=== PATIENT | female | born 1945 | race Caucasian/White ===

== ENCOUNTER → 2017-02-08 | Outpatient (CLI) | payer MEDICARE, BC ==
[~2017-02-08] MED LIST: DENOSUMAB 60 MG/ML 1 ML SYRINGE SQ ONE
[2017-02-08 09:05] VITALS: BP 160/69; PULSE 80; RESP 16; TEMP 97.6
== END ==
LOC: PROCWHC3 08:56
PROVIDERS: ATTEND Physician Assistant
DX: M81.0 Age-related osteoporosis without current pathological fracture (principal)
CPT/HCPCS: 96372; J0897

== ENCOUNTER → 2017-03-23 | Outpatient (CLI) | payer MEDICARE, BC ==
--- NOTE | 2017-03-26 13:54 | MM ---
Reason for exam: screening (asymptomatic). Last mammogram was performed 1 year and 1 month ago. History: Patient is postmenopausal. Took estrogen for 1 year. Physical Findings: A clinical breast exam by your physician is recommended on an annual basis and results should be correlated with mammographic findings. MG 3D Screening Mammo W/Cad Bilateral CC and MLO view(s) were taken. Prior study comparison: February 23, 2016, bilateral MG screening mammo w CAD. February 17, 2015, bilateral MG screening mammo w CAD. The breast tissue is heterogeneously dense. This may lower the sensitivity of mammography. No suspicious findings. No significant changes when compared with prior studies. ASSESSMENT: Negative, BI-RAD 1 RECOMMENDATION: Routine screening mammogram of both breasts in 1 year.
== END | disposition home or self-care (01) ==
LOC: RADMAMWWP 07:47
PROVIDERS: ATTEND Family Medicine
DX: Z12.31 Encounter for screening mammogram for malignant neoplasm of breast (principal)
CPT/HCPCS: 77063; G0202

== ENCOUNTER 2017-05-05 23:30 | Emergency (ER) | payer MEDICARE, BC ==
[2017-05-06] MEDS ORDERED: DIAZEPAM 5 MG/ML 2 ML SYRINGE IM ONE (00:11)
[2017-05-06] MEDS ORDERED: KETOROLAC 60 MG/2 ML VIAL IM STA (00:11)
[2017-05-06] MEDS ORDERED: ORPHENADRINE 30 MG/ML 2 ML VIAL IM STA (00:21)
--- NOTE | 2017-05-06 00:37 | CT ---
EXAM: CT Cervical Spine Without Intravenous Contrast CLINICAL HISTORY: Pain TECHNIQUE: Axial computed tomography images of the cervical spine without intravenous contrast. CTDI is 13.5 mGy and DLP is 268 mGy-cm. This CT exam was performed using one or more of the following dose reduction techniques: automated exposure control, adjustment of the mA and/or kV according to patient size, and/or use of iterative reconstruction technique. COMPARISON: No relevant prior studies available. FINDINGS: Vertebrae: No acute fracture or traumatic malalignment. Discs/spinal canal/neural foramina: Multilevel degenerative changes most pronounced at C4-5 and C5-6 there is moderate bilateral neural foraminal stenosis. Soft tissues: Unremarkable. Lung apices: Centrilobular emphysema is noted. IMPRESSION: No acute findings.
--- NOTE | 2017-05-06 01:10 | ED ---
Extremity Problem HPI - General Chief complaint: Extremity Problem,Nontraumatic Stated complaint: Arm Pain Time Seen by Provider: 05/05/17 23:51 Source: patient Mode of arrival: ambulatory Limitations: no limitations - History of Present Illness Initial comments: 71-year-old female patient presents to emergency department today for evaluation of right arm pain. Patient states the pain started approximately 4 days ago. States it is constant and sharp. She states that it shoots down her right arm. States that the pain feels like it starts in her shoulder and radiates down however shows have some right-sided neck discomfort as well. She denies any increase in pain with movement or palpation. She states that she does have some swelling in the right hand. She denies any injury to the arm, strenuous activity, or change in activity. She denies any numbness or tingling to the arm or hand. She states that she has had neck issues in the distant past however that was completely different from what she is experiencing now. Patient denies any recent fever, chills, shortness breath, chest pain, palpitations, abdominal pain, nausea, vomiting, diarrhea, constipation, back pain, numbness, tingling, dizziness, weakness, hematuria, dysuria, urinary urgency, urinary frequency, headache, visual changes, or any other complaints. Her only past medical history is osteoporosis and hyperlipidemia. - Related Data Home Medications Medication Instructions Recorded Confirmed Calcium Carbonate/Vitamin D3 1 tab PO TID 06/08/14 08/10/16 [Calcium 600-Vit D3 400 Tablet] Denosumab [Prolia] 60 mg SQ Q180D 08/03/15 08/10/16 Previous Rx's Medication Instructions Recorded Cyclobenzaprine [Flexeril] 10 mg PO TID #15 tab 05/06/17 Hydrocodone/Acetaminophen [[place] 1 tab PO Q6HR PRN #15 tab 05/06/17 5-325] Ibuprofen [Motrin] 600 mg PO Q8HR PRN #30 tab 05/06/17 Allergies Allergy/AdvReac Type Severity Reaction Status Date / Time Penicillins Allergy Swelling Verified 05/05/17 23:44 codeine AdvReac Nausea Verified 05/05/17 23:44 any cholesterol medications Allergy Itching Uncoded 05/05/17 23:44 Review of Systems ROS Statement: Those systems with pertinent positive or pertinent negative responses have been documented in the HPI. ROS Other: All systems not noted in ROS Statement are negative. Past Medical History Past Medical History: Hyperlipidemia Additional Past Medical History / Comment(s): skin cancer, osteoporosis History of Any Multi-Drug Resistant Organisms: None Reported Past Surgical History: Adenoidectomy, Appendectomy, Hysterectomy, Tonsillectomy Additional Past Surgical History / Comment(s): cataracts Past Anesthesia/Blood Transfusion Reactions: No Reported Reaction, Family History of Problems w/ Anesthesia Additional Past Anesthesia/Blood Transfusion Reaction / Comment(s): CHILDREN= PONV Past Psychological History: No Psychological Hx Reported Smoking Status: Current every day smoker - Past Family History Daughter(s) Family Medical History: Cancer General Exam Limitations: no limitations General appearance: alert, in no apparent distress Eye exam: Present: normal appearance, PERRL, EOMI. Absent: scleral icterus, conjunctival injection, periorbital swelling ENT exam: Present: normal exam, normal oropharynx, mucous membranes moist Neck exam: Present: normal inspection, other (Tenderness over the right upper trapezius muscle.). Absent: tenderness, meningismus, lymphadenopathy Respiratory exam: Present: normal lung sounds bilaterally. Absent: respiratory distress, wheezes, rales, rhonchi, stridor Cardiovascular Exam: Present: regular rate, normal rhythm, normal heart sounds. Absent: systolic murmur, diastolic murmur, rubs, gallop, clicks GI/Abdominal exam: Present: soft, normal bowel sounds. Absent: distended, tenderness, guarding, rebound, rigid Extremities exam: Present: normal inspection, full ROM, normal capillary refill , other (Skin is pink, warm, and dry. Strength to bilateral upper extremities is 5 out of 5. Full range of motion without increase in pain or limitation. Cap refills less than 3 seconds. No evidence of rash, joint swelling, erythema. ). Absent: tenderness, pedal edema, joint swelling, calf tenderness Back exam: Present: normal inspection, full ROM Neurological exam: Present: alert, oriented X3, CN II-XII intact Psychiatric exam: Present: normal affect, normal mood Skin exam: Present: warm, dry, intact, normal color. Absent: rash Course Vital Signs 05/05/17 05/06/17 23:40 01:39 Temperature 97 F L 98.0 F Pulse Rate 82 65 Respiratory 16 18 Rate Blood Pressure 194/88 178/81 O2 Sat by Pulse 98 96 Oximetry Medical Decision Making - Medical Decision Making 71-year-old female patient possessed to emergency department today for evaluation of right arm pain. Patient did not have any injury to the arm. CT of the neck was obtained and did show some degenerative changes most pronounced at C4 to 5 and 5-6 with a bilateral neural foraminal stenosis. Patient did have some improvement of symptoms with administration of Toradol and Norflex intramuscularly. She will be discharged home with a prescription of [place], ibuprofen, and Flexeril. She is instructed to follow-up with her primary care physician for recheck in 1-2 days. She is instructed to return here immediately for any increase in swelling, redness, fever, chills, new, worsening , or concerning symptoms. Patient verbalizes understanding and agrees with this plan. - Radiology Data Radiology results: report reviewed, image reviewed CT of the cervical spine shows no acute fracture or traumatic malalignment. Disks and spinal canal and neural foramina show multilevel degenerative changes most pronounced at C4 to 5 and C5 to 6 there is moderate bilateral neural foraminal stenosis. Soft tissues are unremarkable. Lung apices shows centrilobular emphysema. Impression by Dr. Packer shows no acute findings. Disposition Clinical Impression: Cervical radiculopathy Disposition: HOME SELF-CARE Condition: Good Instructions: Cervical Radiculopathy (ED) Additional Instructions: Gentle range of motion. Take pain medications as directed. Follow-up for reevaluation with her primary care physician one to 2 days. Return here immediately for any new, worsening, or concerning symptoms. Prescriptions: Cyclobenzaprine [Flexeril] 10 mg PO TID #15 tab Hydrocodone/Acetaminophen [[place] 5-325] 1 tab PO Q6HR PRN #15 tab PRN Reason: Pain Ibuprofen [Motrin] 600 mg PO Q8HR PRN #30 tab PRN Reason: Pain Referrals: Agustín Farnsworth MD [Primary Care Provider] - 1-2 days Time of Disposition: 01:11
[2017-05-06] MEDS ORDERED: traMADol 50 MG STARTER PACK 3 TAB BTL PO STA (01:13)
[2017-05-06] MEDS ORDERED: HYDROcodone/APAP 5-325MG 1 EACH TAB PO STA (01:28)
[2017-05-06 01:40] VITALS: BP 178/81; PULSE 65; RESP 18; TEMP 98
== END 2017-05-06 01:40 | disposition home or self-care (01) ==
LOC: EC 23:30
DX: M47.22 Other spondylosis with radiculopathy, cervical region (principal); M48.02 Spinal stenosis, cervical region; M81.0 Age-related osteoporosis without current pathological fracture; F17.200 Nicotine dependence, unspecified, uncomplicated; Z85.828 Personal history of other malignant neoplasm of skin; Z88.0 Allergy status to penicillin; Z88.5 Allergy status to narcotic agent; Z88.8 Allergy status to other drugs, medicaments and biological substances; Z79.899 Other long term (current) drug therapy
CPT/HCPCS: 99284; 96372 ×2; 72125; J2360; J1885

== ENCOUNTER 2017-05-24 18:42 | Inpatient (IN) | payer MEDICARE, BC ==
[2017-05-24] MEDS ORDERED: SODIUM CHLORIDE 0.9% 500 ML IV STA (19:02)
[2017-05-24] MEDS ORDERED: ONDANSETRON 4 MG/2 ML VIAL IVP STA (19:02)
[2017-05-24] MEDS ORDERED: SODIUM CHLORIDE 0.9% 1,000 ML IV STA (19:02)
[2017-05-24] MEDS ORDERED: MORPHINE SULFATE 4 MG/ML SYRINGE IV STA (19:02)
[2017-05-24] MEDS ORDERED: RX INFO: IV CONTRAST WAS GIVEN 1 EACH MISC MISCELLANE PRN (19:02)
--- NOTE | 2017-05-24 19:15 | ED ---
General Adult HPI - General Chief complaint: Abdominal Pain Stated complaint: Abd Pain Time Seen by Provider: 05/24/17 18:53 Source: patient, RN notes reviewed, old records reviewed Mode of arrival: ambulatory Limitations: no limitations - History of Present Illness Initial comments: This is a 72-year-old female to the ER for vaginal bowel pain. 3 days of increasing crampy abdominal pain and today severe. Positive nausea no vomiting positive diarrhea. No fevers. Patient has no history of AAA. No recent change in medications, patient has not tried any pain medications at home. Pain is not worse with eating. No blood in stool. No family members with similar symptoms. - Related Data Home Medications Medication Instructions Recorded Confirmed Calcium Carbonate/Vitamin D3 1 tab PO TID 06/08/14 05/24/17 [Calcium 600-Vit D3 400 Tablet] Denosumab [Prolia] 60 mg SQ Q180D 08/03/15 05/24/17 Previous Rx's Medication Instructions Recorded Ciprofloxacin HCl [Cipro] 500 mg PO Q12HR #14 tablet 05/25/17 metroNIDAZOLE [Flagyl] 500 mg PO TID #21 tab 05/25/17 Allergies Allergy/AdvReac Type Severity Reaction Status Date / Time codeine Allergy Rash/Hives Verified 05/24/17 19:01 Penicillins Allergy Rash/Hives Verified 05/24/17 19:01 any cholesterol medications Allergy Itching Uncoded 05/24/17 18:47 Review of Systems ROS Statement: Those systems with pertinent positive or pertinent negative responses have been documented in the HPI. ROS Other: All systems not noted in ROS Statement are negative. Past Medical History Past Medical History: No Reported History, Hyperlipidemia Additional Past Medical History / Comment(s): skin cancer, osteoporosis History of Any Multi-Drug Resistant Organisms: None Reported Past Surgical History: Adenoidectomy, Appendectomy, Hysterectomy, Tonsillectomy Additional Past Surgical History / Comment(s): cataracts Past Anesthesia/Blood Transfusion Reactions: No Reported Reaction, Family History of Problems w/ Anesthesia Additional Past Anesthesia/Blood Transfusion Reaction / Comment(s): CHILDREN= PONV Past Psychological History: No Psychological Hx Reported Smoking Status: Current every day smoker Past Alcohol Use History: None Reported Past Drug Use History: None Reported - Past Family History Daughter(s) Family Medical History: Cancer General Exam Limitations: no limitations General appearance: alert, in no apparent distress, anxious Head exam: Present: atraumatic, normocephalic, normal inspection Eye exam: Present: normal appearance, PERRL, EOMI. Absent: scleral icterus, conjunctival injection, periorbital swelling ENT exam: Present: normal exam, mucous membranes moist Neck exam: Present: normal inspection. Absent: tenderness, meningismus, lymphadenopathy Respiratory exam: Present: normal lung sounds bilaterally. Absent: respiratory distress, wheezes, rales, rhonchi, stridor Cardiovascular Exam: Present: normal rhythm, tachycardia, normal heart sounds. Absent: systolic murmur, diastolic murmur, rubs, gallop, clicks GI/Abdominal exam: Present: soft, distended, tenderness, guarding, normal bowel sounds. Absent: rebound, rigid Extremities exam: Present: normal inspection, full ROM, normal capillary refill. Absent: tenderness, pedal edema, joint swelling, calf tenderness Back exam: Present: normal inspection Neurological exam: Present: alert, oriented X3, CN II-XII intact Psychiatric exam: Present: normal affect, normal mood Skin exam: Present: warm, dry, intact, normal color. Absent: rash Course Vital Signs 05/24/17 05/24/17 05/24/17 18:44 19:32 20:21 Temperature 97.8 F 98.5 F Pulse Rate 116 H 97 85 Respiratory 18 18 16 Rate Blood Pressure 187/82 159/79 158/71 O2 Sat by Pulse 98 97 95 Oximetry 05/24/17 05/24/17 05/24/17 21:13 21:39 23:04 Temperature 98.9 F Pulse Rate 90 83 85 Respiratory 18 18 18 Rate Blood Pressure 148/78 133/61 153/70 O2 Sat by Pulse 98 96 96 Oximetry - Reevaluation(s) Reevaluation #1: Able to achieve adequate pain control Patient is not excited about staying in the hospital Counseled the family regarding patient's findings, agree on admission and treatment plan Medical Decision Making - Medical Decision Making 72 female the ER for bowel pain severe bowel pain with nausea no vomiting diarrhea. Patient has no prior history of colonoscopy, CT positive for diverticulitis, will treat with IV antibiotics and by mouth and IV fluid - Lab Data Result diagrams: 05/24/17 19:10 05/24/17 19:10 Lab Results 05/24/17 05/24/17 05/24/17 Range/Units 17:09 17:09 17:09 WBC (3.8-10.6) k/uL RBC (3.80-5.40) m/uL Hgb (11.4-16.0) gm/dL Hct (34.0-46.0) % MCV (80.0-100.0) fL MCH (25.0-35.0) pg MCHC (31.0-37.0) g/dL RDW (11.5-15.5) % Plt Count (150-450) k/uL Neutrophils % % Lymphocytes % % Monocytes % % Eosinophils % % Basophils % % Neutrophils # (1.3-7.7) k/uL Lymphocytes # (1.0-4.8) k/uL Monocytes # (0-1.0) k/uL Eosinophils # (0-0.7) k/uL Basophils # (0-0.2) k/uL PT 10.2 (9.0-12.0) sec INR 1.0 (<1.2) APTT 25.7 (22.0-30.0) sec Sodium (137-145) mmol/L Potassium (3.5-5.1) mmol/L Chloride (98-107) mmol/L Carbon Dioxide (22-30) mmol/L Anion Gap mmol/L BUN (7-17) mg/dL Creatinine (0.52-1.04) mg/dL Est GFR (MDRD) Af Amer (>60 ml/min/1.73 sqM) Est GFR (MDRD) Non-Af (>60 ml/min/1.73 sqM) Glucose (74-99) mg/dL Lactic Ac Sepsis Rflx Plasma Lactic Acid Martir (0.7-2.0) mmol/L Calcium (8.4-10.2) mg/dL Total Bilirubin (0.2-1.3) mg/dL AST (14-36) U/L ALT (9-52) U/L Alkaline Phosphatase (38-126) U/L Total Creatine Kinase 76 (30-135) U/L CK-MB (CK-2) 0.6 (0.0-2.4) ng/mL CK-MB (CK-2) Rel Index 0.8 Total Protein (6.3-8.2) g/dL Albumin (3.5-5.0) g/dL Amylase (30-110) U/L Lipase (23-300) U/L Urine Color Urine Appearance (Clear) Urine pH (5.0-8.0) Ur Specific [place] (1.001-1.035) Urine Protein (Negative) Urine Glucose (UA) (Negative) Urine Ketones (Negative) Urine Blood (Negative) Urine Nitrite (Negative) Urine Bilirubin (Negative) Urine Urobilinogen (<2.0) mg/dL Ur Leukocyte Esterase (Negative) Urine RBC (0-5) /hpf Urine WBC (0-5) /hpf Ur Squamous Epith Cells (0-4) /hpf Urine Bacteria (None) /hpf Urine Mucus (None) /hpf Blood Type O Negative Blood Type Recheck No Antibody Screen NEGATIVE Spec Expiration Date 05/27/2017230805/24/17 05/24/17 05/24/17 Range/Units 17:09 19:10 19:10 WBC 16.5 H (3.8-10.6) k/uL RBC 4.62 (3.80-5.40) m/uL Hgb 14.6 (11.4-16.0) gm/dL Hct 44.2 (34.0-46.0) % MCV 95.6 (80.0-100.0) fL MCH 31.6 (25.0-35.0) pg MCHC 33.1 (31.0-37.0) g/dL RDW 14.3 (11.5-15.5) % Plt Count 242 (150-450) k/uL Neutrophils % 86 % Lymphocytes % 7 % Monocytes % 5 % Eosinophils % 1 % Basophils % 0 % Neutrophils # 14.2 H (1.3-7.7) k/uL Lymphocytes # 1.2 (1.0-4.8) k/uL Monocytes # 0.9 (0-1.0) k/uL Eosinophils # 0.2 (0-0.7) k/uL Basophils # 0.1 (0-0.2) k/uL PT (9.0-12.0) sec INR (<1.2) APTT (22.0-30.0) sec Sodium 136 L (137-145) mmol/L Potassium 4.1 (3.5-5.1) mmol/L Chloride 101 (98-107) mmol/L Carbon Dioxide 23 (22-30) mmol/L Anion Gap 12 mmol/L BUN 13 (7-17) mg/dL Creatinine 0.90 (0.52-1.04) mg/dL Est GFR (MDRD) Af Amer >60 (>60 ml/min/1.73 sqM) Est GFR (MDRD) Non-Af >60 (>60 ml/min/1.73 sqM) Glucose 184 H (74-99) mg/dL Lactic Ac Sepsis Rflx Plasma Lactic Acid Martir (0.7-2.0) mmol/L Calcium 10.0 (8.4-10.2) mg/dL Total Bilirubin 1.0 (0.2-1.3) mg/dL AST 22 (14-36) U/L ALT 22 (9-52) U/L Alkaline Phosphatase 52 (38-126) U/L Total Creatine Kinase (30-135) U/L CK-MB (CK-2) (0.0-2.4) ng/mL CK-MB (CK-2) Rel Index Total Protein 6.7 (6.3-8.2) g/dL Albumin 4.2 (3.5-5.0) g/dL Amylase 67 (30-110) U/L Lipase 83 (23-300) U/L Urine Color Yellow Urine Appearance Clear (Clear) Urine pH 5.5 (5.0-8.0) Ur Specific [place] 1.013 (1.001-1.035) Urine Protein Trace H (Negative) Urine Glucose (UA) 3+ H (Negative) Urine Ketones Negative (Negative) Urine Blood Moderate H (Negative) Urine Nitrite Negative (Negative) Urine Bilirubin Negative (Negative) Urine Urobilinogen <2.0 (<2.0) mg/dL Ur Leukocyte Esterase Large H (Negative) Urine RBC 1 (0-5) /hpf Urine WBC 12 H (0-5) /hpf Ur Squamous Epith Cells <1 (0-4) /hpf Urine Bacteria Occasional H (None) /hpf Urine Mucus Rare H (None) /hpf Blood Type Blood Type Recheck Antibody Screen Spec Expiration Date 05/24/17 05/24/17 Range/Units 19:10 20:03 WBC (3.8-10.6) k/uL RBC (3.80-5.40) m/uL Hgb (11.4-16.0) gm/dL Hct (34.0-46.0) % MCV (80.0-100.0) fL MCH (25.0-35.0) pg MCHC (31.0-37.0) g/dL RDW (11.5-15.5) % Plt Count (150-450) k/uL Neutrophils % % Lymphocytes % % Monocytes % % Eosinophils % % Basophils % % Neutrophils # (1.3-7.7) k/uL Lymphocytes # (1.0-4.8) k/uL Monocytes # (0-1.0) k/uL Eosinophils # (0-0.7) k/uL Basophils # (0-0.2) k/uL PT (9.0-12.0) sec INR (<1.2) APTT (22.0-30.0) sec Sodium (137-145) mmol/L Potassium (3.5-5.1) mmol/L Chloride (98-107) mmol/L Carbon Dioxide (22-30) mmol/L Anion Gap mmol/L BUN (7-17) mg/dL Creatinine (0.52-1.04) mg/dL Est GFR (MDRD) Af Amer (>60 ml/min/1.73 sqM) Est GFR (MDRD) Non-Af (>60 ml/min/1.73 sqM) Glucose (74-99) mg/dL Lactic Ac Sepsis Rflx Y Plasma Lactic Acid Martir 2.1 H* (0.7-2.0) mmol/L Calcium (8.4-10.2) mg/dL Total Bilirubin (0.2-1.3) mg/dL AST (14-36) U/L ALT (9-52) U/L Alkaline Phosphatase (38-126) U/L Total Creatine Kinase (30-135) U/L CK-MB (CK-2) (0.0-2.4) ng/mL CK-MB (CK-2) Rel Index Total Protein (6.3-8.2) g/dL Albumin (3.5-5.0) g/dL Amylase (30-110) U/L Lipase (23-300) U/L Urine Color Urine Appearance (Clear) Urine pH (5.0-8.0) Ur Specific [place] (1.001-1.035) Urine Protein (Negative) Urine Glucose (UA) (Negative) Urine Ketones (Negative) Urine Blood (Negative) Urine Nitrite (Negative) Urine Bilirubin (Negative) Urine Urobilinogen (<2.0) mg/dL Ur Leukocyte Esterase (Negative) Urine RBC (0-5) /hpf Urine WBC (0-5) /hpf Ur Squamous Epith Cells (0-4) /hpf Urine Bacteria (None) /hpf Urine Mucus (None) /hpf Blood Type Blood Type Recheck Antibody Screen Spec Expiration Date - Radiology Data Radiology results: report reviewed (CT abdomen and pelvis is positive for diverticulitis), image reviewed Disposition Clinical Impression: Acute diverticulitis Disposition: ADMITTED IP TO THIS [facility] Condition: Good
[2017-05-24 19:47] LABS: Basophils # (A) 0.1 k/uL (0-0.2); Basophils % (A) 0 %; CH 32.3; CHCM 33.9; Eosinophils # (A) 0.2 k/uL (0-0.7); Eosinophils % (A) 1 %; HCT 44.2 % (34.0-46.0); HDW 2.24; HGB 14.6 gm/dL (11.4-16.0); Luc % (Auto) 1; Lymphocytes # (A) 1.2 k/uL (1.0-4.8); Lymphocytes % (A) 7 %; MCH 31.6 pg (25.0-35.0); MCHC 33.1 g/dL (31.0-37.0); MCV 95.6 fL (80.0-100.0); Mean Platelet Volume 7.4; Monocytes # (A) 0.9 k/uL (0-1.0); Monocytes % (A) 5 %; Neutrophils # (A) 14.2 k/uL (1.3-7.7); Neutrophils % (A) 86 %; RBC 4.62 m/uL (3.80-5.40); RDW 14.3 % (11.5-15.5); WBC 16.5 k/uL (3.8-10.6); WBC (Perox) 16.93
[2017-05-24 19:50] LABS: Appearance,Urine Clear (Clear); Bacteria,Urine Occasional /hpf; Bilirubin,Urine Negative (Negative); Glucose,Urine (UA) 3+ (Negative); Ketones,Urine Negative (Negative); Leukocyte Esterase,Urine Large (Negative); Mucus,Urine Rare /hpf; Nitrite,Urine Negative (Negative); PH, Urine 5.5 (5.0-8.0); Particle Count 1943; Protein,Urine Trace (Negative); RBC,Urine 1 /hpf (0-5); Specific Gravity,Urine 1.013 (1.001-1.035); Squamous Epithelial Cell,Urine <1 /hpf (0-4); UA Billing (MACRO vs. MICRO) MICRO; Urobilinogen,Urine <2.0 mg/dL (<2.0); WBC,Urine 12 /hpf (0-5)
[2017-05-24 19:57] LABS: Partial Thromboplastin Time 25.7 sec (22.0-30.0); Prothrombin Time 10.2 sec (9.0-12.0)
[2017-05-24 19:57] LABS: ALT 22 U/L (9-52); AST 22 U/L (14-36); Alkaline Phosphatase 52 U/L (38-126); Amylase 67 U/L (30-110); Anion Gap 12 mmol/L; Blood Urea Nitrogen 13 mg/dL (7-17); Carbon Dioxide 23 mmol/L (22-30); Chloride 101 mmol/L (98-107); Glucose 184 mg/dL (74-99); Non-African American GFR(MDRD) >60 (>60 ml/min/1.73 sqM); Potassium 4.1 mmol/L (3.5-5.1); Sodium 136 mmol/L (137-145); Total Protein 6.7 g/dL (6.3-8.2)
[2017-05-24 20:17] LABS: Creatine Kinase MB 0.6 ng/mL (0.0-2.4)
[2017-05-24] MEDS ORDERED: ACETAMINOPHEN IV (For NPO) 1,000 MG in EMPTY BAG 1 BAG IVPB STA (21:16)
[2017-05-24] MEDS ORDERED: MORPHINE SULFATE 4 MG/ML SYRINGE IVP STA (21:20)
--- NOTE | 2017-05-24 21:50 | CT ---
EXAM: CT Angiography Abdomen and Pelvis Without and With Intravenous Contrast CLINICAL HISTORY: Severe abdominal pain with history of AAA. TECHNIQUE: Axial computed tomographic angiography images of the abdomen and pelvis without and with intravenous contrast. DLP is 405.4 mGy-cm. This CT exam was performed using one or more of the following dose reduction techniques: automated exposure control, adjustment of the mA and/or kV according to patient size, and/or use of iterative reconstruction technique. 3D and MIP reconstructed images were created and reviewed. Coronal and sagittal reformatted images were created and reviewed. COMPARISON: No relevant prior studies available. FINDINGS: Lower thorax: No acute findings. VASCULATURE: Aorta: There is an infrarenal abdominal aortic aneurysm measuring up to 4.8 cm in diameter (series 6 image 29) and spanning approximately 5.7 cm SI. Mural thrombus is present. No evidence of active extravasation or definite retroperitoneal hemorrhage. Multifocal atherosclerotic disease is present. There is no significant stenosis of the celiac axis or superior mesenteric artery. No dissection. Celiac trunk and mesenteric arteries: The origin of the inferior mesenteric artery is not well seen. However, the vessel opacifies normally with contrast distally. No occlusion or significant stenosis. Renal arteries: No acute findings. No occlusion or significant stenosis. Iliac arteries: Persistent opacification of the common, external and internal iliac arteries. No occlusion or significant stenosis. Other arteries: Persistent opacification of the common femoral and proximal femoral/profunda arteries. ABDOMEN: Liver: Small hepatic hypodensities, most likely cysts. Gallbladder and bile ducts: Cholecystectomy. Pancreas: Several scattered pancreatic calcifications are compatible with chronic pancreatitis. There are 3 hypodense lesions in the region of the pancreatic body adjacent to the left hepatic lobe. The largest lesion measures 1.6 cm x 1.2 x 2 cm. These are incompletely characterized on this study. Spleen: Unremarkable. No splenomegaly. Adrenals: Unremarkable. Kidneys and ureters: Unremarkable. No hydronephrosis. Stomach and bowel: No evidence of bowel obstruction. There is extensive colonic diverticulosis at the rectosigmoid. Superimposed inflammatory changes suggest acute or ongoing diverticulitis. Appendix: Not identified. PELVIS: Bladder: Minimally distended. Reproductive: The uterus is not visualized. ABDOMEN and PELVIS: Intraperitoneal space: No significant free fluid, free air or abscess. Bones/joints: Degenerative disc changes, most pronounced at L1-2 and L2-3. There is 6 mm retrolisthesis of L2 on L3 and 3 mm retrolisthesis of L3 on L4. No acute fracture. Soft tissues: Unremarkable. IMPRESSION: 1. There is extensive rectosigmoid diverticulosis. Superimposed inflammatory changes suggest acute or ongoing diverticulitis. No significant free fluid, free air or abscess. 2. There is an infrarenal abdominal aortic aneurysm measuring up to 4.8 cm in diameter and spanning approximately 5.7 cm SI. No evidence of active extravasation or definite retroperitoneal hemorrhage. No prior exam is available to evaluate for potential interval increase of size. Comparison with prior imaging is recommended. Consider surgical consultation. 3. Findings compatible with chronic pancreatitis. No acute inflammatory changes or drainable fluid collection. 4. There are 3 hypodense lesions in the region of the pancreatic body adjacent to the left hepatic lobe. The largest lesion measures 1.6 cm x 1.2 x 2 cm. There are incompletely characterized on this study. Consider nonemergent follow-up with pancreatic protocol CT or MRI, if not already obtained. 5. Additional chronic and incidental findings as above.
[2017-05-24] MEDS ORDERED: SODIUM CHLORIDE 0.9% 1,000 ML IV ONE (22:00)
[2017-05-24] MEDS ORDERED: MORPHINE SULFATE 4 MG/ML SYRINGE IVP PRN (22:01)
[2017-05-24] MEDS: LEVOFLOXACIN 750MG-D5W PMX 750 MG in DEXTROSE/WATER 1 150ML.BAG IVPB STA (22:05)
[2017-05-25 00:18] VITALS: BMI 18.5
[2017-05-25] MEDS: LEVOFLOXACIN 750MG-D5W PMX 750 MG in DEXTROSE/WATER 1 150ML.BAG IVPB STA (00:27)
[2017-05-25] MEDS: ONDANSETRON 4 MG/2 ML VIAL IVP PRN ×3 (05:13→21:15)
[2017-05-25] MEDS: PANTOPRAZOLE 40 MG/10 ML VIAL IVP SCH (08:57)
[2017-05-25] MEDS: metroNIDAZOLE 500 MG TAB PO SCH ×2 (14:50→21:10)
--- NOTE | 2017-05-25 14:50 | P.HPIM ---
History of Present Illness 72-year-old female came in with complains of sharp pain in the left lower quadrant found to have diverticulitis on the CAT scan. Patient pain was severe yesterday with significant improved but still nauseous because of which I recommended to her to stay today patient was started on clear liquid diet. Patient wanted to go home. If patient is being discharged will be discharged on a week cough ciprofloxacin and metronidazole. Patient does have history of abdominal aortic aneurysm which is fairly stable now without any rupture. Patient pain significant improved compared test although she is still nauseous as mentioned above she denied any fever denied any vomiting today. Review of Systems REVIEW OF SYSTEMS: CONSTITUTIONAL: No fever, no malaise, no fatigue. HEENT: No recent visual problems or hearing problems. Denied any sore throat. CARDIOVASCULAR: No chest pain, orthopnea, PND, no palpitations, no syncope. PULMONARY: No shortness of breath, no cough, no hemoptysis. GASTROINTESTINAL: As mentioned in HPI NEUROLOGICAL: No headaches, no weakness, no numbness. HEMATOLOGICAL: Denies any bleeding or petechiae. GENITOURINARY: Denies any burning micturition, frequency, or urgency. MUSCULOSKELETAL/RHEUMATOLOGICAL: Denies any joint pain, swelling, or any muscle pain. ENDOCRINE: Denies any polyuria or polydipsia. The rest of the 14-point review of systems is negative. Past Medical History Past Medical History: Cancer, COPD, Hyperlipidemia, Osteoarthritis (OA), Pneumonia Additional Past Medical History / Comment(s): skin cancer, osteoporosis History of Any Multi-Drug Resistant Organisms: None Reported Past Surgical History: Adenoidectomy, Appendectomy, Cholecystectomy, Hysterectomy, Tonsillectomy Additional Past Surgical History / Comment(s): cataracts Past Anesthesia/Blood Transfusion Reactions: No Reported Reaction, Family History of Problems w/ Anesthesia Additional Past Anesthesia/Blood Transfusion Reaction / Comment(s): CHILDREN= PONV Past Psychological History: No Psychological Hx Reported Smoking Status: Current every day smoker Past Alcohol Use History: None Reported Additional Past Alcohol Use History / Comment(s): SMOKES < 1PPD. SMOKING SINCE SHE WAS 20 YEARS OLD. Past Drug Use History: None Reported - Past Family History Daughter(s) Family Medical History: Cancer Medications and Allergies Home Medications Medication Instructions Recorded Confirmed Type Calcium Carbonate/Vitamin D3 1 tab PO TID 06/08/14 05/24/17 History [Calcium 600-Vit D3 400 Tablet] Denosumab [Prolia] 60 mg SQ Q180D 08/03/15 05/24/17 History Ciprofloxacin HCl [Cipro] 500 mg PO Q12HR #14 tablet 05/25/17 Rx metroNIDAZOLE [Flagyl] 500 mg PO TID #21 tab 05/25/17 Rx Allergies Allergy/AdvReac Type Severity Reaction Status Date / Time codeine Allergy Rash/Hives Verified 05/24/17 19:01 Penicillins Allergy Rash/Hives Verified 05/24/17 19:01 any cholesterol medications Allergy Itching Uncoded 05/24/17 18:47 Physical Exam Vitals: Vital Signs Temp Pulse Pulse Pulse Resp BP BP 05/25/17 07:00 96.1 F L 81 18 136/95 05/25/17 00:25 18 05/24/17 23:50 99.1 F 86 18 138/65 05/24/17 23:04 98.9 F 85 18 153/70 05/24/17 21:39 83 18 133/61 05/24/17 21:13 90 18 148/78 05/24/17 20:21 85 16 158/71 05/24/17 19:32 98.5 F 97 18 159/79 05/24/17 18:44 97.8 F 116 H 18 187/82 Pulse Ox 05/25/17 07:00 90 L 05/25/17 00:25 05/24/17 23:50 92 L 05/24/17 23:04 96 05/24/17 21:39 96 05/24/17 21:13 98 05/24/17 20:21 95 05/24/17 19:32 97 05/24/17 18:44 98 Intake and Output 05/24/17 05/25/17 05/25/17 22:59 06:59 14:59 Other: Voiding Method Toilet # Emeses 1 1 Weight 43.545 kg 43 kg PHYSICAL EXAMINATION: GENERAL: The patient is alert and oriented x3, not in any acute distress. Well developed, well nourished. HEENT: Pupils are round and equally reacting to light. EOMI. No scleral icterus. No conjunctival pallor. Normocephalic, atraumatic. No pharyngeal erythema. No thyromegaly. CARDIOVASCULAR: S1 and S2 present. No murmurs, rubs, or gallops. PULMONARY: Chest is clear to auscultation, no wheezing or crackles. ABDOMEN: Soft signify left lower quadrant tenderness bowel sounds are present no rebound or rigidity. MUSCULOSKELETAL: No joint swelling or deformity. EXTREMITIES: No cyanosis, clubbing, or pedal edema. NEUROLOGICAL: Gross neurological examination did not reveal any focal deficits. SKIN: No rashes. Results CBC & Chem 7: 05/24/17 19:10 05/24/17 19:10 Labs: Abnormal Lab Results - Last 24 Hours (Table) 05/24/17 05/24/17 05/24/17 Range/Units 17:09 19:10 19:10 WBC 16.5 H (3.8-10.6) k/uL Neutrophils # 14.2 H (1.3-7.7) k/uL Sodium 136 L (137-145) mmol/L Glucose 184 H (74-99) mg/dL Plasma Lactic Acid Martir (0.7-2.0) mmol/L Urine Protein Trace H (Negative) Urine Glucose (UA) 3+ H (Negative) Urine Blood Moderate H (Negative) Ur Leukocyte Esterase Large H (Negative) Urine WBC 12 H (0-5) /hpf Urine Bacteria Occasional H (None) /hpf Urine Mucus Rare H (None) /hpf 05/24/17 Range/Units 19:10 WBC (3.8-10.6) k/uL Neutrophils # (1.3-7.7) k/uL Sodium (137-145) mmol/L Glucose (74-99) mg/dL Plasma Lactic Acid Martir 2.1 H* (0.7-2.0) mmol/L Urine Protein (Negative) Urine Glucose (UA) (Negative) Urine Blood (Negative) Ur Leukocyte Esterase (Negative) Urine WBC (0-5) /hpf Urine Bacteria (None) /hpf Urine Mucus (None) /hpf Microbiology - Last 24 Hours (Table) 05/24/17 17:09 Urine Culture - Preliminary Urine,Voided Thrombosis Risk Factor Assmnt - Choose All That Apply Any of the Below Risk Factors Present?: Yes Each Factor Represents 1 point: Abnormal pulmonary function (COPD) Other Risk Factors: Yes Each Risk Factor Represents 2 Points: Age 61-74 years Thrombosis Risk Factor Assessment Total Risk Factor Score: 3 Thrombosis Risk Factor Assessment Level: Moderate Risk Assessment and Plan Plan: #1 abdominal pain and sepsis was severe: Secondary to diverticulitis sigmoid diuretic colitis continue with antibiotics if patient wanted to be discharged will be discharged on a week of antibiotics. #2 lactic acidosis secondary to sepsis which improved now with IV fluid resuscitation. #3 incidental finding of a lesion in the pancreatic head area which has been stable from the previous exams patient was recommended to get a repeat CAT scan with pancreatic protocol in 3-6 months #4 COPD without any acute exacerbation #5 hyperlipidemia
--- NOTE | 2017-05-25 14:51 | P.DS ---
Providers Date of admission: 05/24/17 22:00 Attending physician: Darcy Graves Primary care physician: Agustín Farnsworth Hospital Course: Please refer to my HPI Patient Condition at Discharge: Good Plan - Discharge Summary New Discharge Prescriptions: New Ciprofloxacin HCl [Cipro] 500 mg PO Q12HR #14 tablet metroNIDAZOLE [Flagyl] 500 mg PO TID #21 tab No Action Calcium Carbonate/Vitamin D3 [Calcium 600-Vit D3 400 Tablet] 1 tab PO TID Denosumab [Prolia] 60 mg SQ Q180D Discharge Medication List Calcium Carbonate/Vitamin D3 [Calcium 600-Vit D3 400 Tablet] 1 tab PO TID [History] Denosumab [Prolia] 60 mg SQ Q180D 08/03/15 [History] Ciprofloxacin HCl [Cipro] 500 mg PO Q12HR #14 tablet 05/25/17 [Rx] metroNIDAZOLE [Flagyl] 500 mg PO TID #21 tab 05/25/17 [Rx] Follow up Appointment(s)/Referral(s): Agustín Farnsworth MD [Primary Care Provider] - 3 Days Discharge Disposition: HOME SELF-CARE
[2017-05-25] MEDS ORDERED: LEVOFLOXACIN 750MG-D5W PMX 750 MG in DEXTROSE/WATER 1 150ML.BAG IVPB SCH (23:00)
[2017-05-26 07:37] VITALS: BP 122/58; PULSE 81; RESP 16; TEMP 98.6
[2017-05-26] MEDS: metroNIDAZOLE 500 MG TAB PO SCH (09:23)
[2017-05-26] MEDS: PANTOPRAZOLE 40 MG/10 ML VIAL IVP SCH (09:23)
--- NOTE | 2017-05-26 12:15 | P.DS ---
Providers Date of admission: 05/24/17 22:00 Attending physician: Darcy Graves Primary care physician: Agustín Farnsworth Hospital Course: Patient was admitted for diverticulitis sigmoid diverticular colitis and patient is getting feeling much better today and patient will be discharged on ciprofloxacin and metronidazole for about a week. Nausea improved abdominal pain resolved PHYSICAL EXAMINATION: GENERAL: The patient is alert and oriented x3, not in any acute distress. Well developed, well nourished. HEENT: Pupils are round and equally reacting to light. EOMI. No scleral icterus. No conjunctival pallor. Normocephalic, atraumatic. No pharyngeal erythema. No thyromegaly. CARDIOVASCULAR: S1 and S2 present. No murmurs, rubs, or gallops. PULMONARY: Chest is clear to auscultation, no wheezing or crackles. ABDOMEN: Soft, nontender, nondistended, normoactive bowel sounds. No palpable organomegaly. MUSCULOSKELETAL: No joint swelling or deformity. EXTREMITIES: No cyanosis, clubbing, or pedal edema. NEUROLOGICAL: Gross neurological examination did not reveal any focal deficits. SKIN: No rashes. #1 abdominal pain and sepsis was severe: Secondary to diverticulitis sigmoid #2 lactic acidosis secondary to sepsis which improved now with IV fluid resuscitation. #3 incidental finding of a lesion in the pancreatic head area which has been stable from the previous exams patient was recommended to get a repeat CAT scan with pancreatic protocol in 3-6 months #4 COPD without any acute exacerbation #5 hyperlipidemia Patient Condition at Discharge: Good Plan - Discharge Summary New Discharge Prescriptions: New Ciprofloxacin HCl [Cipro] 500 mg PO Q12HR #14 tablet metroNIDAZOLE [Flagyl] 500 mg PO TID #21 tab No Action Calcium Carbonate/Vitamin D3 [Calcium 600-Vit D3 400 Tablet] 1 tab PO TID Denosumab [Prolia] 60 mg SQ Q180D Discharge Medication List Calcium Carbonate/Vitamin D3 [Calcium 600-Vit D3 400 Tablet] 1 tab PO TID [History] Denosumab [Prolia] 60 mg SQ Q180D 08/03/15 [History] Ciprofloxacin HCl [Cipro] 500 mg PO Q12HR #14 tablet 05/25/17 [Rx] metroNIDAZOLE [Flagyl] 500 mg PO TID #21 tab 05/25/17 [Rx] Follow up Appointment(s)/Referral(s): Agustín Farnsworth MD [Primary Care Provider] - 3 Days Discharge Disposition: HOME SELF-CARE
[2017-05-26] MEDS ORDERED: LEVOFLOXACIN 750MG-D5W PMX 750 MG in DEXTROSE/WATER 1 150ML.BAG IVPB SCH (21:00)
== END 2017-05-26 15:25 | disposition home or self-care (01) | DRG 872 ==
LOC: EC 18:42 → 4MS4W 22:00
PROVIDERS: ADMIT Hospitalist; ATTEND Hospitalist
DX: A41.9 Sepsis, unspecified organism (principal); K57.32 Diverticulitis of large intestine without perforation or abscess without bleeding; J44.9 Chronic obstructive pulmonary disease, unspecified; E78.5 Hyperlipidemia, unspecified; F17.200 Nicotine dependence, unspecified, uncomplicated; M81.0 Age-related osteoporosis without current pathological fracture; Z85.828 Personal history of other malignant neoplasm of skin; Z79.899 Other long term (current) drug therapy; Z88.5 Allergy status to narcotic agent; Z88.0 Allergy status to penicillin; Z88.8 Allergy status to other drugs, medicaments and biological substances
CPT/HCPCS: 36415; 74174; 80053; 81001; 82150; 82550; 82553; 83605; 83690; 85025; 85610; 85730; 86850; 86900; 86901; 87086; 96365; 96375; 96376; 99285

== ENCOUNTER → 2017-08-16 | Outpatient (CLI) | payer MEDICARE, BC ==
[2017-08-16 09:18] VITALS: BP 170/84; PULSE 74; RESP 16; TEMP 97.8
== END | disposition home or self-care (01) ==
LOC: PROCWHC3 09:03
PROVIDERS: ATTEND Physician Assistant
DX: M81.0 Age-related osteoporosis without current pathological fracture (principal)
CPT/HCPCS: 96372; J0897

== ENCOUNTER 2017-11-20 21:06 | Emergency (ER) | payer MEDICARE, BC ==
[2017-11-20 21:11] VITALS: RESP 18
[2017-11-20] MEDS ORDERED: SODIUM CHLORIDE 0.9% 1,000 ML IV STA (21:20)
[2017-11-20] MEDS ORDERED: ONDANSETRON 4 MG/2 ML VIAL IVP STA (21:20)
[2017-11-20] MEDS ORDERED: ACETAMINOPHEN TAB 325 MG TAB PO STA (21:22)
--- NOTE | 2017-11-20 21:27 | ED ---
General Adult HPI - General Chief complaint: Back Pain/Injury Stated complaint: back pain Time Seen by Provider: 11/20/17 21:16 Source: patient Mode of arrival: ambulatory Limitations: no limitations - History of Present Illness Initial comments: Patient presents with lower abdominal pain and left flank pain has been progressive over the past one week. States pain started with bilateral lower abdominal pain, however is now moved to left flank. Patient admits to urinary frequency, no hematuria. Denies vaginal bleeding or discharge, patient has hysterectomy. Patient states she had similar symptoms in the past when she was diagnosed with diverticulitis. Patient states no diarrhea or constipation, although she feels like she has had less bowel movements because she's been eating less. - Related Data Home Medications Medication Instructions Recorded Confirmed Calcium Carbonate/Vitamin D3 1 tab PO TID 06/08/14 11/20/17 [Calcium 600-Vit D3 400 Tablet] Previous Rx's Medication Instructions Recorded Acetaminophen Tab [Tylenol] 650 mg PO Q4H PRN #30 tablet 11/20/17 Ibuprofen [Motrin] 600 mg PO Q6HR PRN #20 tab 11/20/17 Moxifloxacin HCl [Avelox] 400 mg PO DAILY 10 Days #10 tablet 11/20/17 Allergies Allergy/AdvReac Type Severity Reaction Status Date / Time codeine Allergy Rash/Hives Verified 11/20/17 21:28 Penicillins Allergy Rash/Hives Verified 11/20/17 21:28 any cholesterol medications Allergy Itching Uncoded 11/20/17 21:09 Review of Systems ROS Statement: Those systems with pertinent positive or pertinent negative responses have been documented in the HPI. ROS Other: All systems not noted in ROS Statement are negative. Constitutional: Denies: fever, chills Eyes: Denies: vision change ENT: Denies: throat pain Respiratory: Denies: cough, dyspnea Cardiovascular: Denies: chest pain Endocrine: Denies: fatigue Gastrointestinal: Reports: abdominal pain. Denies: nausea, vomiting, diarrhea, constipation, hematemesis, melena, hematochezia Genitourinary: Reports: frequency. Denies: urgency, dysuria, hematuria, discharge Musculoskeletal: Reports: back pain Skin: Denies: rash Neurological: Denies: headache Past Medical History Past Medical History: No Reported History, Hyperlipidemia Additional Past Medical History / Comment(s): skin cancer, osteoporosis History of Any Multi-Drug Resistant Organisms: None Reported Past Surgical History: Adenoidectomy, Appendectomy, Hysterectomy, Tonsillectomy Additional Past Surgical History / Comment(s): cataracts Past Anesthesia/Blood Transfusion Reactions: No Reported Reaction, Family History of Problems w/ Anesthesia Additional Past Anesthesia/Blood Transfusion Reaction / Comment(s): CHILDREN= PONV Past Psychological History: No Psychological Hx Reported Smoking Status: Current every day smoker Past Alcohol Use History: None Reported Past Drug Use History: None Reported - Past Family History Daughter(s) Family Medical History: Cancer General Exam - General Exam Comments Initial Comments: Sitting up in bed. No acute distress. Conversing normally. Does not appear in pain at rest. Calm, pleasant. Limitations: no limitations General appearance: alert, in no apparent distress Head exam: Present: atraumatic, normocephalic Eye exam: Present: normal appearance, PERRL, EOMI ENT exam: Present: mucous membranes moist Neck exam: Present: normal inspection Respiratory exam: Present: normal lung sounds bilaterally. Absent: respiratory distress, wheezes, rales Cardiovascular Exam: Present: normal rhythm, tachycardia GI/Abdominal exam: Present: soft. Absent: distended, tenderness, guarding, rebound, rigid (Abdomen soft nontender) Extremities exam: Present: normal inspection Back exam: Present: normal inspection, CVA tenderness (L), other (No midline tenderness. Pain with active and passive range of motion of the lower spine, pain is fell and left flank.). Absent: tenderness, CVA tenderness (R) Neurological exam: Present: alert, oriented X3 Psychiatric exam: Present: normal affect, normal mood Skin exam: Present: warm, dry, intact, normal color. Absent: rash, erythema, vesicles Course Vital Signs 11/20/17 21:09 Temperature 97.2 F L Pulse Rate 108 H Respiratory 18 Rate Blood Pressure 186/87 O2 Sat by Pulse 96 Oximetry Medical Decision Making - Medical Decision Making IV fluids, Tylenol ordered. Patient declined Tylenol, Toradol ordered as renal function was normal. UA shows no blood or infection. CAT scan shows information the sigmoid colon, given patient's symptoms and elevated white count, likely diverticulitis. Patient updated without results. Pain control at this time. Patient feels comfortable being discharged home. Discussed clear liquid diet until symptoms resolve. We'll give prescription antibiotics and pain meds for home. He does of codeine ALLERGY, Motrin and Tylenol for home. Patient to follow primary care physician one to 2 days for reevaluation. Return to ER if any new or worsening symptoms including increased pain, fevers, not tolerating oral. Patient understands and agrees. All questions answered. Patient knows about her abdominal aneurysm, states she sees her primary care physician who ultrasounds it regularly. - Lab Data Result diagrams: 11/20/17 21:55 11/20/17 21:55 Lab Results 11/20/17 11/20/17 11/20/17 Range/Units 21:55 21:55 22:10 WBC 11.2 H (3.8-10.6) k/uL RBC 4.24 (3.80-5.40) m/uL Hgb 13.0 (11.4-16.0) gm/dL Hct 37.4 (34.0-46.0) % MCV 88.3 (80.0-100.0) fL MCH 30.6 (25.0-35.0) pg MCHC 34.7 (31.0-37.0) g/dL RDW 13.4 (11.5-15.5) % Plt Count 275 (150-450) k/uL Neutrophils % 78 % Lymphocytes % 12 % Monocytes % 7 % Eosinophils % 2 % Basophils % 0 % Neutrophils # 8.7 H (1.3-7.7) k/uL Lymphocytes # 1.3 (1.0-4.8) k/uL Monocytes # 0.8 (0-1.0) k/uL Eosinophils # 0.2 (0-0.7) k/uL Basophils # 0.0 (0-0.2) k/uL Sodium 139 (137-145) mmol/L Potassium 3.0 L* (3.5-5.1) mmol/L Chloride 100 (98-107) mmol/L Carbon Dioxide 29 (22-30) mmol/L Anion Gap 10 mmol/L BUN 19 H (7-17) mg/dL Creatinine 1.00 (0.52-1.04) mg/dL Est GFR (CKD-EPI)AfAm 66 (>60 ml/min/1.73 sqM) Est GFR (CKD-EPI)NonAf 57 (>60 ml/min/1.73 sqM) Glucose 131 H (74-99) mg/dL Calcium 9.6 (8.4-10.2) mg/dL Urine Color Light Yellow Urine Appearance Cloudy H (Clear) Urine pH 7.0 (5.0-8.0) Ur Specific [place] 1.009 (1.001-1.035) Urine Protein Trace H (Negative) Urine Glucose (UA) Negative (Negative) Urine Ketones Negative (Negative) Urine Blood Negative (Negative) Urine Nitrite Negative (Negative) Urine Bilirubin Negative (Negative) Urine Urobilinogen <2.0 (<2.0) mg/dL Ur Leukocyte Esterase Negative (Negative) Urine RBC 1 (0-5) /hpf Urine WBC <1 (0-5) /hpf Amorphous Sediment Rare H (None) /hpf Hyaline Casts 3 H (0-2) /lpf Urine Mucus Rare H (None) /hpf Disposition Clinical Impression: Diverticulitis large intestine Disposition: HOME SELF-CARE Condition: Good Instructions: Diverticulitis (ED) Additional Instructions: Eat and drink only clear liquids until symptoms resolve. Make appointment with primary care physician in one to 2 days. Return to ER if new or worsening symptoms including fevers, increased pain, not tolerating oral intake. Prescriptions: Acetaminophen Tab [Tylenol] 650 mg PO Q4H PRN #30 tablet PRN Reason: Pain Ibuprofen [Motrin] 600 mg PO Q6HR PRN #20 tab PRN Reason: Pain Moxifloxacin HCl [Avelox] 400 mg PO DAILY 10 Days #10 tablet Referrals: Agustín Farnsworth MD [Primary Care Provider] - 1-2 days
[2017-11-20 22:02] LABS: Basophils % (A) 0 %; Eosinophils # (A) 0.2 k/uL (0-0.7); Eosinophils % (A) 2 %; HCT 37.4 % (34.0-46.0); Lymphocytes # (A) 1.3 k/uL (1.0-4.8); Lymphocytes % (A) 12 %; MCH 30.6 pg (25.0-35.0); MCHC 34.7 g/dL (31.0-37.0); MCV 88.3 fL (80.0-100.0); Mean Platelet Volume 6.9; Monocytes # (A) 0.8 k/uL (0-1.0); Monocytes % (A) 7 %; Neutrophils # (A) 8.7 k/uL (1.3-7.7); Neutrophils % (A) 78 %; Platelet Count 275 k/uL (150-450); RBC 4.24 m/uL (3.80-5.40); RDW 13.4 % (11.5-15.5); WBC 11.2 k/uL (3.8-10.6)
[2017-11-20 22:12] LABS: Calcium 9.6 mg/dL (8.4-10.2)
[2017-11-20] MEDS ORDERED: POTASSIUM CHLORIDE ER 20 MEQ TAB.ER PO STA (22:14)
[2017-11-20 22:24] LABS: Amorphous Sediment,Urine Rare /hpf; Appearance,Urine Cloudy (Clear); Bilirubin,Urine Negative (Negative); Blood,Urine Negative (Negative); Color,Urine Light Yellow; Glucose,Urine (UA) Negative (Negative); Hyaline Casts,Urine 3 /lpf (0-2); Ketones,Urine Negative (Negative); Leukocyte Esterase,Urine Negative (Negative); Mucus,Urine Rare /hpf; Nitrite,Urine Negative (Negative); Protein,Urine Trace (Negative); RBC,Urine 1 /hpf (0-5); Specific Gravity,Urine 1.009 (1.001-1.035); Urobilinogen,Urine <2.0 mg/dL (<2.0); WBC,Urine <1 /hpf (0-5)
[2017-11-20] MEDS ORDERED: KETOROLAC 30 MG/ML 1 ML VIAL IVP STA (22:42)
--- NOTE | 2017-11-20 23:06 | CT ---
EXAMINATION TYPE: CT abdomen pelvis wo con DATE OF EXAM: 11/20/2017 COMPARISON: NONE HISTORY: left flank pain CT DLP: 197.9 mGycm Automated exposure control for dose reduction was used. TECHNIQUE: Helical acquisition of images was performed from the lung bases through the pelvis. FINDINGS: Lung bases are clear of consolidation. There is mild subsegmental atelectasis at the lung bases. Ther e is no pericardial effusion. There is no pleural effusion. There are multiple rounded low density ar eas in the liver consistent with cysts that measure up to almost 2 cm. There are extensive pancreatic calcifications. Spleen appears normal. There is no adrenal mass. Kidneys have normal size and contou r. There is no hydronephrosis. There is a large aneurysm of the lower abdominal aorta that measures u p to 5 cm in diameter. There is no retroperitoneal adenopathy. There is no ascites. There are multiple diverticula in the sigmoid colon. There is wall thickening involving the sigmoid c olon that measures up to 10 mm. There is no evidence of bowel obstruction. There are spondylotic thomas ges in the lumbar spine with anterior spurring. There is some narrowing at L2-3 disc space. Sacroilia c joints are intact. There is a 1.5 cm cyst in the body anteriorly of the pancreas.: IMPRESSION: LARGE ABDOMINAL AORTIC ANEURYSM. NO SIGN OF LEAKAGE. NO EVIDENCE OF RENAL STONE OR OBSTRUCTION. NO HYDRONEPHROSIS. MULTIPLE HEPATIC CYSTS. SIGMOID DIVERTICULOSIS. THERE IS WALL THICKENING OF THE MID SIGMOID COLON CONSISTENT WITH NONSPECIFIC COLITIS. NO EVIDENCE OF AN ABSCESS. EXTENSIVE PANCREATIC CALCIFICATION AND PANCREATIC CYSTS CONSISTENT WITH CHRONIC PANCREATITIS.
[2017-11-20 23:39] VITALS: BP 157/72; PULSE 98; TEMP 97.6
== END 2017-11-20 23:48 | disposition home or self-care (01) ==
LOC: EC 21:06
DX: K57.32 Diverticulitis of large intestine without perforation or abscess without bleeding (principal); M81.0 Age-related osteoporosis without current pathological fracture; F17.200 Nicotine dependence, unspecified, uncomplicated; Z85.828 Personal history of other malignant neoplasm of skin; Z90.49 Acquired absence of other specified parts of digestive tract; Z90.710 Acquired absence of both cervix and uterus; Z79.899 Other long term (current) drug therapy; Z88.0 Allergy status to penicillin; Z88.5 Allergy status to narcotic agent; Z88.8 Allergy status to other drugs, medicaments and biological substances; Z53.29 Procedure and treatment not carried out because of patient's decision for other reasons
CPT/HCPCS: 36415; 80048; 85025; 81001; 74176; 99284; 96374; 96361 ×2; J1885

== ENCOUNTER → 2018-02-08 | Outpatient (CLI) | payer MEDICARE, BC ==
--- NOTE | 2018-02-08 11:11 | XR ---
EXAMINATION TYPE: XR knee complete LT DATE OF EXAM: 02/08/2018 COMPARISON: NONE HISTORY: Pain and swelling x3 months TECHNIQUE: Three-view left knee FINDINGS: Left knee is examined in 3 views. No joint effusion is evident. Joint spaces and minimal na rrowing. Tiny amount of spurring is from the medial femoral condyle. Vascular calcification is presen t. No acute fractures or dislocations are evident. IMPRESSION: 1. Minimal degenerative change in an otherwise normal three-view left knee
== END | disposition home or self-care (01) ==
LOC: RADXRMAIN 10:28
PROVIDERS: ATTEND Family Medicine
DX: M23.92 Unspecified internal derangement of left knee (principal)

== ENCOUNTER → 2018-02-18 | Outpatient (CLI) | payer MEDICARE, BC ==
[~2018-02-18] MED LIST changes: +DENOSUMAB 60 MG/ML 1 ML SYRINGE SQ NR; -DENOSUMAB 60 MG/ML 1 ML SYRINGE SQ ONE
[2018-02-18 13:54] VITALS: BP 157/69; PULSE 87; RESP 14; TEMP 98
== END | disposition home or self-care (01) ==
LOC: PROCWHC3 13:45
PROVIDERS: ATTEND Family Medicine
DX: M81.0 Age-related osteoporosis without current pathological fracture (principal)
CPT/HCPCS: 96372; J0897

== ENCOUNTER 2018-03-04 11:47 | Inpatient (IN) | payer MEDICARE, BC ==
[2018-03-04] MEDS ORDERED: KETOROLAC 30 MG/ML 1 ML VIAL IVP STA (12:11)
[2018-03-04] MEDS ORDERED: MORPHINE SULFATE 2 MG/ML SYRINGE IVP ONE (12:11)
--- NOTE | 2018-03-04 12:16 | ED ---
Extremity Problem HPI - General Source: patient, RN notes reviewed Mode of arrival: wheelchair Limitations: no limitations <Taz Valdes - Last Filed: 03/04/18 17:25> <Lloyd Conteh - Last Filed: 03/04/18 17:31> - General Chief complaint: Extremity Problem,Nontraumatic Stated complaint: lt leg pain/swelling Time Seen by Provider: 03/04/18 12:04 - History of Present Illness Initial comments: This is a 72-year-old female presents emergency department to complaint of left knee pain. She's had progressive worsening pain to her left knee with no trauma. She states it did start when she was walking saw her PCP for this and which she has had an x-ray and scheduled for an MRI but is having given anything for pain. She states that she cannot tolerate the pain states that unbearable and severe pain when she is weightbearing or sitting. Patient states it is swollen there's been no redness. She has no history of joint infection no history of knee surgery. Patient denies any known fever, chills no paresthesias. (Taz Valdes) - Related Data Home Medications Medication Instructions Recorded Confirmed Ascorbic Acid [Vitamin C] 500 mg PO DAILY 03/04/18 03/04/18 Calcium Carbonate/Vitamin D3 1 tab PO DAILY 03/04/18 03/04/18 [Calcium 600-Vit D3 400 Caplet] Allergies Allergy/AdvReac Type Severity Reaction Status Date / Time codeine Allergy Rash/Hives Verified 03/04/18 12:18 Penicillins Allergy Rash/Hives Verified 03/04/18 12:18 [place]-Ljm-Cau Reductase Allergy Itching Verified 03/04/18 12:18 Inhibitor any cholesterol medications Allergy Itching Uncoded 03/04/18 12:03 Review of Systems ROS Other: All systems not noted in ROS Statement are negative. <Taz Valdes - Last Filed: 03/04/18 17:25> ROS Other: All systems not noted in ROS Statement are negative. <Lloyd Conteh - Last Filed: 03/04/18 17:31> ROS Statement: Those systems with pertinent positive or pertinent negative responses have been documented in the HPI. Past Medical History Past Medical History: No Reported History, Hyperlipidemia Additional Past Medical History / Comment(s): skin cancer, osteoporosis History of Any Multi-Drug Resistant Organisms: None Reported Past Surgical History: Adenoidectomy, Appendectomy, Cholecystectomy, Hysterectomy, Tonsillectomy Additional Past Surgical History / Comment(s): cataracts Past Anesthesia/Blood Transfusion Reactions: No Reported Reaction, Family History of Problems w/ Anesthesia Additional Past Anesthesia/Blood Transfusion Reaction / Comment(s): CHILDREN= PONV Past Psychological History: No Psychological Hx Reported Smoking Status: Current every day smoker - Past Family History Daughter(s) Family Medical History: Cancer <Taz Valdes - Last Filed: 03/04/18 17:25> General Exam Limitations: no limitations General appearance: alert, in no apparent distress Head exam: Present: atraumatic, normocephalic, normal inspection Respiratory exam: Present: normal lung sounds bilaterally. Absent: respiratory distress, wheezes, rales, rhonchi, stridor Cardiovascular Exam: Present: regular rate, normal rhythm, normal heart sounds. Absent: systolic murmur, diastolic murmur, rubs, gallop, clicks Extremities exam: Present: other (Left knee there is moderate swelling noted, severe pain with any range of motion, neurovascular intact there is no erythema to the knee though there is moderate warmth.) Skin exam: Present: warm, dry, intact, normal color. Absent: rash <Taz Valdes - Last Filed: 03/04/18 17:25> Vital Signs 03/04/18 03/04/18 03/04/18 11:57 13:42 15:17 Temperature 98.6 F Pulse Rate 105 H 80 85 Respiratory 18 18 18 Rate Blood Pressure 203/120 167/72 132/65 O2 Sat by Pulse 100 98 96 Oximetry Procedures - Joint Aspiration/Injection Consent Obtained: verbal consent Indications: R/O septic arthritis Side of Body: left Joint Aspirated: knee Skin Prep: Povidone-Iodine1% Local Anesthesia Used: Lidocaine 1% Amount of Anesthesia Used (mLs): 8 Needle Size Used: 18G Syringe Size Used: Other (30) Fluid Obtained: turbid Total Fluid Obtained (mls): 30 Patient Tolerated Procedure: well, no complications Complications: none <Taz Valdes - Last Filed: 03/04/18 17:25> Medical Decision Making - Lab Data Result diagrams: 03/04/18 12:36 03/04/18 12:36 <Taz Valdes - Last Filed: 03/04/18 17:25> - Lab Data Result diagrams: 03/04/18 12:36 03/04/18 12:36 <Lloyd Conteh - Last Filed: 03/04/18 17:31> - Medical Decision Making I did discuss the case with Dr. Arechiga in which the patient will be admitted to his services for a washout in the morning. He does not recommend any antibiotics at this time. This may be inflammatory versus infectious but cultures are pending. (Taz Valdes) Patient was previously evaluated by myself, Dr. Conteh. Patient does have moderate left effusion with moderate to severe tenderness and minimal warmth. Patient did have arthrocentesis done with inconclusive results. Symptoms are more suspicious for inflammatory. Dr. Arechiga was notified who would like to admit patient without antibiotics for probable washout. I reviewed and agree with PAs findings. This includes all diagnostic interpretations and treatment plan. (Lloyd Conteh) - Lab Data Lab Results 03/04/18 03/04/18 03/04/18 Range/Units 12:36 12:36 15:26 WBC 10.1 (3.8-10.6) k/uL RBC 4.80 (3.80-5.40) m/uL Hgb 14.8 (11.4-16.0) gm/dL Hct 43.8 (34.0-46.0) % MCV 91.1 (80.0-100.0) fL MCH 30.8 (25.0-35.0) pg MCHC 33.8 (31.0-37.0) g/dL RDW 13.5 (11.5-15.5) % Plt Count 250 (150-450) k/uL Neutrophils % 76 % Lymphocytes % 16 % Monocytes % 6 % Eosinophils % 2 % Basophils % 0 % Neutrophils # 7.7 (1.3-7.7) k/uL Lymphocytes # 1.6 (1.0-4.8) k/uL Monocytes # 0.6 (0-1.0) k/uL Eosinophils # 0.2 (0-0.7) k/uL Basophils # 0.0 (0-0.2) k/uL ESR 13 (0-20) mm/hr Sodium 140 (137-145) mmol/L Potassium 3.7 (3.5-5.1) mmol/L Chloride 104 (98-107) mmol/L Carbon Dioxide 27 (22-30) mmol/L Anion Gap 9 mmol/L BUN 14 (7-17) mg/dL Creatinine 0.90 (0.52-1.04) mg/dL Est GFR (CKD-EPI)AfAm 74 (>60 ml/min/1.73 sqM) Est GFR (CKD-EPI)NonAf 64 (>60 ml/min/1.73 sqM) Glucose 91 (74-99) mg/dL Uric Acid 3.3 L (3.7-7.4) mg/dL Calcium 9.8 (8.4-10.2) mg/dL Total Bilirubin 0.8 (0.2-1.3) mg/dL AST 22 (14-36) U/L ALT 25 (9-52) U/L Alkaline Phosphatase 68 (38-126) U/L C-Reactive Protein 30.8 H (<10.0) mg/L Total Protein 6.8 (6.3-8.2) g/dL Albumin 4.4 (3.5-5.0) g/dL Fluid Source Synovial Fluid Color [place] Fluid Appearance Cloudy Fluid RBC 45004 /uL Fluid Nucleated Cells 24817 /uL Fluid Polynuclear WBCs 80 % Fluid Mononuclear WBCs 20 % Disposition <Taz Valdes - Last Filed: 03/04/18 17:25> <Lloyd Conteh - Last Filed: 03/04/18 17:31> Clinical Impression: Effusion of left knee joint, Left knee pain Narrative: Rule out septic joint (Taz Valdes) Disposition: ADMITTED IP TO THIS HOSP Condition: Stable Referrals: Agustín Farnsworth MD [Primary Care Provider] - 1-2 days
[2018-03-04 12:50] LABS: Basophils % (A) 0 %; Eosinophils # (A) 0.2 k/uL (0-0.7); Eosinophils % (A) 2 %; HCT 43.8 % (34.0-46.0); HGB 14.8 gm/dL (11.4-16.0); Lymphocytes # (A) 1.6 k/uL (1.0-4.8); Lymphocytes % (A) 16 %; MCH 30.8 pg (25.0-35.0); MCHC 33.8 g/dL (31.0-37.0); MCV 91.1 fL (80.0-100.0); Mean Platelet Volume 6.7; Monocytes # (A) 0.6 k/uL (0-1.0); Monocytes % (A) 6 %; Neutrophils # (A) 7.7 k/uL (1.3-7.7); Neutrophils % (A) 76 %; Platelet Count 250 k/uL (150-450); RDW 13.5 % (11.5-15.5); WBC 10.1 k/uL (3.8-10.6)
[2018-03-04] MEDS: ONDANSETRON 4 MG/2 ML VIAL IVP STA (12:59)
[2018-03-04 13:07] LABS: Albumin 4.4 g/dL (3.5-5.0); C Reactive Protein 30.8 mg/L (<10.0); Calcium 9.8 mg/dL (8.4-10.2); Potassium 3.7 mmol/L (3.5-5.1); Total Bilirubin 0.8 mg/dL (0.2-1.3); Total Protein 6.8 g/dL (6.3-8.2); Uric Acid 3.3 mg/dL (3.7-7.4)
--- NOTE | 2018-03-04 13:16 | XR ---
EXAMINATION TYPE: XR knee complete LT DATE OF EXAM: 03/04/2018 COMPARISON: 02/08/2018 HISTORY: 72-year-old female with pain TECHNIQUE: 3 views FINDINGS: There is a medial sided soft tissue swelling noted. Mild medial and patellofemoral compartm ental degenerative spurring. There is a moderate to large knee joint effusion. Extensor mechanism is intact. Vascular calcifications. No acute fracture, subluxation, or dislocation seen. IMPRESSION: 1. Medial sided soft tissue swelling. If there was an injury, correlate for possible MCL sprain. 2. Mild medial and patellofemoral compartment osteoarthrosis. 3. Moderate to large knee joint effusion. If concern for internal derangement, MRI can be considered. 4. No acute osseous abnormality seen.
[2018-03-04 13:48] LABS: Erythrocyte Sedimentation Rate 13 mm/hr (0-20)
--- NOTE | 2018-03-04 13:59 | US ---
EXAMINATION TYPE: US venous doppler duplex LE LT DATE OF EXAM: 03/04/2018 12:14 PM COMPARISON: NONE CLINICAL HISTORY: 72-year-old female Pain. SIDE PERFORMED: Left TECHNIQUE: The lower extremity deep venous system is examined utilizing real time linear array sonog ruth ann with graded compression, doppler sonography and color-flow sonography. FINDINGS: VESSELS IMAGED: External Iliac Vein (EIV) Common Femoral Vein Deep Femoral Vein Greater Saphenous Vein * Femoral Vein Popliteal Vein Small Saphenous Vein * Proximal Calf Veins (* superficial vessels) Left Leg: Negative for DVT IMPRESSION: No evidence for DVT within the left lower extremity imaged from the groin to the upper calf.
[2018-03-04] MEDS ORDERED: MORPHINE SULFATE 4 MG/ML SYRINGE IVP STA (14:06)
[2018-03-04] MEDS ORDERED: LIDOCAINE 1% INJ 10MG/ML (20 ML MDV) SQ ONE (14:51)
[2018-03-04 16:10] LABS: Color,BF Orange
[2018-03-04 16:11] LABS: Appearance,BF Cloudy; Nucleated Cells, Body Fluid 21100 /uL; RBC, Body Fluid 16900 /uL
[2018-03-04 16:27] LABS: Mononuclear WBC,Body Fluid 20 %; Polynuclear WBC,Body Fluid 80 %; Total Cells Counted,Body Fluid 100
[2018-03-04] MEDS ORDERED: HYDROcodone/APAP 5-325MG 1 EACH TAB PO PRN (17:27)
[2018-03-04] MEDS ORDERED: MORPHINE SULFATE 4 MG/ML SYRINGE IV PRN (17:27)
[2018-03-04] MEDS ORDERED: ONDANSETRON 4 MG/2 ML VIAL IVP PRN (17:27)
[2018-03-04 19:07] VITALS: BMI 19.3
[2018-03-04 19:36] LABS: Partial Thromboplastin Time 24.9 sec (22.0-30.0); Prothrombin Time 9.8 sec (9.0-12.0)
--- NOTE | 2018-03-05 07:59 | P.HPOR ---
History of Present Illness H&P Date: 03/05/18 Chief Complaint: Left knee pain The patient's a 72-year-old retired female who presents with a 2 day history of progressive left knee pain and swelling. She's had some symptoms for the past 4 weeks. She denies fevers or chills. When she presented to the hospital, she had a difficult time putting any weight on the left leg. She denies injury or previous problems. Normally she ambulates without assistive devices. Past Medical History Past Medical History: No Reported History, Hyperlipidemia Additional Past Medical History / Comment(s): skin cancer, osteoporosis History of Any Multi-Drug Resistant Organisms: None Reported Past Surgical History: Adenoidectomy, Appendectomy, Cholecystectomy, Hysterectomy, Tonsillectomy Additional Past Surgical History / Comment(s): cataracts Past Anesthesia/Blood Transfusion Reactions: No Reported Reaction, Family History of Problems w/ Anesthesia Additional Past Anesthesia/Blood Transfusion Reaction / Comment(s): CHILDREN= PONV Past Psychological History: No Psychological Hx Reported Smoking Status: Current every day smoker Past Alcohol Use History: None Reported Additional Past Alcohol Use History / Comment(s): SMOKES < 1PPD. SMOKING SINCE SHE WAS 20 YEARS OLD. Past Drug Use History: None Reported - Past Family History Daughter(s) Family Medical History: Cancer Medications and Allergies Home Medications Medication Instructions Recorded Confirmed Type Ascorbic Acid [Vitamin C] 500 mg PO DAILY 03/04/18 03/04/18 History Calcium Carbonate/Vitamin D3 1 tab PO DAILY 03/04/18 03/04/18 History [Calcium 600-Vit D3 400 Caplet] Allergies Allergy/AdvReac Type Severity Reaction Status Date / Time codeine Allergy Rash/Hives Verified 03/04/18 12:18 Penicillins Allergy Rash/Hives Verified 03/04/18 12:18 Abbluvu-Xpu-Xdc Reductase Allergy Itching Verified 03/04/18 12:18 Inhibitor any cholesterol medications Allergy Itching Uncoded 03/04/18 12:03 Physical Examination - Knee left Appearance: effusion (Moderate) Effusion grade: grade 2 Tenderness with palpation: medial Pain: with flexion Gait: limping ROM: extension: -30 degrees ROM: flexion: 70 degrees (Moderate guarding) Results - Labs Labs: Abnormal Lab Results - Last 24 Hours (Table) 03/04/18 Range/Units 12:36 Uric Acid 3.3 L (3.7-7.4) mg/dL C-Reactive Protein 30.8 H (<10.0) mg/L Microbiology - Last 24 Hours (Table) 03/04/18 15:26 Gram Stain - Preliminary Knee - Left Body Fluid Culture - Preliminary H & H 03/04/18 Range/Units 12:36 Hgb 14.8 (11.4-16.0) gm/dL Hct 43.8 (34.0-46.0) % Coagulation 03/04/18 Range/Units 18:37 INR 1.0 (<1.2) Result Diagrams: 03/04/18 12:36 03/04/18 12:36 - Diagnostic results Hip x-ray: image reviewed (Mild degenerative changes, mild chondrocalcinosis) Assessment and Plan Assessment: Left knee synovitis/effusioninfectious versus inflammatory (1) Septic joint of left knee joint Current Visit: Yes Status: Acute Code(s): M00.9 - PYOGENIC ARTHRITIS, UNSPECIFIED SNOMED Code(s): 955253413 (2) Effusion of left knee joint Current Visit: Yes Status: Acute Code(s): M25.462 - EFFUSION, LEFT KNEE SNOMED Code(s): 632249339 Plan: I talked to the patient at length regarding her condition and treatment options. At this point we will plan to proceed with arthroscopic irrigation and debridement her left knee. We will obtain deep cultures in addition to consult and infectious disease. Time with Patient: Less than 30
[2018-03-05] MEDS ORDERED: LACTATED RINGERS 1,000 ML IV ONE (14:16)
[2018-03-05] MEDS: ONDANSETRON 4 MG/2 ML VIAL IVP STA (14:24)
[2018-03-05] MEDS ORDERED: DEXAMETHASONE SOD PHOSPHATE 10 MG/ML 1 ML VIAL IV ONE (14:25)
[2018-03-05] MEDS ORDERED: MIDAZOLAM 2 MG/2 ML VIAL ONE (15:03)
[2018-03-05] MEDS ORDERED: fentaNYL (PF) 50 MCG/ML 2 ML AMP ONE (15:03)
[2018-03-05] MEDS ORDERED: PROPOFOL 10 MG/ML 20 ML VIAL IV ONE (15:03)
[2018-03-05] MEDS ORDERED: SODIUM CHLORIDE 0.9% 50 ML with CLINDAMYCIN 600 MG IV ONE ×2 (15:19)
[2018-03-05] MEDS ORDERED: ACETAMINOPHEN TAB 325 MG TAB PO PRN (15:44)
--- NOTE | 2018-03-05 15:49 | P.OP ---
Date of Procedure: 03/05/18 Preoperative Diagnosis: Left knee synovitis/effusion Postoperative Diagnosis: Left knee chondrocalcinosis/synovitis/loose body/lateral meniscal tear Procedure(s) Performed: Left knee arthroscopic lavage/synovectomy of the medial, lateral, and patellofemoral compartments, loose body removal 1 x 1 cm, partial lateral meniscectomy Anesthesia: LALY Surgeon: Caden Layne Estimated Blood Loss (ml): 10 Pathology: other (Gram stain and cultures) Condition: stable Disposition: PACU Indications for Procedure: The patient's 72-year-old female who presents with a 2 day history of progressive left knee pain, swelling, and ability to bear weight. Clinically she is noted have significant synovitis and effusion in her left knee. A discussion of the risks and benefits of operative intervention was made with patient. She opted to proceed. Operative risks to include neurovascular injury , and possible need for subsequent procedures was discussed. Informed consent was obtained. Operative Findings: As below Description of Procedure: The patient was brought to the operating room, and after induction of general anesthesia the left lower extremity was prepped and draped in a normal fashion. A superior lateral portal was made through a 5 mm skin incision superior and lateral to the patella. This was used for outflow. A large effusion was encountered that was serosanguineous. Cultures were obtained. A lateral portal was made through a 5 mm vertical skin incision lateral to the patella tendon above the joint line. Diagnostic arthroscopy was performed. A medial portal made through a similar incision medial to the patella tendon above the joint line. On inspection of the medial compartment, there is marked reactive synovitis debrided with motorized shaver. The medial meniscus appeared to be stable and intact. The were some areas of chondrocalcinosis. On inspection of the lateral compartment again there is anterior lateral compartment synovitis that was debrided with motorized shaver. Chondrocalcinosis fall the middle one third of the lateral meniscus was noted along with a small meniscal tear. This was debrided back to stable base with a motorized shaver. The posterior horn appeared to be intact. On inspection patellofemoral articulation again there was marked synovitis debrided with a motorized shaver. On inspection the medial gutter, a 1 x 1 cm loose body was noted. This was extracted with a grasper. The knee was thoroughly irrigated. The portals were loosely reapproximated with Steri-Strips. A sterile dressing was applied in addition to a compression stocking. The patient was awoken from general anesthesia and transferred to recovery room in good condition. Blood loss was estimated at 10 mL. No complications were incurred.
[2018-03-05] MEDS ORDERED: LABETALOL 5 MG/ML VIAL MDV IVP ONE (16:15)
[2018-03-05] MEDS ORDERED: MORPHINE SULFATE 4 MG/ML SYRINGE IVP ONE (16:34)
[2018-03-06 11:13] VITALS: BP 137/60; PULSE 70; RESP 18; TEMP 98.2
--- NOTE | 2018-03-06 11:35 | P.PN ---
Subjective Progress Note Date: 03/06/18 Principal diagnosis: Status post right knee arthroscopy with lavage Patient seen today resting in her hospital bed, she appears comfortable. She's having no acute pain with regards to left knee. She denies any fever chills. Objective - Vital Signs Vital signs: Vital Signs Temp 98.2 F 03/06/18 07:00 Pulse 70 03/06/18 07:00 Resp 18 03/06/18 07:00 BP 137/60 03/06/18 07:00 Pulse Ox 97 03/06/18 07:00 Intake & Output 03/05/18 03/06/18 03/06/18 18:59 06:59 18:59 Intake Total 854 550 Output Total 15 Balance 839 550 Weight 44.869 kg Intake: IV 854 Oral 550 Output: Estimated Blood Loss 15 Other: # Voids 1 1 - Exam Left lower extremity: Postop bandages in good position along with the knee sleeve. Sensory exam to light touch throughout extremities intact Dorsal pedis pulses 2+ calf is soft, no tenderness with palpation - Labs CBC & Chem 7: 03/04/18 12:36 03/04/18 12:36 Labs: Microbiology - Last 24 Hours (Table) 03/05/18 15:38 Anaerobic Culture - Preliminary Knee - Left 03/04/18 15:26 Gram Stain - Preliminary Knee - Left Body Fluid Culture - Preliminary 03/04/18 12:36 Blood Culture - Preliminary Blood No Growth after 24 hours Assessment and Plan Plan: Assessment: Postoperative day 1 status post right knee arthroscopy with lavage, synovectomy , loose body removal, partial lateral meniscectomy Plan: Patient is doing very well at this time, she's remained afebrile with no increase in pain in the left knee. She stable at this time for discharge to home with instructions to follow up in 1 week for recheck Labs have revealed this was likely a pseudogout involving the left knee, last revealed no evidence of acute infection Patient will be discharged home today Time with Patient: Less than 30
--- NOTE | 2018-03-06 11:40 | P.DS ---
Providers Date of admission: 03/05/18 16:37 Expected date of discharge: 03/06/18 Attending physician: Caden Layne Consults: 03/05/18 15:44 Consult Physician Routine Consulting Provider: Mahendra Heard Reason/Comments: Possible septic arthritis Do you want consulting provider notified?: Yes Primary care physician: Agustín Farnsworth Hospital Course: Date of admission: 03/04/2018 Date of discharge: 03/06/2018 Admission diagnosis: Left knee effusion, inability to ambulate Discharge diagnosis: Status post left knee arthroscopy with lavage, partial synovectomy, loose body removal, partial lateral meniscectomy. Pseudogout left knee Attending physician: Dr. Layne Surgical procedures: Left knee arthroscopy with lavage, partial synovectomy, loose body removal, partial lateral meniscectomy Brief history: Patient is a 72-year-old female who presented to the hospital on 03/04/2018 with increasing pain involving her left knee. Patient states that the knee had been bothering her over the last month or so. A few days prior to her admission the pain significantly increased along with swelling. She reported to the emergency room, there is concern of possible infection versus inflammatory condition. Patient was admitted to the hospital for further workup and treatment. Hospital course: Details of patient's surgery can be found in operative report. Patient tolerated the procedure well and was subsequently transported to orthopedic floor. Patient's orthopeidc and medical care was provided daily. Patient had daily laboratory tests performed for evaluation of overall blood counts. Patient had daily physical therapy to include strengthening range of motion as well as education with walker ambulation. Patient was noted to have a relatively uneventful postoperative course. Patient reported satisfactory pain control with oral pain medications by postoperative day 0. Patient showed satisfactory progress with physical therapy. Patient moved steadily through the program and had no difficulty meeting the goals by postoperative day 1. Given patient's otherwise satisfactory course and having met physical therapy goals, plan is to discharge patient home on postoperative day 1. Discharge condition/disposition: Patient will be discharged home in stable condition. Discharge medications: Instructions are given on resumption of patient's normal daily medications per primary care recommendation, in addition patient will be prescribed no new medications Discharge instructions: 1. Wound care and infection precautions, keep incision dry and covered while showering, no lotions, creams, moisturizers. No soaking, tubs, pools, hottubs. Do not scrub over the incision. 2. Weight-bear as tolerated 3. Ice and elevate when necessary. Do not exceed 20 minutes per hour with ice pack. 4. Utilize compression sleeve until seen at first follow up appointment. 5. Follow up in office at 1 weeks postop with Rony Dyer PA-C 6. Follow up with your primary care doctor 7-10 days after discharge. 7. Contact [facility] with any questions, . Procedures: Left knee arthroscopy with lavage, synovectomy, loose body removal, partial lateral meniscectomy Patient Condition at Discharge: Stable Plan - Discharge Summary Discharge Rx Participant: No New Discharge Prescriptions: No Action Calcium Carbonate/Vitamin D3 [Calcium 600-Vit D3 400 Caplet] 1 tab PO DAILY Ascorbic Acid [Vitamin C] 500 mg PO DAILY Discharge Medication List Ascorbic Acid [Vitamin C] 500 mg PO DAILY 03/04/18 [History] Calcium Carbonate/Vitamin D3 [Calcium 600-Vit D3 400 Caplet] 1 tab PO DAILY [History] Follow up Appointment(s)/Referral(s): Agustín Farnsworth MD [Primary Care Provider] - 03/13/18 3:20 pm Caden Layne MD [STAFF PHYSICIAN] - 03/15/18 1:20 pm Activity/Diet/Wound Care/Special Instructions: Discharge instructions: Okay to remove bandage in 48 hours Resume home medications of discharge Weight-bear as tolerated Joex-sdt-ttdraph anti-inflammatories or Tylenol for discomfort Contact [facility] with any questions Follow-up in 1 week for recheck Discharge Disposition: HOME SELF-CARE
== END 2018-03-06 12:36 | disposition home or self-care (01) | DRG 489 ==
LOC: EC 11:47 → 3SUR 17:27 → OBSVTOIN 03-05 16:37
PROVIDERS: ADMIT Orthopaedic Surgery; ATTEND Orthopaedic Surgery
PROC: 0SBD4ZZ Excision of Left Knee Joint, Percutaneous Endoscopic Approach (ICD-10-PCS; principal; 2018-03-06)
PROC: 0SBD4ZZ Excision of Left Knee Joint, Percutaneous Endoscopic Approach (ICD-10-PCS; 2018-03-06)
DX: M65.9 Synovitis and tenosynovitis, unspecified (principal); J44.9 Chronic obstructive pulmonary disease, unspecified; M25.462 Effusion, left knee; S83.282A Other tear of lateral meniscus, current injury, left knee, initial encounter; F17.200 Nicotine dependence, unspecified, uncomplicated; M11.262 Other chondrocalcinosis, left knee; M81.0 Age-related osteoporosis without current pathological fracture; E78.5 Hyperlipidemia, unspecified; Z85.828 Personal history of other malignant neoplasm of skin; Z90.710 Acquired absence of both cervix and uterus; Z90.49 Acquired absence of other specified parts of digestive tract; Z98.42 Cataract extraction status, left eye; Z98.41 Cataract extraction status, right eye; Z96.1 Presence of intraocular lens; Z88.5 Allergy status to narcotic agent; Z88.0 Allergy status to penicillin; Z88.8 Allergy status to other drugs, medicaments and biological substances; X58.XXXA Exposure to other specified factors, initial encounter; Y92.9 Unspecified place or not applicable
CPT/HCPCS: 20610; 36415; 80053; 84550; 85025; 85610; 85652; 85730; 86140; 87040; 87070; 87075; 87205; 89050; 89060; 96374; 96375; 96376; 99284

== ENCOUNTER → 2018-04-29 | Outpatient (CLI) | payer MEDICARE, BC ==
--- NOTE | 2018-04-29 13:29 | BD ---
EXAMINATION TYPE: Axial Bone Density DATE OF EXAM: 04/29/2018 COMPARISON: 2014 CLINICAL HISTORY: menopausal Height: 4'11 1/2 Weight: 89 FRAX RISK QUESTIONS: Secondary Osteoporosis: Current Tobacco Use: y RISK FACTORS HISTORY OF: Diet low in dairy products/other sources of calcium: y Postmenopausal woman: y MEDICATIONS: Additional Medications: Additional History: EXAM MEASUREMENTS: Bone mineral densitometry was performed using the [employer] System. Bone mineral density as measured about the Lumbar spine is: ----- L1-L4(G/cm2): 1.055 T Score Values are as follows: ----- L2: -1.1 ----- L3: -0.8 ----- L4: -0.8 ----- L1-L4: -1.0 Bone mineral density has: Decreased -0.4% since study of: 02/17/2015 Bone mineral density about the R hip (g/cm2): 0.755 Bone mineral density about the L hip (g/cm2): 0.707 T Score values are as follows: -----R Neck: -2.0 -----L Neck: -2.4 -----R Total: -1.7 -----L Total: -1.9 Bone mineral density has: Increased 4.8% since study of: 02/17/2015 IMPRESSION: Osteopenia NOTE: T-SCORE=SD OF THE YOUNG ADULT MEAN.
--- NOTE | 2018-05-01 10:07 | MM ---
Reason for exam: screening (asymptomatic). Last mammogram was performed 1 year and 1 month ago. History: Patient is postmenopausal. Took estrogen for 1 year. Physical Findings: A clinical breast exam by your physician is recommended on an annual basis and results should be correlated with mammographic findings. MG 3D Screening Mammo W/Cad Bilateral CC and MLO view(s) were taken. Prior study comparison: March 23, 2017, bilateral MG 3d screening mammo w/cad. February 23, 2016, bilateral MG screening mammo w CAD. The breast tissue is heterogeneously dense. This may lower the sensitivity of mammography. Finding: There are typically benign dystrophic, round, linear calcifications in both breasts. There is no discrete abnormality. ASSESSMENT: Benign, BI-RAD 2 RECOMMENDATION: Routine screening mammogram of both breasts in 1 year.
== END | disposition home or self-care (01) ==
LOC: RADMAMWWP 11:50
PROVIDERS: ATTEND Family Medicine
DX: Z12.31 Encounter for screening mammogram for malignant neoplasm of breast (principal); M85.80 Other specified disorders of bone density and structure, unspecified site; Z78.0 Asymptomatic menopausal state
CPT/HCPCS: 77063; 77067; 77080

== ENCOUNTER → 2018-08-21 | Outpatient (CLI) | payer MEDICARE, BC ==
[~2018-08-21] MED LIST changes: -DENOSUMAB 60 MG/ML 1 ML SYRINGE SQ NR; +DENOSUMAB 60 MG/ML 1 ML SYRINGE SQ ONE
[2018-08-21 10:10] VITALS: BP 203/87; PULSE 84; RESP 16; TEMP 97.9
== END | disposition home or self-care (01) ==
LOC: PROCWHC3 09:52
PROVIDERS: ATTEND Family Medicine
DX: M81.0 Age-related osteoporosis without current pathological fracture (principal)
CPT/HCPCS: 96372; J0897

== ENCOUNTER → 2019-02-26 | Outpatient (CLI) | payer MEDICARE, BC ==
[2019-02-26 10:19] VITALS: BP 167/87; PULSE 76; RESP 16; TEMP 98.2
== END ==
LOC: PROCWHC3 09:56
PROVIDERS: ATTEND Family Medicine
DX: M81.0 Age-related osteoporosis without current pathological fracture (principal)
CPT/HCPCS: 96372; J0897

== ENCOUNTER → 2019-05-07 | Outpatient (CLI) | payer MEDICARE, BC ==
--- NOTE | 2019-05-08 07:57 | MM ---
Reason for exam: screening (asymptomatic). Last mammogram was performed 1 year ago. History: Patient is postmenopausal. Took estrogen for 1 year. Physical Findings: A clinical breast exam by your physician is recommended on an annual basis and results should be correlated with mammographic findings. MG Screening Mammo w CAD Bilateral CC and MLO view(s) were taken. Prior study comparison: April 29, 2018, bilateral MG 3d screening mammo w/cad. March 23, 2017, bilateral MG 3d screening mammo w/cad. The breast tissue is heterogeneously dense. This may lower the sensitivity of mammography. Focal asymmetry central right MLO 2.4cm from nipple. This finding is changed when compared with previous exams. ASSESSMENT: Incomplete: need additional imaging evaluation, BI-RAD 0 RECOMMENDATION: Special view mammogram of the right breast. If lesion persists on supplemental views, image directed ultrasound is recommended. [facility] will attempt to contact patient to return for supplemental views and ultrasound if indicated.
== END | disposition home or self-care (01) ==
LOC: RADMAMWWP 07:27
PROVIDERS: ATTEND Family Medicine
DX: Z12.31 Encounter for screening mammogram for malignant neoplasm of breast (principal)
CPT/HCPCS: 77067

== ENCOUNTER → 2019-05-16 | Outpatient (CLI) | payer MEDICARE, BC ==
--- NOTE | 2019-05-16 09:50 | MM ---
Reason for exam: additional evaluation requested from abnormal screening. Last mammogram was performed less than 1 month ago. History: Patient is postmenopausal. Took estrogen for 1 year. Physical Findings: Nurse did not find any significant physical abnormalities on exam. MG Work Up Mamm w CAD RT Spot compression CC, spot compression MLO, and LM view(s) were taken of the right breast. Prior study comparison: May 07, 2019, bilateral MG screening mammo w CAD. April 29, 2018, bilateral MG 3d screening mammo w/cad. There is no discrete abnormality including area of concern. No significant new findings when compared with previous films. These results were verbally communicated with the patient and result sheet given to the patient on 05/16/19. ASSESSMENT: Benign, BI-RAD 2 RECOMMENDATION: Return to routine screening mammogram schedule for both breasts.
== END ==
LOC: RADMAMWWP 07:13
PROVIDERS: ATTEND Family Medicine
DX: R92.8 Other abnormal and inconclusive findings on diagnostic imaging of breast (principal)
CPT/HCPCS: 77065

== ENCOUNTER → 2020-02-10 | Outpatient (CLI) | payer MEDICARE, BC ==
--- NOTE | 2020-02-10 13:20 | US ---
EXAMINATION TYPE: US carotid duplex BILAT DATE OF EXAM: 02/10/2020 COMPARISON: NONE CLINICAL HISTORY: R42 DIZZINESS GIDDINESS. EXAM MEASUREMENTS: RIGHT: Peak Systolic Velocity (PSV) cm/sec ----- Right CCA: 73.9 ----- Right ICA: 97.0 ----- Right ECA: 82.0 ICA/CCA ratio: 1.32 RIGHT: End Diastole cm/sec ----- Right CCA: 18.6 ----- Right ICA: 27.7 ----- Right ECA: 10.7 LEFT: Peak Systolic Velocity (PSV) cm/sec ----- Left CCA: 61.9 ----- Left ICA: 70.1 ----- Left ECA: 70.1 ICA/CCA ratio: 1.14 LEFT: End Diastole cm/sec ----- Left CCA: 16.0 ----- Left ICA: 23.0 ----- Left ECA: 11.9 VERTEBRALS (direction of flow): Right Vertebral: Antegrade Left Vertebral: Antegrade Rhythm: Normal Grayscale images show moderate peripheral plaque right greater than left carotid bulbs. The velocity measurements and ratios in both internal carotid arteries remain within normal limits. IMPRESSION: Moderate atherosclerotic changes without hemodynamically significant stenosis seen in ei ther internal carotid artery . Criteria for Assigning % of Stenosis / Diameter reduction (Estimation based on the indirect measurements of the internal carotid artery velocities (ICA PSV). 1. Normal (no stenosis)=ICA PSV < 125 cm/s: ratio < 2.0: ICA EDV<40 cm/s. 2. Less than 50% stenosis=ICA PSV < 125 cm/s: ratio < 2.0: ICA EDV<40 cm/s. 3. 50 to 69% stenosis=ICA PSV of 125 to 230 cm/s: ration 2.0 ? 4.0: ICA EDV 40-100 cm/s. 4. Greater than 70% stenosis to near occlusion= ICA PSV > 230 cm/s: ratio > 4.0: ICA EDV > 100 cm/s. 5. Near occlusion= ICA PSV velocities may be low or undetectable: variable ratio and ICA EDV. 6. Total occlusion=unable to detect flow.
--- NOTE | 2020-02-11 12:40 | ECHOF ---
Referral Reason:R42 Dizziness, I10 Hypertension MEASUREMENTS -------- HEIGHT: 152.4 cm WEIGHT: 44.0 kg BP: RVIDd: 2.2 cm (< 3.3) IVSd: 0.8 cm (0.6 - 1.1) LVIDd: 4.4 cm (3.9 - 5.3) LVPWd: 0.9 cm (0.6 - 1.1) IVSs: 1.5 cm LVIDs: 3.1 cm LVPWs: 1.4 cm LA Diam: 2.8 cm (2.7 - 3.8) LAESV Index (A-L): 15.97 ml/m Ao Diam: 2.7 cm (2.0 - 3.7) AV Cusp: 1.7 cm (1.5 - 2.6) MV EXCURSION: 16.226 mm (> 18.000) MV EF SLOPE: 94 mm/s (70 - 150) EPSS: 0.8 cm MV E Bijan: 0.93 m/s MV DecT: 153 ms MV A Bijan: 1.06 m/s MV E/A Ratio: 0.88 RAP: 5.00 mmHg RVSP: 19.66 mmHg FINDINGS -------- This was a technically good study. The left ventricular size is normal. Left ventricular wall thickness is normal. Overall left vent ricular systolic function is low-normal with, an EF between 50 - 55 %. The right ventricle is normal in size. Normal LA size by volume 22+/-6 ml/m2. The right atrium is normal in size. Interatrial and interventricular septum intact. There is mild aortic valve sclerosis. Trace amount of aortic regurgitation. The mitral valve leaflets are mildly thickened. Mild mitral annular calcification present. Mild-t o-moderate mitral regurgitation is present. Mild tricuspid regurgitation present. Right ventricular systolic pressure is normal at < 35 mmHg. Trace/mild (physiologic) pulmonic regurgitation. The aortic root size is normal. Normal inferior vena cava with normal inspiratory collapse consistent with estimated right atrial pre ssure of 5 mmHg. There is no pericardial effusion. CONCLUSIONS -------- 1. This was a technically good study. 2. The left ventricular size is normal. 3. Left ventricular wall thickness is normal. 4. Overall left ventricular systolic function is low-normal with, an EF between 50 - 55 %. 5. The right ventricle is normal in size. 6. Normal LA size by volume 22+/-6 ml/m2. 7. The right atrium is normal in size. 8. Interatrial and interventricular septum intact. 9. There is mild aortic valve sclerosis. 10. Trace amount of aortic regurgitation. 11. The mitral valve leaflets are mildly thickened. 12. Mild mitral annular calcification present. 13. [id number]-kr-[id number] mitral regurgitation is present. 14. Mild tricuspid regurgitation present. 15. Right ventricular systolic pressure is normal at < 35 mmHg. 16. Trace/mild (physiologic) pulmonic regurgitation. 17. The aortic root size is normal. 18. Normal inferior vena cava with normal inspiratory collapse consistent with estimated right atrial pressure of 5 mmHg. 19. There is no pericardial effusion. CONCRETE GRINDER OPERATOR: Halina Covarrubias RDCS
== END | disposition home or self-care (01) ==
LOC: RADECHMAIN 11:26
PROVIDERS: ATTEND Family Medicine
DX: I08.1 Rheumatic disorders of both mitral and tricuspid valves (principal); I10 Essential (primary) hypertension; I65.23 Occlusion and stenosis of bilateral carotid arteries
CPT/HCPCS: 93306; 93880

== ENCOUNTER → 2020-03-02 | Outpatient (CLI) | payer MEDICARE, BC ==
[~2020-03-02] MED LIST changes: +DENOSUMAB 60 MG/ML 1 ML SYRINGE SQ NR; -DENOSUMAB 60 MG/ML 1 ML SYRINGE SQ ONE
[2020-03-02 08:44] VITALS: BP 161/84; PULSE 77; RESP 16; TEMP 98
== END | disposition home or self-care (01) ==
LOC: PROCWHC3 08:27
PROVIDERS: ATTEND Family Medicine
DX: M81.0 Age-related osteoporosis without current pathological fracture (principal)
CPT/HCPCS: 96372; J0897

== ENCOUNTER 2020-03-26 09:24 | Observation (INO) | payer MEDICARE, BC ==
--- NOTE | 2020-03-26 10:05 | ED ---
General Adult HPI - General Chief complaint: Extremity Problem,Nontraumatic Stated complaint: Wrist pain Time Seen by Provider: 03/26/20 09:45 Source: patient Mode of arrival: ambulatory Limitations: no limitations - History of Present Illness Initial comments: Patient is a pleasant 74-year-old female presenting to the emergency Department with complaints of left wrist pain. Patient woke up with symptoms 2 days ago. Symptoms have progressed. Patient does not recall any injury. No bug bite. Patient states discomfort is greatly increased with any movement. No history of similar symptoms previously. No other area affected. No fevers. Patient does notice some mild warmth and mild redness. - Related Data Home Medications Medication Instructions Recorded Confirmed Ascorbic Acid [Vitamin C] 500 mg PO DAILY 03/04/18 03/26/20 Calcium Carbonate/Vitamin D3 1 tab PO DAILY 03/04/18 03/26/20 [Calcium 600-Vit D3 400 Caplet] Cholecalciferol [Vitamin D3 (25 1,000 unit PO DAILY 03/26/20 03/26/20 Mcg = 1000 Iu)] Temazepam [Restoril] 15 mg PO HS PRN 03/26/20 03/26/20 Allergies Allergy/AdvReac Type Severity Reaction Status Date / Time codeine Allergy Rash/Hives Verified 03/26/20 12:47 Penicillins Allergy Rash/Hives Verified 03/26/20 12:47 Fnzttoa-Cwe-Vke Reductase Allergy Itching Verified 03/26/20 12:47 Inhibitor any cholesterol medications Allergy Itching Uncoded 03/26/20 12:47 Review of Systems ROS Statement: Those systems with pertinent positive or pertinent negative responses have been documented in the HPI. ROS Other: All systems not noted in ROS Statement are negative. Constitutional: Denies: fever Eyes: Denies: eye pain ENT: Denies: ear pain Respiratory: Denies: cough Cardiovascular: Denies: chest pain Endocrine: Denies: fatigue Gastrointestinal: Denies: abdominal pain Genitourinary: Denies: dysuria Musculoskeletal: Reports: as per HPI, joint swelling, arthralgia Skin: Reports: as per HPI Neurological: Denies: weakness Past Medical History Past Medical History: No Reported History, Hyperlipidemia Additional Past Medical History / Comment(s): skin cancer, osteoporosis History of Any Multi-Drug Resistant Organisms: None Reported Past Surgical History: Adenoidectomy, Appendectomy, Cholecystectomy, Hysterectomy, Tonsillectomy Additional Past Surgical History / Comment(s): cataracts Past Anesthesia/Blood Transfusion Reactions: No Reported Reaction, Family History of Problems w/ Anesthesia Additional Past Anesthesia/Blood Transfusion Reaction / Comment(s): CHILDREN=PONV Past Psychological History: No Psychological Hx Reported Smoking Status: Current every day smoker Past Alcohol Use History: None Reported Past Drug Use History: None Reported - Past Family History Daughter(s) Family Medical History: Cancer General Exam Limitations: no limitations General appearance: alert, in no apparent distress Head exam: Present: normocephalic Eye exam: Present: normal appearance Neck exam: Present: normal inspection Respiratory exam: Present: normal lung sounds bilaterally Cardiovascular Exam: Present: regular rate, normal rhythm Expanded Peripheral pulses: 2+: Radial (L) Extremities exam: Present: tenderness Left Hand Wrist exam: Present: tenderness, swelling (Limited to the left wrist), other (Left wrist with mild erythema, tenderness and swelling. Significant pain with active and pacer range of motion. Pulses intact. Cap refill less than 2 seconds. Distally the extremity is neurovascular intact. Patient is able to move fingers with wrist discomfort.). Absent: full ROM (Pain with range of motion left wrist) Neurological exam: Present: alert. Absent: motor sensory deficit Psychiatric exam: Present: normal affect, normal mood Skin exam: Present: erythema (Mild erythema left wrist) Course Vital Signs 03/26/20 03/26/20 03/26/20 09:32 11:00 12:00 Temperature 98.5 F Pulse Rate 101 H 76 Respiratory 20 18 18 Rate Blood Pressure 194/82 137/83 O2 Sat by Pulse 98 96 Oximetry Medical Decision Making - Medical Decision Making Patient reevaluated and updated. Patient has moderate arthralgia however there appears to be some redness that the be streaking up to several centimeters past the wrist. There is concern for possible infection of the joint. Dr. Franoc has been paged for admission, covering for Dr. Farnsworth. Orthopedics will also be placed on consult. - Lab Data Result diagrams: 03/26/20 10:23 03/26/20 10:23 Lab Results 03/26/20 03/26/20 03/26/20 Range/Units 10:23 10:23 10:23 WBC 15.7 H (3.8-10.6) k/uL RBC 5.01 (3.80-5.40) m/uL Hgb 15.3 (11.4-16.0) gm/dL Hct 47.2 H (34.0-46.0) % MCV 94.1 (80.0-100.0) fL MCH 30.4 (25.0-35.0) pg MCHC 32.3 (31.0-37.0) g/dL RDW 13.8 (11.5-15.5) % Plt Count 210 (150-450) k/uL Neutrophils % 81 % Lymphocytes % 8 % Monocytes % 6 % Eosinophils % 2 % Basophils % 1 % Neutrophils # 12.7 H (1.3-7.7) k/uL Lymphocytes # 1.3 (1.0-4.8) k/uL Monocytes # 1.0 (0-1.0) k/uL Eosinophils # 0.4 (0-0.7) k/uL Basophils # 0.1 (0-0.2) k/uL PT 9.3 (9.0-12.0) sec INR 0.9 (<1.2) APTT 26.1 (22.0-30.0) sec Sodium 132 L (137-145) mmol/L Potassium 3.9 (3.5-5.1) mmol/L Chloride 97 L (98-107) mmol/L Carbon Dioxide 29 (22-30) mmol/L Anion Gap 6 mmol/L BUN 17 (7-17) mg/dL Creatinine 1.01 (0.52-1.04) mg/dL Est GFR (CKD-EPI)AfAm 64 (>60 ml/min/1.73 sqM) Est GFR (CKD-EPI)NonAf 55 (>60 ml/min/1.73 sqM) Glucose 98 (74-99) mg/dL Uric Acid 3.9 (3.7-7.4) mg/dL Calcium 9.6 (8.4-10.2) mg/dL Total Bilirubin 1.0 (0.2-1.3) mg/dL AST 19 (14-36) U/L ALT 13 (4-34) U/L Alkaline Phosphatase 68 (38-126) U/L Creatine Kinase 30 (30-135) U/L C-Reactive Protein 174.8 H (<10.0) mg/L Total Protein 6.2 L (6.3-8.2) g/dL Albumin 3.9 (3.5-5.0) g/dL - Radiology Data Radiology results: image reviewed (X-ray left wrist shows soft tissue edema, arthropathy trapezial scaphoid joint. No fracture or dislocation.) Disposition Clinical Impression: Arthralgia, Cellulitis Disposition: ADMITTED IP TO THIS HOSP Is patient prescribed a controlled substance at d/c from ED?: No Referrals: Agustín Farnsworth MD [Primary Care Provider] - 1-2 days Decision Time: 13:02
[2020-03-26] MEDS ORDERED: KETOROLAC 30 MG/ML 1 ML VIAL IVP STA (10:19)
[2020-03-26 10:31] LABS: Basophils # (A) 0.1 k/uL (0-0.2); Basophils % (A) 1 %; Eosinophils # (A) 0.4 k/uL (0-0.7); Eosinophils % (A) 2 %; HCT 47.2 % (34.0-46.0); HGB 15.3 gm/dL (11.4-16.0); Lymphocytes # (A) 1.3 k/uL (1.0-4.8); Lymphocytes % (A) 8 %; MCH 30.4 pg (25.0-35.0); MCHC 32.3 g/dL (31.0-37.0); MCV 94.1 fL (80.0-100.0); Mean Platelet Volume 6.9; Monocytes % (A) 6 %; Neutrophils # (A) 12.7 k/uL (1.3-7.7); Neutrophils % (A) 81 %; Platelet Count 210 k/uL (150-450); RBC 5.01 m/uL (3.80-5.40); RDW 13.8 % (11.5-15.5); WBC 15.7 k/uL (3.8-10.6)
[2020-03-26 10:44] LABS: INR 0.9 (<1.2)
[2020-03-26 10:45] LABS: Partial Thromboplastin Time 26.1 sec (22.0-30.0); Prothrombin Time 9.3 sec (9.0-12.0)
--- NOTE | 2020-03-26 10:47 | XR ---
EXAMINATION TYPE: XR wrist complete LT DATE OF EXAM: 03/26/2020 COMPARISON: NONE HISTORY: Pain TECHNIQUE: Four views submitted. FINDINGS: The osseous structures are intact. There is narrowing of the trapezial scaphoid joint. Soft tissue sw elling noted. And there is no acute fracture or dislocation. IMPRESSION: 1. No definite acute fracture or dislocation if symptoms persist, follow-up study in 7 to 10 days wo uld be suggested. 2. Arthropathy of the trapezial scaphoid joint. 3. Soft tissue edema.
[2020-03-26 11:17] LABS: Albumin 3.9 g/dL (3.5-5.0); Calcium 9.6 mg/dL (8.4-10.2); Potassium 3.9 mmol/L (3.5-5.1); Total Protein 6.2 g/dL (6.3-8.2); Uric Acid 3.9 mg/dL (3.7-7.4)
[2020-03-26 11:31] LABS: C Reactive Protein 174.8 mg/L (<10.0)
[2020-03-26] MEDS ORDERED: LEVOFLOXACIN 500MG-D5W PMX 500 MG in DEXTROSE/WATER 1 100ML.BAG IVPB STA (12:57)
[2020-03-26] MEDS ORDERED: NALOXONE 0.4 MG/ML 1 ML VIAL IV PRN (12:59)
[2020-03-26] MEDS ORDERED: KETOROLAC 30 MG/ML 1 ML VIAL IVP PRN ×2 (12:59→14:21)
[2020-03-26] MEDS ORDERED: LEVOFLOXACIN 500MG-D5W PMX 500 MG in DEXTROSE/WATER 1 100ML.BAG IVPB SCH (13:00)
[2020-03-26] MEDS ORDERED: TEMAZEPAM 15 MG CAP PO PRN (14:16)
[2020-03-26] MEDS ORDERED: ACETAMINOPHEN TAB 500 MG TAB PO PRN (14:19)
[2020-03-26] MEDS ORDERED: ALPRAZolam 0.25 MG TAB PO PRN (14:19)
[2020-03-26] MEDS ORDERED: PANTOPRAZOLE 40 MG/10 ML VIAL IVP SCH (14:19)
[2020-03-26] MEDS ORDERED: traMADol 50 MG TAB PO PRN (14:20)
--- NOTE | 2020-03-26 14:51 | XR ---
EXAMINATION TYPE: XR chest 1V portable DATE OF EXAM: 03/26/2020 COMPARISON: 11/02/2015 HISTORY: Shortness of breath TECHNIQUE: Single frontal view of the chest is obtained. FINDINGS: Hyperinflation suggests COPD. No consolidation or pleural effusion. Heart is at the upper limits of normal. There is a scoliosis of the spine with degenerative change. Atherosclerotic change aorta. No pneumothorax or overt interstitial edema. IMPRESSION: COPD.
--- NOTE | 2020-03-26 15:36 | HP ---
HISTORY AND PHYSICAL DATE OF SERVICE: 03/26/2020 CHIEF COMPLAINT: 1. Hip pain. 2. Pain of the left wrist joint area. HISTORY OF PRESENT ILLNESS: This is a 74-year-old woman with a past medical history or multiple medical problems including hyperlipidemia, history of pneumonia, history of left knee effusion, gout or pseudogout, history of skin cancer, adenoidectomy, appendectomy, being followed by Dr. Agustín Farnsworth in the outpatient, apparently woke up yesterday. Hence, patient noted severe pain in the left wrist which is grossly increasing in intensity. Patient came to [facility], admitted for further evaluation and treatment. There is no history of fever, chills, rigors. History of headache, loss of consciousness, seizures. The white count is elevated to 15.7, sodium is 132. The patient also had wrist x-rays showed arthropathy of the trapezoid-rivas joint. No definite acute fractures. Soft tissue edema was also noted. Patient admitted for further evaluation treatment. Uric acid is normal. There is no headache loss conscious at this time. PAST MEDICAL HISTORY: History of hyperlipidemia, history of pneumonia, hip knee effusion, gout, history of appendectomy adenoidectomy medications. HOME MEDICATIONS: 1. Vitamin D3 one thousand daily. 2. Restoril 50 mg q.h.s. p.r.n. 3. Vitamin D3 one 1 tablet, p.o. daily. 4. Vitamin C 500 mg daily. DAILY ALLERGIES: CODEINE, PENICILLIN, STATINS, CHOLESTEROL MEDICATIONS. FAMILY HISTORY: History of breast cancer. SOCIAL HISTORY: History of smoking on a daily basis. No history of alcohol intake. REVIEW OF SYSTEMS: ENT: Diminished vision, diminished hearing. CARDIOVASCULAR: No angina. RESPIRATION: No cough. GI: As mentioned earlier. : No dysuria. NERVOUS SYSTEM: No numbness or weakness. ALLERGY/IMMUNOLOGY: No asthma or hayfever. MUSCULOSKELETAL: As mentioned earlier. HEMATOLOGY: No history of anemia. ENDOCRINE: No history of diabetes or hypothyroidism. CONSTITUTIONAL: Negative. DERMATOLOGY: Negative. PSYCHIATRY: As mentioned earlier. PHYSICAL EXAMINATION: Alert and oriented x3. Pulse is 74, blood pressure 140/68, respiration 18, temperature 98.4, pulse ox 94% on room air. HEENT: Conjunctivae normal. Oral mucosa moist. NECK: No jugular venous distention. No lymph node enlargement. CARDIOVASCULAR SYSTEMS: S1, S2, muffled. RESPIRATORY: Breath sounds diminished at the bases, a few scattered rhonchi, no crackles. ABDOMEN: Soft, nontender. LEGS: No edema, no swelling. NERVOUS SYSTEM: As mentioned earlier. Moves all 4 limbs, no focal motor or sensory deficits. LYMPHATICS: No lymph node enlargement of the neck or axillae. SKIN: Erythema present over the left wrist join. JOINT: Left wrist joint is swollen, significantly limited movements, severely tender and also swelling into the whole hand and as well as multiple joints also. NERVOUS SYSTEM: No focal deficits. LABS: WBC 15.7, sodium 130, potassium 3, and CRP is 1748 and uric acid 3.9. ASSESSMENT: 1. Left wrist swelling and pain and tenderness with arthropathy, possibly gouty arthritis versus pseudogout versus infective arthropathy and pyogenic arthritis. 2. Hyponatremia. 3. Increased WBC. 4. History of hypertension. 5. Hyperlipidemia. 6. History of left knee effusion and gout. 7. History of osteoporosis. 8. History of diverticulitis. 9. History of appendectomy. 10.History of ganglionic cyst. 11.History of nicotine dependence. 12.FULL CODE. 13.Mild protein calorie malnutrition with a body mass index of 19. RECOMMENDATION AND DISCUSSION: This 74-year-old woman presented with multiple complex medical issues, will monitor the patient closely. I would recommend to continue with the Levaquin. Orthopedic evaluation. I would also get Infectious Disease evaluation. Recommend empiric treatment for gout with colchicine. Otherwise, will follow the patient closely. Prognosis guarded because of multiple complex medical conditions. Further recommendations to follow. A copy of this dictation being forwarded to Dr. Agustín Farnsworth who is the primary physician. MMODL / IJN: [id number] /
[2020-03-26] MEDS: NICOTINE 14MG/24HR PATCH TRANSDERM SCH (15:58)
--- NOTE | 2020-03-26 17:07 | P.CNOR ---
History of Present Illness - HPI Consult date: 03/26/20 History of present illness: This is a 74-year-old female who is admitted for left wrist pain. Patient states that she woke up with left wrist pain 2 days ago. Patient reports pain with range of motion of the left wrist. Patient denies injury. Patient's past medical history significant for hyperlipidemia. Patient denies any fever/chills, numbness, weakness or tingling. Review of Systems See HPI. Past Medical History Past Medical History: Cancer, Hyperlipidemia, Pneumonia Additional Past Medical History / Comment(s): Past L knee effusion/gout, hyperlipidemia but cannot tolerate statins, skin cancer with removal, osteoporosis, diverticulitis with sepsis, History of Any Multi-Drug Resistant Organisms: None Reported Past Surgical History: Adenoidectomy, Appendectomy, Cholecystectomy, Hyst erectomy, Orthopedic Surgery, Tonsillectomy Additional Past Surgical History / Comment(s): L knee arthroscopy d/t effusion, R wrist ganglion cyst surgeries x 3, skin cancer removed from nose, bilateral cataract removals/lens implants. Past Anesthesia/Blood Transfusion Reactions: No Reported Reaction, Family History of Problems w/ Anesthesia Additional Past Anesthesia/Blood Transfusion Reaction / Comm: CHILDREN=PONV Smoking Status: Current every day smoker - Past Family History Mother Family Medical History: Dementia Father History Unknown: Yes Daughter(s) Family Medical History: Cancer Additional Family Medical History / Comment(s): Letty survived breast cancer. Medications and Allergies Home Medications Medication Instructions Recorded Confirmed Type Ascorbic Acid [Vitamin C] 500 mg PO DAILY 03/04/18 03/26/20 History Calcium Carbonate/Vitamin D3 1 tab PO DAILY 03/04/18 03/26/20 History [Calcium 600-Vit D3 400 Caplet] Cholecalciferol [Vitamin D3 (25 1,000 unit PO DAILY 03/26/20 03/26/20 History Mcg = 1000 Iu)] Temazepam [Restoril] 15 mg PO HS PRN 03/26/20 03/26/20 History Allergies Allergy/AdvReac Type Severity Reaction Status Date / Time codeine Allergy Rash/Hives Verified 03/26/20 12:47 Penicillins Allergy Rash/Hives Verified 03/26/20 12:47 Oyjopkd-Jmc-Knn Reductase Allergy Itching Verified 03/26/20 12:47 Inhibitor any cholesterol medications Allergy Itching Uncoded 03/26/20 12:47 Physical Examination On exam patient is resting comfortably in bed in no acute distress. Patient is alert and oriented 3. There is tenderness to palpation over the radial aspect of the left wrist. No tenderness to palpation over the ulnar aspect of the left wrist. There is some mild swelling and minimal erythema. Patient has pain with passive and active range of motion of the left wrist and hand. There is no tenderness to palpation of the left elbow. Sensation is intact. Left upper extremity is warm and well perfused. Results X-rays of the left wrist dated 03/26/2020 and negative for any fracture, dislocation or significant arthritis. - Labs Labs: Abnormal Lab Results - Last 24 Hours (Table) 03/26/20 03/26/20 Range/Units 10:23 10:23 WBC 15.7 H (3.8-10.6) k/uL Hct 47.2 H (34.0-46.0) % Neutrophils # 12.7 H (1.3-7.7) k/uL Sodium 132 L (137-145) mmol/L Chloride 97 L (98-107) mmol/L C-Reactive Protein 174.8 H (<10.0) mg/L Total Protein 6.2 L (6.3-8.2) g/dL H & H 03/26/20 Range/Units 10:23 Hgb 15.3 (11.4-16.0) gm/dL Hct 47.2 H (34.0-46.0) % Coagulation 03/26/20 Range/Units 10:23 INR 0.9 (<1.2) Result Diagrams: 03/26/20 10:23 03/26/20 10:23 Assessment and Plan (1) Left wrist pain Current Visit: Yes Status: Acute Code(s): M25.532 - PAIN IN LEFT WRIST SNOMED Code(s): 70464780 (2) Arthralgia Current Visit: Yes Status: Acute Code(s): M25.50 - PAIN IN UNSPECIFIED JOINT SNOMED Code(s): 64256094 (3) Cellulitis Current Visit: Yes Status: Acute Code(s): L03.90 - CELLULITIS, UNSPECIFIED SNOMED Code(s): 225176547 Plan: 1. Recommend continuation of IV antibiotics. 2. Recommend rest, elevation and warm compresses to the left wrist. 3. Patient is afebrile. WBC 15.7. 4. No surgical intervention planned. We will continue to follow the patient closely.
[2020-03-26] MEDS: SODIUM CHLORIDE 0.9% 1,000 ML IV SCH (17:18)
[2020-03-26] MEDS ORDERED: FAMOTIDINE 20 MG TAB PO SCH (21:00)
[2020-03-26] MEDS: COLCHICINE 0.6 MG EACH PO SCH ×2 (21:00→21:46)
[2020-03-26] MEDS: HEPARIN SODIUM,PORCINE 5,000 UNIT/ML 1 ML VIAL SQ SCH (21:46)
--- NOTE | 2020-03-26 23:36 | P.CONS ---
History of Present Illness - Reason for Consult Consult date: 03/26/20 Left wrist forearm cellulitis Requesting physician: Darcy Graves - Chief Complaint Left wrist forearm. And swelling x 2 days - History of Present Illness Patient is a 74-year-old female presenting to [facility] with chief complaints of left wrist forearm and hand pain swelling redness that started 2 days ago when the patient woke up with these symptoms patient denies having any history of any trauma or any bug bite patient mentioning the pain swelling redness has significantly increased in the last few days and was almost of a 10 out of 10 by the time the patient presented to the hospital patient described the pain to be mostly sharp in nature, pain is worse with the movement of the wrist or hand, patient currently with no open wound or any drainage did have some chills but denies high-grade fever patient was evaluated by the physician on June the patient was afebrile she did have elevated white count of 15,000 x-rays of the left forearm and wrist did not show any bony changes, the patient's uric acid was normal as well patient was started on Levaquin because of her penicillin ALLERGY has been admitted to the hospital infectious d leeroy was consulted for further management of antibiotic therapy Review of Systems Positive point has been mentioned in the HPI rest of the systems are negative Past Medical History Past Medical History: Cancer, Hyperlipidemia, Pneumonia Additional Past Medical History / Comment(s): Past L knee effusion/gout, hyperlipidemia but cannot tolerate statins, skin cancer with removal, osteoporosis, diverticulitis with sepsis, History of Any Multi-Drug Resistant Organisms: None Reported Past Surgical History: Adenoidectomy, Appendectomy, Cholecystectomy, H ysterectomy, Orthopedic Surgery, Tonsillectomy Additional Past Surgical History / Comment(s): L knee arthroscopy d/t effusion, R wrist ganglion cyst surgeries x 3, skin cancer removed from nose, bilateral cataract removals/lens implants. Past Anesthesia/Blood Transfusion Reactions: No Reported Reaction, Family History of Problems w/ Anesthesia Additional Past Anesthesia/Blood Transfusion Reaction / Comm: CHILDREN=PONV Smoking Status: Current every day smoker - Past Family History Mother Family Medical History: Dementia Father History Unknown: Yes Daughter(s) Family Medical History: Cancer Additional Family Medical History / Comment(s): Letty survived breast cancer. Medications and Allergies Home Medications Medication Instructions Recorded Confirmed Type Ascorbic Acid [Vitamin C] 500 mg PO DAILY 03/04/18 03/26/20 History Calcium Carbonate/Vitamin D3 1 tab PO DAILY 03/04/18 03/26/20 History [Calcium 600-Vit D3 400 Caplet] Cholecalciferol [Vitamin D3 (25 1,000 unit PO DAILY 03/26/20 03/26/20 History Mcg = 1000 Iu)] Temazepam [Restoril] 15 mg PO HS PRN 03/26/20 03/26/20 History Allergies Allergy/AdvReac Type Severity Reaction Status Date / Time codeine Allergy Rash/Hives Verified 03/26/20 12:47 Penicillins Allergy Rash/Hives Verified 03/26/20 12:47 Jmedexk-Fth-Hbe Reductase Allergy Itching Verified 03/26/20 12:47 Inhibitor any cholesterol medications Allergy Itching Uncoded 03/26/20 12:47 Physical Exam Vitals: Vital Signs Temp Pulse Pulse Resp BP BP Pulse Ox 03/26/20 15:00 98.7 F 75 16 168/77 95 03/26/20 13:39 74 18 140/68 95 03/26/20 12:00 76 18 137/83 96 03/26/20 11:00 18 03/26/20 09:32 98.5 F 101 H 20 194/82 98 Intake and Output 03/26/20 03/26/20 03/26/20 06:59 14:59 22:59 Other: # Voids 1 Weight 44.044 kg GENERAL DESCRIPTION: An elderly female lying in bed, no distress. No tachypnea or accessory muscle of respiration use. HEENT: Shows Pallor , no scleral icterus. Oral mucous membrane is dry. No pharyngeal erythema or thrush NECK: Trachea central, no thyromegaly. LUNGS: Unlabored breathing. Clear to auscultation anteriorly. No wheeze or crackle. HEART: S1, S2, regular rate and rhythm. No loud murmur ABDOMEN: Soft, no tenderness , guarding or rigidity, no organomegaly EXTREMITIES: Left wrist and dorsum of the hand is some swelling. Minimal warmth and tender to touch SKIN: No rash, no masses palpable. NEUROLOGICAL: The patient is awake, alert, oriented x3, mood and affect normal. Results CBC & Chem 7: 03/26/20 10:23 03/26/20 10:23 Labs: Abnormal Lab Results - Last 24 Hours (Table) 08/07/20 08/07/20 Range/Units 10:23 10:23 WBC 15.7 H (3.8-10.6) k/uL Hct 47.2 H (34.0-46.0) % Neutrophils # 12.7 H (1.3-7.7) k/uL Sodium 132 L (137-145) mmol/L Chloride 97 L (98-107) mmol/L C-Reactive Protein 174.8 H (<10.0) mg/L Total Protein 6.2 L (6.3-8.2) g/dL Assessment and Plan Assessment: 1- patient with left hand/upper extremity cellulitis with diffuse swelling redness likely streptococcal disease that has rapidly progressed over the last 48 hours with no evidence of any abscess or wound 2- patient with penicillin ALLERGY that evidence of a number of antibiotic safe to use (1) Left arm cellulitis Current Visit: Yes Status: Acute Code(s): L03.114 - CELLULITIS OF LEFT UPPER LIMB SNOMED Code(s): 934658551 (2) Penicillin allergy Current Visit: Yes Status: Acute Code(s): Z88.0 - ALLERGY STATUS TO PENICILLIN SNOMED Code(s): 77060343 Plan: 1- discontinue Levaquin 2- start the patient on cefazolin 2 g every 8 hours We will follow on clinical condition and cultures to further adjust medication if needed Thank you for this consultation will follow this patient with you Time with Patient: Greater than 30
[2020-03-27 06:06] LABS: Basophils % (A) 0 %; Eosinophils # (A) 0.5 k/uL (0-0.7); Eosinophils % (A) 5 %; HCT 40.7 % (34.0-46.0); HGB 13.1 gm/dL (11.4-16.0); Lymphocytes # (A) 1.4 k/uL (1.0-4.8); Lymphocytes % (A) 15 %; MCH 31.1 pg (25.0-35.0); MCHC 32.2 g/dL (31.0-37.0); MCV 96.5 fL (80.0-100.0); Mean Platelet Volume 7.1; Monocytes # (A) 0.6 k/uL (0-1.0); Monocytes % (A) 7 %; Neutrophils # (A) 6.8 k/uL (1.3-7.7); Neutrophils % (A) 72 %; Platelet Count 204 k/uL (150-450); RBC 4.22 m/uL (3.80-5.40); RDW 13.8 % (11.5-15.5); WBC 9.5 k/uL (3.8-10.6)
[2020-03-27 06:21] LABS: Calcium 8.1 mg/dL (8.4-10.2); Potassium 3.6 mmol/L (3.5-5.1)
[2020-03-27 06:31] LABS: Appearance,Urine Clear (Clear); Bilirubin,Urine Negative (Negative); Blood,Urine Negative (Negative); Color,Urine Yellow; Glucose,Urine (UA) Negative (Negative); Hyaline Casts,Urine 3 /lpf (0-2); Ketones,Urine Negative (Negative); Leukocyte Esterase,Urine Trace (Negative); Mucus,Urine Rare /hpf; Nitrite,Urine Negative (Negative); PH, Urine 5.5 (5.0-8.0); Protein,Urine Trace (Negative); RBC,Urine 2 /hpf (0-5); Specific Gravity,Urine 1.016 (1.001-1.035); Squamous Epithelial Cell,Urine <1 /hpf (0-4); Urobilinogen,Urine <2.0 mg/dL (<2.0); WBC,Urine 6 /hpf (0-5)
[2020-03-27] MEDS ORDERED: PANTOPRAZOLE 40 MG TABLET PO SCH (07:30)
[2020-03-27] MEDS: COLCHICINE 0.6 MG EACH PO SCH (08:25)
[2020-03-27] MEDS: HEPARIN SODIUM,PORCINE 5,000 UNIT/ML 1 ML VIAL SQ SCH (08:25)
[2020-03-27] MEDS: NICOTINE 14MG/24HR PATCH TRANSDERM SCH (08:26)
[2020-03-27] MEDS ORDERED: CHOLECALCIFEROL 1,000 UNIT TAB PO SCH (09:00)
[2020-03-27] MEDS ORDERED: ASCORBIC ACID 500 MG TAB PO SCH (09:00)
[2020-03-27] MEDS ORDERED: CALCIUM CARB-VIT D 500MG-200UN 1 EACH TAB PO SCH (09:00)
[2020-03-27 09:37] VITALS: BP 142/64; PULSE 65; TEMP 98.3
--- NOTE | 2020-03-27 11:28 | P.PN ---
Subjective Progress Note Date: 03/27/20 This is a 74 year-old female admitted for left wrist cellulitis. Patient states that her pain and swelling have markedly improved today. Patient reports full range of motion of the left hand which she previously could not do without pain. Patient denies any new symptoms or complaints today. Objective - Vital Signs Vital signs: Vital Signs Temp 98.3 F 03/27/20 09:00 Pulse 65 03/27/20 09:00 Resp 16 03/27/20 09:00 BP 142/64 03/27/20 09:00 Pulse Ox 94 L 03/27/20 09:00 Intake & Output 03/26/20 03/27/20 03/27/20 18:59 06:59 18:59 Intake Total 360 Balance 360 Weight 44.044 kg Intake: Intake, IV Titration 120 Amount Sodium Chloride 0.9% 1, 120 000 ml @ 20 mls/hr IV . Q24H MARILYN Rx#:[id number] Oral 240 Other: # Voids 1 1 - Exam On exam patient has full range of motion of the left wrist and hand. There is no tenderness to palpation. There is no erythema or swelling. Sensation is intact. Neurovascular status and circulatory status are intact. - Labs CBC & Chem 7: 03/27/20 05:50 03/27/20 05:50 Labs: Abnormal Lab Results - Last 24 Hours (Table) 03/26/20 03/26/20 03/27/20 Range/Units 10:23 10:23 05:50 WBC 15.7 H (3.8-10.6) k/uL Hct 47.2 H (34.0-46.0) % Neutrophils # 12.7 H (1.3-7.7) k/uL Sodium 132 L 136 L (137-145) mmol/L Chloride 97 L 108 H (98-107) mmol/L Glucose 102 H (74-99) mg/dL Calcium 8.1 L (8.4-10.2) mg/dL C-Reactive Protein 174.8 H (<10.0) mg/L Total Protein 6.2 L (6.3-8.2) g/dL Urine Protein (Negative) Ur Leukocyte Esterase (Negative) Urine WBC (0-5) /hpf Hyaline Casts (0-2) /lpf Urine Mucus (None) /hpf 03/27/20 Range/Units 05:55 WBC (3.8-10.6) k/uL Hct (34.0-46.0) % Neutrophils # (1.3-7.7) k/uL Sodium (137-145) mmol/L Chloride (98-107) mmol/L Glucose (74-99) mg/dL Calcium (8.4-10.2) mg/dL C-Reactive Protein (<10.0) mg/L Total Protein (6.3-8.2) g/dL Urine Protein Trace H (Negative) Ur Leukocyte Esterase Trace H (Negative) Urine WBC 6 H (0-5) /hpf Hyaline Casts 3 H (0-2) /lpf Urine Mucus Rare H (None) /hpf Assessment and Plan (1) Left wrist pain Current Visit: Yes Status: Acute Code(s): M25.532 - PAIN IN LEFT WRIST SNOMED Code(s): 97231549 (2) Arthralgia Current Visit: Yes Status: Acute Code(s): M25.50 - PAIN IN UNSPECIFIED JOINT SNOMED Code(s): 14984199 (3) Cellulitis Current Visit: Yes Status: Acute Code(s): L03.90 - CELLULITIS, UNSPECIFIED SNOMED Code(s): 343013237 Plan: 1. Recommend continuation of IV antibiotics per infectious disease. 2. Recommend rest and elevation as needed. 3. Patient is afebrile. WBC is normal today. 4. No surgical intervention planned. Patient may follow up as an outpatient on an as-needed basis.
[2020-03-27 12:46] VITALS: BMI 18.9
[2020-03-27] MEDS ORDERED: LEVOFLOXACIN 500MG-D5W PMX 500 MG in DEXTROSE/WATER 1 100ML.BAG IVPB SCH (13:00)
[2020-03-27] MEDS: SODIUM CHLORIDE 0.9% 1,000 ML IV SCH (15:15)
[2020-03-27 15:28] VITALS: RESP 18
--- NOTE | 2020-03-27 16:14 | P.DS ---
Providers Date of admission: 03/26/20 12:59 Expected date of discharge: 03/27/20 Attending physician: Ernie Franco Consults: 03/26/20 12:59 Consult Physician Urgent Consulting Provider: Taz Avelar Consult Reason/Comments: Arthralgia, cellulitis Do you want consulting provider notified?: Yes 03/26/20 14:16 Consult Physician Routine Consulting Provider: Sina Anton Consult Reason/Comments: arthritis Do you want consulting provider notified?: Yes Primary care physician: Agustín Farnsworth [facility] Course: Mrs. Kay is a 74-year-old female with a past medical history of hypertension, hyperlipidemia, left knee effusion, gout, history of skin cancer, adenoidectomy, appendectomy followed by Dr. Jeff Farnsworth as an outpatient coming in with a chief complaint of left wrist pain. Patient had x-rays done showing arthropathy of the trapezius side Rodriguez joint. There was soft tissue edema. Uric acid was normal. orthopedic consultation was ordered and they suggested antibiotics for cellulitis. So infectious disease Dr. Anton and evaluated the patient. Patient responded to cefazolin and being discharged on Keflex for 7 more days. DISCHARGE DIAGNOSIS Left wrist cellulitis Hyponatremia Hypertension Hyperlipidemia History of left knee effusion and gout History of osteoporosis History of diverticulitis Nicotine dependence history Mild protein calorie malnutrition with BMI of 19 PLAN: Patient is being discharged home on 7 days of Keflex to be completed for her cellulitis. Patient is advised to follow up with her primary care physician Dr. Jeff Farnsworth in 2-3 days. Patient Condition at Discharge: Fair Plan - Discharge Summary Discharge Rx Participant: No New Discharge Prescriptions: New Cephalexin [Keflex] 500 mg PO Q8HR #21 cap Continue Calcium Carbonate/Vitamin D3 [Calcium 600-Vit D3 400 Caplet] 1 tab PO DAILY Ascorbic Acid [Vitamin C] 500 mg PO DAILY Cholecalciferol [Vitamin D3 (25 Mcg = 1000 Iu)] 1,000 unit PO DAILY Temazepam [Restoril] 15 mg PO HS PRN PRN Reason: Insomnia Discharge Medication List Ascorbic Acid [Vitamin C] 500 mg PO DAILY 03/04/18 [History] Calcium Carbonate/Vitamin D3 [Calcium 600-Vit D3 400 Caplet] 1 tab PO DAILY 03/04/18 [History] Cholecalciferol [Vitamin D3 (25 Mcg = 1000 Iu)] 1,000 unit PO DAILY 03/26/20 [History] Temazepam [Restoril] 15 mg PO HS PRN 03/26/20 [History] Cephalexin [Keflex] 500 mg PO Q8HR #21 cap 03/27/20 [Rx] Follow up Appointment(s)/Referral(s): Agustín Farnsworth MD [Primary Care Provider] - 1-2 days Discharge Disposition: HOME SELF-CARE
--- NOTE | 2020-03-27 18:28 | PN ---
PROGRESS NOTE DATE OF SERVICE: 03/27/2020 REASON FOR FOLLOWUP: Left wrist and hand cellulitis. INTERVAL HISTORY: Patient is currently afebrile. The patient is feeling better. Breathing comfortably. Overall pain and swelling to the left hand are much improved. The patient is insisting on going home. No chest pain. No cough. No abdominal pain. No diarrhea. PHYSICAL EXAMINATION: Blood pressure 142/64 with a pulse of 65, temperature 98.3. She is 94% on room air. General description: The patient is an elderly female lying in bed in no distress. Respiratory system: Unlabored breathing. Clear to auscultation anteriorly. Heart S1, S2. Regular rate and rhythm. Abdomen soft, no tenderness. Left hand swelling and redness of arm is less. LABS: Hemoglobin is 13.8, white count normalized to 9.5. Blood culture has been negative. DIAGNOSTIC IMPRESSION AND PLAN: Patient with left hand cellulitis. Overall clinical improvement. Plan is to finish therapy with oral Keflex 500 mg p.o. t.i.d. for about a week. Prescription sent to the pharmacy and close outpatient followup. MMODL / IJN: [id number] /
== END 2020-03-27 16:11 | disposition home or self-care (01) ==
LOC: EC 09:24 → 1SOBS 12:59
PROVIDERS: ADMIT Internal Medicine; ATTEND Internal Medicine
DX: L03.114 Cellulitis of left upper limb (principal); E44.1 Mild protein-calorie malnutrition; E78.5 Hyperlipidemia, unspecified; E87.1 Hypo-osmolality and hyponatremia; F17.200 Nicotine dependence, unspecified, uncomplicated; I10 Essential (primary) hypertension; M11.20 Other chondrocalcinosis, unspecified site; M19.90 Unspecified osteoarthritis, unspecified site; M81.0 Age-related osteoporosis without current pathological fracture; Z68.1 Body mass index [BMI] 19.9 or less, adult; Z80.3 Family history of malignant neoplasm of breast; Z85.828 Personal history of other malignant neoplasm of skin; Z87.01 Personal history of pneumonia (recurrent); Z88.0 Allergy status to penicillin; Z90.49 Acquired absence of other specified parts of digestive tract; Z90.710 Acquired absence of both cervix and uterus; Z98.42 Cataract extraction status, left eye; Z98.41 Cataract extraction status, right eye; Z96.1 Presence of intraocular lens
CPT/HCPCS: 96366; 96367; 96372 ×2; 96375 ×2; 96365; 99284; 36415; 80053; 80048; 82550; 84550; 85025 ×2; 85610; 85730; 86140; 81001; 87040; 73110; 71045; G0378 ×2; J1644 ×2; J0690 ×2; J1956; J1885; C9113

== ENCOUNTER → 2020-05-17 | Outpatient (CLI) | payer MEDICARE, BC ==
[2020-05-17 11:44] LABS: Basophils # (A) 0.1 k/uL (0-0.2); Basophils % (A) 1 %; Eosinophils # (A) 0.2 k/uL (0-0.7); Eosinophils % (A) 2 %; HCT 44.6 % (34.0-46.0); HGB 14.3 gm/dL (11.4-16.0); Lymphocytes # (A) 1.8 k/uL (1.0-4.8); Lymphocytes % (A) 20 %; MCH 29.7 pg (25.0-35.0); MCHC 32.1 g/dL (31.0-37.0); MCV 92.4 fL (80.0-100.0); Mean Platelet Volume 7.1; Monocytes # (A) 0.5 k/uL (0-1.0); Monocytes % (A) 6 %; Neutrophils # (A) 6.5 k/uL (1.3-7.7); Neutrophils % (A) 71 %; Platelet Count 260 k/uL (150-450); RBC 4.83 m/uL (3.80-5.40); RDW 13.4 % (11.5-15.5); WBC 9.1 k/uL (3.8-10.6)
[2020-05-17 16:52] LABS: Anion Gap 8.8 mmol/L (4.00-12.00); Carbon Dioxide 27.2 mmol/L (21.6-31.8)
== END | disposition home or self-care (01) ==
LOC: LABPAT 09:37
PROVIDERS: ATTEND Surgery
DX: Z01.818 Encounter for other preprocedural examination (principal); Z20.828 Contact with and (suspected) exposure to other viral communicable diseases; I71.4 Abdominal aortic aneurysm, without rupture
CPT/HCPCS: 36415; 80051; 85025

== ENCOUNTER 2020-06-01 13:09 | Observation (INO) | payer MEDICARE, BC ==
--- NOTE | 2020-06-01 13:28 | ED ---
Upper Extremity HPI - General Chief Complaint: Extremity Injury, Upper Stated Complaint: arm & leg pain Time Seen by Provider: 06/01/20 13:17 Source: patient, family, RN notes reviewed Mode of arrival: wheelchair Limitations: no limitations - History of Present Illness Initial Comments: This is a 75-year-old female who states she had stent placement this past week at [facility] and she comes in today basically complaining of left arm pain. She states she has increased swelling over the site. Increase ecchymosis. The pain she states is 50/10 in severity. No shortness of breath no fevers chills nausea vomiting sweats or other symptoms. He states it was fine up until this morning. Complaint: Injury to:: left, arm - Related Data Home Medications Medication Instructions Recorded Confirmed Ascorbic Acid [Vitamin C] 500 mg PO DAILY 03/04/18 06/01/20 Calcium Carbonate/Vitamin D3 1 tab PO DAILY 03/04/18 06/01/20 [Calcium 600-Vit D3 400 Caplet] Cholecalciferol [Vitamin D3 (25 1,000 unit PO DAILY 03/26/20 06/01/20 Mcg = 1000 Iu)] Temazepam [Restoril] 15 mg PO HS PRN 03/26/20 06/01/20 Aspirin EC [Ecotrin Low Dose] 81 mg PO DAILY 06/01/20 06/01/20 Clopidogrel [Plavix] 75 mg PO DAILY 06/01/20 06/01/20 Allergies Allergy/AdvReac Type Severity Reaction Status Date / Time codeine Allergy Rash/Hives Verified 06/01/20 15:31 morphine Allergy Rash/Hives Verified 06/01/20 15:31 Penicillins Allergy Rash/Hives Verified 06/01/20 15:31 Apfqgkg-Vso-Yke Reductase Allergy Itching Verified 06/01/20 15:31 Inhibitor any cholesterol medications Allergy Itching Uncoded 05/14/20 09:45 Review of Systems ROS Statement: Those systems with pertinent positive or pertinent negative responses have been documented in the HPI. ROS Other: All systems not noted in ROS Statement are negative. Past Medical History Past Medical History: Cancer, Hyperlipidemia, Hypertension, Pneumonia Additional Past Medical History / Comment(s): gout, hyperlipidemia but cannot tolerate statins, skin cancer , osteoporosis, diverticulitis with sepsis, History of Any Multi-Drug Resistant Organisms: None Reported Past Surgical History: Adenoidectomy, Appendectomy, Cholecystectomy, Hysterectomy, Orthopedic Surgery, Tonsillectomy Additional Past Surgical History / Comment(s): L knee arthroscopy d/t effusion, R wrist ganglion cyst surgeries x 3, skin cancer removed from nose, bilateral cataract removals/lens implants. stents Past Anesthesia/Blood Transfusion Reactions: No Reported Reaction Additional Past Anesthesia/Blood Transfusion Reaction / Comment(s): CHILDREN=PONV Past Psychological History: No Psychological Hx Reported Smoking Status: Former smoker Past Alcohol Use History: None Reported Past Drug Use History: None Reported - Past Family History Mother Family Medical History: Dementia Father History Unknown: Yes Family Medical History: No Reported History Daughter(s) Family Medical History: Cancer Additional Family Medical History / Comment(s): Letty survived breast cancer. General Exam - General Exam Comments Initial Comments: This a well-developed asthenic appearing female who is awake alert oriented 3 Limitations: no limitations General appearance: alert, anxious, in distress Head exam: Present: atraumatic, normocephalic, normal inspection Eye exam: Present: normal appearance, PERRL, EOMI. Absent: scleral icterus, co njunctival injection, periorbital swelling ENT exam: Present: normal exam, mucous membranes moist Neck exam: Present: normal inspection, full ROM. Absent: tenderness, meningismus, lymphadenopathy Respiratory exam: Present: normal lung sounds bilaterally. Absent: respiratory distress, wheezes, rales, rhonchi, stridor Cardiovascular Exam: Present: normal rhythm, tachycardia, normal heart sounds. Absent: systolic murmur, diastolic murmur, rubs, gallop, clicks Extremities exam: Present: tenderness, normal capillary refill, other (Left upper extremity demonstrates evidence of ecchymosis with edema. The ecchymotic areas consistent with a hematoma. Puncture site appears be intact no evidence of leaking or bleeding at this time distally no sensorimotor or vascular def icits). Absent: full ROM Course Vital Signs 06/01/20 13:13 Temperature 98.3 F Pulse Rate 111 H Respiratory 18 Rate Blood Pressure 141/76 O2 Sat by Pulse 97 Oximetry Medical Decision Making - Medical Decision Making Patient was seen in emergency department it by Dr. Bernstein. He did perform bedside injection for control the bleeding. Patient will be admitted for observation with repeat ultrasound tomorrow. He admitted to medicine with consult. - Lab Data Result diagrams: 06/01/20 13:51 06/01/20 13:51 Lab Results 06/01/20 06/01/20 06/01/20 Range/Units 13:51 13:51 13:51 WBC 12.6 H (3.8-10.6) k/uL RBC 3.34 L (3.80-5.40) m/uL Hgb 10.5 L D (11.4-16.0) gm/dL Hct 31.6 L (34.0-46.0) % MCV 94.5 (80.0-100.0) fL MCH 31.5 (25.0-35.0) pg MCHC 33.3 (31.0-37.0) g/dL RDW 14.6 (11.5-15.5) % Plt Count 440 (150-450) k/uL Neutrophils % 78 % Lymphocytes % 8 % Monocytes % 9 % Eosinophils % 2 % Basophils % 1 % Neutrophils # 9.8 H (1.3-7.7) k/uL Lymphocytes # 1.0 (1.0-4.8) k/uL Monocytes # 1.2 H (0-1.0) k/uL Eosinophils # 0.3 (0-0.7) k/uL Basophils # 0.1 (0-0.2) k/uL PT 9.7 (9.0-12.0) sec INR 0.9 (<1.2) APTT 23.4 (22.0-30.0) sec Sodium 135 L (137-145) mmol/L Potassium 3.4 L (3.5-5.1) mmol/L Chloride 104 (98-107) mmol/L Carbon Dioxide 28 (22-30) mmol/L Anion Gap 3 mmol/L BUN 12 (7-17) mg/dL Creatinine 0.86 (0.52-1.04) mg/dL Est GFR (CKD-EPI)AfAm 77 (>60 ml/min/1.73 sqM) Est GFR (CKD-EPI)NonAf 67 (>60 ml/min/1.73 sqM) Glucose 117 H (74-99) mg/dL Calcium 8.4 (8.4-10.2) mg/dL Total Bilirubin 1.0 (0.2-1.3) mg/dL AST 36 (14-36) U/L ALT 30 (4-34) U/L Alkaline Phosphatase 105 (38-126) U/L Total Protein 5.0 L (6.3-8.2) g/dL Albumin 2.9 L (3.5-5.0) g/dL - Radiology Data Radiology results: report reviewed (I did review the imaging and report or is evidence of a pseudoaneurysm seen to the left upper extremity no DVT. Please see the complete report.), image reviewed Disposition Clinical Impression: Left upper arm pain, Traumatic hematoma of left upper arm, Anemia Disposition: ADMITTED IP TO THIS [facility] Condition: Fair Referrals: Agustín Farnsworth MD [Primary Care Provider] - 1-2 days
[2020-06-01] MEDS ORDERED: fentaNYL (PF) 50 MCG/ML 2 ML AMP IV STA ×2 (13:32→14:50)
[2020-06-01 14:25] LABS: Basophils # (A) 0.1 k/uL (0-0.2); Basophils % (A) 1 %; Eosinophils # (A) 0.3 k/uL (0-0.7); Eosinophils % (A) 2 %; HCT 31.6 % (34.0-46.0); Lymphocytes % (A) 8 %; MCH 31.5 pg (25.0-35.0); MCHC 33.3 g/dL (31.0-37.0); MCV 94.5 fL (80.0-100.0); Mean Platelet Volume 7.1; Monocytes # (A) 1.2 k/uL (0-1.0); Monocytes % (A) 9 %; Neutrophils # (A) 9.8 k/uL (1.3-7.7); Neutrophils % (A) 78 %; Platelet Count 440 k/uL (150-450); RBC 3.34 m/uL (3.80-5.40); RDW 14.6 % (11.5-15.5); WBC 12.6 k/uL (3.8-10.6)
[2020-06-01 14:31] LABS: Albumin 2.9 g/dL (3.5-5.0); Calcium 8.4 mg/dL (8.4-10.2); Potassium 3.4 mmol/L (3.5-5.1)
[2020-06-01 14:32] LABS: HGB 10.5 gm/dL (11.4-16.0)
[2020-06-01 14:33] LABS: INR 0.9 (<1.2); Prothrombin Time 9.7 sec (9.0-12.0)
[2020-06-01 14:34] LABS: Partial Thromboplastin Time 23.4 sec (22.0-30.0)
--- NOTE | 2020-06-01 15:35 | US ---
EXAMINATION TYPE: US venous doppler duplex UE LT DATE OF EXAM: 06/01/2020 COMPARISON: NONE CLINICAL HISTORY: Left arm pain with hematoma suspect DVT. Left upper arm pain swelling and bruising x 1 day, patient states she had some type of surgery for her kidneys that was done through her left a rm SIDE PERFORMED: Left Left Arm: Visualized portions appear negative for DVT, limited visualization of brachial vein due to arm swelling and hematoma Left upper arm: 17.0 x 2.0 x 4.6cm hypoechoic area with flow seen within inferior portion, possibl e pseudoaneurysm with neck seen connecting to brachial artery IMPRESSION: No evidence for DVT however a pseudoaneurysm is difficult to exclude.
[2020-06-01] MEDS ORDERED: THROMBIN (BOVINE) 5,000 UNIT VIAL TOPICAL ONE (16:30)
[2020-06-01] MEDS ORDERED: fentaNYL (PF) 50 MCG/ML 2 ML AMP IVP ONE (16:32)
[2020-06-01] MEDS ORDERED: NALOXONE 0.4 MG/ML 1 ML VIAL IV PRN (17:27)
[2020-06-01] MEDS ORDERED: ACETAMINOPHEN TAB 325 MG TAB PO PRN (17:27)
[2020-06-01] MEDS ORDERED: SODIUM CHLORIDE 0.9% 1,000 ML IV SCH (17:30)
[2020-06-01] MEDS ORDERED: TEMAZEPAM 15 MG CAP PO PRN (17:32)
--- NOTE | 2020-06-01 17:38 | P.GSCN ---
History of Present Illness Consult date: 06/01/20 Reason for Consult: left upper extremity hematoma History of present illness: 75 year old female with recent history of EVAR with bilateral chimney renal stents presented to the emergency department secondary to acute pain in the left upper extremity with rapid expansion of swelling in her upper arm with severe sharp pain. She states pain was 10/10 without any numbness or tingling in her fingers and hand. She denies any fevers, chills, nausea, vomiting, chest pain or shortness of breath. Patient states prior to today her left arm had minimal tenderness and echymosis but no swelling. Review of Systems All systems: negative (what is mentioned in the HPI or PMH) Past Medical History Past Medical History: Cancer, Hyperlipidemia, Hypertension, Pneumonia Additional Past Medical History / Comment(s): gout, hyperlipidemia but cannot tolerate statins, skin cancer , osteoporosis, diverticulitis with sepsis, History of Any Multi-Drug Resistant Organisms: None Reported Past Surgical History: Adenoidectomy, Appendectomy, Cholecystectomy, Hysterectomy, Orthopedic Surgery, Tonsillectomy Additional Past Surgical History / Comment(s): L knee arthroscopy d/t effusion, R wrist ganglion cyst surgeries x 3, skin cancer removed from nose, bilateral cataract removals/lens implants. stents, EVAR with bilateral renal stent chimneys Past Anesthesia/Blood Transfusion Reactions: No Reported Reaction Additional Past Anesthesia/Blood Transfusion Reaction / Comm: CHILDREN=PONV Past Psychological History: No Psychological Hx Reported Smoking Status: Former smoker Past Alcohol Use History: None Reported Past Drug Use History: None Reported - Past Family History Mother Family Medical History: Dementia Father History Unknown: Yes Family Medical History: No Reported History Daughter(s) Family Medical History: Cancer Additional Family Medical History / Comment(s): Letty survived breast cancer. Medications and Allergies Home Medications Medication Instructions Recorded Confirmed Type Ascorbic Acid [Vitamin C] 500 mg PO DAILY 03/04/18 06/01/20 History Calcium Carbonate/Vitamin D3 1 tab PO DAILY 03/04/18 06/01/20 History [Calcium 600-Vit D3 400 Caplet] Cholecalciferol [Vitamin D3 (25 1,000 unit PO DAILY 03/26/20 06/01/20 History Mcg = 1000 Iu)] Temazepam [Restoril] 15 mg PO HS PRN 03/26/20 06/01/20 History Aspirin EC [Ecotrin Low Dose] 81 mg PO DAILY 06/01/20 06/01/20 History Clopidogrel [Plavix] 75 mg PO DAILY 06/01/20 06/01/20 History Allergies Allergy/AdvReac Type Severity Reaction Status Date / Time codeine Allergy Rash/Hives Verified 06/01/20 15:31 morphine Allergy Rash/Hives Verified 06/01/20 15:31 Penicillins Allergy Rash/Hives Verified 06/01/20 15:31 Haubfsr-Lvd-Irx Reductase Allergy Itching Verified 06/01/20 15:31 Inhibitor any cholesterol medications Allergy Itching Uncoded 05/14/20 09:45 Surgical - Exam Vital Signs Temp Pulse Resp BP Pulse Ox 98.3 F 111 H 18 141/76 97 06/01/20 13:13 06/01/20 13:13 06/01/20 13:13 06/01/20 13:13 06/01/20 13:13 bilateral groin access sites are clean, dry and intact. No hematoma or signs of infection. Palpable femoral, dp and pt pulses bilaterally. Right brachial access site is clean, dry and intact without any signs of hematoma. Palpable brachial, radial and ulnar pulses Left upper arm tense, +tenderness to palpation. Echymotic with deep purple discoloration. Palpable radial and ulnar pulses. Patient has normal active and passive range of motion. +pain with movement of the left upper arm. - General well developed, well nourished, moderate pain - Eyes PERRL, normal ocular movement - ENT normal nares - Neck no masses, no bruits - Respiratory normal expansion - Cardiovascular Rhythm: regular - Abdomen Abdomen: soft, non tender - Integumentary no rash - Neurologic normal coordination, normal sensation, no disoriented - Musculoskeletal normal posture - Psychiatric oriented to time, oriented to person, oriented to place, speech is normal Results - Labs 06/01/20 13:51 06/01/20 13:51 Abnormal Lab Results - Last 24 Hours (Table) 06/01/20 06/01/20 Range/Units 13:51 13:51 WBC 12.6 H (3.8-10.6) k/uL RBC 3.34 L (3.80-5.40) m/uL Hgb 10.5 L D (11.4-16.0) gm/dL Hct 31.6 L (34.0-46.0) % Neutrophils # 9.8 H (1.3-7.7) k/uL Monocytes # 1.2 H (0-1.0) k/uL Sodium 135 L (137-145) mmol/L Potassium 3.4 L (3.5-5.1) mmol/L Glucose 117 H (74-99) mg/dL Total Protein 5.0 L (6.3-8.2) g/dL Albumin 2.9 L (3.5-5.0) g/dL Diabetes panel 06/01/20 Range/Units 13:51 Sodium 135 L (137-145) mmol/L Potassium 3.4 L (3.5-5.1) mmol/L Chloride 104 (98-107) mmol/L Carbon Dioxide 28 (22-30) mmol/L BUN 12 (7-17) mg/dL Creatinine 0.86 (0.52-1.04) mg/dL Glucose 117 H (74-99) mg/dL Calcium 8.4 (8.4-10.2) mg/dL AST 36 (14-36) U/L ALT 30 (4-34) U/L Alkaline Phosphatase 105 (38-126) U/L Total Protein 5.0 L (6.3-8.2) g/dL Albumin 2.9 L (3.5-5.0) g/dL Calcium panel 06/01/20 Range/Units 13:51 Calcium 8.4 (8.4-10.2) mg/dL Albumin 2.9 L (3.5-5.0) g/dL Pituitary panel 06/01/20 Range/Units 13:51 Sodium 135 L (137-145) mmol/L Potassium 3.4 L (3.5-5.1) mmol/L Chloride 104 (98-107) mmol/L Carbon Dioxide 28 (22-30) mmol/L BUN 12 (7-17) mg/dL Creatinine 0.86 (0.52-1.04) mg/dL Glucose 117 H (74-99) mg/dL Calcium 8.4 (8.4-10.2) mg/dL Adrenal panel 06/01/20 Range/Units 13:51 Sodium 135 L (137-145) mmol/L Potassium 3.4 L (3.5-5.1) mmol/L Chloride 104 (98-107) mmol/L Carbon Dioxide 28 (22-30) mmol/L BUN 12 (7-17) mg/dL Creatinine 0.86 (0.52-1.04) mg/dL Glucose 117 H (74-99) mg/dL Calcium 8.4 (8.4-10.2) mg/dL Total Bilirubin 1.0 (0.2-1.3) mg/dL AST 36 (14-36) U/L ALT 30 (4-34) U/L Alkaline Phosphatase 105 (38-126) U/L Total Protein 5.0 L (6.3-8.2) g/dL Albumin 2.9 L (3.5-5.0) g/dL - Imaging Additional studies: Ultrasound of the left upper extremity demonstrates a large pseudoaneurysm with long neck extending from the brachial artery. Assessment and Plan Assessment: 1. 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 Recent endovascular aortic repair with bilateral renal artery stenting (Chimneys) 3. HTN 4. Juxtarenal AAA Plan: Reviewed the ultrasound and discussed with patient and family in full detail. Discussed options including thrombin injection, compression and surgical intervention. Will attempt ultrasound guided thrombin injection and compression and recheck ultrasound in am. If pseudoaneurysm does not resolve then will likely need surgical intervention tomorrow. Continue close neurovascular monitoring overnight.
--- NOTE | 2020-06-01 17:43 | P.PCN ---
Date of Procedure: 06/01/20 Preoperative Diagnosis: left brachial artery pseudoaneurysm Postoperative Diagnosis: Same Procedure(s) Performed: Ultrasound guided left brachial artery pseudoaneurysm repair with thrombin injection Anesthesia: none Surgeon: Mat Barreto Pathology: none sent Condition: stable Indications for Procedure: 75-year-old female diagnosed with left brachial artery pseudoaneurysm after recent and a vascular aortic repair with bilateral chimney renal artery stents. Patient underwent ultrasound of the left upper extremity after coming to the emergency department secondary to pain and was diagnosed with a pseudoaneurysm with a long neck. Discussion was had about possible injection which the patient agrees. Procedure was performed in the emergency department at the bedside. Description of Procedure: after written and informed consent was obtained the patient all risks benefits competitions were described the procedure was performed at the bedside in the emergency department. The area of the left arm was prepped and draped in usual sterile fashion. Utilizing ultrasound the pseudoaneurysm was located as well as the neck. Utilizing thrombin mixture ultrasound-guided access to the pseudoaneurysm was performed with a 22-gauge needle and slow injection of thrombin was performed. Approximately 4 mL of thrombin was injected into the pseudoaneurysm with visual confirmation of thrombosis. Distal to the pseudoaneurysm injection there was palpable brachial artery as well as visual confirmation of a patent brachial artery with good blood flow to the radial and ulnar arteries. The area was then cleansed and dressings were placed with 4 x 4, Kerlix and Coban pressure dressing. Patient tolerated procedure well and will be admitted to the hospital and recheck ultrasound in the morning.
[2020-06-01] MEDS ORDERED: Potassium Replacement Protocol 1 EACH MISC MISCELLANE PRN (21:01)
[2020-06-01] MEDS ORDERED: Magnesium Replacement Protocol 1 EACH MISC MISCELLANE PRN (21:01)
[2020-06-01] MEDS ORDERED: ALPRAZolam 0.25 MG TAB PO PRN (21:02)
[2020-06-01] MEDS ORDERED: HYDROmorphone 0.5 MG/0.5 ML SYRINGE IVP PRN (21:05)
[2020-06-01] MEDS ORDERED: HYDROcodone/APAP 5-325MG 1 EACH TAB PO PRN (21:07)
--- NOTE | 2020-06-01 22:06 | HP ---
HISTORY AND PHYSICAL DATE OF SERVICE: 06/01/2020 CHIEF COMPLAINT: Left arm pain and ecchymosis. HISTORY OF PRESENT ILLNESS: This 75-year-old woman with a past medical history of multiple medical problems, including history of hypertension, hyperlipidemia, history of pneumonia, history of gout, history of appendectomy, being followed by Dr. Agustín Farnsworth in the outpatient setting, had endovascular aortic stent placement with bilateral chimney renal stents and presented to the emergency department with complaints of severe pain in the left upper extremity. The patient had an expansion of the hematoma on the left upper arm. The patient came to [facility] and was admitted for further evaluation and treatment. Ultrasound showed a large left brachial artery pseudoaneurysm with a long neck. A thrombin injection was given. The patient had a bandage and then the patient was admitted for further evaluation and treatment. Otherwise, lab-laguna, hemoglobin is 10.4, white count is 12.6. The patient has some mild hyponatremia and hypokalemia. There is no history of any fever, rigor or chills. No history of headache, loss of consciousness, seizures at this time PAST MEDICAL HISTORY: Recent endovascular aortic repair, hypertension, hyperlipidemia, history of pneumonia, history of gout, hyperlipidemia, adenoidectomy. MEDICATIONS: Medications prior to admission include Plavix, Ecotrin, Restoril, vitamin D3, calcium carbonate, vitamin C. ALLERGIES: CODEINE, MORPHINE, PENICILLIN, STATIN. FAMILY HISTORY: History of cancer. SOCIAL HISTORY: History of smoking. Current smoking. No history of alcohol intake. REVIEW OF SYSTEMS: ENT: Diminished hearing. Diminished vision. CARDIOVASCULAR SYSTEM: No angina, palpitations. RESPIRATORY SYSTEM: As mentioned earlier. GI: No nausea, vomiting. : No dysuria or retention. NERVOUS SYSTEM: No numbness, weakness. ALLERGY/IMMUNOLOGY: No asthma, hayfever. MUSCULOSKELETAL: As mentioned earlier. HEMATOLOGY/ONCOLOGY: No history of anemia. ENDOCRINE: No history of diabetes, hypothyroidism. CONSTITUTIONAL: As mentioned earlier. DERMATOLOGY: Negative. RHEUMATOLOGY: Negative. PSYCHIATRY: As mentioned earlier. PHYSICAL EXAMINATION: Patient is alert and oriented x3. The pulse is 91, blood pressure 140/73, respiration 18, temperature 98.7, pulse ox 96% on room air. HEENT: Conjunctivae normal. NECK: No jugular venous distention. CARDIOVASCULAR SYSTEM: S1, S2 muffled. RESPIRATORY SYSTEM: Breath sounds diminished at the bases. No rhonchi. No crackles. ABDOMEN: Soft, non-tender. No mass palpable. LEGS: No edema. No swelling. NERVOUS SYSTEM: Higher functions as mentioned earlier. Moves all 4 limbs. No focal motor or sensory deficit. LYMPHATICS: No lymph node palpable in neck, axillae or groin. SKIN: No ulcer, rash, bleeding. JOINTS: No active deforming arthropathy. EXAMINATION OF THE LEFT ARM: Bandaged and compression dressing present. LABS: WBC 12.6, hemoglobin 10.5, sodium 135, potassium 3.5. ASSESSMENT: 1. Left brachial artery pseudoaneurysm, status post thrombin injection and compression. 2. Recent endovascular aortic repair with bilateral renal artery stenting. 3. Hypertension. 4. History of juxtarenal aortic aneurysm. 5. Hyponatremia. 6. Hypokalemia. 7. Hypoalbuminemia with moderate protein-calorie malnutrition. 8. Anemia, normocytic anemia of chronic disease. 9. Increased white count. 10.History of pneumonia. 11.Hyperlipidemia. 12.History of gout. 13.Intolerance to statins. 14.Adenoidectomy. 15.Appendectomy. 16.Cholecystectomy. 17.History of nicotine dependence. 18.FULL CODE. RECOMMENDATIONS AND DISCUSSION: In this 75-year-old woman who presented with multiple complex medical issues, we will monitor the patient closely, continue the current medications, continue symptomatic treatment. Hold off the antiplatelet agents at this time. Otherwise, closely follow with Vascular Surgery. Symptomatic treatment. Prognosis is guarded because of multiple complex medical issues. We will supplement potassium. Monitor electrolytes closely. We will continue with aspirin. Hold the Plavix at this time. Further recommendations to follow. A copy of dictation is forwarded to Dr. Agustín Farnsworth, who is the primary physician. MMODL / IJN: [id number] /
[2020-06-02 04:42] VITALS: PULSE 95; RESP 16
[2020-06-02 07:31] VITALS: BP 141/60; TEMP 98.5
[2020-06-02 07:58] LABS: Basophils # (A) 0.1 k/uL (0-0.2); Basophils % (A) 1 %; Eosinophils # (A) 0.2 k/uL (0-0.7); Eosinophils % (A) 2 %; HCT 28.1 % (34.0-46.0); HGB 9.2 gm/dL (11.4-16.0); Lymphocytes # (A) 1.1 k/uL (1.0-4.8); Lymphocytes % (A) 9 %; MCH 31.4 pg (25.0-35.0); MCHC 32.9 g/dL (31.0-37.0); MCV 95.4 fL (80.0-100.0); Mean Platelet Volume 6.8; Monocytes % (A) 8 %; Neutrophils % (A) 79 %; Platelet Count 493 k/uL (150-450); RBC 2.94 m/uL (3.80-5.40); RDW 14.9 % (11.5-15.5); WBC 12.6 k/uL (3.8-10.6)
[2020-06-02 08:03] LABS: Magnesium 1.9 mg/dL (1.6-2.3); Potassium 3.7 mmol/L (3.5-5.1)
[2020-06-02] MEDS ORDERED: PANTOPRAZOLE 40 MG/10 ML VIAL IV SCH (09:00)
[2020-06-02] MEDS ORDERED: CHOLECALCIFEROL 1,000 UNIT TAB PO SCH (09:00)
[2020-06-02] MEDS ORDERED: ASPIRIN 81 MG PO SCH (09:00)
[2020-06-02] MEDS ORDERED: ASCORBIC ACID 500 MG TAB PO SCH (09:00)
[2020-06-02] MEDS ORDERED: CALCIUM CARB-VIT D 500MG-200UN 1 EACH TAB PO SCH (09:00)
--- NOTE | 2020-06-02 09:55 | P.PN ---
Subjective Progress Note Date: 06/02/20 Principal diagnosis: Left brachial artery pseudoaneurysm This is a 75-year-old female with recent history of fever bilateral chimney and renal stents who presented to the emergency department secondary to acute pain in left upper extremity with swelling. She is status post left brachial artery pseudoaneurysm repair with thrombin injection yesterday evening. The patient is seen and examined at the bedside with Dr. Chandler. She is still complaining of left upper extremity pain. She is able to move her left upper extremity and fingers. Ultrasound was performed, results are pending. Objective - Vital Signs Vital signs: Vital Signs Temp 98.5 F 06/02/20 07:24 Pulse 95 06/02/20 07:24 Resp 16 06/02/20 07:24 BP 141/60 06/02/20 07:24 Pulse Ox 94 L 06/02/20 07:24 Intake & Output 06/01/20 06/02/20 06/02/20 18:59 06:59 18:59 Intake Total 240 120 Balance 240 120 Weight 43.545 kg Intake: Oral 240 120 Other: Voiding Method Toilet # Voids 1 1 - Exam General appearance: The patient is alert, oriented, in no acute distress. HET: Head is normocephalic and atraumatic. Neck: Supple without lymphadenopathy. Trachea midline. Extremities: Left upper extremity with hematoma, ecchymotic with deep purple discoloration and swelling. Good palpable radial pulse, patient is able to move her left upper extremity and fingers without difficulty. Neurological: No focal deficits. Strength and sensation are grossly intact. - Labs CBC & Chem 7: 06/02/20 07:20 06/02/20 07:20 Labs: Abnormal Lab Results - Last 24 Hours (Table) 06/01/20 06/01/20 06/02/20 Range/Units 13:51 13:51 07:20 WBC 12.6 H 12.6 H (3.8-10.6) k/uL RBC 3.34 L 2.94 L (3.80-5.40) m/uL Hgb 10.5 L D 9.2 L (11.4-16.0) gm/dL Hct 31.6 L 28.1 L (34.0-46.0) % Plt Count 493 H (150-450) k/uL Neutrophils # 9.8 H 10.0 H (1.3-7.7) k/uL Monocytes # 1.2 H (0-1.0) k/uL Sodium 135 L (137-145) mmol/L Potassium 3.4 L (3.5-5.1) mmol/L Glucose 117 H (74-99) mg/dL Calcium (8.4-10.2) mg/dL Total Protein 5.0 L (6.3-8.2) g/dL Albumin 2.9 L (3.5-5.0) g/dL 06/02/20 Range/Units 07:20 WBC (3.8-10.6) k/uL RBC (3.80-5.40) m/uL Hgb (11.4-16.0) gm/dL Hct (34.0-46.0) % Plt Count (150-450) k/uL Neutrophils # (1.3-7.7) k/uL Monocytes # (0-1.0) k/uL Sodium 135 L (137-145) mmol/L Potassium (3.5-5.1) mmol/L Glucose 104 H (74-99) mg/dL Calcium 8.0 L (8.4-10.2) mg/dL Total Protein (6.3-8.2) g/dL Albumin (3.5-5.0) g/dL Assessment and Plan Assessment: 1. 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 Recent endovascular aortic repair with bilateral renal artery stenting ( Chimneys) 3. HTN 4. Juxtarenal AAA Plan: Dr. Chandler had discussion with patient, awaiting ultrasound results. Further management will be based on if there is resolution of the pseudoaneurysm. Further recommendations to follow. The impression and plan of care has been dictated as directed. Dr. Chandler I performed a history and examination of this patient, discussed the same with the dictator. I agree with the dictator's note ,documented as a scribe. Any additional findings or plans will be noted.
--- NOTE | 2020-06-02 11:16 | US ---
EXAMINATION TYPE: US upper ext pseudo LT DATE OF EXAM: 06/02/2020 COMPARISON: Left upper extremity venous Doppler ultrasound 06/01/2020. CLINICAL HISTORY: Progress study. Recheck pseudo, patient states doctor injected something into her a rm yesterday afternoon. Left arm: mostly thrombosed pseudoaneurysm, small area of flow seen within the base of the pseudoaneu rysm and within the neck. The neck measures up to 0.15 cm, not significantly changed from 06/01/2020 comparison when it measured 0.17 cm. Neck connects to the brachial artery. IMPRESSION: Almost entirely thrombosed pseudoaneurysm, with persistent flow seen within the neck, an d tiny focus of color Doppler flow seen within the base of the pseudoaneurysm sac near the neck.
[2020-06-02 13:40] VITALS: BMI 18.7
--- NOTE | 2020-06-03 05:30 | DS ---
DISCHARGE SUMMARY DATE OF SERVICE: 06/02/2020 FINAL DIAGNOSES: 1. Left brachial artery pseudoaneurysm, status post thrombin injection compression with hematoma. 2. Recent endovascular aortic repair with bilateral renal artery stenting. 3. Hypertension. 4. History of juxtarenal aortic aneurysm. 5. Hyponatremia. 6. Hypokalemia. 7. Hypoalbuminemia with moderate protein-calorie malnutrition. 8. Anemia, normocytic anemia of chronic disease. 9. Increased WBC. 10.History of pneumonia. 11.Hyperlipidemia. 12.History of gout. 13.Intolerance to statins. 14.Adenoidectomy. 15.Appendectomy. 16.Cholecystectomy. 17.History of nicotine dependence. 18.FULL CODE. DISCHARGE DISPOSITION: The patient will be discharged in stable condition with guarded prognosis. Total time taken35 minutes. HISTORY OF PRESENT ILLNESS: This 75-year-old woman with a past medical history of multiple medical problems being followed by Dr. Agustín Farnsworth in the outpatient setting admitted with left brachial artery pseudoaneurysm. The patient recently had endovascular repair of aortic aneurysm and renal artery stenting by Vascular Surgery, Dr. Barreto, at [facility]. The patient was treated with thrombin injection and compression. Patient improved significantly. Hemoglobin was 9.2. Dr. Chandler saw the patient, recommended the patient to be discharged in the outpatient setting. On exam, vitals are stable. CARDIOVASCULAR: S1, S2. ABDOMEN: Soft. NERVOUS SYSTEM: No focal deficits. EXAMINATION OF LEFT FOREARM: Improved significantly. DISCHARGE ADVICE: 1. Diet is cardiac. 2. Activity limited until followup. 3. Follow up with Dr. Farnsworth in 2 to 3 days. CBC. BMP. 4. Follow up with Dr. Barreto as recommended. Medications are: 1. Calcium carbonate 1 tablet p.o. daily. 2. Ecotrin 81 mg daily. 3. Plavix 75 mg daily per Vascular Surgery. 4. Restoril p.r.n. 5. Vitamin C 500 mg daily. 6. Vitamin D3 p.r.n. 7. Scurry 5 mg q.6 p.r.n. for pain. Once again, the patient will be discharged in stable condition with guarded prognosis. MMODL / IJN: [id number] / MTDD
== END 2020-06-02 14:35 ==
LOC: EC 13:09 → 3NCARDOBS 17:28
PROVIDERS: ADMIT Hospitalist; ATTEND Hospitalist
DX: I72.1 Aneurysm of artery of upper extremity (principal); I10 Essential (primary) hypertension; M79.606 Pain in leg, unspecified; M79.602 Pain in left arm; S40.022A Contusion of left upper arm, initial encounter; E78.5 Hyperlipidemia, unspecified; M10.9 Gout, unspecified; M81.0 Age-related osteoporosis without current pathological fracture; D63.8 Anemia in other chronic diseases classified elsewhere; I71.4 Abdominal aortic aneurysm, without rupture; E87.6 Hypokalemia; E87.1 Hypo-osmolality and hyponatremia; E44.0 Moderate protein-calorie malnutrition; Z68.1 Body mass index [BMI] 19.9 or less, adult; Z79.02 Long term (current) use of antithrombotics/antiplatelets; Z79.82 Long term (current) use of aspirin; Z88.5 Allergy status to narcotic agent; Z88.0 Allergy status to penicillin; Z88.8 Allergy status to other drugs, medicaments and biological substances; Z87.01 Personal history of pneumonia (recurrent); Z85.828 Personal history of other malignant neoplasm of skin; Z90.49 Acquired absence of other specified parts of digestive tract; Z87.891 Personal history of nicotine dependence; Z96.0 Presence of urogenital implants; Z90.710 Acquired absence of both cervix and uterus; Z96.1 Presence of intraocular lens; Z80.3 Family history of malignant neoplasm of breast; Z81.8 Family history of other mental and behavioral disorders
CPT/HCPCS: 36002; 76942; 96375; 96376; 96374; 99284; 36415; 80053; 80048; 83735; 85025 ×2; 85610; 85730; 93931; 93971; G0378 ×2; J3010; C9113

== ENCOUNTER 2020-06-10 17:24 | Emergency (ER) | payer MEDICARE, BC ==
[2020-06-10 17:50] VITALS: TEMP 98.7
[2020-06-10 18:43] LABS: Basophils # (A) 0.1 k/uL (0-0.2); Basophils % (A) 1 %; Eosinophils # (A) 0.2 k/uL (0-0.7); Eosinophils % (A) 2 %; HCT 32.6 % (34.0-46.0); HGB 10.6 gm/dL (11.4-16.0); Lymphocytes # (A) 0.9 k/uL (1.0-4.8); Lymphocytes % (A) 8 %; MCH 31.4 pg (25.0-35.0); MCHC 32.5 g/dL (31.0-37.0); MCV 96.8 fL (80.0-100.0); Mean Platelet Volume 6.6; Monocytes # (A) 0.6 k/uL (0-1.0); Monocytes % (A) 6 %; Neutrophils # (A) 8.7 k/uL (1.3-7.7); Neutrophils % (A) 82 %; Platelet Count 559 k/uL (150-450); RBC 3.37 m/uL (3.80-5.40); RDW 14.1 % (11.5-15.5); WBC 10.6 k/uL (3.8-10.6)
[2020-06-10 18:51] LABS: Albumin 3.4 g/dL (3.5-5.0); Calcium 9.1 mg/dL (8.4-10.2); Magnesium 1.9 mg/dL (1.6-2.3); Potassium 3.7 mmol/L (3.5-5.1); Total Bilirubin 0.9 mg/dL (0.2-1.3); Total Protein 6.2 g/dL (6.3-8.2)
[2020-06-10 18:54] LABS: INR 0.9 (<1.2); Partial Thromboplastin Time 24.5 sec (22.0-30.0); Prothrombin Time 9.9 sec (9.0-12.0)
--- NOTE | 2020-06-10 19:10 | ED ---
General Adult HPI - General Chief complaint: Recheck/Abnormal Lab/Rx Stated complaint: Sent by PCP Time Seen by Provider: 06/10/20 17:59 Source: patient, RN notes reviewed, old records reviewed Mode of arrival: wheelchair Limitations: no limitations - History of Present Illness Initial comments: 75-year-old female presented for evaluation of upper back pain and tachycardia. Patient hasn't aortic aneurysm repair earlier this month with reported bilateral renal artery stents placed. This was done endovascularly. 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 She herself states she's had pain for the past several weeks however her family member who is at bedside believes that this pain in her upper back is only been present for approximately 2 days. She does report worsening pain with deep inspiration. She denies cough. She reports some dyspnea associated with the pain. No fever. No abdominal pain. No pain in her upper or lower extremities. No numbness or tingling in the extremities. - Related Data Home Medications Medication Instructions Recorded Confirmed Ascorbic Acid [Vitamin C] 500 mg PO DAILY 03/04/18 06/10/20 Calcium Carbonate/Vitamin D3 1 tab PO DAILY 03/04/18 06/10/20 [Calcium 600-Vit D3 400 Caplet] Cholecalciferol [Vitamin D3 (25 1,000 unit PO DAILY 03/26/20 06/10/20 Mcg = 1000 Iu)] Temazepam [Restoril] 15 mg PO HS PRN 03/26/20 06/10/20 Aspirin EC [Ecotrin Low Dose] 81 mg PO DAILY 06/01/20 06/10/20 Clopidogrel [Plavix] 75 mg PO DAILY 06/01/20 06/10/20 HYDROcodone/APAP 5-325MG [[place] 1 tab PO Q6HR PRN 06/10/20 06/10/20 5-325] Allergies Allergy/AdvReac Type Severity Reaction Status Date / Time codeine Allergy Rash/Hives Verified 06/10/20 18:50 morphine Allergy Rash/Hives Verified 06/10/20 18:50 Penicillins Allergy Rash/Hives Verified 06/10/20 18:50 [id number]-Vtx-Kpr Reductase Allergy Itching Verified 06/10/20 18:50 Inhibitor any cholesterol medications Allergy Itching Uncoded 06/10/20 18:50 Review of Systems ROS Statement: Those systems with pertinent positive or pertinent negative responses have been documented in the HPI. ROS Other: All systems not noted in ROS Statement are negative. Past Medical History Past Medical History: Cancer, Hyperlipidemia, Hypertension, Pneumonia Additional Past Medical History / Comment(s): gout, hyperlipidemia but cannot tolerate statins, skin cancer , osteoporosis, diverticulitis with sepsis, History of Any Multi-Drug Resistant Organisms: None Reported Past Surgical History: Adenoidectomy, Appendectomy, Cholecystectomy, Hysterectomy, Orthopedic Surgery, Tonsillectomy Additional Past Surgical History / Comment(s): L knee arthroscopy d/t effusion, R wrist ganglion cyst surgeries x 3, skin cancer removed from nose, bilateral cataract removals/lens implants. stents, EVAR with bilateral renal stent chimneys Past Anesthesia/Blood Transfusion Reactions: No Reported Reaction Additional Past Anesthesia/Blood Transfusion Reaction / Comment(s): CHILDREN=PONV Past Psychological History: No Psychological Hx Reported Smoking Status: Former smoker Past Alcohol Use History: None Reported Past Drug Use History: None Reported - Past Family History Mother Family Medical History: Dementia Father History Unknown: Yes Family Medical History: No Reported History Daughter(s) Family Medical History: Cancer Additional Family Medical History / Comment(s): Letty survived breast cancer. General Exam Limitations: no limitations General appearance: alert, in no apparent distress Head exam: Present: atraumatic, normocephalic Eye exam: Present: normal appearance, PERRL ENT exam: Present: normal exam Neck exam: Present: normal inspection. Absent: tenderness, meningismus Respiratory exam: Present: normal lung sounds bilaterally. Absent: respiratory distress, wheezes Cardiovascular Exam: Present: regular rate, normal rhythm, other (Bilateral radial pulses 2+, bilateral posterior tibial pulses 2+, all extremities are warm, no edema. She does have some ecchymosis and induration of the left upper extremity) Extremities exam: Present: other (No swelling, no pulsatile mass in bilateral groins, normal pulse exam) Neurological exam: Present: alert, oriented X3, CN II-XII intact. Absent: motor sensory deficit Psychiatric exam: Present: normal affect, normal mood Skin exam: Present: warm, dry, intact. Absent: cyanosis, diaphoretic Course Vital Signs 06/10/20 06/10/20 17:47 18:59 Temperature 98.7 F Pulse Rate 113 H 81 Respiratory 18 16 Rate Blood Pressure 115/59 140/62 O2 Sat by Pulse 97 98 Oximetry EKG Findings - EKG Comments: EKG Findings:: EKG: Normal sinus rhythm with a short WI, rate of 86, WI interval 108, QRS duration 106, QTC 464, no ST segment elevation T-wave inversion in the inferior leads. Medical Decision Making - Medical Decision Making 75 -year-old female presenting for evaluation of upper back pain. I did discuss the case with the patient's daughter who states she's had this for the past 5 days. There is no trauma. This was pleuritic in nature, worse with deep inspiration. She was sent from the primary for evaluation. She had recent stenting of the aorta. She has normal pulse exam throughout. No complaints of abdominal pain. No leg pain or numbness or tingling. Workup reveals EKG showing sinus rhythm without ST segment elevation. Patient has a normal white blood cell count, hemoglobin is 10.6 which is improved from prior. She has normal electrolytes, she has a negative troponin. Chest x-rays negative for pneumothorax or acute cardiopulmonary disease. She has CT angiography of the chest which is negative for PE, shows intact upper abdominal stent graft. I di scussed case with Dr. Barreto who is patient's vascular surgeon, okay with outpatient follow-up. A she is offered observation for monitoring, pain control, further workup for anginal equivalent, patient wishes to be discharged. Case discussed with patient's primary care physician Mukund puckett for Dr. Farnsworth, will arrange for very close outpatient follow-up. - Lab Data Result diagrams: 06/10/20 18:32 06/10/20 18:32 Lab Results 06/10/20 06/10/20 06/10/20 Range/Units 18:32 18:32 18:32 WBC 10.6 (3.8-10.6) k/uL RBC 3.37 L (3.80-5.40) m/uL Hgb 10.6 L (11.4-16.0) gm/dL Hct 32.6 L (34.0-46.0) % MCV 96.8 (80.0-100.0) fL MCH 31.4 (25.0-35.0) pg MCHC 32.5 (31.0-37.0) g/dL RDW 14.1 (11.5-15.5) % Plt Count 559 H (150-450) k/uL Neutrophils % 82 % Lymphocytes % 8 % Monocytes % 6 % Eosinophils % 2 % Basophils % 1 % Neutrophils # 8.7 H (1.3-7.7) k/uL Lymphocytes # 0.9 L (1.0-4.8) k/uL Monocytes # 0.6 (0-1.0) k/uL Eosinophils # 0.2 (0-0.7) k/uL Basophils # 0.1 (0-0.2) k/uL PT 9.9 (9.0-12.0) sec INR 0.9 (<1.2) APTT 24.5 (22.0-30.0) sec Sodium 132 L (137-145) mmol/L Potassium 3.7 (3.5-5.1) mmol/L Chloride 99 (98-107) mmol/L Carbon Dioxide 27 (22-30) mmol/L Anion Gap 6 mmol/L BUN 17 (7-17) mg/dL Creatinine 0.93 (0.52-1.04) mg/dL Est GFR (CKD-EPI)AfAm 70 (>60 ml/min/1.73 sqM) Est GFR (CKD-EPI)NonAf 61 (>60 ml/min/1.73 sqM) Glucose 122 H (74-99) mg/dL Calcium 9.1 (8.4-10.2) mg/dL Magnesium 1.9 (1.6-2.3) mg/dL Total Bilirubin 0.9 (0.2-1.3) mg/dL AST 34 (14-36) U/L ALT 47 H (4-34) U/L Alkaline Phosphatase 111 (38-126) U/L Troponin I (0.000-0.034) ng/mL Total Protein 6.2 L (6.3-8.2) g/dL Albumin 3.4 L (3.5-5.0) g/dL 06/10/20 Range/Units 18:32 WBC (3.8-10.6) k/uL RBC (3.80-5.40) m/uL Hgb (11.4-16.0) gm/dL Hct (34.0-46.0) % MCV (80.0-100.0) fL MCH (25.0-35.0) pg MCHC (31.0-37.0) g/dL RDW (11.5-15.5) % Plt Count (150-450) k/uL Neutrophils % % Lymphocytes % % Monocytes % % Eosinophils % % Basophils % % Neutrophils # (1.3-7.7) k/uL Lymphocytes # (1.0-4.8) k/uL Monocytes # (0-1.0) k/uL Eosinophils # (0-0.7) k/uL Basophils # (0-0.2) k/uL PT (9.0-12.0) sec INR (<1.2) APTT (22.0-30.0) sec Sodium (137-145) mmol/L Potassium (3.5-5.1) mmol/L Chloride (98-107) mmol/L Carbon Dioxide (22-30) mmol/L Anion Gap mmol/L BUN (7-17) mg/dL Creatinine (0.52-1.04) mg/dL Est GFR (CKD-EPI)AfAm (>60 ml/min/1.73 sqM) Est GFR (CKD-EPI)NonAf (>60 ml/min/1.73 sqM) Glucose (74-99) mg/dL Calcium (8.4-10.2) mg/dL Magnesium (1.6-2.3) mg/dL Total Bilirubin (0.2-1.3) mg/dL AST (14-36) U/L ALT (4-34) U/L Alkaline Phosphatase (38-126) U/L Troponin I <0.012 (0.000-0.034) ng/mL Total Protein (6.3-8.2) g/dL Albumin (3.5-5.0) g/dL Disposition Clinical Impression: Back pain Disposition: HOME SELF-CARE Condition: Fair Instructions (If sedation given, give patient instructions): Back Pain (ED) Is patient prescribed a controlled substance at d/c from ED?: No Referrals: Agustín Farnsworth MD [Primary Care Provider] - 1-2 days Mat Barreto DO [STAFF PHYSICIAN] - 1-2 days Time of Disposition: 20:46
--- NOTE | 2020-06-10 19:20 | XR ---
EXAMINATION: XR chest 2V DATE AND TIME: 06/10/2020 6:54 PM CLINICAL INDICATION: PHH; Chest Pain TECHNIQUE: Departmental protocol COMPARISON: 03/26/2020 FINDINGS: Metallic stents visualized, new since the prior study, in the expected position of the uppe r and mid abdominal aorta. The lungs are clear. The pleural spaces are negative. No abnormal gas collections. The cardiac silhouette is not enlarged. The remainder of the mediastinal silhouette is unremarkable. The skeletal structures and soft tissues are negative for acute findings. IMPRESSION: No acute radiographic process.
--- NOTE | 2020-06-10 20:21 | CT ---
EXAMINATION TYPE: CT angio chest with contrast and with 3-D reconstruction renderings DATE OF EXAM: 06/10/2020 7:48 PM COMPARISON: None HISTORY: Chest pain, abnormal EKG at PCP. Hx COPD/HTN CT DLP: 140.9 mGycm Automated exposure control for dose reduction was used. CONTRAST: CTA scan of the thorax is performed with IV Contrast, patient injected with 100 mL of Isovu e 370, pulmonary embolism protocol. Three-D reconstructions. FINDINGS: AIRWAYS, LUNGS, AND PLEURAL SPACES: The lungs demonstrate diffuse emphysematous changes. No acute pul monary findings. Airways are unremarkable. The pleural spaces are negative. MEDIASTINUM: There is satisfactory enhancement of the pulmonary artery and its branches, with no CT e vidence for pulmonary embolism. No acute thoracic aorta findings, although atherosclerotic intimal ca lcifications and tortuosity noted. Partially visualized aortic stent at the thoracoabdominal aortic j unction. There is mild cardiomegaly without pericardial effusion. There are prominent coronary calcif ications. No adenopathy. OTHER: No additional significant abnormality is seen. IMPRESSION: NO DEFINITE ACUTE PROCESS.
[2020-06-10 21:29] VITALS: BP 111/55; PULSE 72; RESP 17
== END 2020-06-10 21:22 | disposition home or self-care (01) ==
LOC: EC 17:24
DX: M54.6 Pain in thoracic spine (principal); M81.0 Age-related osteoporosis without current pathological fracture; Z79.82 Long term (current) use of aspirin; Z79.02 Long term (current) use of antithrombotics/antiplatelets; Z88.5 Allergy status to narcotic agent; Z88.0 Allergy status to penicillin; Z88.8 Allergy status to other drugs, medicaments and biological substances; Z85.828 Personal history of other malignant neoplasm of skin; Z87.891 Personal history of nicotine dependence
CPT/HCPCS: 36415; 93005; 80053; 83735; 84484; 85025; 85610; 85730; 71046; 71275; 99285; Q9967

== ENCOUNTER 2020-06-17 16:59 | Emergency (ER) | payer MEDICARE, BC ==
[2020-06-17 18:27] LABS: Basophils % (A) 1 %; Eosinophils # (A) 0.6 k/uL (0-0.7); Eosinophils % (A) 10 %; HCT 35.2 % (34.0-46.0); HGB 11.1 gm/dL (11.4-16.0); Hypochromasia Slight; Lymphocytes # (A) 1.1 k/uL (1.0-4.8); Lymphocytes % (A) 19 %; MCH 30.6 pg (25.0-35.0); MCHC 31.4 g/dL (31.0-37.0); MCV 97.3 fL (80.0-100.0); Mean Platelet Volume 6.3; Monocytes # (A) 0.3 k/uL (0-1.0); Monocytes % (A) 5 %; Neutrophils # (A) 3.5 k/uL (1.3-7.7); Neutrophils % (A) 63 %; Platelet Count 350 k/uL (150-450); RBC 3.62 m/uL (3.80-5.40); RDW 14.1 % (11.5-15.5); WBC 5.6 k/uL (3.8-10.6)
[2020-06-17 18:37] LABS: Albumin 3.7 g/dL (3.5-5.0); Calcium 10.1 mg/dL (8.4-10.2); Total Bilirubin 0.7 mg/dL (0.2-1.3); Total Protein 6.5 g/dL (6.3-8.2)
[2020-06-17 18:49] LABS: INR 0.9 (<1.2); Partial Thromboplastin Time 23.5 sec (22.0-30.0); Prothrombin Time 9.9 sec (9.0-12.0)
[2020-06-17 19:42] LABS: Appearance,Urine Clear (Clear); Bilirubin,Urine Negative (Negative); Blood,Urine Negative (Negative); Color,Urine Light Yellow; Glucose,Urine (UA) Negative (Negative); Ketones,Urine Negative (Negative); Leukocyte Esterase,Urine Small (Negative); Nitrite,Urine Negative (Negative); Protein,Urine Negative (Negative); RBC,Urine 1 /hpf (0-5); Specific Gravity,Urine 1.011 (1.001-1.035); Urobilinogen,Urine <2.0 mg/dL (<2.0); WBC,Urine 3 /hpf (0-5)
--- NOTE | 2020-06-17 19:42 | CT ---
EXAMINATION TYPE: CT angio abdomen pelvis DATE OF EXAM: 06/17/2020 COMPARISON: 11/20/2017 HISTORY: Abdominal pain and rectal bleeding post aortic stent surgery on 05/24/20. CT DLP: 722.9 mGycm Automated exposure control for dose reduction was used. CONTRAST: Performed without and with IV Contrast, patient injected with 80ml mL of Isovue 370. There are 3-D post processed images. Lung bases are clear of consolidation. There is no pleural effus ion. There are multiple cysts in the liver that measure up to 3 cm. There is large common bile duct t hat measures 1.5 cm. Gallbladder is absent. The spleen is intact. Stomach is intact. There is numerou s calcifications in the pancreas. I see no discrete pancreatic mass. There is large lower abdominal aortic aneurysm that measures up to 5.5 cm. There is aorto iliac endog raft. There is no retroperitoneal fluid. There is normal contrast opacification of the endograft. The re is patency of the celiac artery and superior mesenteric artery. There is bilateral patency of the renal arteries. There is abnormal decreased cortical enhancement lateral left kidney that could relat e to ischemia. There is arterial flow in the iliac and femoral arteries. I see no sign of hemodynamic stenosis. There is no mesenteric edema. There is no ascites or free air. Bladder distends smoothly. There is no free fluid in the pelvis. There is no inguinal hernia. There are sigmoid multiple diverticula withou t sign of diverticulitis. Appendix is not definitely seen. IMPRESSION: 5.5 cm abdominal aortic aneurysm with overall no significant change in size compared to old CT scan. No evidence of leakage. Decreased cortical enhancement in the left kidney lateral cortex suggestive of renal ischemia. This i s a change compared to 05/24/2017. There could BE developing renal infarct.
--- NOTE | 2020-06-17 20:16 | ED ---
GI Bleed HPI - General Chief complaint: GI Bleed Stated complaint: Abd Pain Time Seen by Provider: 06/17/20 17:49 Source: patient Mode of arrival: ambulatory Limitations: no limitations - History of Present Illness Initial comments: Patient is a 75-year-old female with past medical history of abdominal aortic aneurysm, hyperlipidemia who presents emergency room with reported presyncope and rectal bleeding. Patient states that on the fifth of this month she had an aortic graft placed by Dr. Barreto at [facility]. States that since her procedure she has had black stools and a sensation that she has not passed out. She reports to taking iron however she just started taking this medication on Sunday. Patient has had a poor appetite. She also reports to has just developed today. She denies any new exposures to foods, environmental allergens or medications. She denies any fevers or chills. Does report to some generalized abdominal pain. No nausea or vomiting. Denies hematemesis. No history of ulcerative disease. Ilene or weakness into her lower chilies. No other alleviating, precipitating factors - Related Data Home Medications Medication Instructions Recorded Confirmed Aspirin EC [Ecotrin Low Dose] 81 mg PO DAILY 06/01/20 06/17/20 Clopidogrel [Plavix] 75 mg PO DAILY 06/01/20 06/17/20 Ferrous Sulfate [Feosol] 325 mg PO DAILY 06/17/20 06/17/20 L.acidoph,Paracasei, B.lactis 1 cap PO DAILY 06/17/20 06/17/20 [Probiotic] Previous Rx's Medication Instructions Recorded methylPREDNISolone [Medrol Dose 4 mg PO DIRECTED #1 pack 06/17/20 Pack] Allergies Allergy/AdvReac Type Severity Reaction Status Date / Time codeine Allergy Rash/Hives Verified 06/17/20 18:28 morphine Allergy Rash/Hives Verified 06/17/20 18:28 Penicillins Allergy Rash/Hives Verified 06/17/20 18:28 Aoxlmrk-Wbg-Vam Reductase Allergy Itching Verified 06/17/20 18:28 Inhibitor any cholesterol medications Allergy Itching Uncoded 06/17/20 17:19 Review of Systems ROS Statement: Those systems with pertinent positive or pertinent negative responses have been documented in the HPI. ROS Other: All systems not noted in ROS Statement are negative. Past Medical History Past Medical History: Cancer, Hyperlipidemia, Hypertension, Pneumonia Additional Past Medical History / Comment(s): gout, hyperlipidemia but cannot tolerate statins, skin cancer , osteoporosis, diverticulitis with sepsis, History of Any Multi-Drug Resistant Organisms: None Reported Past Surgical History: Adenoidectomy, Appendectomy, Cholecystectomy, Hys terectomy, Orthopedic Surgery, Tonsillectomy Additional Past Surgical History / Comment(s): L knee arthroscopy d/t effusion, R wrist ganglion cyst surgeries x 3, skin cancer removed from nose, bilateral cataract removals/lens implants. stents, EVAR with bilateral renal stent chimneys, aneurysm repair 06/08 Past Anesthesia/Blood Transfusion Reactions: No Reported Reaction Additional Past Anesthesia/Blood Transfusion Reaction / Comment(s): CHILDREN=PONV Past Psychological History: No Psychological Hx Reported Smoking Status: Former smoker Past Alcohol Use History: None Reported Past Drug Use History: None Reported - Past Family History Mother Family Medical History: Dementia Father History Unknown: Yes Family Medical History: No Reported History Daughter(s) Family Medical History: Cancer Additional Family Medical History / Comment(s): Letty survived breast cancer. General Exam Limitations: no limitations General appearance: alert, in no apparent distress Head exam: Present: atraumatic, normocephalic, normal inspection Eye exam: Present: normal appearance, PERRL, EOMI. Absent: scleral icterus, conjunctival injection, periorbital swelling ENT exam: Present: normal exam, mucous membranes moist Neck exam: Present: normal inspection. Absent: tenderness, meningismus, lymphadenopathy Respiratory exam: Present: normal lung sounds bilaterally. Absent: respiratory distress, wheezes, rales, rhonchi, stridor Cardiovascular Exam: Present: regular rate, normal rhythm, normal heart sounds. Absent: systolic murmur, diastolic murmur, rubs, gallop, clicks GI/Abdominal exam: Present: soft, normal bowel sounds. Absent: distended, tenderness, guarding, rebound, rigid Extremities exam: Present: normal inspection, full ROM, normal capillary refill. Absent: tenderness, pedal edema, joint swelling, calf tenderness Back exam: Present: normal inspection Neurological exam: Present: alert, oriented X3, CN II-XII intact Psychiatric exam: Present: normal affect, normal mood Skin exam: Present: warm, dry, intact, urticaria. Absent: rash Course Vital Signs 06/17/20 06/17/20 06/17/20 17:13 19:25 20:31 Temperature 97.6 F 98.7 F Pulse Rate 85 75 76 Respiratory 18 12 14 Rate Blood Pressure 129/68 149/67 151/64 O2 Sat by Pulse 98 97 97 Oximetry Medical Decision Making - Medical Decision Making Upon arrival patient is placed into room 22. A thorough history and physical exam was performed. 12-lead EKG was performed. Rectal exam was performed and occult was negative. Laboratory studies were conducted and the patient went for CT of her abdomen and pelvis. There were traces reviewed. Hemoglobin stable at 11.1. CT of the patient's abdomen and pelvis demonstrates 5.5 cm abdominal aortic aneurysm with no significant change in size. Decreased cortical enhancement left kidney lateral cortex suggestive of renal ischemia. Discussed the results with the patient. Call discuss case with Dr. Chandler. Dr. Chandler states that the findings of the left kidney are not new. She states that the patient had imaging done of a clear [place] previously show this. She did review the imaging. States that nothing new or abnormal swelling on the patient's graft and does feel comfortable with the patient going home. At this time the patient will follow up with Dr. Herrera. I did provide her with a Medrol Dosepak for her hives. States that she cannot take Benadryl. I instructed her that she should have ALLERGY testing. If she has any new or worsening symptoms she should return to the emergency room. Patient was discharged home in stable condition - Lab Data Result diagrams: 06/17/20 18:23 06/17/20 18:04 Lab Results 06/17/20 06/17/20 06/17/20 Range/Units 18:04 18:04 18:04 WBC (3.8-10.6) k/uL RBC (3.80-5.40) m/uL Hgb (11.4-16.0) gm/dL Hct (34.0-46.0) % MCV (80.0-100.0) fL MCH (25.0-35.0) pg MCHC (31.0-37.0) g/dL RDW (11.5-15.5) % Plt Count (150-450) k/uL Neutrophils % % Lymphocytes % % Monocytes % % Eosinophils % % Basophils % % Neutrophils # (1.3-7.7) k/uL Lymphocytes # (1.0-4.8) k/uL Monocytes # (0-1.0) k/uL Eosinophils # (0-0.7) k/uL Basophils # (0-0.2) k/uL Hypochromasia PT 9.9 (9.0-12.0) sec INR 0.9 (<1.2) APTT 23.5 (22.0-30.0) sec Sodium 135 L (137-145) mmol/L Potassium 4.0 (3.5-5.1) mmol/L Chloride 102 (98-107) mmol/L Carbon Dioxide 31 H (22-30) mmol/L Anion Gap 2 mmol/L BUN 15 (7-17) mg/dL Creatinine 1.10 H (0.52-1.04) mg/dL Est GFR (CKD-EPI)AfAm 57 (>60 ml/min/1.73 sqM) Est GFR (CKD-EPI)NonAf 49 (>60 ml/min/1.73 sqM) Glucose 97 (74-99) mg/dL Plasma Lactic Acid Martir (0.7-2.0) mmol/L Calcium 10.1 (8.4-10.2) mg/dL Total Bilirubin 0.7 (0.2-1.3) mg/dL AST 25 (14-36) U/L ALT 23 (4-34) U/L Alkaline Phosphatase 97 (38-126) U/L Troponin I (0.000-0.034) ng/mL Total Protein 6.5 (6.3-8.2) g/dL Albumin 3.7 (3.5-5.0) g/dL Urine Color Urine Appearance (Clear) Urine pH (5.0-8.0) Ur Specific [place] (1.001-1.035) Urine Protein (Negative) Urine Glucose (UA) (Negative) Urine Ketones (Negative) Urine Blood (Negative) Urine Nitrite (Negative) Urine Bilirubin (Negative) Urine Urobilinogen (<2.0) mg/dL Ur Leukocyte Esterase (Negative) Urine RBC (0-5) /hpf Urine WBC (0-5) /hpf Stool Occult Blood Negative (Negative) Blood Type Blood Type Recheck Bld Type Recheck Status Antibody Screen Spec Expiration Date 06/17/20 06/17/20 06/17/20 Range/Units 18:04 18:04 18:20 WBC (3.8-10.6) k/uL RBC (3.80-5.40) m/uL Hgb (11.4-16.0) gm/dL Hct (34.0-46.0) % MCV (80.0-100.0) fL MCH (25.0-35.0) pg MCHC (31.0-37.0) g/dL RDW (11.5-15.5) % Plt Count (150-450) k/uL Neutrophils % % Lymphocytes % % Monocytes % % Eosinophils % % Basophils % % Neutrophils # (1.3-7.7) k/uL Lymphocytes # (1.0-4.8) k/uL Monocytes # (0-1.0) k/uL Eosinophils # (0-0.7) k/uL Basophils # (0-0.2) k/uL Hypochromasia PT (9.0-12.0) sec INR (<1.2) APTT (22.0-30.0) sec Sodium (137-145) mmol/L Potassium (3.5-5.1) mmol/L Chloride (98-107) mmol/L Carbon Dioxide (22-30) mmol/L Anion Gap mmol/L BUN (7-17) mg/dL Creatinine (0.52-1.04) mg/dL Est GFR (CKD-EPI)AfAm (>60 ml/min/1.73 sqM) Est GFR (CKD-EPI)NonAf (>60 ml/min/1.73 sqM) Glucose (74-99) mg/dL Plasma Lactic Acid Martir 1.1 (0.7-2.0) mmol/L Calcium (8.4-10.2) mg/dL Total Bilirubin (0.2-1.3) mg/dL AST (14-36) U/L ALT (4-34) U/L Alkaline Phosphatase (38-126) U/L Troponin I <0.012 (0.000-0.034) ng/mL Total Protein (6.3-8.2) g/dL Albumin (3.5-5.0) g/dL Urine Color Urine Appearance (Clear) Urine pH (5.0-8.0) Ur Specific [place] (1.001-1.035) Urine Protein (Negative) Urine Glucose (UA) (Negative) Urine Ketones (Negative) Urine Blood (Negative) Urine Nitrite (Negative) Urine Bilirubin (Negative) Urine Urobilinogen (<2.0) mg/dL Ur Leukocyte Esterase (Negative) Urine RBC (0-5) /hpf Urine WBC (0-5) /hpf Stool Occult Blood (Negative) Blood Type O Negative Blood Type Recheck O Neg Bld Type Recheck Status No Antibody Screen NEGATIVE Spec Expiration Date 06/20/2020230306/17/20 06/17/20 Range/Units 18:23 19:31 WBC 5.6 (3.8-10.6) k/uL RBC 3.62 L (3.80-5.40) m/uL Hgb 11.1 L (11.4-16.0) gm/dL Hct 35.2 (34.0-46.0) % MCV 97.3 (80.0-100.0) fL MCH 30.6 (25.0-35.0) pg MCHC 31.4 (31.0-37.0) g/dL RDW 14.1 (11.5-15.5) % Plt Count 350 (150-450) k/uL Neutrophils % 63 % Lymphocytes % 19 % Monocytes % 5 % Eosinophils % 10 % Basophils % 1 % Neutrophils # 3.5 (1.3-7.7) k/uL Lymphocytes # 1.1 (1.0-4.8) k/uL Monocytes # 0.3 (0-1.0) k/uL Eosinophils # 0.6 (0-0.7) k/uL Basophils # 0.0 (0-0.2) k/uL Hypochromasia Slight PT (9.0-12.0) sec INR (<1.2) APTT (22.0-30.0) sec Sodium (137-145) mmol/L Potassium (3.5-5.1) mmol/L Chloride (98-107) mmol/L Carbon Dioxide (22-30) mmol/L Anion Gap mmol/L BUN (7-17) mg/dL Creatinine (0.52-1.04) mg/dL Est GFR (CKD-EPI)AfAm (>60 ml/min/1.73 sqM) Est GFR (CKD-EPI)NonAf (>60 ml/min/1.73 sqM) Glucose (74-99) mg/dL Plasma Lactic Acid Martir (0.7-2.0) mmol/L Calcium (8.4-10.2) mg/dL Total Bilirubin (0.2-1.3) mg/dL AST (14-36) U/L ALT (4-34) U/L Alkaline Phosphatase (38-126) U/L Troponin I (0.000-0.034) ng/mL Total Protein (6.3-8.2) g/dL Albumin (3.5-5.0) g/dL Urine Color Light Yellow Urine Appearance Clear (Clear) Urine pH 7.0 (5.0-8.0) Ur Specific [place] 1.011 (1.001-1.035) Urine Protein Negative (Negative) Urine Glucose (UA) Negative (Negative) Urine Ketones Negative (Negative) Urine Blood Negative (Negative) Urine Nitrite Negative (Negative) Urine Bilirubin Negative (Negative) Urine Urobilinogen <2.0 (<2.0) mg/dL Ur Leukocyte Esterase Small H (Negative) Urine RBC 1 (0-5) /hpf Urine WBC 3 (0-5) /hpf Stool Occult Blood (Negative) Blood Type Blood Type Recheck Bld Type Recheck Status Antibody Screen Spec Expiration Date - EKG Data EKG Comments: EKG demonstrates normal sinus rhythm with ventricular rate of 70.. HI interval 124. QRS 106. QTC of 455. No acute ST segment elevations or depressions concerning for ischemic changes Disposition Clinical Impression: Pre-syncope, S/P repair of abdominal aortic aneurysm using straight graft, Melena Disposition: HOME SELF-CARE Condition: Stable Instructions (If sedation given, give patient instructions): Near Syncope (ED) Additional Instructions: please call and make an appointment with Dr. Barreto. Tell him about your symptoms of lightheadedness and dark stools. return to the emergency room for any new or worsening symptoms Prescriptions: methylPREDNISolone [Medrol Dose Pack] 4 mg PO DIRECTED #1 pack Is patient prescribed a controlled substance at d/c from ED?: No Referrals: Agustín Farnsworth MD [Primary Care Provider] - 1-2 days Mat Barreto DO [STAFF PHYSICIAN] - 1-2 days Time of Disposition: 20:15
[2020-06-17 20:32] VITALS: BP 151/64; PULSE 76; RESP 14; TEMP 98.7
== END 2020-06-17 20:33 | disposition home or self-care (01) ==
LOC: EC 16:59
DX: K92.1 Melena (principal); R55 Syncope and collapse; I71.4 Abdominal aortic aneurysm, without rupture; L50.9 Urticaria, unspecified; Z79.82 Long term (current) use of aspirin; Z79.02 Long term (current) use of antithrombotics/antiplatelets; Z88.5 Allergy status to narcotic agent; Z88.0 Allergy status to penicillin; Z88.8 Allergy status to other drugs, medicaments and biological substances; Z90.89 Acquired absence of other organs; Z90.710 Acquired absence of both cervix and uterus; Z87.891 Personal history of nicotine dependence; Z90.49 Acquired absence of other specified parts of digestive tract; Z85.828 Personal history of other malignant neoplasm of skin; Z98.890 Other specified postprocedural states
CPT/HCPCS: 36415; 93005; 86900; 86901; 80053; 83605; 84484; 85025; 85610; 85730; 86850; 82272; 81001; 74174; 99284; Q9967

== ENCOUNTER → 2020-07-13 | Outpatient (CLI) | payer MEDICARE, BC ==
--- NOTE | 2020-07-13 12:51 | CT ---
EXAMINATION TYPE: CT angio abdomen pelvis DATE OF EXAM: 07/13/2020 COMPARISON: 06/17/2020 HISTORY: AAA. CT DLP: 132.4 mGycm CONTRAST: CTA thoracic and abdominal aorta with 3-D reconstruction is performed without Oral Contrast and with IV Contrast, patient injected with 74 mL of Isovue 370. Contrast CTA of the abdominal aorta was performed from the lung bases through the base of the pelvis. 3-D reconstruction imaging obtained at a separate workstation. CT Chest: THORACIC AORTA: There is no evidence for aneurysm. No dissection or mediastinal hematoma. Mild ath eromatous changes are seen. CONTRAST CT ABDOMEN AND PELVIS lung bases: There is interval development of small left-sided pleural effusion. ABDOMINAL AORTA: There is aortoiliac stent graft noted to be in place. There is also proximal aortic stent. Stent is also noted of the right renal artery. There is evidence of endoleak proximally measur ing 2.8 x 1.3 cm. Abdominal aortic aneurysm measures 5.8 cm AP dimension versus 5.8 cm previously. Th e remainder of the stent graft appears unremarkable. No additional foci of endoleak. The iliac compon ents appear symmetric. 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 Right kidney is noted to perfuse normally. LIVER/GB-hypoattenuating renal lesions likely reflect small cysts. PANCREAS-diffuse pancreatic calcifications compatible with chronic pancreatitis. SPLEEN- No significant abnormality is seen. ADRENALS- No significant abnormality is seen. KIDNEYS/BLADDER- No significant abnormality is seen. BOWEL- No Significant abnormality GENITAL ORGANS: No gross abnormality seen. LYMPH NODES- No greater than 1cm abdominal or pelvic lymph nodes areappreciated. OSSEOUS STRUCTURES- No significant abnormality is seen. OTHER- No significant abnormality is seen. IMPRESSION- 1. Aortoiliac stent graft and proximal aortic stent with endoleak noted. Abdominal aortic aneurysm un changed in size with maximal AP dimension of 5.8 cm versus 5.8 cm previously.
== END | disposition home or self-care (01) ==
LOC: RADCTMAIN 10:19
PROVIDERS: ATTEND Surgery
DX: I71.4 Abdominal aortic aneurysm, without rupture (principal); Z95.828 Presence of other vascular implants and grafts
CPT/HCPCS: 82565; 84520; 74174; Q9967

== ENCOUNTER → 2020-09-03 | Outpatient (CLI) | payer MEDICARE, BC ==
[2020-09-03 12:45] VITALS: BP 195/96; PULSE 88; RESP 18; TEMP 97.9
== END | disposition home or self-care (01) ==
LOC: PROCWHC3 12:10
PROVIDERS: ATTEND Family Medicine
DX: M81.0 Age-related osteoporosis without current pathological fracture (principal)
CPT/HCPCS: 96372; J0897

== ENCOUNTER 2020-09-08 10:20 | Inpatient (IN) | payer MEDICARE, BC ==
--- NOTE | 2020-09-08 10:55 | ED ---
General Adult HPI - General Chief complaint: Neck Pain/Injury Stated complaint: hypertension Time Seen by Provider: 09/08/20 10:31 Source: patient Mode of arrival: ambulatory Limitations: no limitations - History of Present Illness Initial comments: Dictation was produced using [employer] dictation software. please excuse any grammatical, word or spelling errors. This patient was cared for during a federal and state declared state of emergency secondary to Covid 19 Chief Complaint: 75-year-old female presents to the emergency department for neck pain. History of Present Illness: Patient is a 75-year-old female she has past medical history of abdominal aortic aneurysm, aortoiliac graft stent. She presents today with 3 weeks of neck pain. She had a fall discussion with her primary care physician regarding her symptoms. Dr. Farnsworth her PCP decided to instruct her to come to the emergency room because of her heart rate and blood pressure. Patient denies any other symptoms except for neck pain. She states the pain is to her proximal neck. She states that a couple days ago she had an episode of several minutes where her whole right side of her body hurt. Patient has any weakness. No tingling or paresthesias in the arm or leg on the right side. She is not having difficulties ambulating. The ROS documented in this emergency department record has been reviewed and confirmed by me. Those systems with pertinent positive or negative responses have been documented in the HPI. All other systems are other negative and/or noncontributory. PHYSICAL EXAM: General Impression: Alert and oriented x3, not in acute distress HEENT: Normocephalic atraumatic, extra-ocular movements intact, pupils equal and reactive to light bilaterally, mucous membranes moist. Neck: Tenderness to palpation over T1, C7 spinous process. Slight paraspinal muscular tissue tenderness and bogginess Cardiovascular: Heart regular rate and rhythm Chest: Able to complete full sentences, no retractions, no tachypnea Abdomen: abdomen soft, non-tender, non-distended, no organomegaly Musculoskeletal: Pulses present and equal in all extremities, no peripheral edema Motor: no focal deficits noted Neurological: CN II-XII grossly intact, no focal motor or sensory deficits noted Skin: Intact with no visualized rashes Psych: Normal affect and mood ED course: 75-year-old female presents to the emergency department for neck pain. She is instructed by primary care physician to come to the emergency department to be evaluated. All signs upon arrival shows heart rate of 105, blood pressure 195/111 cumbersome vital signs within acceptable limits. Patient's past medical history of abdominal aortic aneurysm and aortoiliac stent graft with recent history of endoleak in June 2020. Laboratory evaluation obtained. Mild leukocytosis of 15.8. Likely secondary to stress. Metabolic panel shows creatinine 2.53, BUN of 42. Computed tomography scan of the cervical spine shows degenerative changes with spinal canal stenosis and endplate spurring at C5. No acute injuries. Patient has objective findings of acute kidney injury. Patient be admitted for VLADIMIR. Discussed patient case with Mukund Giraldo who is taking call for Dr. Farnsworth. Spine surgery and nephrology will be on consult EKG interpretation: Ventricular rate 102, sinus tachycardia,. Interval 122, QRS 106, QTC 477. No CT prolongation, no QTC prolongation, no ST or T-wave changes noted. Overall, this EKG is unremarkable - Related Data Home Medications Medication Instructions Recorded Confirmed Ascorbic Acid [Vitamin C] 1,000 mg PO DAILY 09/03/20 09/08/20 Cholecalciferol [Vitamin D3 (25 1,000 unit PO DAILY 09/03/20 09/08/20 Mcg = 1000 Iu)] Calcium Carbonate [Calcium] 600 mg PO DAILY 09/08/20 09/08/20 Allergies Allergy/AdvReac Type Severity Reaction Status Date / Time codeine Allergy Rash/Hives Verified 09/08/20 10:25 morphine Allergy Rash/Hives Verified 09/08/20 10:25 Penicillins Allergy Rash/Hives Verified 09/08/20 10:25 Rpffttd-Sgh-Sfm Reductase Allergy Itching Verified 09/08/20 10:25 Inhibitor any cholesterol medications Allergy Itching Uncoded 09/03/20 12:33 Review of Systems ROS Statement: Those systems with pertinent positive or pertinent negative responses have been documented in the HPI. ROS Other: All systems not noted in ROS Statement are negative. Past Medical History Past Medical History: Cancer, Hyperlipidemia, Hypertension, Pneumonia Additional Past Medical History / Comment(s): gout, hyperlipidemia but cannot tolerate statins, skin cancer , osteoporosis, diverticulitis with sepsis, pt has chronic neck pain History of Any Multi-Drug Resistant Organisms: None Reported Past Surgical History: Adenoidectomy, Appendectomy, Cholecystectomy, Hy sterectomy, Orthopedic Surgery, Tonsillectomy Additional Past Surgical History / Comment(s): L knee arthroscopy d/t effusion, R wrist ganglion cyst surgeries x 3, skin cancer removed from nose, bilateral cataract removals/lens implants. stents, EVAR with bilateral renal stent chimneys, aneurysm repair 06/08 Past Anesthesia/Blood Transfusion Reactions: No Reported Reaction Additional Past Anesthesia/Blood Transfusion Reaction / Comment(s): CHILDREN=PONV Past Psychological History: No Psychological Hx Reported Smoking Status: Current every day smoker - Past Family History Mother Family Medical History: Dementia Father History Unknown: Yes Family Medical History: No Reported History Daughter(s) Family Medical History: Cancer Additional Family Medical History / Comment(s): Letty survived breast cancer. General Exam Limitations: no limitations Course Vital Signs 09/08/20 09/08/20 09/08/20 10:25 11:23 11:40 Temperature 98.3 F Pulse Rate 105 H 89 73 Respiratory 18 16 16 Rate Blood Pressure 195/111 228/120 183/90 O2 Sat by Pulse 98 98 98 Oximetry 09/08/20 11:49 Temperature Pulse Rate 75 Respiratory 16 Rate Blood Pressure 180/91 O2 Sat by Pulse 98 Oximetry Medical Decision Making - Lab Data Result diagrams: 09/08/20 10:58 09/08/20 10:58 Lab Results 09/08/20 09/08/20 Range/Units 10:58 10:58 WBC 15.8 H (3.8-10.6) k/uL RBC 5.06 (3.80-5.40) m/uL Hgb 14.7 (11.4-16.0) gm/dL Hct 43.6 (34.0-46.0) % MCV 86.2 (80.0-100.0) fL MCH 29.1 (25.0-35.0) pg MCHC 33.7 (31.0-37.0) g/dL RDW 15.3 (11.5-15.5) % Plt Count 304 (150-450) k/uL MPV 6.7 Neutrophils % 82 % Lymphocytes % 9 % Monocytes % 6 % Eosinophils % 2 % Basophils % 1 % Neutrophils # 12.9 H (1.3-7.7) k/uL Lymphocytes # 1.4 (1.0-4.8) k/uL Monocytes # 0.9 (0-1.0) k/uL Eosinophils # 0.4 (0-0.7) k/uL Basophils # 0.1 (0-0.2) k/uL Sodium 132 L (137-145) mmol/L Potassium 3.7 (3.5-5.1) mmol/L Chloride 96 L (98-107) mmol/L Carbon Dioxide 29 (22-30) mmol/L Anion Gap 7 mmol/L BUN 42 H (7-17) mg/dL Creatinine 2.53 H (0.52-1.04) mg/dL Est GFR (CKD-EPI)AfAm 21 (>60 ml/min/1.73 sqM) Est GFR (CKD-EPI)NonAf 18 (>60 ml/min/1.73 sqM) Glucose 124 H (74-99) mg/dL Calcium 10.9 H (8.4-10.2) mg/dL Disposition Clinical Impression: Neck pain, VLADIMIR (acute kidney injury) Disposition: ADMITTED IP TO THIS [facility] Condition: Fair Referrals: Agustín Farnsworth MD [Primary Care Provider] - 1-2 days Decision Time: 12:52
[2020-09-08] MEDS ORDERED: LABETALOL 5 MG/ML VIAL MDV IVP STA (10:58)
[2020-09-08 11:12] LABS: Basophils # (A) 0.1 k/uL (0-0.2); Basophils % (A) 1 %; Eosinophils # (A) 0.4 k/uL (0-0.7); Eosinophils % (A) 2 %; HCT 43.6 % (34.0-46.0); HGB 14.7 gm/dL (11.4-16.0); Lymphocytes # (A) 1.4 k/uL (1.0-4.8); Lymphocytes % (A) 9 %; MCH 29.1 pg (25.0-35.0); MCHC 33.7 g/dL (31.0-37.0); MCV 86.2 fL (80.0-100.0); Mean Platelet Volume 6.7; Monocytes # (A) 0.9 k/uL (0-1.0); Monocytes % (A) 6 %; Neutrophils # (A) 12.9 k/uL (1.3-7.7); Neutrophils % (A) 82 %; Platelet Count 304 k/uL (150-450); RBC 5.06 m/uL (3.80-5.40); RDW 15.3 % (11.5-15.5); WBC 15.8 k/uL (3.8-10.6)
[2020-09-08 11:22] LABS: Calcium 10.9 mg/dL (8.4-10.2); Potassium 3.7 mmol/L (3.5-5.1)
[2020-09-08] MEDS ORDERED: SODIUM CHLORIDE 0.9% 1,000 ML IV STA (11:27)
--- NOTE | 2020-09-08 12:36 | CT ---
EXAMINATION TYPE: CT cervical spine wo con DATE OF EXAM: 09/08/2020 COMPARISON: 05/06/2017 HISTORY: Neck pain CT DLP: 190.6 mGycm CONTRAST: None CT of the cervical spine is performed in the axial plane at 2 mm thick sections. Reconstructed image s in the coronal, and sagittal plane are reviewed on the computer. No acute fractures are evident. Vertebral body alignment is normal. Disc space loss is present C5-6. Disc space narrowing is present C4-5 due to mild degree C3-4. Loss Prevention Officer ior endplate calcification is present with mild anterior thecal sac compression. AP spinal canal narr owing at C5-6 is present with an AP dimension of 0.6 cm. Vertebral body heights are preserved. Foraminal narrowing due to uncovertebral joint hypertrophy is present C4-5 bilaterally and C5-6 espec ially on the right. IMPRESSIONS: 1. Degenerative disc changes with endplate changes. 2. Spinal canal stenosis due to endplate spurring at C5. 3. Uncovertebral joint hypertrophy contributing to foraminal narrowing. 4. No acute fracture
[2020-09-08] MEDS ORDERED: NALOXONE 0.4 MG/ML 1 ML VIAL IV PRN (12:48)
[2020-09-08] MEDS ORDERED: ONDANSETRON 4 MG/2 ML VIAL IVP PRN (12:48)
[2020-09-08] MEDS ORDERED: hydrALAZINE HCL 20 MG/ML 1 ML VIAL IVP PRN (13:40)
--- NOTE | 2020-09-08 13:56 | XR ---
EXAMINATION TYPE: XR chest 2V DATE OF EXAM: 09/08/2020 COMPARISON: 06/10/2020 INDICATION: Dizziness hypertension neck pain TECHNIQUE: Frontal and lateral views of the chest are obtained. FINDINGS: The heart size is normal. The pulmonary vasculature is normal. The lungs are clear. IMPRESSION: 1. No acute pulmonary process.
[2020-09-08 14:12] LABS: Magnesium 2.1 mg/dL (1.6-2.3); Phosphorus 4.1 mg/dL (2.5-4.5)
[2020-09-08] MEDS: amLODIPine 10 MG TAB PO SCH (14:49)
[2020-09-08] MEDS: SODIUM CHLORIDE 0.9% 1,000 ML IV SCH (14:51)
--- NOTE | 2020-09-08 16:45 | P.GSCN ---
History of Present Illness Consult date: 09/08/20 Reason for Consult: History of abdominal aortic aneurysm, recent EVAR with stents with endoleak Requesting physician: Agustín Farnsworth History of present illness: This is a 75 year old female with recent history of EVAR with bilateral chimney renal stents in [place] [address] Barreto. The patient states she was sent to the emergency room after seeing Dr. Farnsworth in the office with complaints of cervical neck pain for the last 3 weeks duration. The patient states that pain has been a 10 out of 10, she does state that she has a previous history of cervical neck pain as well. She denies previous surgery or injections. She states she was having some pain down her right upper extremity yesterday. The patient follows with Dr. Barreto and has a known endoleak status post Ivar with bilateral chimney renal stents. She denies any shortness of breath, chest pain, or abdominal pain. She denies any pain radiating to her back. She did have elevated blood pressures upon admission to the hospital 200/88, 190/88, this blood pressure 159/73. She has not been on antihypertensive medications at home. Currently denying any numbness, tingling or pain to bilateral upper extremities. He is a current every day smoker. Review of Systems 14 point review of systems is completed all pertinent positives and negatives as stated in the HPI Past Medical History Past Medical History: Cancer, Hyperlipidemia, Hypertension, Pneumonia Additional Past Medical History / Comment(s): gout, hyperlipidemia but cannot tolerate statins, skin cancer , osteoporosis, diverticulitis with sepsis, pt has chronic neck pain History of Any Multi-Drug Resistant Organisms: None Reported Past Surgical History: Adenoidectomy, Appendectomy, Cholecystectomy, Hysterectomy, Orthopedic Surgery, Tonsillectomy Additional Past Surgical History / Comment(s): L knee arthroscopy d/t effusion, R wrist ganglion cyst surgeries x 3, skin cancer removed from nose, bilateral cataract removals/lens implants. stents, EVAR with bilateral renal stent chimneys, aneurysm repair 06/08 Past Anesthesia/Blood Transfusion Reactions: No Reported Reaction Additional Past Anesthesia/Blood Transfusion Reaction / Comm: CHILDREN=PONV Smoking Status: Current every day smoker - Past Family History Mother Family Medical History: Dementia Father History Unknown: Yes Family Medical History: No Reported History Daughter(s) Family Medical History: Cancer Additional Family Medical History / Comment(s): Letty survived breast cancer. Medications and Allergies Home Medications Medication Instructions Recorded Confirmed Type Ascorbic Acid [Vitamin C] 1,000 mg PO DAILY 09/03/20 09/08/20 History Cholecalciferol [Vitamin D3 (25 1,000 unit PO DAILY 09/03/20 09/08/20 History Mcg = 1000 Iu)] Calcium Carbonate [Calcium] 600 mg PO DAILY 09/08/20 09/08/20 History Allergies Allergy/AdvReac Type Severity Reaction Status Date / Time codeine Allergy Rash/Hives Verified 09/08/20 10:25 morphine Allergy Rash/Hives Verified 09/08/20 10:25 Penicillins Allergy Rash/Hives Verified 09/08/20 10:25 [id number] Reductase Allergy Itching Verified 09/08/20 10:25 Inhibitor any cholesterol medications Allergy Itching Uncoded 09/03/20 12:33 Surgical - Exam Vital Signs Temp Pulse Resp BP Pulse Ox 98.3 F 105 H 18 195/111 98 09/08/20 10:25 09/08/20 10:25 09/08/20 10:25 09/08/20 10:25 09/08/20 10:25 General appearance: The patient is alert, oriented, in no acute distress. HET: Head is normocephalic and atraumatic. Pupils are equal and reactive. Neck: Supple without lymphadenopathy. Trachea midline. Heart: S1 S2. Regular rate and rhythm. Lungs: No crackles or wheezes are heard. Abdomen: Soft, nontender, nondistended with bowel sounds. Extremities: Normal skin color and turgor. No cyanosis, rash, ulceration, clubbing, or edema. Full bilateral radial pulses. Neurological: No focal deficits. Strength and sensation are grossly intact. Results Previous CT angiogram abdomen and pelvis on 07/13/2020 aorta iliac stent graft and proximal aortic stent without endoleak noted. Abdominal aortic aneurysm unchanged in size with maximal AP dimension of 5.8 cm versus 5.[address] of cervical spine with findings that include degenerative disc changes with endplate changes, spinal canal stenosis due to endplate spurring at C5, uncovertebral joint hypertrophy contributing to foraminal narrowing, no acute fracture - Labs 09/08/20 10:58 09/08/20 10:58 Abnormal Lab Results - Last 24 Hours (Table) 09/08/20 09/08/20 Range/Units 10:58 10:58 WBC 15.8 H (3.8-10.6) k/uL Neutrophils # 12.9 H (1.3-7.7) k/uL Sodium 132 L (137-145) mmol/L Chloride 96 L (98-107) mmol/L BUN 42 H (7-17) mg/dL Creatinine 2.53 H (0.52-1.04) mg/dL Glucose 124 H (74-99) mg/dL Calcium 10.9 H (8.4-10.2) mg/dL Diabetes panel 09/08/20 Range/Units 10:58 Sodium 132 L (137-145) mmol/L Potassium 3.7 (3.5-5.1) mmol/L Chloride 96 L (98-107) mmol/L Carbon Dioxide 29 (22-30) mmol/L BUN 42 H (7-17) mg/dL Creatinine 2.53 H (0.52-1.04) mg/dL Glucose 124 H (74-99) mg/dL Calcium 10.9 H (8.4-10.2) mg/dL Calcium panel 09/08/20 09/08/20 Range/Units 10:51 10:58 Calcium 10.9 H (8.4-10.2) mg/dL Phosphorus 4.1 (2.5-4.5) mg/dL Pituitary panel 09/08/20 Range/Units 10:58 Sodium 132 L (137-145) mmol/L Potassium 3.7 (3.5-5.1) mmol/L Chloride 96 L (98-107) mmol/L Carbon Dioxide 29 (22-30) mmol/L BUN 42 H (7-17) mg/dL Creatinine 2.53 H (0.52-1.04) mg/dL Glucose 124 H (74-99) mg/dL Calcium 10.9 H (8.4-10.2) mg/dL Adrenal panel 09/08/20 Range/Units 10:58 Sodium 132 L (137-145) mmol/L Potassium 3.7 (3.5-5.1) mmol/L Chloride 96 L (98-107) mmol/L Carbon Dioxide 29 (22-30) mmol/L BUN 42 H (7-17) mg/dL Creatinine 2.53 H (0.52-1.04) mg/dL Glucose 124 H (74-99) mg/dL Calcium 10.9 H (8.4-10.2) mg/dL Assessment and Plan Assessment: 1. Neck pain 2. Hypertensive 3. Status post EVAR with bilateral chimney renal stents, with known endoleak, abdominal aortic aneurysm 5.8 cm, stable 4. Echo abuse, current every day smoker Plan: This patient was discussed with Dr. Chandler. The patient is known to Dr. Barreto and follows with him closely. Most recent CT angiogram shows evidence of endoleak status post EVAR with chimney renal stents. Abdominal aortic aneurysm 5.8 cm with no change. Patient has follow-up appointments with Dr. Barreto in the future. The patient is asymptomatic, and being evaluated for cervical neck pain. There is no indication for any acute vascular surgical intervention. Recommend optimal blood pressure control by primary medicine team. Thank you for this consultation and allowing us to take part in the plan of care of your patient during her hospital stay. The above dictated assessment and findings were discussed with Dr. Chandler. The impression and plan of care have been directed as dictated.
[2020-09-08 17:32] LABS: Appearance,Urine Clear (Clear); Bacteria,Urine Rare /hpf; Bilirubin,Urine Negative (Negative); Blood,Urine Trace (Negative); Color,Urine Light Yellow; Glucose,Urine (UA) Negative (Negative); Hyaline Casts,Urine 1 /lpf (0-2); Ketones,Urine Negative (Negative); Leukocyte Esterase,Urine Negative (Negative); Nitrite,Urine Negative (Negative); PH, Urine 6.5 (5.0-8.0); Protein,Urine 1+ (Negative); RBC,Urine 3 /hpf (0-5); Specific Gravity,Urine 1.009 (1.001-1.035); Squamous Epithelial Cell,Urine <1 /hpf (0-4); Urobilinogen,Urine <2.0 mg/dL (<2.0); WBC,Urine 1 /hpf (0-5)
[2020-09-08] MEDS ORDERED: LIDOCAINE 5% PATCH TOPICAL SCH (20:45)
[2020-09-08] MEDS: TEMAZEPAM 15 MG CAP PO SCH (21:09)
[2020-09-09] MEDS: SODIUM CHLORIDE 0.9% 1,000 ML IV SCH ×2 (05:46→19:40)
[2020-09-09 06:20] LABS: Basophils % (A) 0 %; Eosinophils # (A) 0.4 k/uL (0-0.7); Eosinophils % (A) 4 %; HCT 36.4 % (34.0-46.0); Lymphocytes # (A) 1.4 k/uL (1.0-4.8); Lymphocytes % (A) 14 %; MCH 28.8 pg (25.0-35.0); MCHC 33.1 g/dL (31.0-37.0); Mean Platelet Volume 6.5; Monocytes # (A) 0.6 k/uL (0-1.0); Monocytes % (A) 6 %; Neutrophils # (A) 7.5 k/uL (1.3-7.7); Neutrophils % (A) 75 %; Platelet Count 273 k/uL (150-450); RBC 4.18 m/uL (3.80-5.40); RDW 15.3 % (11.5-15.5); WBC 10.1 k/uL (3.8-10.6)
[2020-09-09 07:17] LABS: ALT 12 U/L (4-34); AST 17 U/L (14-36); African American GFR (CKD) 25 (>60 ml/min/1.73 sqM); Albumin 3.1 g/dL (3.5-5.0); Albumin/Globulin Ratio 1.2; Alkaline Phosphatase 56 U/L (38-126); Anion Gap 2 mmol/L; Blood Urea Nitrogen 29 mg/dL (7-17); Calcium 8.5 mg/dL (8.4-10.2); Carbon Dioxide 30 mmol/L (22-30); Chloride 106 mmol/L (98-107); Globulin 2.5 g/dL; Glucose 106 mg/dL (74-99); Magnesium 1.9 mg/dL (1.6-2.3); Non-African American GFR(CKD) 22 (>60 ml/min/1.73 sqM); Phosphorus 3.3 mg/dL (2.5-4.5); Potassium 3.3 mmol/L (3.5-5.1); Sodium 138 mmol/L (137-145); Total Bilirubin 0.5 mg/dL (0.2-1.3); Total Protein 5.6 g/dL (6.3-8.2)
[2020-09-09] MEDS: ASCORBIC ACID 500 MG TAB PO SCH (07:44)
[2020-09-09] MEDS: CHOLECALCIFEROL 25 MCG (1000 IU) TABLET PO SCH (07:44)
[2020-09-09] MEDS: amLODIPine 10 MG TAB PO SCH (07:44)
[2020-09-09] MEDS: CALCIUM CARBONATE 500 MG CHEWABLE PO SCH (07:44)
--- NOTE | 2020-09-09 09:49 | P.CNOR ---
History of Present Illness - [facility] Consult date: 09/09/20 Consult reason: neck pain History of present illness: Patient is seen and examined at bedside. She is a very pleasant 75-year-old female with a long history of neck pain. She says she has had neck pain for many years but was feeling worse over the past several days. She says that her pain is now settling down since she's been here in Hospital. Currently she says her pain is doing well this morning. She's not having numbness tingling in her upper extremities not having weakness in her upper extremities she says she has arthritis in her neck and has been seeing a doctor in [place] in regards to her neck for years. She did not have any new injury. She denies any new changes in her upper extremities. She was having some increased malaise yesterday and was found have elevated blood pressure and acute kidney injury. She was admitted in this regard and we are seeing her in regards to her neck pain. Review of Systems She denies any chest pain or shortness of breath. She denies any weakness in her hands or fingers. She is able to turn around her room. She denies any changes in her balance or coordination. She says she is doing better today. Past Medical History Past Medical History: Cancer, Hyperlipidemia, Hypertension, Pneumonia Additional Past Medical History / Comment(s): gout, hyperlipidemia but cannot tolerate statins, skin cancer , osteoporosis, diverticulitis with sepsis, pt has chronic neck pain. History of degenerative disc disease at cervical spine which has been treated by a physician in [place] for many years History of Any Multi-Drug Resistant Organisms: None Reported Past Surgical History: Adenoidectomy, Appendectomy, Cholecystectomy, Hysterectomy, Orthopedic Surgery, Tonsillectomy Additional Past Surgical History / Comment(s): L knee arthroscopy d/t effusion, R wrist ganglion cyst surgeries x 3, skin cancer removed from nose, bilateral cataract removals/lens implants. stents, EVAR with bilateral renal stent chimneys, aneurysm repair 06/08 Past Anesthesia/Blood Transfusion Reactions: No Reported Reaction Additional Past Anesthesia/Blood Transfusion Reaction / Comm: CHILDREN=PONV Smoking Status: Current every day smoker - Past Family History Mother Family Medical History: Dementia Father History Unknown: Yes Family Medical History: No Reported History Daughter(s) Family Medical History: Cancer Additional Family Medical History / Comment(s): Letty survived breast cancer. Medications and Allergies Home Medications Medication Instructions Recorded Confirmed Type Ascorbic Acid [Vitamin C] 1,000 mg PO DAILY 09/03/20 09/08/20 History Cholecalciferol [Vitamin D3 (25 1,000 unit PO DAILY 09/03/20 09/08/20 History Mcg = 1000 Iu)] Calcium Carbonate [Calcium] 600 mg PO DAILY 09/08/20 09/08/20 History Allergies Allergy/AdvReac Type Severity Reaction Status Date / Time codeine Allergy Rash/Hives Verified 09/08/20 10:25 morphine Allergy Rash/Hives Verified 09/08/20 10:25 Penicillins Allergy Rash/Hives Verified 09/08/20 10:25 Xlejush-Ppv-Jpy Reductase Allergy Itching Verified 09/08/20 10:25 Inhibitor any cholesterol medications Allergy Itching Uncoded 09/03/20 12:33 Physical Examination Osteopathic Statement: *. No significant issues noted on an osteopathic structural exam other than those noted in the History and Physical/Consult. - C Spine: dermatomal strength & reflexes bilateral Shoulder strength: flexion: 5/5 (She has some limitations with extension and flexion but overall has good range at her neck. She is nontender at her neck. Her upper extremities have 5 over 5 strength throughout. Negative Lala's. No upper motor neuron signs.) Results - Labs Labs: Abnormal Lab Results - Last 24 Hours (Table) 09/08/20 09/08/20 09/08/20 Range/Units 10:58 10:58 16:15 WBC 15.8 H (3.8-10.6) k/uL Neutrophils # 12.9 H (1.3-7.7) k/uL Sodium 132 L (137-145) mmol/L Potassium (3.5-5.1) mmol/L Chloride 96 L (98-107) mmol/L BUN 42 H (7-17) mg/dL Creatinine 2.53 H (0.52-1.04) mg/dL Glucose 124 H (74-99) mg/dL Calcium 10.9 H (8.4-10.2) mg/dL Total Protein (6.3-8.2) g/dL Albumin (3.5-5.0) g/dL Urine Protein 1+ H (Negative) Urine Blood Trace H (Negative) Urine Bacteria Rare H (None) /hpf 09/09/20 Range/Units 05:33 WBC (3.8-10.6) k/uL Neutrophils # (1.3-7.7) k/uL Sodium (137-145) mmol/L Potassium 3.3 L (3.5-5.1) mmol/L Chloride (98-107) mmol/L BUN 29 H (7-17) mg/dL Creatinine 2.15 H (0.52-1.04) mg/dL Glucose 106 H (74-99) mg/dL Calcium (8.4-10.2) mg/dL Total Protein 5.6 L (6.3-8.2) g/dL Albumin 3.1 L (3.5-5.0) g/dL Urine Protein (Negative) Urine Blood (Negative) Urine Bacteria (None) /hpf H & H 09/08/20 09/09/20 Range/Units 10:58 05:33 Hgb 14.7 12.0 (11.4-16.0) gm/dL Hct 43.6 36.4 (34.0-46.0) % Result Diagrams: 09/09/20 05:33 09/09/20 05:33 - Diagnostic results CT scan - cervical: report reviewed, image reviewed (Computed tomography scan of cervical spine is reviewed. Shows severe disc degeneration at C4 5 and C5 6 with near complete disc height loss. There is loss of cervical lordosis. There is some diffuse bulging. There is also some C1 2 arthritis at the atlantodens interface there is no acute fractur) Assessment and Plan Assessment: Chronic neck pain with exacerbation with seems to be resolving Cervical degenerative disc disease particularly at C4 5 C5 6 Atlantodens degenerative change Cervical spondylosis No upper extremity neurologic deficit Acute kidney injury Hypertension Plan: Chronic neck pain with exacerbation with seems to be resolving Cervical degenerative disc disease particularly at C4 5 C5 6 Atlantodens degenerative change Cervical spondylosis No upper extremity neurologic deficit Acute kidney injury Hypertension The patient is having an active management regards to her renal function as well as her blood pressure. She feels that she is doing better today and was likely having some exacerbation of her neck due to her other medical issues. She'll continue her medical management in this regard and I think that is appropriate. The patient does have significant disc degeneration at her cervical spine with some chronic neck pain. She is not having any neurologic deficit or radiculopathy. I do not think that she needs further cervical spine imaging or intervention at this point. It is okay for her to pursue activity as she is able tolerate in terms of her cervical spine. It is okay for her to be followed up on an outpatient basis from a spine standpoint. I discussed this with her and she plans to follow-up with her own physician which she had been seeing and [place] over the past several years that is appropriate. She can follow-up with us on an as-needed basis.
[2020-09-09] MEDS ORDERED: POTASSIUM CHLORIDE ER 20 MEQ TAB.ER PO STA (10:09)
--- NOTE | 2020-09-09 10:13 | P.NPCON ---
History of Present Illness - Reason for Consult acute renal failure - History of Present Illness Reason for consultation: Acute kidney injury History of present illness: Patient is a 75-year-old female seen in renal consultation for acute kidney injury. Creatinine was 2.53 on admission and is 2.15 today. Patient presented to the hospital with pain in her neck which has been going on for about 2 weeks. Patient states she was relaxing yesterday and the pain got more severe and she came to the hospital. She was also noted to have high heart rate and blood pressure and was also advised by her PCP to go to the hospital. Blood pressure on admission was 200/88 and is now better controlled. Pain is also better. No vomiting or diarrhea. Oral intake is good. No hematuria or dysuria. Denies regular use of nonsteroidals. Denies family history of renal disease. No history of diabetes. Currently maintained on IV fluids. Chest x-ray negative. Patient has history of abdominal aortic repair with bilateral renal stents. No acute cervical spine fracture noted. Vital signs are stable. General: The patient appeared well nourished and normally developed. HEENT: Head exam is unremarkable. Neck is without jugular venous distension. LUNGS: Breath sounds decreased. HEART: Rate and Rhythm are regular. ABDOMEN: Soft, nontender. EXTREMITITES: No edema. Past Medical History Past Medical History: Cancer, Hyperlipidemia, Hypertension, Pneumonia Additional Past Medical History / Comment(s): gout, hyperlipidemia but cannot tolerate statins, skin cancer , osteoporosis, diverticulitis with sepsis, pt has chronic neck pain. History of degenerative disc disease at cervical spine which has been treated by a physician in [place] for many years History of Any Multi-Drug Resistant Organisms: None Reported Past Surgical History: Adenoidectomy, Appendectomy, Cholecystectomy, Hystere ctomy, Orthopedic Surgery, Tonsillectomy Additional Past Surgical History / Comment(s): L knee arthroscopy d/t effusion, R wrist ganglion cyst surgeries x 3, skin cancer removed from nose, bilateral cataract removals/lens implants. stents, EVAR with bilateral renal stent chi mneys, aneurysm repair 06/08 Past Anesthesia/Blood Transfusion Reactions: No Reported Reaction Additional Past Anesthesia/Blood Transfusion Reaction / Comment(s): CHILDREN=PONV Smoking Status: Current every day smoker - Past Family History Mother Family Medical History: Dementia Father History Unknown: Yes Family Medical History: No Reported History Daughter(s) Family Medical History: Cancer Additional Family Medical History / Comment(s): Letty survived breast cancer. Medications and Allergies Home Medications Medication Instructions Recorded Confirmed Type Ascorbic Acid [Vitamin C] 1,000 mg PO DAILY 09/03/20 09/08/20 History Cholecalciferol [Vitamin D3 (25 1,000 unit PO DAILY 09/03/20 09/08/20 History Mcg = 1000 Iu)] Calcium Carbonate [Calcium] 600 mg PO DAILY 09/08/20 09/08/20 History Allergies Allergy/AdvReac Type Severity Reaction Status Date / Time codeine Allergy Rash/Hives Verified 09/08/20 10:25 morphine Allergy Rash/Hives Verified 09/08/20 10:25 Penicillins Allergy Rash/Hives Verified 09/08/20 10:25 Coeqhmw-Qfy-Ntu Reductase Allergy Itching Verified 09/08/20 10:25 Inhibitor any cholesterol medications Allergy Itching Uncoded 09/03/20 12:33 Physical Exam Vitals: Vital Signs Temp Pulse Pulse Resp BP BP Pulse Ox 09/09/20 05:00 99.2 F 78 16 168/56 96 09/08/20 20:00 98.6 F 77 18 151/65 96 09/08/20 18:06 114/69 09/08/20 16:05 76 159/73 09/08/20 15:10 97.8 F 76 18 184/81 98 09/08/20 13:50 75 16 200/88 09/08/20 13:41 76 18 181/93 97 09/08/20 11:49 75 16 180/91 98 09/08/20 11:40 73 16 183/90 98 09/08/20 11:23 89 16 228/120 98 09/08/20 10:25 98.3 F 105 H 18 195/111 98 Intake and Output 09/08/20 09/09/20 09/09/20 22:59 06:59 14:59 Intake Total 450 Balance 450 Intake: Intake, IV Titration 450 Amount Sodium Chloride 0.9% 1, 450 000 ml @ 80 mls/hr IV . [id number] [facility] Rx#:[id number] Other: Voiding Method Toilet Toilet # Voids 2 Weight 38.555 kg Results - Lab Results Most recent lab results Calcium 8.5 mg/dL (8.4-10.2) 09/09/20 05:33 Phosphorus 3.3 mg/dL (2.5-4.5) 09/09/20 05:33 Magnesium 1.9 mg/dL (1.6-2.3) 09/09/20 05:33 09/09/20 05:33 09/09/20 05:33 Assessment and Plan Plan: Assessment: 1. Acute kidney injury mostly prerenal secondary to hemodynamic instability. Creatinine 2.53 on admission and is 2.15 today. 2. Hypokalemia from poor intake and saline diuresis. 3. Accelerated hypertension exacerbated by pain. 4. Aortic aneurysm repair with bilateral renal stents. Vascular surgery following. Plan: Decreased rate of normal saline to 50 mL an hour. Replace potassium. 40 mEq today. Add hydralazine 25 mg 3 times daily - to be held for systolic blood pressure less than 120. Check renal ultrasound. Avoid nephrotoxins. Thank you for the consultation. I will continue to follow the patient with you during her hospital stay.
[2020-09-09] MEDS: hydrALAZINE HCL 25 MG TAB PO SCH ×3 (10:30→21:34)
[2020-09-09 14:24] VITALS: BMI 16.6
--- NOTE | 2020-09-09 15:36 | US ---
EXAMINATION TYPE: US kidneys/renal and bladder DATE OF EXAM: 09/09/2020 COMPARISON: CT 07/13/2020, US 11/19/2015 CLINICAL HISTORY: [place]. EXAM MEASUREMENTS: Right Kidney: 9.4 x 3.4 x 3.8 cm Left Kidney: 9.5 x 3.2 x 3.8 cm Right Kidney: No hydronephrosis or masses seen. Corticomedullary thinning Left Kidney: No hydronephrosis or masses seen. Corticomedullary thinning. Area visualized adjacent to the left kidney measuring 1.7 x 1.7 x 1.5 cm with vascularity Bladder: Not distended There is no evidence for hydronephrosis at this point in time. No nephrolithiasis is seen. IMPRESSION: 1. Nearly 2 cm nodularity adjacent to the left kidney of uncertain etiology. This could be a splenule A identified in the hilar region of the spleen. Recommend CT abdomen pelvis for additional evaluatio n.
--- NOTE | 2020-09-09 17:27 | P.HPIM ---
History of Present Illness H&P Date: 09/09/20 Chief Complaint: Cervical discomfort 75-year-old female was sent to the emergency department for neck discomfort with associated hypertension, and tachycardia; with significant history of abdominal aortic aneurysm/aortic iliac graft stent. Extensive diagnostic workup was performed in the emergency department revealing acute kidney injury and hypertension. Patient was given 20 mg labetalol. Consulted nephrology and orthopedics for for recommendations and treatment plan. Patient was initiated on Norvasc 10 mg by mouth dailyblood pressure controlled. Christi nt was also evaluated by vascular surgeon for post aortic iliac graft stent/mild leak. Patient complaint of neck discomfort, and generalized malaise. Patient denies chest pain, shortness of breath, nausea, vomiting, abdominal pain, chills or fever at this time. Review of Systems Constitutional: Reports weakness Musculoskeletal: Reports neck pain, Reports neck stiffness Endocrine: Reports fatigue Past Medical History Past Medical History: Cancer, Hyperlipidemia, Hypertension, Pneumonia Additional Past Medical History / Comment(s): gout, hyperlipidemia but cannot tolerate statins, skin cancer , osteoporosis, diverticulitis with sepsis, pt has chronic neck pain. History of degenerative disc disease at cervical spine which has been treated by a physician in [place] for many years History of Any Multi-Drug Resistant Organisms: None Reported Past Surgical History: Adenoidectomy, Appendectomy, Cholecystectomy, Hysterectomy, Orthopedic Surgery, Tonsillectomy Additional Past Surgical History / Comment(s): L knee arthroscopy d/t effusion, R wrist ganglion cyst surgeries x 3, skin cancer removed from nose, bilateral cataract removals/lens implants. stents, EVAR with bilateral renal stent chimneys, aneurysm repair 06/08 Past Anesthesia/Blood Transfusion Reactions: No Reported Reaction Additional Past Anesthesia/Blood Transfusion Reaction / Comment(s): CHILDREN=PONV Smoking Status: Current every day smoker - Past Family History Mother Family Medical History: Dementia Father History Unknown: Yes Family Medical History: No Reported History Daughter(s) Family Medical History: Cancer Additional Family Medical History / Comment(s): Letty survived breast cancer. Medications and Allergies Home Medications and Allergies Comment(s): Medications and ALLERGIES reviewed Home Medications Medication Instructions Recorded Confirmed Type Ascorbic Acid [Vitamin C] 1,000 mg PO DAILY 09/03/20 09/08/20 History Cholecalciferol [Vitamin D3 (25 1,000 unit PO DAILY 09/03/20 09/08/20 History Mcg = 1000 Iu)] Calcium Carbonate [Calcium] 600 mg PO DAILY 09/08/20 09/08/20 History Allergies Allergy/AdvReac Type Severity Reaction Status Date / Time codeine Allergy Rash/Hives Verified 09/08/20 10:25 morphine Allergy Rash/Hives Verified 09/08/20 10:25 Penicillins Allergy Rash/Hives Verified 09/08/20 10:25 Chbilxq-Eil-Yhl Reductase Allergy Itching Verified 09/08/20 10:25 Inhibitor any cholesterol medications Allergy Itching Uncoded 09/03/20 12:33 Physical Exam Vitals: Vital Signs Temp Pulse Resp BP Pulse Ox 09/09/20 13:00 98.3 F 96 16 144/72 93 L 09/09/20 10:30 88 156/74 09/09/20 05:00 99.2 F 78 16 168/56 96 09/08/20 20:00 98.6 F 77 18 151/65 96 09/08/20 18:06 114/69 Intake and Output 09/09/20 09/09/20 09/09/20 06:59 14:59 22:59 Intake Total 480 Balance 480 Intake: Oral 480 Other: Voiding Method Toilet # Voids 2 Weight 38.555 kg - Constitutional General appearance: mild distress - EENT Eyes: EOMI, PERRLA Ears: bilateral: normal - Neck Post cervical neck discomfort Thyroid: bilateral: normal size - Respiratory Respiratory: bilateral: CTA (Throughout lung [place]) - Cardiovascular Normal sinus rhythm Heart rate: 74 Rhythm: regular Heart sounds: normal: S1, S2 dorsalis pedis Peripheral Pulses: bilateral: Normal radial pulse Peripheral Pulses: bilateral: Normal - Gastrointestinal General gastrointestinal: normal bowel sounds - Integumentary Integumentary: normal turgor - Musculoskeletal Musculoskeletal: gait normal - Psychiatric Psychiatric: A&O x's 3, appropriate affect, intact judgment & insight Results CBC & Chem 7: 09/09/20 05:33 09/09/20 05:33 Labs: Abnormal Lab Results - Last 24 Hours (Table) 09/08/20 09/09/20 Range/Units 16:15 05:33 Potassium 3.3 L (3.5-5.1) mmol/L BUN 29 H (7-17) mg/dL Creatinine 2.15 H (0.52-1.04) mg/dL Glucose 106 H (74-99) mg/dL Total Protein 5.6 L (6.3-8.2) g/dL Albumin 3.1 L (3.5-5.0) g/dL Urine Protein 1+ H (Negative) Urine Blood Trace H (Negative) Urine Bacteria Rare H (None) /hpf Comments: Cervical spine reviewed Chest x-ray: report reviewed Thrombosis Risk Factor Assmnt - Choose All That Apply Any of the Below Risk Factors Present?: Yes Other Risk Factors: Yes Each Risk Factor Represents 3 Points: Age 75 years or older Other congenital or acquired thrombophilia - If yes, enter type in comment: No Thrombosis Risk Factor Assessment Total Risk Factor Score: 3 Thrombosis Risk Factor Assessment Level: Moderate Risk Assessment and Plan Assessment: Acute kidney injuryconsultation with nephrologyavoid nephrotoxic drugsblood pressure management Hypertension initiate Norvasc 10 mg by mouth daily Cervical neck pain consult with orthopedics-analgesia as needed Hyperlipidemia Abdominal aortic aneurysm, aortic iliac graft stent with endoleakconsult vascular surgery for recommendations and treatment plan Continue home medications Continue medical management Time with Patient: Greater than 30
[2020-09-09] MEDS ORDERED: LIDOCAINE 5% PATCH TOPICAL SCH (21:00)
[2020-09-09] MEDS: TEMAZEPAM 15 MG CAP PO SCH (21:34)
[2020-09-10] MEDS: CHOLECALCIFEROL 25 MCG (1000 IU) TABLET PO SCH (07:18)
[2020-09-10] MEDS: amLODIPine 10 MG TAB PO SCH (07:18)
[2020-09-10] MEDS: CALCIUM CARBONATE 500 MG CHEWABLE PO SCH (07:18)
[2020-09-10] MEDS: ASCORBIC ACID 500 MG TAB PO SCH (07:18)
[2020-09-10] MEDS: hydrALAZINE HCL 25 MG TAB PO SCH (07:18)
[2020-09-10 11:23] LABS: African American GFR (CKD) 29.4 (60.0-200.0); Anion Gap 7.4 mmol/L (4.00-12.00); BUN/Creat Ratio 12.63 Ratio (12.00-20.00); Calcium 8.3 mg/dL (8.7-10.3); Carbon Dioxide 25.6 mmol/L (21.6-31.8); Magnesium 1.8 mg/dL (1.5-2.4); Non-African American GFR(CKD) 25.3 (60.0-200.0); Potassium 3.7 mmol/L (3.5-5.5)
--- NOTE | 2020-09-10 12:02 | P.PN ---
Subjective Patient is seen in follow-up for acute kidney injury. Creatinine was 2.53 on admission and is down to 1.9 today. Awake and alert. No chest pain or shortness of breath. No edema. Maintained on normal saline at 50 mL an hour. Blood pressure slightly on the higher side this morning. Vital signs are stable. General: The patient appeared well nourished and normally developed. HEENT: Head exam is unremarkable. Neck is without jugular venous distension. LUNGS: Breath sounds decreased. HEART: Rate and Rhythm are regular. ABDOMEN: Soft, nontender. EXTREMITITES: No edema. Objective - Vital Signs Vital signs: Vital Signs Temp 98.2 F 09/10/20 05:56 Pulse 98 09/10/20 09:49 Resp 18 09/10/20 05:56 BP 155/67 09/10/20 09:49 Pulse Ox 96 09/10/20 05:56 Intake & Output 09/09/20 09/10/20 09/10/20 18:59 06:59 18:59 Intake Total 480 1200 Balance 480 1200 Weight 38.555 kg Intake: Intake, IV Titration 600 Amount Sodium Chloride 0.9% 1, 600 000 ml @ 50 mls/hr IV . Q20H MARILYN Rx#:[id number] Oral 480 600 Other: Voiding Method Toilet Toilet # Voids 3 3 - Labs CBC & Chem 7: 09/09/20 05:33 09/10/20 07:22 Labs: Abnormal Lab Results - Last 24 Hours (Table) 09/10/20 Range/Units 07:22 Creatinine 1.9 H (0.6-1.5) mg/dL Est GFR (CKD-EPI)AfAm 29.4 L (60.0-200.0) Est GFR (CKD-EPI)NonAf 25.3 L (60.0-200.0) Calcium 8.3 L (8.7-10.3) mg/dL Assessment and Plan Plan: Assessment: 1. Acute kidney injury mostly prerenal secondary to hemodynamic instability. Creatinine 2.53 on admission and is 1.9 today. No hydronephrosis noted on kidney ultrasound. 2. Hypokalemia from poor intake and saline diuresis. Status post placement. Better. 3. Accelerated hypertension exacerbated by pain. Blood pressure slightly on the higher side this morning. 4. Aortic aneurysm repair with bilateral renal stents. Vascular surgery following. Plan: Maintain normal saline at 50 mL an hour. Increase hydralazine to 50 mg 3 times daily - to be held for systolic blood pressure less than 120. Avoid nephrotoxins.
[2020-09-10 12:46] VITALS: BP 161/63; RESP 16; TEMP 98.1
[2020-09-10 12:48] VITALS: PULSE 109
[2020-09-10] MEDS ORDERED: hydrALAZINE HCL 50 MG TAB PO SCH (16:00)
--- NOTE | 2020-09-10 16:24 | CDI ---
Documentation Clarification Form Date: 09/10/2020 From: Mindy Lopez RN, CCDS Admit Date: 09/08/2020 Patient Name: Odalis Kay (F 75 Yrs) Visit Number: [id number] Discharge Date: Dr. Beatrice Chandler The patient presented history of abdominal aortic aneurysm, recent EVAR with stents with endoleak. Please further specify endoleak if known. History/Risk Factors: AAA, Hypertension, current every day smoker Clinical Indicators: 75-year old female present on 09/08 with complaints of cervical neck pain. She follows Dr. Barreto and has a known endoleak status post EVAR 06/08/20. CT angio abdomen/pelvis 07/13/20 shows evidence of endoleak. Abdominal aortic aneurysm 5.8 cm with no change. The patient is asymptomatic per vascular consult on 09/08/20. Lab findings: WBC 15.8, HGB 14.7, HCT 14.7 09/08 Vital Signs: 195/111 105 18 98.3 98% RA Treatment: Monitor and control blood pressure Hydralazine 50 mg po tid Norvasc 10 mg po daily In your professional opinion, and to accurately capture can you please further clarify Endoleak? Type 1 (one a) (Last Revision: November 2017) MTDD
--- NOTE | 2020-09-10 18:17 | P.DS ---
Providers Date of admission: 09/08/20 12:50 Expected date of discharge: 09/10/20 Attending physician: Agustín Farnsworth Consults: 09/08/20 12:49 Consult Physician Routine Consulting Provider: Bassem Sahu Consult Reason/Comments: laurel Do you want consulting provider notified?: Yes Consult Physician Routine Consulting Provider: Ian Hercules Consult Reason/Comments: neck pain Do you want consulting provider notified?: Yes 09/08/20 13:24 Consult Physician Urgent Consulting Provider: Mat Barreto Consult Reason/Comments: aortoliliac stent graft with proximal stent with endoleak/ AAA Do you want consulting provider notified?: Yes Primary care physician: Agustín Farnsworth Hospital Course: 75-year-old female was sent to the emergency department for neck discomfort with associated hypertension, and tachycardia; with significant history of abdominal aortic aneurysm/aortic iliac graft stent. Extensive diagnostic workup was performed in the emergency department revealing acute kidney injury and hypertension. Patient was given 20 mg labetalol. Consulted nephrology,orthopedics, vascular surgery for for recommendations and treatment plan. Patient was initiated on Norvasc 10 mg by mouth dailyblood pressure controlled. Patient was also initiated on hydralazine 50 mg by mouth 3 times a day for blood pressure control. Patient's acute kidney injury improved. Advised to avoid nephrotoxic drugs. Patient tolerated hospital stay well. Guarded prognosis upon discharge Assessment: Acute kidney injuryresolvingcontinue to monitor on outpatient basis Hypertensioninitiated Norvasc 10 mg by mouth daily; hydralazine 50 mg by mouth 3 times a day for blood pressure control Cervical neck painfollow-up with orthopedics and analgesics as needed History of hyperlipidemia Abdominal aortic aneurysm, aortic iliac graft stat with endoleakcontinue to monitor and follow up with vascular surgeon Health Concerns: None noted Pertinent Studies: Ultrasound abdomen and bladder X-rays cervical spine Chest x-ray Procedures: Non-performed Patient Condition at Discharge: Fair Plan - Discharge Summary Discharge Rx Participant: No New Discharge Prescriptions: New hydrALAZINE HCL [Apresoline] 50 mg PO TID #90 tab Lidocaine 5% Patch [Lidoderm 5% Patch] 1 patch TOPICAL HS #30 patch amLODIPine [Norvasc] 10 mg PO DAILY #30 tab Continue Cholecalciferol [Vitamin D3 (25 Mcg = 1000 Iu)] 1,000 unit PO DAILY Ascorbic Acid [Vitamin C] 1,000 mg PO DAILY Calcium Carbonate [Calcium] 600 mg PO DAILY Discharge Medication List Ascorbic Acid [Vitamin C] 1,000 mg PO DAILY 09/03/20 [History] Cholecalciferol [Vitamin D3 (25 Mcg = 1000 Iu)] 1,000 unit PO DAILY 09/03/20 [History] Calcium Carbonate [Calcium] 600 mg PO DAILY 09/08/20 [History] Lidocaine 5% Patch [Lidoderm 5% Patch] 1 patch TOPICAL HS #30 patch 09/10/20 [Rx] amLODIPine [Norvasc] 10 mg PO DAILY #30 tab 09/10/20 [Rx] hydrALAZINE HCL [Apresoline] 50 mg PO TID #90 tab 09/10/20 [Rx] Follow up Appointment(s)/Referral(s): Agustín Farnsworth MD [Primary Care Provider] - 09/15/20 10:30 am Patient Instructions/Handouts: Acute Kidney Injury (DC), Chronic Hypertension (DC), Neck Pain (DC) Discharge Disposition: HOME SELF-CARE
--- NOTE | 2020-09-14 14:51 | CDI ---
Documentation Clarification Form Date: 09/14/2020 02:49:00 PM From: Roselia Hdz Phone: If you have a question about this query, please contact Willa Silva Branch Controller at [phone] between 8am and 5pm Admit Date: 09/08/2020 12:50:00 PM Patient Name: Odalis Kay Visit Number: [id number] Discharge Date: 09/10/2020 04:05:00 PM ATTENTION: The Clinical Documentation Specialists (CDI) and [facility] Coding Staff appreciate your assistance in clarifying documentation. Please respond to the clarification below the line at the bottom and electronically sign. The CDI & [facility] Coding staff will review the response and follow-up if needed. Please note: Queries are made part of the Legal Health Record. If you have any questions, please contact the author of this message via ITS. Dr. Agustín Farnsworth Patient has been described as underweight, 5.5 kg weight loss in 3 mo, Hypokalemia from poor intake and saline diuresis History/Risk Factors: VLADIMIR, HTN, Gout, Tobacco, Endoleak, Cervical Stenosis Clinical Indicators: Underweight, Poor intake, Muscle wasting Patients weight is: 38.55 kg Patients height is: 5 ft Calculated BMI is: 16.6 Muscle wasting: Mild clavicle muscle wasting Treatments: Commercial beverages Nutritional Education: Nutrition relationship to health/disease Dietary Consult: 09/09 In order to capture the severity of condition associated with patient BMI of 16.6, a clinical diagnosis needs to be documented by the physician. Please clarify: Malnutrition Mild MTDD
--- NOTE | 2020-09-14 15:00 | CDI ---
Documentation Clarification Form Date: 09/14/2020 02:59:00 PM From: Roselia Hdz CCS Phone: If you have a question about this query, please contact Willa Silva Route Process Administrator at [phone] between 8am and 5pm Admit Date: 09/08/2020 12:50:00 PM Patient Name: Odalis Kay Visit Number: [id number] Discharge Date: 09/10/2020 04:05:00 PM ATTENTION: The Clinical Documentation Specialists (CDI) and [facility] Coding Staff appreciate your assistance in clarifying documentation. Please respond to the clarification below the line at the bottom and electronically sign. The CDI & [facility] Coding staff will review the response and follow-up if needed. Please note: Queries are made part of the Legal Health Record. If you have any questions, please contact the author of this message via ITS. Dr. Agustín Farnsworth Accelerated hypertension is documented in the 09/09 Consult, 09/10 PN. History/Risk Factors: VLADIMIR, AAA, Endoleak, Acute/Chronic pain, HTN, Tobacco Clinical Indicators: Accelerated hypertension, VLADIMIR Vital Signs: BP 195/111. 228/120. 183/90 Treatment: Norvasc 10 mg PO, Apresoline 10 mg IV, Trandate 20 mg IV Consults: In your professional opinion, can you please clarify Accelerated Hypertension? Hypertensive Urgency MTDD
== END 2020-09-10 16:05 | disposition home or self-care (01) | DRG 683 ==
LOC: EC 10:20 → 5NMEDONC 12:50
PROVIDERS: ADMIT Family Medicine; ATTEND Family Medicine
DX: N17.9 Acute kidney failure, unspecified (principal); E44.1 Mild protein-calorie malnutrition; Z68.1 Body mass index [BMI] 19.9 or less, adult; I71.4 Abdominal aortic aneurysm, without rupture; I10 Essential (primary) hypertension; E78.5 Hyperlipidemia, unspecified; D72.829 Elevated white blood cell count, unspecified; M48.02 Spinal stenosis, cervical region; R00.0 Tachycardia, unspecified; M81.0 Age-related osteoporosis without current pathological fracture; M10.9 Gout, unspecified; G89.29 Other chronic pain; F17.210 Nicotine dependence, cigarettes, uncomplicated; I16.0 Hypertensive urgency; M50.321 Other cervical disc degeneration at C4-C5 level; T82.31 Breakdown (mechanical) of other vascular grafts; M47.812 Spondylosis without myelopathy or radiculopathy, cervical region; E87.6 Hypokalemia; Z79.899 Other long term (current) drug therapy; Z86.79 Personal history of other diseases of the circulatory system; Z87.01 Personal history of pneumonia (recurrent); Z85.828 Personal history of other malignant neoplasm of skin; Z90.49 Acquired absence of other specified parts of digestive tract; Z90.710 Acquired absence of both cervix and uterus; Z98.890 Other specified postprocedural states; Z98.42 Cataract extraction status, left eye; Z98.41 Cataract extraction status, right eye; Z96.1 Presence of intraocular lens; Z88.5 Allergy status to narcotic agent; Z88.0 Allergy status to penicillin; Z88.8 Allergy status to other drugs, medicaments and biological substances; Z82.0 Family history of epilepsy and other diseases of the nervous system; Z80.3 Family history of malignant neoplasm of breast
CPT/HCPCS: 36415; 71046; 72125; 76770; 80048; 80053; 81001; 83735; 84100; 85025; 93005; 96374; 99285

== ENCOUNTER 2020-09-15 10:00 | Inpatient (IN) | payer MEDICARE, BC ==
[2020-09-15] MEDS ORDERED: ALBUTEROL HFA INHALER INHALATION STA (10:34)
--- NOTE | 2020-09-15 10:34 | ED ---
General Adult HPI - General Chief complaint: Recheck/Abnormal Lab/Rx Stated complaint: abnormal EKG Time Seen by Provider: 09/15/20 10:05 Source: patient, RN notes reviewed, old records reviewed Mode of arrival: wheelchair Limitations: no limitations - History of Present Illness Initial comments: This is a 75-year-old female presents emergency Department complaining shortness of breath over the last few days. Patient states she was just released from hospital on Sunday. Patient states she felt good when she went home but over the last few days she's had more more shortness of breath. Patient denies chest pain or palpitation. Patient states that she's had no fever or chills. Patient has abdominal pain only when she coughs hard. Patient denies vomiting or diarrhea. Patient states she went to see her primary medical care doctor today and he sent her to the emergency department to be admitted. Patient denies any lower leg swelling or calf tenderness. Patient denies any back pain. Patient denies any dysuria hematuria urinary frequency. - Related Data Home Medications Medication Instructions Recorded Confirmed Ascorbic Acid [Vitamin C] 1,000 mg PO DAILY 09/03/20 09/15/20 Cholecalciferol [Vitamin D3 (25 1,000 unit PO DAILY 09/03/20 09/15/20 Mcg = 1000 Iu)] Calcium Carbonate [Calcium] 600 mg PO DAILY 09/08/20 09/15/20 Previous Rx's Medication Instructions Recorded amLODIPine [Norvasc] 10 mg PO DAILY #30 tab 09/10/20 hydrALAZINE HCL [Apresoline] 50 mg PO TID #90 tab 09/10/20 Allergies Allergy/AdvReac Type Severity Reaction Status Date / Time codeine Allergy Rash/Hives Verified 09/15/20 11:10 morphine Allergy Rash/Hives Verified 09/15/20 11:10 Penicillins Allergy Rash/Hives Verified 09/15/20 11:10 [id number] Reductase Allergy Itching Verified 09/15/20 11:10 Inhibitor any cholesterol medications Allergy Itching Uncoded 09/15/20 11:10 Review of Systems ROS Statement: Those systems with pertinent positive or pertinent negative responses have been documented in the HPI. ROS Other: All systems not noted in ROS Statement are negative. Past Medical History Past Medical History: Cancer, Hyperlipidemia, Hypertension, Pneumonia Additional Past Medical History / Comment(s): gout, hyperlipidemia but cannot tolerate statins, skin cancer , osteoporosis, diverticulitis with sepsis, pt has chronic neck pain. History of degenerative disc disease at cervical spine which has been treated by a physician in [place] for many years History of Any Multi-Drug Resistant Organisms: None Reported Past Surgical History: Adenoidectomy, Appendectomy, Cholecystectomy, Hysterectomy, Orthopedic Surgery, Tonsillectomy Additional Past Surgical History / Comment(s): L knee arthroscopy d/t effusion, R wrist ganglion cyst surgeries x 3, skin cancer removed from nose, bilateral cataract removals/lens implants. stents, EVAR with bilateral renal stent chimneys, aneurysm repair 06/08 Past Anesthesia/Blood Transfusion Reactions: No Reported Reaction Additional Past Anesthesia/Blood Transfusion Reaction / Comment(s): CHILDREN=PONV Past Psychological History: No Psychological Hx Reported Smoking Status: Current every day smoker Past Alcohol Use History: None Reported Past Drug Use History: None Reported - Past Family History Mother Family Medical History: Dementia Father History Unknown: Yes Family Medical History: No Reported History Daughter(s) Family Medical History: Cancer Additional Family Medical History / Comment(s): Letty survived breast cancer. General Exam - General Exam Comments Initial Comments: GENERAL: Patient is well-developed and well-nourished. Patient is nontoxic and well-hydrated and is in mild distress. ENT: Neck is soft and supple. No significant lymphadenopathy is noted. Oropharynx is clear. Moist mucous membranes. Neck has full range of motion without eliciting any pain. EYES: The sclera were anicteric and conjunctiva were pink and moist. Extraocular movements were intact and pupils were equal round and reactive to light. Eyelids were unremarkable. PULMONARY: Unlabored respirations. Good breath sounds bilaterally. Patient has some expiratory wheezing. CARDIOVASCULAR: Patient is tachycardic at 105 bpm. ABDOMEN: Soft and nontender with normal bowel sounds. No palpable organomegaly was noted. There is no palpable pulsatile mass. SKIN: Skin is clear with no lesions or rashes and otherwise unremarkable. NEUROLOGIC: Patient is alert and oriented x3. Cranial nerves II through XII are grossly intact. Motor and sensory are also intact. Normal speech, volume and content. Symmetrical smile. MUSCULOSKELETAL: Normal extremities with adequate strength and full range of motion. No lower extremity swelling or edema. No calf tenderness. LYMPHATICS: No significant lymphadenopathy is noted PSYCHIATRIC: Normal psychiatric evaluation. Limitations: no limitations Course Vital Signs 09/15/20 09/15/20 09/15/20 10:03 11:15 12:35 Temperature 97.9 F 98.8 F Pulse Rate 113 H 107 H 100 Respiratory 22 18 16 Rate Blood Pressure 137/65 136/68 140/72 O2 Sat by Pulse 95 94 L 94 L Oximetry Medical Decision Making - Medical Decision Making EKG shows sinus tachycardia at 111 bpm ID interval is 122 QRS is 106 QT interval 376 QTC is 511. Patient's EKG shows some slight ST segment depression in inferior leads which was seen on previous EKGs. Chest x-ray shows infiltrate as well as some acute pulmonary edema. I gave the patient Rocephin 2 g IV. I also gave the patient Lasix. I spoke with the nurse practitioner for cardiology they will see the patient on consult. He agreed to heparin and continued follow-up. Dr. Farnsworth's office called and he agreed to admit the patient admitted the patient wrote admitting orders. - Lab Data Result diagrams: 09/15/20 11:17 09/15/20 11:17 Lab Results 09/15/20 09/15/20 09/15/20 Range/Units 10:40 11:17 11:17 WBC 12.4 H (3.8-10.6) k/uL RBC 4.12 (3.80-5.40) m/uL Hgb 11.8 (11.4-16.0) gm/dL Hct 35.5 (34.0-46.0) % MCV 86.1 (80.0-100.0) fL MCH 28.6 (25.0-35.0) pg MCHC 33.2 (31.0-37.0) g/dL RDW 16.3 H (11.5-15.5) % Plt Count 334 (150-450) k/uL MPV 7.2 Neutrophils % 91 % Lymphocytes % 3 % Monocytes % 4 % Eosinophils % 1 % Basophils % 1 % Neutrophils # 11.3 H (1.3-7.7) k/uL Lymphocytes # 0.4 L (1.0-4.8) k/uL Monocytes # 0.5 (0-1.0) k/uL Eosinophils # 0.2 (0-0.7) k/uL Basophils # 0.1 (0-0.2) k/uL Anisocytosis Slight PT 9.9 (9.0-12.0) sec INR 0.9 (<1.2) APTT 24.3 (22.0-30.0) sec D-Dimer 2.71 H (<0.60) mg/L FEU Sodium (137-145) mmol/L Potassium (3.5-5.1) mmol/L Chloride (98-107) mmol/L Carbon Dioxide (22-30) mmol/L Anion Gap mmol/L BUN (7-17) mg/dL Creatinine (0.52-1.04) mg/dL Est GFR (CKD-EPI)AfAm (>60 ml/min/1.73 sqM) Est GFR (CKD-EPI)NonAf (>60 ml/min/1.73 sqM) Glucose (74-99) mg/dL Plasma Lactic Acid Martir (0.7-2.0) mmol/L Calcium (8.4-10.2) mg/dL Magnesium (1.6-2.3) mg/dL Total Bilirubin (0.2-1.3) mg/dL AST (14-36) U/L ALT (4-34) U/L Alkaline Phosphatase (38-126) U/L Troponin I (0.000-0.034) ng/mL NT-Pro-B Natriuret Pep pg/mL Total Protein (6.3-8.2) g/dL Albumin (3.5-5.0) g/dL Coronavirus (PCR) Not Detected (Not Detectd) 09/15/20 09/15/20 09/15/20 Range/Units 11:17 11:17 11:17 WBC (3.8-10.6) k/uL RBC (3.80-5.40) m/uL Hgb (11.4-16.0) gm/dL Hct (34.0-46.0) % MCV (80.0-100.0) fL MCH (25.0-35.0) pg MCHC (31.0-37.0) g/dL RDW (11.5-15.5) % Plt Count (150-450) k/uL MPV Neutrophils % % Lymphocytes % % Monocytes % % Eosinophils % % Basophils % % Neutrophils # (1.3-7.7) k/uL Lymphocytes # (1.0-4.8) k/uL Monocytes # (0-1.0) k/uL Eosinophils # (0-0.7) k/uL Basophils # (0-0.2) k/uL Anisocytosis PT (9.0-12.0) sec INR (<1.2) APTT (22.0-30.0) sec D-Dimer (<0.60) mg/L FEU Sodium 132 L (137-145) mmol/L Potassium 4.4 (3.5-5.1) mmol/L Chloride 99 (98-107) mmol/L Carbon Dioxide 22 (22-30) mmol/L Anion Gap 11 mmol/L BUN 36 H (7-17) mg/dL Creatinine 2.46 H (0.52-1.04) mg/dL Est GFR (CKD-EPI)AfAm 21 (>60 ml/min/1.73 sqM) Est GFR (CKD-EPI)NonAf 19 (>60 ml/min/1.73 sqM) Glucose 151 H (74-99) mg/dL Plasma Lactic Acid Martir 2.6 H* (0.7-2.0) mmol/L Calcium 9.2 (8.4-10.2) mg/dL Magnesium 2.2 (1.6-2.3) mg/dL Total Bilirubin 1.0 (0.2-1.3) mg/dL AST 34 (14-36) U/L ALT 21 (4-34) U/L Alkaline Phosphatase 95 (38-126) U/L Troponin I 1.340 H* (0.000-0.034) ng/mL NT-Pro-B Natriuret Pep pg/mL Total Protein 6.8 (6.3-8.2) g/dL Albumin 3.9 (3.5-5.0) g/dL Coronavirus (PCR) (Not Detectd) 09/15/20 Range/Units 11:17 WBC (3.8-10.6) k/uL RBC (3.80-5.40) m/uL Hgb (11.4-16.0) gm/dL Hct (34.0-46.0) % MCV (80.0-100.0) fL MCH (25.0-35.0) pg MCHC (31.0-37.0) g/dL RDW (11.5-15.5) % Plt Count (150-450) k/uL MPV Neutrophils % % Lymphocytes % % Monocytes % % Eosinophils % % Basophils % % Neutrophils # (1.3-7.7) k/uL Lymphocytes # (1.0-4.8) k/uL Monocytes # (0-1.0) k/uL Eosinophils # (0-0.7) k/uL Basophils # (0-0.2) k/uL Anisocytosis PT (9.0-12.0) sec INR (<1.2) APTT (22.0-30.0) sec D-Dimer (<0.60) mg/L FEU Sodium (137-145) mmol/L Potassium (3.5-5.1) mmol/L Chloride (98-107) mmol/L Carbon Dioxide (22-30) mmol/L Anion Gap mmol/L BUN (7-17) mg/dL Creatinine (0.52-1.04) mg/dL Est GFR (CKD-EPI)AfAm (>60 ml/min/1.73 sqM) Est GFR (CKD-EPI)NonAf (>60 ml/min/1.73 sqM) Glucose (74-99) mg/dL Plasma Lactic Acid Martir (0.7-2.0) mmol/L Calcium (8.4-10.2) mg/dL Magnesium (1.6-2.3) mg/dL Total Bilirubin (0.2-1.3) mg/dL AST (14-36) U/L ALT (4-34) U/L Alkaline Phosphatase (38-126) U/L Troponin I (0.000-0.034) ng/mL NT-Pro-B Natriuret Pep 14411 pg/mL Total Protein (6.3-8.2) g/dL Albumin (3.5-5.0) g/dL Coronavirus (PCR) (Not Detectd) Critical Care Time Critical Care Time: Yes Total Critical Care Time: 35 Disposition Clinical Impression: Non-STEMI (non-ST elevated myocardial infarction), Pulmonary edema, Pneumonia, Acute on chronic renal failure Disposition: ADMITTED IP TO THIS HOSP Referrals: Agustín Farnsworth MD [Primary Care Provider] - 1-2 days Time of Disposition: 12:42
[2020-09-15 11:36] LABS: Anisocytosis Slight; Basophils # (A) 0.1 k/uL (0-0.2); Basophils % (A) 1 %; Eosinophils # (A) 0.2 k/uL (0-0.7); Eosinophils % (A) 1 %; HCT 35.5 % (34.0-46.0); HGB 11.8 gm/dL (11.4-16.0); Lymphocytes # (A) 0.4 k/uL (1.0-4.8); Lymphocytes % (A) 3 %; MCH 28.6 pg (25.0-35.0); MCHC 33.2 g/dL (31.0-37.0); MCV 86.1 fL (80.0-100.0); Mean Platelet Volume 7.2; Monocytes # (A) 0.5 k/uL (0-1.0); Monocytes % (A) 4 %; Neutrophils # (A) 11.3 k/uL (1.3-7.7); Neutrophils % (A) 91 %; Platelet Count 334 k/uL (150-450); RBC 4.12 m/uL (3.80-5.40); RDW 16.3 % (11.5-15.5); WBC 12.4 k/uL (3.8-10.6)
[2020-09-15 11:44] LABS: Albumin 3.9 g/dL (3.5-5.0); Calcium 9.2 mg/dL (8.4-10.2); Magnesium 2.2 mg/dL (1.6-2.3); Total Protein 6.8 g/dL (6.3-8.2)
[2020-09-15 11:46] LABS: INR 0.9 (<1.2); Partial Thromboplastin Time 24.3 sec (22.0-30.0); Prothrombin Time 9.9 sec (9.0-12.0)
--- NOTE | 2020-09-15 11:48 | XR ---
EXAMINATION TYPE: XR chest 2V DATE OF EXAM: 09/15/2020 COMPARISON: 09/08/2020 INDICATION: Difficulty breathing short of breath TECHNIQUE: Frontal and lateral views of the chest are obtained. FINDINGS: The heart size is normal. The pulmonary vasculature is prominent. Mild bibasilar infiltrates are present. Small left pleural effusion is likely present. Findings are d eveloping over the interval.. IMPRESSION: 1. Developing bibasilar infiltrates and small pleural effusions. 2. Clinical consideration for early volume overload is also recommended.
[2020-09-15 11:53] LABS: D-Dimer 2.71 mg/L FEU (<0.60)
[2020-09-15 11:55] LABS: Potassium 4.4 mmol/L (3.5-5.1)
[2020-09-15] MEDS ORDERED: cefTRIAXone IN SWFI 1,000 MG/10 ML SYRINGE IVP STA (12:31)
[2020-09-15] MEDS ORDERED: FUROSEMIDE 10 MG/ML 2 ML VIAL IV STA (12:32)
[2020-09-15] MEDS ORDERED: NITROGLYCERIN SL TABS 0.4 MG TAB SUBLINGUAL PRN (12:42)
[2020-09-15] MEDS ORDERED: HEPARIN SODIUM,PORCINE 5,000 UNIT/ML 1 ML VIAL IV ONE (12:42)
[2020-09-15] MEDS ORDERED: ASPIRIN 81 MG PO STA (12:44)
[2020-09-15] MEDS ORDERED: AZITHROMYCIN 500 MG in SODIUM CHLORIDE 0.9% 250 ML IVPB STA (12:46)
[2020-09-15] MEDS: HEPARIN SOD,PORK IN 0.45% NACL 25,000 UNIT in 0.45% NACL 1 250ML.BAG IV SCH (13:10)
--- NOTE | 2020-09-15 16:45 | P.CNPUL ---
History of Present Illness Consult date: 09/15/20 Reason for consult: dyspnea Chief complaint: Shortness of breath History of present illness: 75-year-old white female patient recently hospitalized from 09/08/2020 and then discharged on 09/10/2020 hypertensive urgency, acute kidney injury, and neck pain. CT scan of the cervical spine at that time showed degenerative changes with spinal canal stenosis and and plate spurring at C5, no acute injuries. Patient was also in acute kidney injury and nephrology consultation was requested. EKG at that time was unremarkable. Patient's past medical history is also significant for abdominal aortic aneurysm status post aortic iliac graft stenting in May [address] Bar[address]to[address] Her CT angiogram showed abdominal aortic aneurysm unchanged in size, with endoleak. Patient's blood pressure had improved, patient was discharged home on 09/10/2020. On 09/15/2020 patient was sent in from Dr. Farnsworth's office for EKG changes. Apparently she was seen in follow-up in Dr. Farnsworth's office for post hospital visit. She has been complaining of some abdominal discomfort, and increased shortness of breath. She denied any chest pain, denies any palpitations, no fever or chills. No lower extremity edema, she's been having some abdominal discomfort only when she went to forcefully cough, no vomiting, or diarrhea, no back pain, no urinary symptoms. Her chest x-ray showed developing bibasilar infiltrates and small pleural effusions. Lab data revealed white blood cell, 12.4, hemoglobin of 11.8, d-dimer of 2.71, sodium is 132, the rest of the electrolytes were within normal limits, creatinine is 2.46, B1 is 36, plasma lactic acid was mildly elevated at 2.6, patient had troponin elevation at 1.340, and 1.090, proBNP was 37,400. COVID 19 PCR was negative Review of Systems All systems: negative Constitutional: Denies chills, Denies fever Eyes: denies blurred vision, denies pain Ears, nose, mouth and throat: Denies headache, Denies sore throat Cardiovascular: Denies chest pain, Denies shortness of breath Respiratory: Reports dyspnea, Denies cough Gastrointestinal: Denies abdominal pain, Denies diarrhea, Denies nausea, Denies vomiting Genitourinary: Denies dysuria, Denies hematuria Musculoskeletal: Denies myalgias Integumentary: Denies pruritus, Denies rash Neurological: Denies numbness, Denies weakness Psychiatric: Denies anxiety, Denies depression Endocrine: Denies fatigue, Denies weight change Past Medical History Past Medical History: Cancer, Hyperlipidemia, Hypertension, Pneumonia Additional Past Medical History / Comment(s): Pt recently admitted to [facility] on 09/08/20 with acute kidney injury/cervical pain. Other hx: gout, hyperlipidemia but cannot tolerate statins, skin cancer , osteoporosis, diverticulitis with sepsis, degenerative disc disease/chronic pain at cervical spine History of Any Multi-Drug Resistant Organisms: None Reported Past Surgical History: Adenoidectomy, Appendectomy, Cholecystectomy, Hysterec timi, Orthopedic Surgery, Tonsillectomy Additional Past Surgical History / Comment(s): L knee arthroscopy d/t effusion, R wrist ganglion cyst surgeries x 3, skin cancer removed from nose, bilateral cataract removals/lens implants. stents, EVAR with bilateral renal stent mahsa neys, aneurysm repair 06/08 Past Anesthesia/Blood Transfusion Reactions: No Reported Reaction Additional Past Anesthesia/Blood Transfusion Reaction / Comment(s): CHILDREN=PONV Smoking Status: Current every day smoker - Past Family History Mother Family Medical History: Dementia Father History Unknown: Yes Family Medical History: No Reported History Daughter(s) Family Medical History: Cancer Additional Family Medical History / Comment(s): Letty survived breast cancer. Medications and Allergies Home Medications Medication Instructions Recorded Confirmed Type Ascorbic Acid [Vitamin C] 1,000 mg PO DAILY 09/03/20 09/15/20 History Cholecalciferol [Vitamin D3 (25 1,000 unit PO DAILY 09/03/20 09/15/20 History Mcg = 1000 Iu)] Calcium Carbonate [Calcium] 600 mg PO DAILY 09/08/20 09/15/20 History amLODIPine [Norvasc] 10 mg PO DAILY #30 tab 09/10/20 09/15/20 Rx hydrALAZINE HCL [Apresoline] 50 mg PO TID #90 tab 09/10/20 09/15/20 Rx Allergies Allergy/AdvReac Type Severity Reaction Status Date / Time codeine Allergy Rash/Hives Verified 09/15/20 11:10 morphine Allergy Rash/Hives Verified 09/15/20 11:10 Penicillins Allergy Rash/Hives Verified 09/15/20 11:10 Mahhcib-Zfu-Wte Reductase Allergy Itching Verified 09/15/20 11:10 Inhibitor any cholesterol medications Allergy Itching Uncoded 09/15/20 11:10 Physical Exam Vitals: Vital Signs Temp Pulse Resp BP Pulse Ox 09/15/20 13:36 98.3 F 102 H 18 130/72 94 L 09/15/20 12:35 98.8 F 100 16 140/72 94 L 09/15/20 11:15 107 H 18 136/68 94 L 09/15/20 10:03 97.9 F 113 H 22 137/65 95 Intake and Output 09/15/20 09/15/20 09/15/20 06:59 14:59 22:59 Other: Weight 43.091 kg GENERAL EXAM: Alert, very pleasant, 75-year-old white female, on 2 L of oxygen pulse ox 90% comfortable in no apparent distress. HEAD: Normocephalic/atraumatic. EYES: Normal reaction of pupils, equal size. Conjunctiva pink, sclera white. NOSE: Clear with pink turbinates. THROAT: No erythema or exudates. NECK: No masses, no JVD, no thyroid enlargement, no adenopathy. CHEST: No chest wall deformity. Symmetrical expansion. LUNGS: Equal air entry with bibasilar crackles CVS: Regular rate and rhythm, normal S1 and S2, no gallops, no murmurs, no rubs ABDOMEN: Soft, nontender. No hepatosplenomegaly, normal bowel sounds, no guarding or rigidity. EXTREMITIES: No clubbing, no edema, no cyanosis, 2+ pulses and upper and lower extremities. MUSCULOSKELETAL: Muscle strength and tone normal. SPINE: No scoliosis or deformity SKIN: No rashes CENTRAL NERVOUS SYSTEM: Alert and oriented -3. No focal deficits, tone is normal in all 4 extremities. PSYCHIATRIC: Alert and oriented -3. Appropriate affect. Intact judgment and insight. Results - Laboratory Findings CBC and BMP: 09/15/20 11:17 09/15/20 11:17 PT/INR, D-dimer PT 9.9 sec (9.0-12.0) 09/15/20 11:17 INR 0.9 (<1.2) 09/15/20 11:17 D-Dimer 2.71 mg/L FEU (<0.60) H 01/27/21 11:17 Abnormal lab findings: Abnormal Labs 09/15/20 09/15/20 09/15/20 11:17 11:17 11:17 WBC 12.4 H RDW 16.3 H Neutrophils # 11.3 H Lymphocytes # 0.4 L D-Dimer 2.71 H Sodium 132 L BUN 36 H Creatinine 2.46 H Glucose 151 H Plasma Lactic Acid Martir Troponin I 09/15/20 09/15/20 09/15/20 11:17 11:17 14:06 WBC RDW Neutrophils # Lymphocytes # D-Dimer Sodium BUN Creatinine Glucose Plasma Lactic Acid Martir 2.6 H* Troponin I 1.340 H* 1.090 H* - Diagnostic Findings Chest x-ray: report reviewed, image reviewed Additional studies: EKG reviewed Assessment and Plan Plan: Assessment: #1. Acute non-ST elevated myocardial infarction, patient presented with increased shortness of breath, positive cardiac markers, and EKG showing sinus tachycardia, ST and T-wave abnormality the possibility of inferior subendocardial injury. #2. Rule out possibility of pneumonia, chest x-ray showing developing bibasilar infiltrates and small pleural effusions. COVID 19 PCR negative #3. Acute exacerbation of CHF with previously documented low normal EF of 50- 55% #4. Recent hospitalization for neck pain, hypertensive urgency, acute kidney injury #5. Hypertension #6. Hyperlipidemia #7. Chronic neck pain related to degenerative disc disease at cervical spine #8. Osteoarthritis #9. Chronic and ongoing history of smoking #10. Abdominal aortic aneurysm, status post EVAR with bilateral chimney renal stents with no endoleak Plan: Continue diuretics, and antibiotics, rule out possibility of pneumonia, presentation is more consistent with non-ST elevated myocardial infarction, and acute exacerbation of CHF. Check procalcitonin level, clinically patient appears fairly comfortable, breathing comfortably. Cardiology has been consulted, echocardiogram is pending, repeat chest x-ray in the morning. I performed a history & physical examination of the patient and discussed their management with my nurse practitioner, Neena Fontenot. I reviewed the nurse practitioner's note and agree with the documented findings and plan of care. Lung sounds are positive for diminished breath sounds. The findings and the impression was discussed with the patient. I attest to the documentation by the nurse practitioner. Time with Patient: Greater than 30
[2020-09-15] MEDS: NITROGLYCERIN OINT 1 INCH/GM PACKET TOPICAL SCH ×2 (17:41→22:26)
[2020-09-15] MEDS: hydrALAZINE HCL 50 MG TAB PO SCH ×2 (17:41→20:39)
[2020-09-15] MEDS: FUROSEMIDE 10 MG/ML 2 ML VIAL IV SCH (22:25)
[2020-09-16 04:56] LABS: Albumin 3.1 g/dL (3.5-5.0); Calcium 8.2 mg/dL (8.4-10.2); Magnesium 2.1 mg/dL (1.6-2.3); Potassium 3.4 mmol/L (3.5-5.1); Total Bilirubin 0.5 mg/dL (0.2-1.3); Total Protein 5.6 g/dL (6.3-8.2)
[2020-09-16 04:57] LABS: Anisocytosis Slight; Basophils % (A) 0 %; Eosinophils # (A) 0.2 k/uL (0-0.7); Eosinophils % (A) 2 %; HCT 30.3 % (34.0-46.0); HGB 10.1 gm/dL (11.4-16.0); Lymphocytes # (A) 0.6 k/uL (1.0-4.8); Lymphocytes % (A) 6 %; MCH 28.9 pg (25.0-35.0); MCHC 33.3 g/dL (31.0-37.0); MCV 86.7 fL (80.0-100.0); Mean Platelet Volume 6.8; Monocytes # (A) 0.5 k/uL (0-1.0); Monocytes % (A) 5 %; Neutrophils # (A) 8.6 k/uL (1.3-7.7); Neutrophils % (A) 87 %; Platelet Count 295 k/uL (150-450); RDW 16.1 % (11.5-15.5); WBC 9.9 k/uL (3.8-10.6)
[2020-09-16] MEDS: NITROGLYCERIN OINT 1 INCH/GM PACKET TOPICAL SCH ×3 (06:23→17:23)
[2020-09-16] MEDS ORDERED: ASPIRIN 325 MG TAB PO SCH (09:00)
[2020-09-16] MEDS: amLODIPine 10 MG TAB PO SCH (09:08)
[2020-09-16] MEDS: FUROSEMIDE 10 MG/ML 2 ML VIAL IV SCH (09:08)
[2020-09-16] MEDS: CHOLECALCIFEROL 25 MCG (1000 IU) TABLET PO SCH (09:08)
[2020-09-16] MEDS: hydrALAZINE HCL 50 MG TAB PO SCH ×3 (09:08→19:43)
[2020-09-16] MEDS: ASCORBIC ACID 500 MG TAB PO SCH (09:08)
[2020-09-16] MEDS: CALCIUM CARBONATE 500 MG CHEWABLE PO SCH (09:08)
[2020-09-16] MEDS: ASPIRIN 81 MG PO SCH (09:14)
--- NOTE | 2020-09-16 09:16 | P.HPIM ---
History of Present Illness H&P Date: 09/16/20 Chief Complaint: Shortness of breath 75-year-old female sent to the emergency department, for shortness of breath over the last few days. Patient recent hospitalization for acute kidney injury, neck pain, and hypertension. Patient had extensive workup in the emerg ency department revealing possible fluid overload/pneumonia, acute kidney injury, and elevated troponins. Upon evaluation this a.m., patient resting comfortably in bed patient noted to have mild difficulty in breathing at rest. Patient denies chest pain or palpitations at this time. patient denies fever or chills or abdominal pain. Patient complaint of shortness of breath, and harsh cough. Review of Systems Constitutional: Reports fatigue, Reports weakness Cardiovascular: Reports decreased exercise tolerance, Reports dyspnea on exertion, Reports shortness of breath Respiratory: Reports cough, Reports dyspnea Gastrointestinal: Reports diarrhea Musculoskeletal: Reports neck pain Neurological: Reports weakness Past Medical History Past Medical History: Cancer, Hyperlipidemia, Hypertension, Pneumonia Additional Past Medical History / Comment(s): Pt recently admitted to [facility] on 09/08/20 with acute kidney injury/cervical pain. Other hx: gout, hyperlipid emia but cannot tolerate statins, skin cancer , osteoporosis, diverticulitis with sepsis, degenerative disc disease/chronic pain at cervical spine History of Any Multi-Drug Resistant Organisms: None Reported Past Surgical History: Adenoidectomy, Appendectomy, Cholecystectomy, Hysterectomy, Orthopedic Surgery, Tonsillectomy Additional Past Surgical History / Comment(s): L knee arthroscopy d/t effusion, R wrist ganglion cyst surgeries x 3, skin cancer removed from nose, bilateral cataract removals/lens implants. stents, EVAR with bilateral renal stent chimneys, aneurysm repair 06/08 Past Anesthesia/Blood Transfusion Reactions: No Reported Reaction Additional Past Anesthesia/Blood Transfusion Reaction / Comment(s): CHILDREN=PONV Smoking Status: Current every day smoker - Past Family History Mother Family Medical History: Dementia Father History Unknown: Yes Family Medical History: No Reported History Daughter(s) Family Medical History: Cancer Additional Family Medical History / Comment(s): Letty survived breast cancer. Medications and Allergies Home Medications and Allergies Comment(s): Medications and ALLERGIES reviewed Home Medications Medication Instructions Recorded Confirmed Type Ascorbic Acid [Vitamin C] 1,000 mg PO DAILY 09/03/20 09/15/20 History Cholecalciferol [Vitamin D3 (25 1,000 unit PO DAILY 09/03/20 09/15/20 History Mcg = 1000 Iu)] Calcium Carbonate [Calcium] 600 mg PO DAILY 09/08/20 09/15/20 History amLODIPine [Norvasc] 10 mg PO DAILY #30 tab 09/10/20 09/15/20 Rx hydrALAZINE HCL [Apresoline] 50 mg PO TID #90 tab 09/10/20 09/15/20 Rx Allergies Allergy/AdvReac Type Severity Reaction Status Date / Time codeine Allergy Rash/Hives Verified 09/15/20 11:10 morphine Allergy Rash/Hives Verified 09/15/20 11:10 Penicillins Allergy Rash/Hives Verified 09/15/20 11:10 [id number] Reductase Allergy Itching Verified 09/15/20 11:10 Inhibitor any cholesterol medications Allergy Itching Uncoded 09/15/20 11:10 Physical Exam Vitals: Vital Signs Temp Pulse Pulse Resp BP BP Pulse Ox 09/16/20 04:00 98.0 F 108 H 18 155/70 90 L 09/16/20 02:00 108 H 18 09/15/20 23:20 97.9 F 98 19 131/62 89 L 09/15/20 20:00 98.6 F 105 H 19 136/63 92 L 09/15/20 19:56 92 L 09/15/20 16:00 98.6 F 82 20 146/64 89 L 09/15/20 14:00 20 09/15/20 13:36 98.3 F 102 H 18 130/72 94 L 09/15/20 12:35 98.8 F 100 16 140/72 94 L 09/15/20 11:15 107 H 18 136/68 94 L 09/15/20 10:03 97.9 F 113 H 22 137/65 95 Intake and Output 09/15/20 09/16/20 09/16/20 22:59 06:59 14:59 Intake Total 62.659 91.847 Output Total 100 200 Balance -37.341 -108.153 Intake: IV 15 48 Heparin Sod,Pork in 0.45% 15 48 NaCl 25,000 unit In 0.45 % NaCl 1 250ml.bag @ 12 UNITS/KG/HR 5.171 mls/hr IV .Q24H [facility] Rx#: [id number] Intake, IV Titration 47.659 43.847 Amount Heparin Sod,Pork in 0.45% 47.659 43.847 NaCl 25,000 unit In 0.45 % NaCl 1 250ml.bag @ 12 UNITS/KG/HR 5.171 mls/hr IV .Q24H [facility] Rx#: [id number] Output: Urine 100 200 Other: Voiding Method Toilet Toilet Weight 40 kg - Constitutional General appearance: mild distress - EENT Eyes: EOMI, PERRLA Ears: bilateral: normal - Neck Acute on chronic neck pain Carotids: bilateral: upstroke normal Thyroid: bilateral: normal size - Respiratory Respiratory: bilateral: diminished (Anterior and posterior lung coleman) - Cardiovascular Sinus tachycardia Heart rate: 101 Rhythm: regular Heart sounds: normal: S1, S2 dorsalis pedis Peripheral Pulses: bilateral: Normal radial pulse Peripheral Pulses: bilateral: Normal - Gastrointestinal General gastrointestinal: normal bowel sounds - Integumentary Integumentary: decreased turgor - Neurologic Neurologic: CNII-XII intact - Musculoskeletal Musculoskeletal: generalized weakness - Psychiatric Psychiatric: A&O x's 3, appropriate affect, intact judgment & insight Results CBC & Chem 7: 09/16/20 04:06 09/16/20 04:06 Labs: Abnormal Lab Results - Last 24 Hours (Table) 09/15/20 09/15/20 09/15/20 Range/Units 11:17 11:17 11:17 WBC 12.4 H (3.8-10.6) k/uL RBC (3.80-5.40) m/uL Hgb (11.4-16.0) gm/dL Hct (34.0-46.0) % RDW 16.3 H (11.5-15.5) % Neutrophils # 11.3 H (1.3-7.7) k/uL Lymphocytes # 0.4 L (1.0-4.8) k/uL APTT (22.0-30.0) sec D-Dimer 2.71 H (<0.60) mg/L FEU Sodium 132 L (137-145) mmol/L Potassium (3.5-5.1) mmol/L BUN 36 H (7-17) mg/dL Creatinine 2.46 H (0.52-1.04) mg/dL Glucose 151 H (74-99) mg/dL Plasma Lactic Acid Martir (0.7-2.0) mmol/L Calcium (8.4-10.2) mg/dL Troponin I (0.000-0.034) ng/mL Total Protein (6.3-8.2) g/dL Albumin (3.5-5.0) g/dL LDL Cholesterol, Calc (0-99) mg/dL HDL Cholesterol (40-60) mg/dL Procalcitonin (0.02-0.09) ng/mL 09/15/20 09/15/20 09/15/20 Range/Units 11:17 11:17 14:06 WBC (3.8-10.6) k/uL RBC (3.80-5.40) m/uL Hgb (11.4-16.0) gm/dL Hct (34.0-46.0) % RDW (11.5-15.5) % Neutrophils # (1.3-7.7) k/uL Lymphocytes # (1.0-4.8) k/uL APTT (22.0-30.0) sec D-Dimer (<0.60) mg/L FEU Sodium (137-145) mmol/L Potassium (3.5-5.1) mmol/L BUN (7-17) mg/dL Creatinine (0.52-1.04) mg/dL Glucose (74-99) mg/dL Plasma Lactic Acid Martir 2.6 H* (0.7-2.0) mmol/L Calcium (8.4-10.2) mg/dL Troponin I 1.340 H* 1.090 H* (0.000-0.034) ng/mL Total Protein (6.3-8.2) g/dL Albumin (3.5-5.0) g/dL LDL Cholesterol, Calc (0-99) mg/dL HDL Cholesterol (40-60) mg/dL Procalcitonin (0.02-0.09) ng/mL 09/15/20 09/15/20 09/16/20 Range/Units 17:30 17:30 04:06 WBC (3.8-10.6) k/uL RBC 3.50 L (3.80-5.40) m/uL Hgb 10.1 L (11.4-16.0) gm/dL Hct 30.3 L (34.0-46.0) % RDW 16.1 H (11.5-15.5) % Neutrophils # 8.6 H (1.3-7.7) k/uL Lymphocytes # 0.6 L (1.0-4.8) k/uL APTT (22.0-30.0) sec D-Dimer (<0.60) mg/L FEU Sodium (137-145) mmol/L Potassium (3.5-5.1) mmol/L BUN (7-17) mg/dL Creatinine (0.52-1.04) mg/dL Glucose (74-99) mg/dL Plasma Lactic Acid Martir (0.7-2.0) mmol/L Calcium (8.4-10.2) mg/dL Troponin I 1.020 H* (0.000-0.034) ng/mL Total Protein (6.3-8.2) g/dL Albumin (3.5-5.0) g/dL LDL Cholesterol, Calc (0-99) mg/dL HDL Cholesterol (40-60) mg/dL Procalcitonin 0.34 H (0.02-0.09) ng/mL 09/16/20 09/16/20 Range/Units 04:06 04:06 WBC (3.8-10.6) k/uL RBC (3.80-5.40) m/uL Hgb (11.4-16.0) gm/dL Hct (34.0-46.0) % RDW (11.5-15.5) % Neutrophils # (1.3-7.7) k/uL Lymphocytes # (1.0-4.8) k/uL APTT 32.5 H (22.0-30.0) sec D-Dimer (<0.60) mg/L FEU Sodium 132 L (137-145) mmol/L Potassium 3.4 L (3.5-5.1) mmol/L BUN 37 H (7-17) mg/dL Creatinine 2.51 H (0.52-1.04) mg/dL Glucose 136 H (74-99) mg/dL Plasma Lactic Acid Martir (0.7-2.0) mmol/L Calcium 8.2 L (8.4-10.2) mg/dL Troponin I (0.000-0.034) ng/mL Total Protein 5.6 L (6.3-8.2) g/dL Albumin 3.1 L (3.5-5.0) g/dL LDL Cholesterol, Calc 104 H (0-99) mg/dL HDL Cholesterol 69 H (40-60) mg/dL Procalcitonin (0.02-0.09) ng/mL Chest x-ray: pending Thrombosis Risk Factor Assmnt - Choose All That Apply Any of the Below Risk Factors Present?: Yes Each Factor Represents 1 point: Acute VA, Heart failure (<1month) Other Risk Factors: Yes Each Risk Factor Represents 2 Points: Malignancy Each Risk Factor Represents 3 Points: Age 75 years or older Other congenital or acquired thrombophilia - If yes, enter type in comment: No Thrombosis Risk Factor Assessment Total Risk Factor Score: 7 Thrombosis Risk Factor Assessment Level: High Risk Assessment and Plan Assessment: Non-STEMItroponins trending downwardconsultation with cardiology for recommendations and treatment plan Fluid overloadIV Lasixconsultation with pulmonology for recommendations and treatment plan Possible pneumoniaIV antibiotics Acute on chronic renal failureavoid nephrotoxic drugs as possibleconsultation with nephrology for recommendations and treatment plan Hyperlipidemia Hypertension Osteoporosis Degenerative disc disease History of aneurysm repair with endoleak Continue home medicationsdue to comorbidities Continue to monitor diagnostics and vital signs Continue medical management Time with Patient: Greater than 30
--- NOTE | 2020-09-16 09:30 | XR ---
EXAMINATION TYPE: XR chest 1V portable DATE OF EXAM: 09/16/2020 Comparison: 09/15/2020 Clinical History: 75 year-old female shortness of breath Findings: Heart normal size. Atherosclerotic arch calcifications. Hyperinflation. Dense retrocardiac opacity an d small left effusion have increased from prior. Endovascular abdominal aortic stent graft traversing a calcified AAA partially visualized. Impression: COPD with increasing small left effusion adnexal with dense retrocardiac consolidation or atelectasis .
[2020-09-16] MEDS ORDERED: FUROSEMIDE 10 MG/ML 2 ML VIAL IV ONE (09:33)
[2020-09-16] MEDS ORDERED: HEPARIN SODIUM,PORCINE 5,000 UNIT/ML 1 ML VIAL IV STA (11:13)
[2020-09-16] MEDS: METOPROLOL TARTRATE 25 MG TAB PO SCH ×3 (11:32→19:43)
--- NOTE | 2020-09-16 11:59 | P.CRDCN ---
History of Present Illness History of present illness: HISTORY OF PRESENTING ILLNESS This is a pleasant 75-year-old female past medical history significant for peripheral vascular disease status post endovascular aortic repair May 2020 with a known endoleak, hypertension, dyslipidemia and chronic nicotine dependence. She denies prior history of coronary artery disease and does not follow in the office with a cd technician. We have been asked to see in consultation for shortness of breath. She states on Sunday she had a sudden acute onset of shortness of breath. It was worse with exertion but persistent even at rest. She denied any associated chest pain, dizziness, palpitations, cough, fever or chills. EKG on arrival to the emergency department revealed sinus tachycardia with ST depression in the inferior leads. Chest x-ray on admission revealed developing bibasilar infiltrates and small pleural effusions, repeat today revealed COPD with increasing small left effusion. Laboratory data reviewed, WBC 12.4 on admission repeat today 9.9, hemoglobin 10.1, platelets 295, d-dimer 2.7, sodium 132, potassium 3.4, creatinine 2.5, lactic acid on admission 2. 6 repeat after hydration 1.5, magnesium 2.1, troponin 1.34, 1.09, 1.02, proBNP 37,400, LDL 104, HDL 69 and Propulsid 20 0.34. Most recent echocardiogram obtained January 2020 reveals preserved LV systolic function with ejection fraction 50-55%, mild to moderate MR, mild TR and normal RVSP. REVIEW OF SYSTEMS At the time of my exam: CONSTITUTIONAL: Denies fever or chills. CARDIOVASCULAR: Denies chest pain, shortness of breath, orthopnea, PND or palpitations. RESPIRATORY: Denies cough. GASTROINTESTINAL: Denies abdominal pain, diarrhea, constipation, nausea or vomiting. MUSCULOSKELETAL: Denies myalgias. NEUROLOGIC: Denies numbness, tingling, headacbe or weakness. ENDOCRINE: Denies fatigue, weight change, polydipsia or polyurina. GENITOURINARY: Denies burning, hematuria or urgency with micturation. HEMATOLOGIC: Denies history of anemia or bleeding. PHYSICAL EXAMINATION Blood pressure 140/65 heart rate 93 afebrile and maintaining oxygen saturation on nasal cannula. CONSTITUTIONAL: No apparent distress. appears older than stated age. HEENT: Head is normocephalic. Pupils are equal, round. Sclerae anicteric. Mucous membranes of the mouth are moist. No JVD. No carotid bruit. CHEST EXAMINATION: Bibasilar rales with faint expiratory wheeze. No chest wall tenderness is noted on palpation or with deep breathing. HEART EXAMINATION: Regular rate and rhythm. S1, S2 heard. Systolic ejection murmur at the left sternal border, no gallops or rub. ABDOMEN: Soft, nontender. Positive bowel sounds. EXTREMITIES: 2+ peripheral pulses, no lower extremity edema and no calf tenderness. NEUROLOGIC EXAMINATION: Patient is awake, alert and oriented x3. ASSESSMENT Non-ST elevated myocardial infarction Pneumonia Leukocytosis Acute kidney injury Acute diastolic heart failure Peripheral vascular disease status post EVAR 05/2020 Hypokalemia Lactic acidosis Hypertension Dyslipidemia Chronic nicotine dependence PLAN Increase lasix to 40 mg IV BID. Repeat renal function and electrolytes in the morning. Continue heparin infusion. Plan for possible cardiac catheterization tomorrow morning depending on renal function and respiratory status. Decrease aspirin to 81 mg daily. Initiate Lopressor 25 mg 3 times a day. Obtain 2-D echocardiogram and Doppler study to assess cardiac structure and function. Further recommendations to follow based upon clinical course. Thank you kindly for this consultation. Nurse Practitioner note has been reviewed, I agree with a documented findings and plan of care. Patient was seen and examined. Past Medical History Past Medical History: Cancer, Hyperlipidemia, Hypertension, Pneumonia Additional Past Medical History / Comment(s): Pt recently admitted to [facility] on 09/08/20 with acute kidney injury/cervical pain. Other hx: gout, hyperlipidemia but cannot tolerate statins, skin cancer , osteoporosis, diverticulitis with sepsis, degenerative disc disease/chronic pain at cervical spine History of Any Multi-Drug Resistant Organisms: None Reported Past Surgical History: Adenoidectomy, Appendectomy, Cholecystectomy, Hysterectomy, Orthopedic Surgery, Tonsillectomy Additional Past Surgical History / Comment(s): L knee arthroscopy d/t effusion, R wrist ganglion cyst surgeries x 3, skin cancer removed from nose, bilateral cataract removals/lens implants. stents, EVAR with bilateral renal stent chimneys, aneurysm repair 06/08 Past Anesthesia/Blood Transfusion Reactions: No Reported Reaction Additional Past Anesthesia/Blood Transfusion Reaction / Comment(s): CHILDREN=PONV Smoking Status: Current every day smoker - Past Family History Mother Family Medical History: Dementia Father History Unknown: Yes Family Medical History: No Reported History Daughter(s) Family Medical History: Cancer Additional Family Medical History / Comment(s): Letty survived breast cancer. Medications and Allergies Home Medications Medication Instructions Recorded Confirmed Type Ascorbic Acid [Vitamin C] 1,000 mg PO DAILY 09/03/20 09/15/20 History Cholecalciferol [Vitamin D3 (25 1,000 unit PO DAILY 09/03/20 09/15/20 History Mcg = 1000 Iu)] Calcium Carbonate [Calcium] 600 mg PO DAILY 09/08/20 09/15/20 History amLODIPine [Norvasc] 10 mg PO DAILY #30 tab 09/10/20 09/15/20 Rx hydrALAZINE HCL [Apresoline] 50 mg PO TID #90 tab 09/10/20 09/15/20 Rx Allergies Allergy/AdvReac Type Severity Reaction Status Date / Time codeine Allergy Rash/Hives Verified 09/15/20 11:10 morphine Allergy Rash/Hives Verified 09/15/20 11:10 Penicillins Allergy Rash/Hives Verified 09/15/20 11:10 Ojgshru-Etu-Wwk Reductase Allergy Itching Verified 09/15/20 11:10 Inhibitor any cholesterol medications Allergy Itching Uncoded 09/15/20 11:10 Physical Exam Vitals: Vital Signs Temp Pulse Pulse Resp BP BP Pulse Ox 09/16/20 04:00 98.0 F 108 H 18 155/70 90 L 09/16/20 02:00 108 H 18 09/15/20 23:20 97.9 F 98 19 131/62 89 L 09/15/20 20:00 98.6 F 105 H 19 136/63 92 L 09/15/20 19:56 92 L 09/15/20 16:00 98.6 F 82 20 146/64 89 L 09/15/20 14:00 20 09/15/20 13:36 98.3 F 102 H 18 130/72 94 L 09/15/20 12:35 98.8 F 100 16 140/72 94 L 09/15/20 11:15 107 H 18 136/68 94 L 09/15/20 10:03 97.9 F 113 H 22 137/65 95 Intake and Output 09/15/20 09/16/20 09/16/20 22:59 06:59 14:59 Intake Total 62.659 91.847 Output Total 100 200 Balance -37.341 -108.153 Intake: IV 15 48 Heparin Sod,Pork in 0.45% 15 48 NaCl 25,000 unit In 0.45 % NaCl 1 250ml.bag @ 12 UNITS/KG/HR 5.171 mls/hr IV .Q24H [facility] Rx#: [id number] Intake, IV Titration 47.659 43.847 Amount Heparin Sod,Pork in 0.45% 47.659 43.847 NaCl 25,000 unit In 0.45 % NaCl 1 250ml.bag @ 12 UNITS/KG/HR 5.171 mls/hr IV .Q24H [facility] Rx#: [id number] Output: Urine 100 200 Other: Voiding Method Toilet Toilet Weight 40 kg Results 09/16/20 04:06 09/16/20 04:06 Cardiac Enzymes 09/15/20 09/15/20 09/15/20 Range/Units 11:17 11:17 14:06 AST 34 (14-36) U/L Troponin I 1.340 H* 1.090 H* (0.000-0.034) ng/mL 09/15/20 09/16/20 Range/Units 17:30 04:06 AST 22 (14-36) U/L Troponin I 1.020 H* (0.000-0.034) ng/mL Coagulation 09/15/20 09/15/20 09/16/20 Range/Units 11:17 21:03 04:06 PT 9.9 (9.0-12.0) sec APTT 24.3 28.0 32.5 H (22.0-30.0) sec Lipids 09/16/20 Range/Units 04:06 Triglycerides 108 (<150) mg/dL Cholesterol 195 (<200) mg/dL HDL Cholesterol 69 H (40-60) mg/dL CBC 09/15/20 09/16/20 Range/Units 11:17 04:06 WBC 12.4 H 9.9 (3.8-10.6) k/uL RBC 4.12 3.50 L (3.80-5.40) m/uL Hgb 11.8 10.1 L (11.4-16.0) gm/dL Hct 35.5 30.3 L (34.0-46.0) % Plt Count 334 295 (150-450) k/uL Comprehensive Metabolic Panel 09/15/20 09/16/20 Range/Units 11:17 04:06 Sodium 132 L 132 L (137-145) mmol/L Potassium 4.4 3.4 L (3.5-5.1) mmol/L Chloride 99 101 (98-107) mmol/L Carbon Dioxide 22 23 (22-30) mmol/L BUN 36 H 37 H (7-17) mg/dL Creatinine 2.46 H 2.51 H (0.52-1.04) mg/dL Glucose 151 H 136 H (74-99) mg/dL Calcium 9.2 8.2 L (8.4-10.2) mg/dL AST 34 22 (14-36) U/L ALT 21 17 (4-34) U/L Alkaline Phosphatase 95 88 (38-126) U/L Total Protein 6.8 5.6 L (6.3-8.2) g/dL Albumin 3.9 3.1 L (3.5-5.0) g/dL Current Medications Generic Name Dose Route Start Last Admin Trade Name Freq PRN Reason Stop Dose Admin Amlodipine Besylate 10 mg 09/16/20 09:00 Amlodipine 10 Mg Tab PO DAILY [facility] Ascorbic Acid 1,000 mg 09/16/20 09:00 Ascorbic Acid 500 Mg Tab PO DAILY [facility] Aspirin 81 mg 09/16/20 09:00 Aspirin 81 Mg PO DAILY [facility] Calcium Carbonate/Glycine 500 mg 09/16/20 09:00 Calcium Carbonate 500 Mg Chewable PO DAILY [facility] Cholecalciferol 25 mcg 09/16/20 09:00 Cholecalciferol 25 Mcg (1000 Iu) Tablet PO DAILY [facility] Furosemide 20 mg 09/16/20 00:00 09/15/20 22:25 Furosemide 10 Mg/Ml 2 Ml Vial IV 20 mg Q8HR [facility] Administration Hydralazine HCl 50 mg 09/15/20 16:00 09/15/20 20:39 Hydralazine Hcl 50 Mg Tab PO 50 mg TID [facility] Administration Heparin Sodium/Sodium Chloride 250 mls @ 5.171 mls/hr 09/15/20 12:45 09/16/20 05:10 25,000 unit/ Sodium Chloride IV 17 units/kg/hr .Q24H [facility] 7.325 mls/hr Titration Protocol 12 UNITS/KG/HR Ceftriaxone Sodium 1 gm/ 50 mls @ 100 mls/hr 09/16/20 16:00 Sodium Chloride IVPB Q24H [facility] Azithromycin 500 mg/ Sodium 250 mls @ 250 mls/hr 09/16/20 16:00 Chloride IVPB Q24H [facility] Nitroglycerin 0.4 mg 09/15/20 12:42 Nitroglycerin Sl Tabs 0.4 Mg Tab SUBLINGUAL Q5M PRN Chest Pain Nitroglycerin 1 inch 09/15/20 18:00 09/16/20 06:23 Nitroglycerin Oint 1 Inch/Gm Packet TOPICAL Not Given Q6HR [facility] Intake and Output 09/15/20 09/16/20 09/16/20 22:59 06:59 14:59 Intake Total 62.659 91.847 Output Total 100 200 Balance -37.341 -108.153 Intake: IV 15 48 Heparin Sod,Pork in 0.45% 15 48 NaCl 25,000 unit In 0.45 % NaCl 1 250ml.bag @ 12 UNITS/KG/HR 5.171 mls/hr IV .Q24H [facility] Rx#: [id number] Intake, IV Titration 47.659 43.847 Amount Heparin Sod,Pork in 0.45% 47.659 43.847 NaCl 25,000 unit In 0.45 % NaCl 1 250ml.bag @ 12 UNITS/KG/HR 5.171 mls/hr IV .Q24H [facility] Rx#: [id number] Output: Urine 100 200 Other: Voiding Method Toilet Toilet Weight 40 kg 09/16/20 04:06 09/16/20 04:06
--- NOTE | 2020-09-16 12:25 | P.PN ---
Subjective Progress Note Date: 09/16/20 Principal diagnosis: Acute non-ST segment elevation myocardial infarction 75-year-old white female patient recently hospitalized from 09/08/2020 and then discharged on 09/10/2020 hypertensive urgency, acute kidney injury, and neck pain. CT scan of the cervical spine at that time showed degenerative changes with spinal canal stenosis and and plate spurring at C5, no acute injuries. Patient was also in acute kidney injury and nephrology consultation was requested. EKG at that time was unremarkable. Patient's past medical history is also significant for abdominal aortic aneurysm status post aortic iliac graft stenting in May [address] Barreto. Her CT angiogram showed abdominal aortic aneurysm unchanged in size, with endoleak. Patient's blood pressure had improved, patient was discharged home on 09/10/2020. On 09/15/2020 patient was sent in from Dr. Farnsworth's office for EKG changes. Apparently she was seen in follow-up in Dr. Farnsworth's office for post hospital visit. She has been complaining of some abdominal discomfort, and increased shortness of breath. She denied any chest pain, denies any palpitations, no fever or chills. No lower extremity edema, she's been having some abdominal discomfort only when she went to forcefully cough, no vomiting, or diarrhea, no back pain, no urinary symptoms. Her chest x-ray showed developing bibasilar infiltrates and small pleural effusions. Lab data revealed white blood cell, 12.4, hemoglobin of 11.8, d-dimer of 2.71, sodium is 132, the rest of the electrolytes were within normal limits, creatinine is 2.46, B1 is 36, plasma lactic acid was mildly elevated at 2.6, patient had troponin elevation at 1.340, and 1.090, proBNP was 37,400. COVID 19 PCR was negative. The patient is seen today 09/16/2020 in follow-up on the selective care unit. She is currently sitting up in bed. Awake and alert in no acute distress. Feeling quite fatigued and weak. She is maintaining O2 saturation in the low 90s on 3 L/m per nasal cannula. She's afebrile. Hemodynamically stable. No chest pain or palpitations. Chest x-ray shows COPD with increasing small left pleural effusion. White count 9.9. Hemoglobin 10.1. Sodium 132. Potassium 3.4. Creatinine 2.51. Glucose 136. Pro-calcitonin 0.34. She remains on ceftriaxone, azithromycin. Lasix 40 mg IV every 12 hours. Heparin drip continues. Echocardiogram pending. Objective - Vital Signs Vital signs: Vital Signs Temp 98.2 F 09/16/20 11:50 Pulse 94 09/16/20 11:50 Resp 18 09/16/20 11:50 BP 123/60 09/16/20 11:50 Pulse Ox 91 L 09/16/20 11:50 Intake & Output 09/15/20 09/16/20 09/16/20 18:59 06:59 18:59 Intake Total 154.506 43.95 Output Total 300 Balance -145.494 43.95 Weight 43.091 kg 40 kg Intake: IV 63 Heparin Sod,Pork in 0.45% 63 NaCl 25,000 unit In 0.45 % NaCl 1 250ml.bag @ 12 UNITS/KG/HR 5.171 mls/hr IV .Q24H [facility] Rx#: [id number] Intake, IV Titration 91.506 43.95 Amount Heparin Sod,Pork in 0.45% 91.506 43.95 NaCl 25,000 unit In 0.45 % NaCl 1 250ml.bag @ 12 UNITS/KG/HR 5.171 mls/hr IV .Q24H [facility] Rx#: [id number] Output: Urine 300 Other: Voiding Method Toilet Toilet Toilet # Voids 1 - Exam GENERAL EXAM: Alert, very pleasant, 75-year-old female patient, on 3 L of oxygen pulse ox 91% comfortable in no apparent distress. HEAD: Normocephalic/atraumatic. EYES: Normal reaction of pupils, equal size. Conjunctiva pink, sclera white. NOSE: Clear with pink turbinates. THROAT: No erythema or exudates. NECK: No masses, no JVD, no thyroid enlargement, no adenopathy. CHEST: No chest wall deformity. Symmetrical expansion. LUNGS: Equal air entry with bibasilar crackles CVS: Regular rate and rhythm, normal S1 and S2, no gallops, no murmurs, no rubs ABDOMEN: Soft, nontender. No hepatosplenomegaly, normal bowel sounds, no guarding or rigidity. EXTREMITIES: No clubbing, no edema, no cyanosis, 2+ pulses and upper and lower extremities. MUSCULOSKELETAL: Muscle strength and tone normal. SPINE: No scoliosis or deformity SKIN: No rashes CENTRAL NERVOUS SYSTEM: No focal deficits, tone is normal in all 4 extremities. PSYCHIATRIC: Alert and oriented -3. Appropriate affect. Intact judgment and insight. - Labs CBC & Chem 7: 09/16/20 04:06 09/16/20 04:06 Labs: Abnormal Lab Results - Last 24 Hours (Table) 09/15/20 09/15/20 09/15/20 Range/Units 11:17 14:06 17:30 RBC (3.80-5.40) m/uL Hgb (11.4-16.0) gm/dL Hct (34.0-46.0) % RDW (11.5-15.5) % Neutrophils # (1.3-7.7) k/uL Lymphocytes # (1.0-4.8) k/uL APTT (22.0-30.0) sec Sodium (137-145) mmol/L Potassium (3.5-5.1) mmol/L BUN (7-17) mg/dL Creatinine (0.52-1.04) mg/dL Glucose (74-99) mg/dL Calcium (8.4-10.2) mg/dL Troponin I 1.340 H* 1.090 H* 1.020 H* (0.000-0.034) ng/mL Total Protein (6.3-8.2) g/dL Albumin (3.5-5.0) g/dL LDL Cholesterol, Calc (0-99) mg/dL HDL Cholesterol (40-60) mg/dL Procalcitonin (0.02-0.09) ng/mL 09/15/20 09/16/20 09/16/20 Range/Units 17:30 04:06 04:06 RBC 3.50 L (3.80-5.40) m/uL Hgb 10.1 L (11.4-16.0) gm/dL Hct 30.3 L (34.0-46.0) % RDW 16.1 H (11.5-15.5) % Neutrophils # 8.6 H (1.3-7.7) k/uL Lymphocytes # 0.6 L (1.0-4.8) k/uL APTT (22.0-30.0) sec Sodium 132 L (137-145) mmol/L Potassium 3.4 L (3.5-5.1) mmol/L BUN 37 H (7-17) mg/dL Creatinine 2.51 H (0.52-1.04) mg/dL Glucose 136 H (74-99) mg/dL Calcium 8.2 L (8.4-10.2) mg/dL Troponin I (0.000-0.034) ng/mL Total Protein 5.6 L (6.3-8.2) g/dL Albumin 3.1 L (3.5-5.0) g/dL LDL Cholesterol, Calc 104 H (0-99) mg/dL HDL Cholesterol 69 H (40-60) mg/dL Procalcitonin 0.34 H (0.02-0.09) ng/mL 09/16/20 09/16/20 Range/Units 04:06 10:17 RBC (3.80-5.40) m/uL Hgb (11.4-16.0) gm/dL Hct (34.0-46.0) % RDW (11.5-15.5) % Neutrophils # (1.3-7.7) k/uL Lymphocytes # (1.0-4.8) k/uL APTT 32.5 H 34.7 H (22.0-30.0) sec Sodium (137-145) mmol/L Potassium (3.5-5.1) mmol/L BUN (7-17) mg/dL Creatinine (0.52-1.04) mg/dL Glucose (74-99) mg/dL Calcium (8.4-10.2) mg/dL Troponin I (0.000-0.034) ng/mL Total Protein (6.3-8.2) g/dL Albumin (3.5-5.0) g/dL LDL Cholesterol, Calc (0-99) mg/dL HDL Cholesterol (40-60) mg/dL Procalcitonin (0.02-0.09) ng/mL Assessment and Plan Assessment: 1 Acute non-ST elevated myocardial infarction, patient presented with increased shortness of breath, positive cardiac markers, and EKG showing sinus tachycardia, ST and T-wave abnormality the possibility of inferior subendo cardial injury. 2 Rule out possibility of pneumonia, chest x-ray showing developing bibasilar infiltrates and small pleural effusions. Pro-calcitonin 0.34. COVID 19 PCR negative 3 Acute exacerbation of CHF with previously documented low normal EF of 50-55% 4 Acute kidney injury. Current creatinine 2.51 5 Hypertension 6 Hyperlipidemia 7 Chronic neck pain related to degenerative disc disease at cervical spine 8 Osteoarthritis 9 Chronic and ongoing history of smoking 10 Abdominal aortic aneurysm, status post EVAR with bilateral chimney renal stents with no endoleak 11 Recent hospitalization for hypertensive urgency, acute kidney injury Plan: The patient was seen and evaluated by Dr. Villagomez Chest x-ray and labs reviewed Continue antibiotics Continue IV diuretics Titrate down the FiO2 as tolerated Remains on a heparin drip for now Possible cardiac catheterization if renal function improves We will continue to follow I, the cosigning physician, performed a history & physical examination of the patient. Lungs sounds with bibasilar crackles. Maintaining good O2 saturations in the 90s on 3 L/m per nasal cannula. I discussed the assessment and plan of care with my nurse practitioner, Ngozi Larson. I attest to the above note as dictated by her.
[2020-09-16] MEDS: AZITHROMYCIN 500 MG in SODIUM CHLORIDE 0.9% 250 ML IVPB SCH (16:54)
[2020-09-16] MEDS: HEPARIN SOD,PORK IN 0.45% NACL 25,000 UNIT in 0.45% NACL 1 250ML.BAG IV SCH (16:55)
[2020-09-16 17:45] LABS: Appearance,Urine Clear (Clear); Bilirubin,Urine Negative (Negative); Blood,Urine Negative (Negative); Color,Urine Yellow; Glucose,Urine (UA) Negative (Negative); Ketones,Urine Negative (Negative); Leukocyte Esterase,Urine Small (Negative); Mucus,Urine Rare /hpf; Nitrite,Urine Negative (Negative); PH, Urine 5.5 (5.0-8.0); Protein,Urine 1+ (Negative); RBC,Urine 2 /hpf (0-5); Specific Gravity,Urine 1.012 (1.001-1.035); Squamous Epithelial Cell,Urine 1 /hpf (0-4); Urobilinogen,Urine <2.0 mg/dL (<2.0); WBC,Urine 4 /hpf (0-5)
--- NOTE | 2020-09-16 17:50 | ECHOF ---
Referral Reason:nstemi MEASUREMENTS -------- HEIGHT: 152.4 cm WEIGHT: 39.9 kg BP: 155/70 RVIDd: 2.4 cm (< 3.3) IVSd: 0.9 cm (0.6 - 1.1) LVIDd: 4.7 cm (3.9 - 5.3) LVPWd: 1.0 cm (0.6 - 1.1) IVSs: 1.5 cm LVIDs: 3.4 cm LVPWs: 1.3 cm LA Diam: 3.1 cm (2.7 - 3.8) LAESV Index (A-L): 30.05 ml/m Ao Diam: 2.7 cm (2.0 - 3.7) AV Cusp: 1.6 cm (1.5 - 2.6) MV EXCURSION: 13.796 mm (> 18.000) MV EF SLOPE: 98 mm/s (70 - 150) EPSS: 0.5 cm MV E Bijan: 1.50 m/s MV DecT: 214 ms MV A Bijan: 1.15 m/s MV E/A Ratio: 1.31 RAP: 15.00 mmHg RVSP: 50.61 mmHg FINDINGS -------- Sinus rhythm. This was a technically adequate study. The left ventricular size is normal. Left ventricular wall thickness is normal. Overall left vent ricular systolic function is normal with, an EF between 55 - 60 %. The right ventricle is normal in size. LA is midly dilated 29-33ml/m2. The right atrial size is normal. Interatrial and interventricular septum intact. There is mild aortic valve sclerosis. The mitral valve leaflets are mildly thickened. Fjzsundn-gr-yunvvz mitral regurgitation is present. Ynnf-ra-bdgzplnd tricuspid regurgitation present. There is moderate pulmonary hypertension. The r ight ventricular systolic pressure, as measured by Doppler, is 50.61mmHg. Trace/mild (physiologic) pulmonic regurgitation. The aortic root size is normal. The inferior vena cava is dilated with poor inspiratory collapse which is consistent with estimated r ight atrial pressure of 15 mmHg. There is no pericardial effusion. CONCLUSIONS -------- 1. Overall left ventricular systolic function is normal with, an EF between 55 - 60 %. 2. LA is midly dilated 29-33ml/m2. 3. There is mild aortic valve sclerosis. 4. The mitral valve leaflets are mildly thickened. 5. Pknrzldm-ru-ekawft mitral regurgitation is present. 6. Rena-ud-zpjeshpg tricuspid regurgitation present. 7. There is moderate pulmonary hypertension. 8. Trace/mild (physiologic) pulmonic regurgitation. 9. The inferior vena cava is dilated with poor inspiratory collapse which is consistent with estimate d right atrial pressure of 15 mmHg. 10. There is no pericardial effusion. PLANNING DIRECTOR: Halina Covarrubias RDCS
--- NOTE | 2020-09-16 18:02 | CONS ---
CONSULTATION REASON FOR CONSULT: Renal failure. HISTORY OF PRESENT ILLNESS: Patient is a 75-year-old female with history of hypertension, recent pneumonia and gout who was admitted to the hospital with complaints of shortness of breath. Patient denied any fevers or chills. She denied any significant swelling of her lower extremities. It appears that patient was recently discharged from the hospital on 09/10/2020 after an admission for cervical neck pain. She was found to have acute kidney injury and uncontrolled hypertension. The patient has a history of abdominal aortic aneurysm with an endoleak. She had IV contrast for CTA done on 07/13/2020. Serum creatinine had been about 2.5 mg/dL at peak and then started to decrease down to 1.9 on discharge. This admission serum creatinine was 2.46 and today it is at 2.5. The patient is currently being diuresed. She is maintained on Lasix 40 mg q.12 hours. Her chest x-ray from this admission showed COPD with small left pleural effusion with dense retrocardiac consolidation/atelectasis. The patient states she has been voiding well. She denies use of any nonsteroidal anti-inflammatory agents prior to admission. Blood pressure has been about 120 mmHg systolic. No significant hypotension noted. PAST MEDICAL HISTORY: Recent hospitalization with cervical neck pain, hypertension, acute kidney injury, hyperlipidemia, hypertension, gout, osteoporosis, diverticulitis, osteoarthritis. PAST SURGICAL HISTORY: Appendectomy, adenoidectomy, cholecystectomy, hysterectomy, left knee arthroscopy, right wrist ganglion surgery, skin cancer removal from nose, cataract surgery, history of renal stent placement, history of abdominal aortic aneurysm with endovascular leak and stent graft. SOCIAL HISTORY: Positive for smoking. No other drug abuse or alcohol abuse. MEDICATIONS: Medications prior to admission included vitamin C, calcium, Norvasc, hydralazine. ALLERGIES: ALLERGIES ARE MULTIPLE and include CODEINE, MORPHINE, PENICILLIN, STATINS. REVIEW OF SYSTEMS: As per HPI. Other systems negative. PHYSICAL EXAMINATION: Patient is currently comfortable. She is mildly short of breath, not in any acute distress. Blood pressure was 123/60, heart rate 94 per minute. She is afebrile. EXAMINATION OF THE HEART: S1 and S2. EXAMINATION OF LUNGS: Decreased breath sounds at bases. ABDOMEN: Soft, non-tender. Examination of lower extremities shows no significant edema. 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 LABS: Labs show sodium 132, potassium 3.4, chloride 101, BUN 37, serum creatinine 2.5. Troponin 1.090. Procalcitonin 0.34. Hemoglobin 10.1 g/dL. ASSESSMENT: 1. Acute kidney injury, acute tubular necrosis versus cardiorenal. During last admission creatinine had peaked to around 2.5 mg/dL but decreased to 1.9 at the time of discharge. Patient was hydrated. Ultrasound of the abdomen does not show any evidence of hydronephrosis on 09/09/2020. I will continue to diurese the patient for now. I will check a urinalysis and repeat labs in a.m. Continue to avoid any nephrotoxic agents. 2. Hypertension, currently controlled. 3. Abdominal aortic aneurysm with history of bilateral renal artery stents. 4. Chronic kidney disease with serum creatinine as low as 1.0 on 06/17/2020 and 1.9 on 09/10/2020. Stage 3 b -4 . Etiology is possibly ischemic nephropathy and nephrosclerosis. Check urinalysis. 5. Hypokalemia secondary to diuresis. Will replace. 6. Elevated troponin, being followed by Cardiology. Currently patient is maintained on IV heparin. Patient is being considered for cardiac catheterization. 7. Volume overload PLAN: Continue to diurese patient. Repeat labs in a.m. Avoid nephrotoxic agents. Check urinalysis. Avoid hypotension. Thank you for this consultation. Will continue to follow the patient with you during her hospitalization. MMOSWALDOL / JORDIN: [id number] / MTDAmelia
[2020-09-16] MEDS: FUROSEMIDE 10 MG/ML 4 ML VIAL IV SCH (19:42)
[2020-09-16 23:34] LABS: ABG Base Excess -0.6 mmol/L; ABG HCO3 23 mmol/L (21-25); ABG Oxygen Saturation 94.6 % (94-97); ABG PCO2 32 mmHg (35-45); ABG PH 7.47 (7.35-7.45); ABG PO2 67 mmHg (83-108); ABG TCO2 24 mmol/L (19-24); Allen Test Performed? Yes
[2020-09-16] MEDS ORDERED: ACETAMINOPHEN IV (For NPO) 600 MG in EMPTY BAG 1 BAG IVPB PRN (23:39)
--- NOTE | 2020-09-16 23:45 | XR ---
EXAMINATION TYPE: XR chest 1V portable DATE OF EXAM: 09/16/2020 COMPARISON: 09/16/2020 HISTORY: Short of breath TECHNIQUE: Single view FINDINGS: Heart is enlarged. There is pulmonary interstitial and airspace edema. There is slight blun ting of the costophrenic angles. There are chest leads. Thoracic aorta is atheromatous. IMPRESSION: Congestive heart failure with pleural effusions and basilar pulmonary infiltrates. Pleura l fluid and infiltrates and congestion slightly increased compared to exam this morning.
[2020-09-16 23:55] LABS: Anisocytosis Slight; Basophils # (A) 0.1 k/uL (0-0.2); Basophils % (A) 1 %; Eosinophils # (A) 0.2 k/uL (0-0.7); Eosinophils % (A) 2 %; HCT 29.4 % (34.0-46.0); HGB 9.8 gm/dL (11.4-16.0); Lymphocytes # (A) 0.5 k/uL (1.0-4.8); Lymphocytes % (A) 5 %; MCH 28.6 pg (25.0-35.0); MCHC 33.4 g/dL (31.0-37.0); MCV 85.7 fL (80.0-100.0); Mean Platelet Volume 7.3; Monocytes # (A) 0.4 k/uL (0-1.0); Monocytes % (A) 4 %; Neutrophils % (A) 88 %; Platelet Count 274 k/uL (150-450); RBC 3.43 m/uL (3.80-5.40); RDW 16.4 % (11.5-15.5); WBC 10.2 k/uL (3.8-10.6)
[2020-09-17] MEDS: NITROGLYCERIN OINT 1 INCH/GM PACKET TOPICAL SCH ×3 (00:16→11:22)
[2020-09-17 00:35] LABS: Albumin 3.3 g/dL (3.5-5.0); Calcium 7.9 mg/dL (8.4-10.2); Potassium 3.3 mmol/L (3.5-5.1); Total Bilirubin 0.5 mg/dL (0.2-1.3); Total Protein 5.7 g/dL (6.3-8.2)
[2020-09-17] MEDS: guaiFENesin-DM 600/30MG 1 EACH TAB.ER.12H PO PRN (00:48)
[2020-09-17 06:18] LABS: Anisocytosis Slight; HCT 29.6 % (34.0-46.0); HGB 9.8 gm/dL (11.4-16.0); MCH 28.7 pg (25.0-35.0); MCHC 33.1 g/dL (31.0-37.0); MCV 86.7 fL (80.0-100.0); Mean Platelet Volume 7.1; Platelet Count 272 k/uL (150-450); RBC 3.42 m/uL (3.80-5.40); RDW 16.2 % (11.5-15.5); WBC 8.6 k/uL (3.8-10.6)
[2020-09-17 07:15] LABS: Calcium 7.7 mg/dL (8.4-10.2); Potassium 3.1 mmol/L (3.5-5.1)
[2020-09-17] MEDS: hydrALAZINE HCL 50 MG TAB PO SCH ×3 (08:09→21:34)
[2020-09-17] MEDS: FUROSEMIDE 10 MG/ML 4 ML VIAL IV SCH (08:09)
[2020-09-17] MEDS: ASCORBIC ACID 500 MG TAB PO SCH (08:09)
[2020-09-17] MEDS: METOPROLOL TARTRATE 25 MG TAB PO SCH ×3 (08:09→21:34)
[2020-09-17] MEDS: amLODIPine 10 MG TAB PO SCH (08:09)
[2020-09-17] MEDS: ASPIRIN 81 MG PO SCH (08:09)
[2020-09-17] MEDS: CALCIUM CARBONATE 500 MG CHEWABLE PO SCH (08:09)
[2020-09-17] MEDS: CHOLECALCIFEROL 25 MCG (1000 IU) TABLET PO SCH (08:09)
[2020-09-17] MEDS ORDERED: HYDROcodone/APAP 5-325MG 1 EACH TAB PO PRN (08:26)
[2020-09-17] MEDS: IPRATROPIUM-ALBUTEROL 3 ML NEB INHALATION PRN ×3 (09:15→16:09)
--- NOTE | 2020-09-17 09:15 | P.PN ---
Subjective Progress Note Date: 09/17/20 Principal diagnosis: Dyspnea generalized weakness Evaluated 75-year-old female this a.m., patient noted to be in mild respiratory difficulty, currently on venti-mask for supplemental oxygen. Patient had a episode of mild to moderate respiratory distress last night chest x-ray performed revealed increase pulmonary congestion. Attempted BiPAP for respiratory difficulty for fluid overload, patient unable to tolerate BiPAP. Patient tolerating Ventimask for supplemental oxygen. Patient able to speak few word sentences this a.m. patient denies chest discomfort, palpitations, abdominal pain, nausea, vomiting, fever or chills. Patient continues to complain of shortness of breath at rest and exertional shortness of breath. Consultants to continue to follow for recommendations and treatment plan. Objective - Vital Signs Vital signs: Vital Signs Temp 97 F L 09/17/20 08:00 Pulse 77 09/17/20 08:00 Resp 20 09/17/20 08:00 BP 128/60 09/17/20 08:00 Pulse Ox 94 L 09/17/20 08:00 Intake & Output 09/16/20 09/17/20 09/17/20 18:59 06:59 18:59 Intake Total 513.504 22.981 104.565 Output Total 400 Balance 513.504 -377.019 104.565 Weight 42.5 kg Intake: Intake, IV Titration 93.504 22.981 104.565 Amount Heparin Sod,Pork in 0.45% 93.504 22.981 104.565 NaCl 25,000 unit In 0.45 % NaCl 1 250ml.bag @ 12 UNITS/KG/HR 5.171 mls/hr IV .Q24H [facility] Rx#: [id number] Oral 420 Output: Urine 400 Other: Voiding Method Toilet Toilet # Voids 1 1 - Constitutional General appearance: Present: mild distress - EENT Eyes: Present: EOMI, PERRLA Ears: bilateral: normal - Neck Neck: Present: normal ROM Carotids: bilateral: upstroke normal Thyroid: bilateral: normal size - Respiratory Respiratory: bilateral: diminished (Anterior lung coleman), rales (Posterior lung coleman) - Cardiovascular Details: Normal sinus pattern Heart rate: 74 Rhythm: regular Heart sounds: normal: S1, S2 - Peripheral pulses radial pulse Peripheral Pulses: bilateral: Normal dorsalis pedis Peripheral Pulses: bilateral: Normal - Gastrointestinal General gastrointestinal: Present: normal bowel sounds - Integumentary Integumentary: Present: decreased turgor - Neurologic Neurologic: Present: CNII-XII intact - Musculoskeletal Musculoskeletal: Present: generalized weakness - Psychiatric Psychiatric: Present: A&O x's 3, appropriate affect, intact judgment & insight - Labs CBC & Chem 7: 09/17/20 06:05 09/17/20 06:05 Labs: Abnormal Lab Results - Last 24 Hours (Table) 09/16/20 09/16/20 09/16/20 Range/Units 10:17 17:00 18:17 RBC (3.80-5.40) m/uL Hgb (11.4-16.0) gm/dL Hct (34.0-46.0) % RDW (11.5-15.5) % Neutrophils # (1.3-7.7) k/uL Lymphocytes # (1.0-4.8) k/uL APTT 34.7 H 50.5 H (22.0-30.0) sec ABG pH (7.35-7.45) ABG pCO2 (35-45) mmHg ABG pO2 (83-108) mmHg Sodium (137-145) mmol/L Potassium (3.5-5.1) mmol/L Carbon Dioxide (22-30) mmol/L BUN (7-17) mg/dL Creatinine (0.52-1.04) mg/dL Glucose (74-99) mg/dL Calcium (8.4-10.2) mg/dL Troponin I (0.000-0.034) ng/mL Total Protein (6.3-8.2) g/dL Albumin (3.5-5.0) g/dL Urine Protein 1+ H (Negative) Ur Leukocyte Esterase Small H (Negative) Urine Mucus Rare H (None) /hpf 09/16/20 09/16/20 09/16/20 Range/Units 23:23 23:44 23:44 RBC 3.43 L (3.80-5.40) m/uL Hgb 9.8 L (11.4-16.0) gm/dL Hct 29.4 L (34.0-46.0) % RDW 16.4 H (11.5-15.5) % Neutrophils # 9.0 H (1.3-7.7) k/uL Lymphocytes # 0.5 L (1.0-4.8) k/uL APTT (22.0-30.0) sec ABG pH 7.47 H (7.35-7.45) ABG pCO2 32 L (35-45) mmHg ABG pO2 67 L (83-108) mmHg Sodium 132 L (137-145) mmol/L Potassium 3.3 L (3.5-5.1) mmol/L Carbon Dioxide 21 L (22-30) mmol/L BUN 41 H (7-17) mg/dL Creatinine 2.71 H (0.52-1.04) mg/dL Glucose 124 H (74-99) mg/dL Calcium 7.9 L (8.4-10.2) mg/dL Troponin I (0.000-0.034) ng/mL Total Protein 5.7 L (6.3-8.2) g/dL Albumin 3.3 L (3.5-5.0) g/dL Urine Protein (Negative) Ur Leukocyte Esterase (Negative) Urine Mucus (None) /hpf 09/16/20 09/17/20 09/17/20 Range/Units 23:44 06:05 06:05 RBC 3.42 L (3.80-5.40) m/uL Hgb 9.8 L (11.4-16.0) gm/dL Hct 29.6 L (34.0-46.0) % RDW 16.2 H (11.5-15.5) % Neutrophils # (1.3-7.7) k/uL Lymphocytes # (1.0-4.8) k/uL APTT (22.0-30.0) sec ABG pH (7.35-7.45) ABG pCO2 (35-45) mmHg ABG pO2 (83-108) mmHg Sodium 132 L (137-145) mmol/L Potassium 3.1 L (3.5-5.1) mmol/L Carbon Dioxide 21 L (22-30) mmol/L BUN 42 H (7-17) mg/dL Creatinine 2.86 H (0.52-1.04) mg/dL Glucose 108 H (74-99) mg/dL Calcium 7.7 L (8.4-10.2) mg/dL Troponin I 0.924 H* (0.000-0.034) ng/mL Total Protein (6.3-8.2) g/dL Albumin (3.5-5.0) g/dL Urine Protein (Negative) Ur Leukocyte Esterase (Negative) Urine Mucus (None) /hpf 09/17/20 Range/Units 06:05 RBC (3.80-5.40) m/uL Hgb (11.4-16.0) gm/dL Hct (34.0-46.0) % RDW (11.5-15.5) % Neutrophils # (1.3-7.7) k/uL Lymphocytes # (1.0-4.8) k/uL APTT 49.7 H (22.0-30.0) sec ABG pH (7.35-7.45) ABG pCO2 (35-45) mmHg ABG pO2 (83-108) mmHg Sodium (137-145) mmol/L Potassium (3.5-5.1) mmol/L Carbon Dioxide (22-30) mmol/L BUN (7-17) mg/dL Creatinine (0.52-1.04) mg/dL Glucose (74-99) mg/dL Calcium (8.4-10.2) mg/dL Troponin I (0.000-0.034) ng/mL Total Protein (6.3-8.2) g/dL Albumin (3.5-5.0) g/dL Urine Protein (Negative) Ur Leukocyte Esterase (Negative) Urine Mucus (None) /hpf - Imaging and Cardiology Chest x-ray: report reviewed Assessment and Plan Assessment: Non-STEMItroponins trending downwardconsultation with cardiology for recommendations and treatment plan Fluid overloadIV Lasixconsultation with pulmonology for recommendations and treatment plan Possible pneumoniaIV antibiotics Acute on chronic renal failureavoid nephrotoxic drugs as possibleconsultation with nephrology for recommendations and treatment plan Hyperlipidemia Hypertension Osteoporosis Degenerative disc disease History of aneurysm repair with endoleak Continue home medicationsdue to comorbidities Continue to monitor diagnostics and vital signs Continue medical management DNR Time with Patient: Greater than 30
[2020-09-17] MEDS: FUROSEMIDE 100 MG in SODIUM CHLORIDE 0.9% 90 ML IV SCH ×2 (11:21→18:43)
--- NOTE | 2020-09-17 12:10 | P.PN ---
Subjective Progress Note Date: 09/17/20 Principal diagnosis: Acute non-ST segment elevation myocardial infarction 75-year-old white female patient recently hospitalized from 09/08/2020 and then discharged on 09/10/2020 hypertensive urgency, acute kidney injury, and neck pain. CT scan of the cervical spine at that time showed degenerative changes with spinal canal stenosis and and plate spurring at C5, no acute injuries. Patient was also in acute kidney injury and nephrology consultation was requested. EKG at that time was unremarkable. Patient's past medical history is also significant for abdominal aortic aneurysm status post aortic iliac graft stenting in May [address] Barreto[address] Her CT angiogram showed abdominal aortic aneurysm unchanged in size, with endoleak. Patient's blood pressure had improved, patient was discharged home on 09/10/2020. On 09/15/2020 patient was sent in from Dr. Farnsworth's office for EKG changes. Apparently she was seen in follow-up in Dr. Farnsworth's office for post hospital visit. She has been complaining of some abdominal discomfort, and increased shortness of breath. She denied any chest pain, denies any palpitations, no fever or chills. No lower extremity edema, she's been having some abdominal discomfort only when she went to forcefully cough, no vomiting, or diarrhea, no back pain, no urinary symptoms. Her chest x-ray showed developing bibasilar infiltrates and small pleural effusions. Lab data revealed white blood cell, 12.4, hemoglobin of 11.8, d-dimer of 2.71, sodium is 132, the rest of the electrolytes were within normal limits, creatinine is 2.46, B1 is 36, plasma lactic acid was mildly elevated at 2.6, patient had troponin elevation at 1.340, and 1.090, proBNP was 37,400. COVID 19 PCR was negative. The patient is seen today 09/16/2020 in follow-up on the selective care unit. She is currently sitting up in bed. Awake and alert in no acute distress. Feeling quite fatigued and weak. She is maintaining O2 saturation in the low 90s on 3 L/m per nasal cannula. She's afebrile. Hemodynamically stable. No chest pain or palpitations. Chest x-ray shows COPD with increasing small left pleural effusion. White count 9.9. Hemoglobin 10.1. Sodium 132. Potassium 3.4. Creatinine 2.51. Glucose 136. Pro-calcitonin 0.34. She remains on ceftriaxone, azithromycin. Lasix 40 mg IV every 12 hours. Heparin drip continues. Echocardiogram pending. She is seen today 09/17/2020 on the selective care unit. She is currently awake and alert in no acute distress. Her oxygen requirements have continued to go up. She is currently on 15 L via Ventimask 50% FiO2. O2 saturation 92%. She's afebrile. Hemodynamically stable. She is dyspneic on minimal exertion. Chest x-ray continues to show evidence of congestive heart failure with bilateral effusions and basilar infiltrates. She's also having issues with diarrhea. C. diff is pending. She remains on heparin drip for her non-ST segment elevation myocardial infarction. Her proBNP level is 25,400. Last troponin 0.924. Sodium 132. Potassium 3.1. Creatinine 2.86. White count 8.6. Hemoglobin 9.8. She remains on ceftriaxone and azithromycin. Remains on bronchodilators, Lasix 40 mg IV every 12 hours. No accurate I&O. She has been voiding. She is at 42.5 kg. Objective - Vital Signs Vital signs: Vital Signs Temp 97.3 F L 09/17/20 11:44 Pulse 94 09/17/20 11:44 Resp 20 09/17/20 11:44 BP 112/55 09/17/20 11:44 Pulse Ox 92 L 09/17/20 11:44 Intake & Output 09/16/20 09/17/20 09/17/20 18:59 06:59 18:59 Intake Total 513.504 22.981 344.565 Output Total 400 Balance 513.504 -377.019 344.565 Weight 42.5 kg 42.5 kg Intake: Intake, IV Titration 93.504 22.981 104.565 Amount Heparin Sod,Pork in 0.45% 93.504 22.981 104.565 NaCl 25,000 unit In 0.45 % NaCl 1 250ml.bag @ 12 UNITS/KG/HR 5.171 mls/hr IV .Q24H [facility] Rx#: [id number] Oral 420 240 Output: Urine 400 Other: Voiding Method Toilet Toilet Toilet # Voids 1 1 - Exam GENERAL EXAM: Alert, very pleasant, 75-year-old female patient, on 15 L of oxygen via Ventimask pulse ox 92% comfortable in no apparent distress. HEAD: Normocephalic/atraumatic. EYES: Normal reaction of pupils, equal size. Conjunctiva pink, sclera white. NOSE: Clear with pink turbinates. THROAT: No erythema or exudates. NECK: No masses, no JVD, no thyroid enlargement, no adenopathy. CHEST: No chest wall deformity. Symmetrical expansion. LUNGS: Equal air entry with bibasilar crackles CVS: Regular rate and rhythm, normal S1 and S2, no gallops, no murmurs, no rubs ABDOMEN: Soft, nontender. No hepatosplenomegaly, normal bowel sounds, no guarding or rigidity. EXTREMITIES: No clubbing, no edema, no cyanosis, 2+ pulses and upper and lower extremities. MUSCULOSKELETAL: Muscle strength and tone normal. SPINE: No scoliosis or deformity SKIN: No rashes CENTRAL NERVOUS SYSTEM: No focal deficits, tone is normal in all 4 extremities. PSYCHIATRIC: Alert and oriented -3. Appropriate affect. Intact judgment and insight. - Labs CBC & Chem 7: 09/17/20 06:05 09/17/20 06:05 Labs: Abnormal Lab Results - Last 24 Hours (Table) 09/16/20 09/16/20 09/16/20 Range/Units 17:00 18:17 23:23 RBC (3.80-5.40) m/uL Hgb (11.4-16.0) gm/dL Hct (34.0-46.0) % RDW (11.5-15.5) % Neutrophils # (1.3-7.7) k/uL Lymphocytes # (1.0-4.8) k/uL APTT 50.5 H (22.0-30.0) sec ABG pH 7.47 H (7.35-7.45) ABG pCO2 32 L (35-45) mmHg ABG pO2 67 L (83-108) mmHg Sodium (137-145) mmol/L Potassium (3.5-5.1) mmol/L Carbon Dioxide (22-30) mmol/L BUN (7-17) mg/dL Creatinine (0.52-1.04) mg/dL Glucose (74-99) mg/dL Calcium (8.4-10.2) mg/dL Troponin I (0.000-0.034) ng/mL Total Protein (6.3-8.2) g/dL Albumin (3.5-5.0) g/dL Urine Protein 1+ H (Negative) Ur Leukocyte Esterase Small H (Negative) Urine Mucus Rare H (None) /hpf 09/16/20 09/16/20 09/16/20 Range/Units 23:44 23:44 23:44 RBC 3.43 L (3.80-5.40) m/uL Hgb 9.8 L (11.4-16.0) gm/dL Hct 29.4 L (34.0-46.0) % RDW 16.4 H (11.5-15.5) % Neutrophils # 9.0 H (1.3-7.7) k/uL Lymphocytes # 0.5 L (1.0-4.8) k/uL APTT (22.0-30.0) sec ABG pH (7.35-7.45) ABG pCO2 (35-45) mmHg ABG pO2 (83-108) mmHg Sodium 132 L (137-145) mmol/L Potassium 3.3 L (3.5-5.1) mmol/L Carbon Dioxide 21 L (22-30) mmol/L BUN 41 H (7-17) mg/dL Creatinine 2.71 H (0.52-1.04) mg/dL Glucose 124 H (74-99) mg/dL Calcium 7.9 L (8.4-10.2) mg/dL Troponin I 0.924 H* (0.000-0.034) ng/mL Total Protein 5.7 L (6.3-8.2) g/dL Albumin 3.3 L (3.5-5.0) g/dL Urine Protein (Negative) Ur Leukocyte Esterase (Negative) Urine Mucus (None) /hpf 09/17/20 09/17/20 09/17/20 Range/Units 06:05 06:05 06:05 RBC 3.42 L (3.80-5.40) m/uL Hgb 9.8 L (11.4-16.0) gm/dL Hct 29.6 L (34.0-46.0) % RDW 16.2 H (11.5-15.5) % Neutrophils # (1.3-7.7) k/uL Lymphocytes # (1.0-4.8) k/uL APTT 49.7 H (22.0-30.0) sec ABG pH (7.35-7.45) ABG pCO2 (35-45) mmHg ABG pO2 (83-108) mmHg Sodium 132 L (137-145) mmol/L Potassium 3.1 L (3.5-5.1) mmol/L Carbon Dioxide 21 L (22-30) mmol/L BUN 42 H (7-17) mg/dL Creatinine 2.86 H (0.52-1.04) mg/dL Glucose 108 H (74-99) mg/dL Calcium 7.7 L (8.4-10.2) mg/dL Troponin I (0.000-0.034) ng/mL Total Protein (6.3-8.2) g/dL Albumin (3.5-5.0) g/dL Urine Protein (Negative) Ur Leukocyte Esterase (Negative) Urine Mucus (None) /hpf Assessment and Plan Assessment: 1 Acute non-ST elevated myocardial infarction, patient presented with increased shortness of breath, positive cardiac markers, and EKG showing sinus tachycardia, ST and T-wave abnormality the possibility of inferior subendocardial injury. Remains on heparin drip. 2 Acute hypoxic respiratory failure secondary to diastolic congestive heart failure and possibility of pneumonia, chest x-ray showing developing bibasilar infiltrates and small pleural effusions. Pro-calcitonin 0.34. COVID 19 PCR negative 3 Acute exacerbation of diastolic CHF with previously documented low normal EF of 50-55%. ProBNP 25,400 4 Acute kidney injury. Current creatinine 2.51 5 Hypertension 6 Hyperlipidemia 7 Chronic neck pain related to degenerative disc disease at cervical spine 8 Osteoarthritis 9 Chronic and ongoing history of smoking 10 Abdominal aortic aneurysm, status post EVAR with bilateral chimney renal stents with no endoleak 11 Recent hospitalization for hypertensive urgency, acute kidney injury Plan: The patient was seen and evaluated by Dr. Villagomez Chest x-ray and labs reviewed Increasing oxygen requirements Initiated on a Lasix drip at 10 mg per hour Insert a Chandler catheter for accurate I&O Continue antibiotics Titrate down the FiO2 as tolerated Remains on a heparin drip for now We will continue to follow and make further recommendations based on her clinical status I, the cosigning physician, performed a history & physical examination of the patient. Lungs sounds with bibasilar crackles. Maintaining good O2 saturations in the 90s on 15 L/m per Ventimask. I discussed the assessment and plan of care with my nurse practitioner, Ngozi Larson. I attest to the above note as dictated by her.
[2020-09-17] MEDS ORDERED: Potassium Replacement Protocol 1 EACH MISC MISCELLANE PRN (13:30)
--- NOTE | 2020-09-17 13:35 | P.PN ---
Subjective HISTORY OF PRESENTING ILLNESS This is a pleasant 75-year-old female past medical history significant for peripheral vascular disease status post endovascular aortic repair May 2020 with a known endoleak, hypertension, dyslipidemia and chronic nicotine dependence. She denies prior history of coronary artery disease and does not follow in the office with a facing end trimmer. She is seen and examined sitting up in bed on a venti mask. She had a rough night with significant shortness of breath requiring high flow oxygen. Repeat chest xray obtained revealed CHF with pleural effusions and basilar pulmonary infiltrates increased from previous exam. Blood pressure 112/55 heart rate 88 afebrile and maintaining oxygen saturation on venti mask. Currently maintained on IV lasix 40 mg BID, heparin infusion, aspirin 81 mg daily, amlodipine 10 mg daily and lopressor 25 mg TID. Laboratory data reviewed, WBC 8.6, hemoglobin 9.8, platelets 272, sodium 132, potassium 3.1, creatinine 2.86. Echocardiogram obtained revealed preserved LV systolic function with ejection fraction 55-60%, moderate to severe MR, mild to moderate TR and moderate pulmonary hypertension with an RVSP of 50 mmHg. PHYSICAL EXAMINATION CONSTITUTIONAL: No apparent distress. appears older than stated age. HEENT: Head is normocephalic. Pupils are equal, round. Sclerae anicteric. Mucous membranes of the mouth are moist. No JVD. No carotid bruit. CHEST EXAMINATION: Bibasilar rales with expiratory wheeze. No chest wall tenderness is noted on palpation or with deep breathing. HEART EXAMINATION: Regular rate and rhythm. S1, S2 heard. Systolic ejection murmur at the left sternal border, no gallops or rub. EXTREMITIES: 2+ peripheral pulses, no lower extremity edema and no calf tenderness. ASSESSMENT Non-ST elevated myocardial infarction Acute diastolic heart failure Pneumonia Leukocytosis Acute kidney injury Acute diastolic heart failure Peripheral vascular disease status post EVAR 05/2020 Hypokalemia Lactic acidosis Hypertension Dyslipidemia Chronic nicotine dependence PLAN Continue IV diuresis. Replace potassium per protocol. No plans for cardiac catheterization at this time secondary to worsening renal function. Continue heparin infusion for another 24 hours and maximize her medical therapy. She is intolerant to statins. Follow renal function and electrolytes in the morning. Document accurate intake and output along with daily weights. Further recommendations to follow based upon clinical course. Thank you kindly for this consultation. Nurse Practitioner note has been reviewed, I agree with a documented findings and plan of care. Patient was seen and examined. Objective - Vital Signs Vital signs: Vital Signs Temp 97.3 F L 09/17/20 11:44 Pulse 88 09/17/20 12:31 Resp 20 09/17/20 11:44 BP 112/55 09/17/20 11:44 Pulse Ox 92 L 09/17/20 11:44 Intake & Output 09/16/20 09/17/20 09/17/20 18:59 06:59 18:59 Intake Total 513.504 22.981 344.565 Output Total 400 Balance 513.504 -377.019 344.565 Weight 42.5 kg 42.5 kg Intake: Intake, IV Titration 93.504 22.981 104.565 Amount Heparin Sod,Pork in 0.45% 93.504 22.981 104.565 NaCl 25,000 unit In 0.45 % NaCl 1 250ml.bag @ 12 UNITS/KG/HR 5.171 mls/hr IV .Q24H [facility] Rx#: [id number] Oral 420 240 Output: Urine 400 Other: Voiding Method Toilet Toilet Toilet # Voids 1 1 # Bowel Movements 2 - Labs CBC & Chem 7: 09/17/20 06:05 09/17/20 06:05 Labs: Abnormal Lab Results - Last 24 Hours (Table) 09/16/20 09/16/20 09/16/20 Range/Units 17:00 18:17 23:23 RBC (3.80-5.40) m/uL Hgb (11.4-16.0) gm/dL Hct (34.0-46.0) % RDW (11.5-15.5) % Neutrophils # (1.3-7.7) k/uL Lymphocytes # (1.0-4.8) k/uL APTT 50.5 H (22.0-30.0) sec ABG pH 7.47 H (7.35-7.45) ABG pCO2 32 L (35-45) mmHg ABG pO2 67 L (83-108) mmHg Sodium (137-145) mmol/L Potassium (3.5-5.1) mmol/L Carbon Dioxide (22-30) mmol/L BUN (7-17) mg/dL Creatinine (0.52-1.04) mg/dL Glucose (74-99) mg/dL Calcium (8.4-10.2) mg/dL Troponin I (0.000-0.034) ng/mL Total Protein (6.3-8.2) g/dL Albumin (3.5-5.0) g/dL Urine Protein 1+ H (Negative) Ur Leukocyte Esterase Small H (Negative) Urine Mucus Rare H (None) /hpf 09/16/20 09/16/20 09/16/20 Range/Units 23:44 23:44 23:44 RBC 3.43 L (3.80-5.40) m/uL Hgb 9.8 L (11.4-16.0) gm/dL Hct 29.4 L (34.0-46.0) % RDW 16.4 H (11.5-15.5) % Neutrophils # 9.0 H (1.3-7.7) k/uL Lymphocytes # 0.5 L (1.0-4.8) k/uL APTT (22.0-30.0) sec ABG pH (7.35-7.45) ABG pCO2 (35-45) mmHg ABG pO2 (83-108) mmHg Sodium 132 L (137-145) mmol/L Potassium 3.3 L (3.5-5.1) mmol/L Carbon Dioxide 21 L (22-30) mmol/L BUN 41 H (7-17) mg/dL Creatinine 2.71 H (0.52-1.04) mg/dL Glucose 124 H (74-99) mg/dL Calcium 7.9 L (8.4-10.2) mg/dL Troponin I 0.924 H* (0.000-0.034) ng/mL Total Protein 5.7 L (6.3-8.2) g/dL Albumin 3.3 L (3.5-5.0) g/dL Urine Protein (Negative) Ur Leukocyte Esterase (Negative) Urine Mucus (None) /hpf 09/17/20 09/17/20 09/17/20 Range/Units 06:05 06:05 06:05 RBC 3.42 L (3.80-5.40) m/uL Hgb 9.8 L (11.4-16.0) gm/dL Hct 29.6 L (34.0-46.0) % RDW 16.2 H (11.5-15.5) % Neutrophils # (1.3-7.7) k/uL Lymphocytes # (1.0-4.8) k/uL APTT 49.7 H (22.0-30.0) sec ABG pH (7.35-7.45) ABG pCO2 (35-45) mmHg ABG pO2 (83-108) mmHg Sodium 132 L (137-145) mmol/L Potassium 3.1 L (3.5-5.1) mmol/L Carbon Dioxide 21 L (22-30) mmol/L BUN 42 H (7-17) mg/dL Creatinine 2.86 H (0.52-1.04) mg/dL Glucose 108 H (74-99) mg/dL Calcium 7.7 L (8.4-10.2) mg/dL Troponin I (0.000-0.034) ng/mL Total Protein (6.3-8.2) g/dL Albumin (3.5-5.0) g/dL Urine Protein (Negative) Ur Leukocyte Esterase (Negative) Urine Mucus (None) /hpf
[2020-09-17] MEDS: POTASSIUM CHLORIDE ER 20 MEQ TAB.ER PO SCH ×2 (17:05→17:38)
[2020-09-17] MEDS: ISOSORBIDE MONONITRATE ER 30 MG TAB.ER.24H PO SCH (17:05)
[2020-09-17] MEDS: AZITHROMYCIN 500 MG in SODIUM CHLORIDE 0.9% 250 ML IVPB SCH (17:37)
--- NOTE | 2020-09-17 18:27 | PN ---
PROGRESS NOTE Patient is seen for followup for acute kidney injury. She was admitted to the hospital with complaints of shortness of breath associated with CHF exacerbation. Currently patient is being diuresed. She is maintained on Lasix 40 mg IV q.12 hours. Renal function has been worsening since admission. Creatinine was 2.4 on initial admission. It has increased to 2.8 today. Blood pressure is not low. Urine output for 24 hours was about 400 mL. The patient has been switched to a Lasix drip at this point. Patient had acute kidney injury and was just discharged on her last admission on 09/09/2020. At that time she was hydrated and creatinine had decreased from 2.5 to 1.9 mg/dL. Ultrasound did not show any evidence of hydronephrosis and UA appears fairly benign with 1+ protein. PHYSICAL EXAMINATION: On physical examination today, blood pressure is 112/55, heart rate 82 per minute. Patient is afebrile. EXAMINATION OF THE HEART: S1 and S2. EXAMINATION OF LUNGS: Bilateral breath sounds are heard. Occasional wheezing is heard. ABDOMEN: Soft, non-tender. Examination of lower extremities shows no evidence of edema. ANIMATION DIRECTOR exam is grossly intact. LABS/IMAGING: Labs show sodium of 132, potassium 3.1, chloride 100, BUN 42, serum creatinine 2.86, hemoglobin 9.8 g/dL. Chest x-ray from yesterday shows evidence of CHF with bilateral pleural effusions and pulmonary infiltrates. ASSESSMENT: 1. Acute kidney injury, cardiorenal. Rule out urine retention, although previous ultrasound did not show any evidence of hydronephrosis on 09/09/2020. Continue with the Lasix drip for now, which was started today, and we will repeat labs in a.m. If patient continues to have poor urine output, she may need to be dialyzed. Echocardiogram shows ejection fraction of about 55% to 60%, and patient is not a candidate for dobutamine. 2. Acute hypoxic respiratory failure secondary to congestive heart failure volume overload. 3. Acute srl-LF-rthyxonyn myocardial infarction, being followed by Cardiology, maintained on heparin drip. 4. Congestive heart failure, acute on top of chronic, mostly diastolic. 5. Moderate pulmonary hypertension. 6. Abdominal aortic aneurysm, status post endovascular leak and stent graft. 7. Status post bilateral renal artery stents during abdominal aortic aneurysm repair. PLAN: Continue with the Lasix drip for now. Check post-void bladder scan to rule out urine retention. Repeat labs in a.m. Consider renal replacement therapy if urine output does not improve. MMODL / IJN: [id number] /
[2020-09-17] MEDS: HEPARIN SOD,PORK IN 0.45% NACL 25,000 UNIT in 0.45% NACL 1 250ML.BAG IV SCH (21:32)
[2020-09-18] MEDS: IPRATROPIUM-ALBUTEROL 3 ML NEB INHALATION PRN (03:07)
[2020-09-18] MEDS: FUROSEMIDE 100 MG in SODIUM CHLORIDE 0.9% 90 ML IV SCH ×2 (03:54→15:55)
[2020-09-18] MEDS: guaiFENesin-DM 600/30MG 1 EACH TAB.ER.12H PO PRN ×2 (04:31→21:15)
[2020-09-18 07:33] LABS: Calcium 7.5 mg/dL (8.4-10.2); Potassium 2.9 mmol/L (3.5-5.1)
--- NOTE | 2020-09-18 09:03 | XR ---
EXAMINATION TYPE: XR chest 1V portable DATE OF EXAM: 09/18/2020 COMPARISON: Chest x-ray 09/16/2020 HISTORY: Congestive heart failure TECHNIQUE: Single frontal view of the chest is obtained. FINDINGS: Some slight improvement in aeration as present. No evident pneumothorax. Cardiac mediastin al silhouette is stable. IMPRESSION: There is some improvement in patient's volume status.
[2020-09-18] MEDS: METOPROLOL TARTRATE 25 MG TAB PO SCH ×3 (09:53→20:48)
[2020-09-18] MEDS: ASCORBIC ACID 500 MG TAB PO SCH (09:53)
[2020-09-18] MEDS: ASPIRIN 81 MG PO SCH (09:53)
[2020-09-18] MEDS: hydrALAZINE HCL 50 MG TAB PO SCH ×3 (09:53→20:48)
[2020-09-18] MEDS: CHOLECALCIFEROL 25 MCG (1000 IU) TABLET PO SCH (09:54)
[2020-09-18] MEDS: CALCIUM CARBONATE 500 MG CHEWABLE PO SCH (09:54)
[2020-09-18] MEDS: ISOSORBIDE MONONITRATE ER 30 MG TAB.ER.24H PO SCH (09:54)
[2020-09-18] MEDS: amLODIPine 10 MG TAB PO SCH (09:54)
[2020-09-18] MEDS: POTASSIUM CHLORIDE ER 20 MEQ TAB.ER PO SCH ×3 (09:54→15:53)
--- NOTE | 2020-09-18 10:15 | P.PN ---
Subjective Progress Note Date: 09/18/20 This is a pleasant 75-year-old female past medical history significant for peripheral vascular disease status post endovascular aortic repair May 2020 with a known endoleak, hypertension, dyslipidemia and chronic nicotine dependence. She denies prior history of coronary artery disease and does not follow in the office with a jewel waxer. Patient was seen and examined this morning, she states that she did not sleep very well through the night last night but denies any chest discomfort. She does state that her breathing seems to be improved from the prior couple of days. Patient did have an echocardiogram with Doppler study performed which revealed a preserved left ventricular systolic function with ejection fraction of 55-60%, moderate to severe mitral regurgitation, [id number] TR and moderate pulmonary hypertension with RSVP of 50. Her blood pressure this morning 136/60 with a heart rate in the 70s, 93% on 5 L of oxygen. No lab data today. She continues to be on IV Lasix drip, her weight is down 1 kg today. We will request lytes BUN and creatinine today. Objective - Vital Signs Vital signs: Vital Signs Temp 97.6 F 09/18/20 04:00 Pulse 75 09/18/20 04:00 Resp 20 09/18/20 04:00 BP 136/63 09/18/20 04:00 Pulse Ox 93 L 09/18/20 04:00 Intake & Output 09/17/20 09/18/20 09/18/20 18:59 06:59 18:59 Intake Total 778.232 210.905 Output Total 600 250 Balance 178.232 -39.095 Weight 42.5 kg 41.5 kg Intake: Intake, IV Titration 178.232 210.905 Amount Furosemide 100 mg In 73.667 91.833 Sodium Chloride 0.9% 90 ml @ 10 MG/HR 10 mls/hr IV .Q10H [facility] Rx#: [id number] Heparin Sod,Pork in 0.45% 104.565 119.072 NaCl 25,000 unit In 0.45 % NaCl 1 250ml.bag @ 12 UNITS/KG/HR 5.171 mls/hr IV .Q24H [facility] Rx#: [id number] Oral 600 Output: Urine 600 250 Other: Voiding Method Toilet External Catheter # Bowel Movements 2 2 - Exam GENERAL EXAM: Alert, very pleasant, 75-year-old female patient, on 5 L of oxygen ,comfortable in no apparent distress. HEAD: Normocephalic/atraumatic. EYES: Normal reaction of pupils, equal size. Conjunctiva pink, sclera white. NOSE: Clear with pink turbinates. THROAT: No erythema or exudates. NECK: No masses, no JVD, no thyroid enlargement, no adenopathy. CHEST: No chest wall deformity. Symmetrical expansion. LUNGS: Equal air entry with bibasilar crackles CVS: Regular rate and rhythm, normal S1 and S2, no gallops, systolic ejection murmur heard ABDOMEN: Soft, nontender. No hepatosplenomegaly, normal bowel sounds, no guarding or rigidity. EXTREMITIES: No clubbing, no edema, no cyanosis, 2+ pulses and upper and lower extremities. MUSCULOSKELETAL: Muscle strength and tone normal. SPINE: No scoliosis or deformity SKIN: No rashes CENTRAL NERVOUS SYSTEM: No focal deficits, tone is normal in all 4 extremities. PSYCHIATRIC: Alert and oriented -3. Appropriate affect. Intact judgment and insight. - Labs CBC & Chem 7: 09/17/20 06:05 09/18/20 06:40 Labs: Abnormal Lab Results - Last 24 Hours (Table) 09/18/20 Range/Units 06:40 Sodium 133 L (137-145) mmol/L Potassium 2.9 L (3.5-5.1) mmol/L BUN 40 H (7-17) mg/dL Creatinine 2.99 H (0.52-1.04) mg/dL Glucose 100 H (74-99) mg/dL Calcium 7.5 L (8.4-10.2) mg/dL Assessment and Plan Plan: ASSESSMENT AND PLAN 1 Acute non-ST elevated myocardial infarction, patient presented with increased shortness of breath, positive cardiac markers, and EKG showing sinus tachycar jerry, ST and T-wave abnormality the possibility of inferior subendocardial injury. Remains on heparin drip. 2 Acute hypoxic respiratory failure secondary to diastolic congestive heart failure and possibility of pneumonia, chest x-ray showing developing bibasilar infiltrates and small pleural effusions. Pro-calcitonin 0.34. COVID 19 PCR negative 3 Acute exacerbation of diastolic CHF with previously documented low normal EF of 50-55%. ProBNP 25,400 4 Acute kidney injury. Current creatinine 2.99 5 Hypertension 6 Hyperlipidemia 7 Chronic neck pain related to degenerative disc disease at cervical spine 8 Osteoarthritis 9 Chronic and ongoing history of smoking 10 Abdominal aortic aneurysm, status post EVAR with bilateral chimney renal stents with no endoleak 11 Recent hospitalization for hypertensive urgency, acute kidney injury Plan Continue IV Lasix drip as per pulmonary, continue to monitor the intake and output along with daily weights and daily lytes BUN and creatinine. Continue IV heparin drip for 24 hours. DNP note has been reviewed, I agree with a documented findings and plan of care. Patient was seen and examined.
--- NOTE | 2020-09-18 10:48 | P.PN ---
Subjective This is a pleasant 75-year-old female past medical history significant for peripheral vascular disease status post endovascular aortic repair May 2020 patient is being treated for diastolic dysfunction with acute exacerbation Patient did have an echocardiogram with Doppler study performed which revealed a preserved left ventricular systolic function with ejection fraction of 55-60%, moderate to severe mitral regurgitation, [id number] TR and moderate pulmonary hypertension with RSVP of 50. Her blood pressure this morning 136/60 with a heart rate in the 70s, 93% on 5 L of oxygen. No lab data today. She continues to be on IV Lasix drip, her weight is down 1 kg today. And serum creatinine is bit worse and the serum sodium actually improved. Nephrology is following the patient managing the Lasix drip. Constitutional: Denied any fatigue denied any fever. Cardio vascular: denied any chest pain, palpitations Gastrointestinal denied any nausea vomiting Pulmonary: Denied any shortness of breath cough Neurologic denied any new focal deficits All inpatient medications were reviewed and appropriate changes in these m edications as dictated in the interval history and assessment and plan. Objective - Vital Signs Vital signs: Vital Signs Temp 97.6 F 09/18/20 04:00 Pulse 75 09/18/20 04:00 Resp 20 09/18/20 04:00 BP 136/63 09/18/20 04:00 Pulse Ox 93 L 09/18/20 04:00 Intake & Output 09/17/20 09/18/20 09/18/20 18:59 06:59 18:59 Intake Total 778.232 210.905 Output Total 600 250 Balance 178.232 -39.095 Weight 42.5 kg 41.5 kg Intake: Intake, IV Titration 178.232 210.905 Amount Furosemide 100 mg In 73.667 91.833 Sodium Chloride 0.9% 90 ml @ 10 MG/HR 10 mls/hr IV .Q10H [facility] Rx#: [id number] Heparin Sod,Pork in 0.45% 104.565 119.072 NaCl 25,000 unit In 0.45 % NaCl 1 250ml.bag @ 12 UNITS/KG/HR 5.171 mls/hr IV .Q24H [facility] Rx#: [id number] Oral 600 Output: Urine 600 250 Other: Voiding Method Toilet External Catheter # Bowel Movements 2 2 - Exam PHYSICAL EXAMINATION: GENERAL: The patient is alert and oriented x3, not in any acute distress. Thin built HEENT: Pupils are round and equally reacting to light. EOMI. No scleral icterus. No conjunctival pallor. Normocephalic, atraumatic. No pharyngeal erythema. No thyromegaly. CARDIOVASCULAR: S1 and S2 present. No murmurs, rubs, or gallops. PULMONARY: Chest is clear to auscultation, no wheezing or crackles. ABDOMEN: Soft, nontender, nondistended, normoactive bowel sounds. No palpable or ganomegaly. MUSCULOSKELETAL: No joint swelling or deformity. EXTREMITIES: No cyanosis, clubbing, or pedal edema. NEUROLOGICAL: Gross neurological examination did not reveal any focal deficits. SKIN: No rashes. - Labs CBC & Chem 7: 09/17/20 06:05 09/18/20 06:40 Labs: Abnormal Lab Results - Last 24 Hours (Table) 09/18/20 Range/Units 06:40 Sodium 133 L (137-145) mmol/L Potassium 2.9 L (3.5-5.1) mmol/L BUN 40 H (7-17) mg/dL Creatinine 2.99 H (0.52-1.04) mg/dL Glucose 100 H (74-99) mg/dL Calcium 7.5 L (8.4-10.2) mg/dL Assessment and Plan Plan: -Congestive heart failure chronic diastolic dysfunction with acute exacerbation patient remains on IV Lasix drip nephrology is managing this patient has worsening creatinine -Acute non-ST elevation microinfarction patient didn't undergo any cardiac catheterization because of elevated creatinine. -Acute renal failure baseline creatinine is within normal limits and creatinine presently is 2.99 -Hypertension next line-hyperlipidemia next and-chronic neck pain -Osteoarthritis -Nicotine use -Abdominal aortic aneurysm status post repair -Hypertensive urgency
--- NOTE | 2020-09-18 12:16 | P.PN ---
Subjective Progress Note Date: 09/18/20 Principal diagnosis: This is 75-year-old female who is followed up for acute kidney injury from cardiorenal syndrome. Currently she is on IV Lasix drip She continues to have worsening creatinine and. Blood pressure is stable in the 120 to 1:30 range. She has mild shortness of breath on nasal cannula oxygen Minimal cough. Appetite is good. Feels dizzy on sitting up. She is known with bilateral renal artery stenting, AAA repair, kidney OH Her ultrasound shows 9.4 and 9.57 kidneys on 09/09/2020 Objective - Vital Signs Vital signs: Vital Signs Temp 97.6 F 09/18/20 04:00 Pulse 77 09/18/20 08:00 Resp 16 09/18/20 08:00 BP 120/53 09/18/20 08:00 Pulse Ox 91 L 09/18/20 08:00 Intake & Output 09/17/20 09/18/20 09/18/20 18:59 06:59 18:59 Intake Total 778.232 210.905 Output Total 600 250 Balance 178.232 -39.095 Weight 42.5 kg 41.5 kg Intake: Intake, IV Titration 178.232 210.905 Amount Furosemide 100 mg In 73.667 91.833 Sodium Chloride 0.9% 90 ml @ 10 MG/HR 10 mls/hr IV .Q10H [facility] Rx#: [id number] Heparin Sod,Pork in 0.45% 104.565 119.072 NaCl 25,000 unit In 0.45 % NaCl 1 250ml.bag @ 12 UNITS/KG/HR 5.171 mls/hr IV .Q24H [facility] Rx#: [id number] Oral 600 Output: Urine 600 250 Other: Voiding Method Toilet External Catheter External Catheter # Bowel Movements 2 2 Examination awake alert oriented comfortable HEENT exam no JVP neck is supple no facial asymmetry Lungs are clear to auscultation fair air entry bilaterally Heart sounds unremarkable for any murmur rub gallop Abdomen soft nontender no masses felt Extremity exam no edema, poor muscle mass Neurologically awake alert oriented - Labs CBC & Chem 7: 09/17/20 06:05 09/18/20 06:40 Labs: Abnormal Lab Results - Last 24 Hours (Table) 09/18/20 Range/Units 06:40 Sodium 133 L (137-145) mmol/L Potassium 2.9 L (3.5-5.1) mmol/L BUN 40 H (7-17) mg/dL Creatinine 2.99 H (0.52-1.04) mg/dL Glucose 100 H (74-99) mg/dL Calcium 7.5 L (8.4-10.2) mg/dL Assessment and Plan Assessment: Impression 1. Acute kidney injury from cardiorenal syndrome. No evidence of pulmonary edema currently, she is on Lasix drip and creatinine is worsening, this could be intravascular volume depletion. 2. Bilateral renal artery stenting 3. history of AAA repair 4 history of acute OH 5. Hypokalemia secondary to diuretics Recommendation 1. Will check orthostatic changes 2. If it is positive we will hold the Lasix for 24-48 hours and reassess 3. Maintain blood pressure in the 120 to 1:30 range given renal artery stenosis stenting 4. Replace potassium her deficit is about 60-80 mEq 5. Tomorrow, redo BMP
--- NOTE | 2020-09-18 13:32 | P.PN ---
Subjective Progress Note Date: 09/18/20 Principal diagnosis: Acute non-ST segment elevation myocardial infarction 75-year-old white female patient recently hospitalized from 09/08/2020 and then discharged on 09/10/2020 hypertensive urgency, acute kidney injury, and neck pain. CT scan of the cervical spine at that time showed degenerative changes with spinal canal stenosis and and plate spurring at C5, no acute injuries. Patient was also in acute kidney injury and nephrology consultation was requested. EKG at that time was unremarkable. Patient's past medical history is also significant for abdominal aortic aneurysm status post aortic iliac graft stenting in May [address] Barreto[address] Her CT angiogram showed abdominal aortic aneurysm unchanged in size, with endoleak. Patient's blood pressure had improved, patient was discharged home on 09/10/2020. On 09/15/2020 patient was sent in from Dr. Farnsworth's office for EKG changes. Apparently she was seen in follow-up in Dr. Farnsworth's office for post hospital visit. She has been complaining of some abdominal discomfort, and increased shortness of breath. She denied any chest pain, denies any palpitations, no fever or chills. No lower extremity edema, she's been having some abdominal discomfort only when she went to forcefully cough, no vomiting, or diarrhea, no back pain, no urinary symptoms. Her chest x-ray showed developing bibasilar infiltrates and small pleural effusions. Lab data revealed white blood cell, 12.4, hemoglobin of 11.8, d-dimer of 2.71, sodium is 132, the rest of the electrolytes were within normal limits, creatinine is 2.46, B1 is 36, plasma lactic acid was mildly elevated at 2.6, patient had troponin elevation at 1.340, and 1.090, proBNP was 37,400. COVID 19 PCR was negative. The patient is seen today 09/16/2020 in follow-up on the selective care unit. She is currently sitting up in bed. Awake and alert in no acute distress. Feeling quite fatigued and weak. She is maintaining O2 saturation in the low 90s on 3 L/m per nasal cannula. She's afebrile. Hemodynamically stable. No chest pain or palpitations. Chest x-ray shows COPD with increasing small left pleural effusion. White count 9.9. Hemoglobin 10.1. Sodium 132. Potassium 3.4. Creatinine 2.51. Glucose 136. Pro-calcitonin 0.34. She remains on ceftriaxone, azithromycin. Lasix 40 mg IV every 12 hours. Heparin drip continues. Echocardiogram pending. She is seen today 09/17/2020 on the selective care unit. She is currently awake and alert in no acute distress. Her oxygen requirements have continued to go up. She is currently on 15 L via Ventimask 50% FiO2. O2 saturation 92%. She's afebrile. Hemodynamically stable. She is dyspneic on minimal exertion. Chest x-ray continues to show evidence of congestive heart failure with bilateral effusions and basilar infiltrates. She's also having issues with diarrhea. C. diff is pending. She remains on heparin drip for her non-ST segment elevation myocardial infarction. Her proBNP level is 25,400. Last troponin 0.924. Sodium 132. Potassium 3.1. Creatinine 2.86. White count 8.6. Hemoglobin 9.8. She remains on ceftriaxone and azithromycin. Remains on bronchodilators, Lasix 40 mg IV every 12 hours. No accurate I&O. She has been voiding. She is at 42.5 kg. The patient is seen today 09/18/2020 in follow-up in the selective care unit. He is currently sitting up in bed. Awake and alert in no acute distress. Yesterday she was initiated on Lasix drip at 10 mg per hour. She was on 15 L high flow nasal cannula and today is down to 3 L/m per nasal cannula. Chest x- ray showing improved aeration. Continue with the left lower lobe consolidation. Sodium 133. Potassium 2.9. Bicarb 23. Creatinine 2.99. Glucose 100. She remains on a heparin drip per cardiology. Bronchodilators. Antibiotics in the form of ceftriaxone and azithromycin. Potassium being replaced. Objective - Vital Signs Vital signs: Vital Signs Temp 97.6 F 09/18/20 04:00 Pulse 77 09/18/20 08:00 Resp 16 09/18/20 08:00 BP 120/53 09/18/20 08:00 Pulse Ox 91 L 09/18/20 08:00 Intake & Output 09/17/20 09/18/20 09/18/20 18:59 06:59 18:59 Intake Total 778.232 210.905 Output Total 600 250 Balance 178.232 -39.095 Weight 42.5 kg 41.5 kg Intake: Intake, IV Titration 178.232 210.905 Amount Furosemide 100 mg In 73.667 91.833 Sodium Chloride 0.9% 90 ml @ 10 MG/HR 10 mls/hr IV .Q10H [facility] Rx#: [id number] Heparin Sod,Pork in 0.45% 104.565 119.072 NaCl 25,000 unit In 0.45 % NaCl 1 250ml.bag @ 12 UNITS/KG/HR 5.171 mls/hr IV .Q24H [facility] Rx#: [id number] Oral 600 Output: Urine 600 250 Other: Voiding Method Toilet External Catheter External Catheter # Bowel Movements 2 2 - Exam GENERAL EXAM: Alert, very pleasant, 75-year-old female patient, on 3 L of oxygen pulse ox 91% comfortable in no apparent distress. HEAD: Normocephalic/atraumatic. EYES: Normal reaction of pupils, equal size. Conjunctiva pink, sclera white. NOSE: Clear with pink turbinates. THROAT: No erythema or exudates. NECK: No masses, no JVD, no thyroid enlargement, no adenopathy. CHEST: No chest wall deformity. Symmetrical expansion. LUNGS: Equal air entry with bibasilar crackles CVS: Regular rate and rhythm, normal S1 and S2, no gallops, no murmurs, no rubs ABDOMEN: Soft, nontender. No hepatosplenomegaly, normal bowel sounds, no guarding or rigidity. EXTREMITIES: No clubbing, no edema, no cyanosis, 2+ pulses and upper and lower extremities. MUSCULOSKELETAL: Muscle strength and tone normal. SPINE: No scoliosis or deformity SKIN: No rashes CENTRAL NERVOUS SYSTEM: No focal deficits, tone is normal in all 4 extremities. PSYCHIATRIC: Alert and oriented -3. Appropriate affect. Intact judgment and insight. - Labs CBC & Chem 7: 09/17/20 06:05 09/18/20 06:40 Labs: Abnormal Lab Results - Last 24 Hours (Table) 09/18/20 Range/Units 06:40 Sodium 133 L (137-145) mmol/L Potassium 2.9 L (3.5-5.1) mmol/L BUN 40 H (7-17) mg/dL Creatinine 2.99 H (0.52-1.04) mg/dL Glucose 100 H (74-99) mg/dL Calcium 7.5 L (8.4-10.2) mg/dL Assessment and Plan Assessment: 1 Acute non-ST elevated myocardial infarction, patient presented with increased shortness of breath, positive cardiac markers, and EKG showing sinus tachycardia, ST and T-wave abnormality the possibility of inferior duckworth bendocardial injury. Remains on heparin drip. 2 Acute hypoxic respiratory failure secondary to diastolic congestive heart failure and possibility of pneumonia, chest x-ray showing improved aeration. 19 PCR negative 3 Acute exacerbation of diastolic CHF with previously documented low normal EF of 50-55%. ProBNP 25,400 and initiated on a Lasix drip. 4 Acute kidney injury. Current creatinine 2.99 5 Hypertension 6 Hyperlipidemia 7 Chronic neck pain related to degenerative disc disease at cervical spine 8 Osteoarthritis 9 Chronic and ongoing history of smoking 10 Abdominal aortic aneurysm, status post EVAR with bilateral chimney renal stents with no endoleak 11 Recent hospitalization for hypertensive urgency, acute kidney injury Plan: The patient was seen and evaluated by Dr. Villagomez Chest x-ray and labs reviewed Decrease Lasix drip to 5 mg per hour Continue antibiotics and bronchodilators Titrate down the FiO2 as tolerated Remains on a heparin drip for now We will continue to follow and make further recommendations based on her clinical status I, the cosigning physician, performed a history & physical examination of the patient. Lungs sounds with bibasilar crackles. Maintaining good O2 saturations in the 90s on 3 L/m per nasal cannula. I discussed the assessment and plan of care with my nurse practitioner, Ngozi Larson. I attest to the above note as dictated by her.
[2020-09-18] MEDS: AZITHROMYCIN 500 MG TAB PO SCH (15:53)
[2020-09-19] MEDS: HEPARIN SOD,PORK IN 0.45% NACL 25,000 UNIT in 0.45% NACL 1 250ML.BAG IV SCH (02:43)
--- NOTE | 2020-09-19 07:41 | XR ---
EXAMINATION TYPE: XR chest 1V portable DATE OF EXAM: 09/19/2020 COMPARISON: Chest x-ray 09/18/2020 HISTORY: Congestive heart failure TECHNIQUE: Single frontal view of the chest is obtained. FINDINGS: No evident pneumothorax. Bibasilar density persists. Cardiac mediastinal silhouette is sta ble. Aorta is dense. Interstitium is increased. There are overlying leads. IMPRESSION: Findings consistent with congestive heart failure, there may be basilar effusions. Pneu monia not excluded.
[2020-09-19 08:22] LABS: Calcium 7.4 mg/dL (8.4-10.2); Potassium 3.2 mmol/L (3.5-5.1)
[2020-09-19] MEDS: ALPRAZolam 0.25 MG TAB PO PRN ×2 (08:36→21:17)
[2020-09-19] MEDS: ASPIRIN 81 MG PO SCH (08:38)
[2020-09-19] MEDS: ASCORBIC ACID 500 MG TAB PO SCH (08:38)
[2020-09-19] MEDS: METOPROLOL TARTRATE 25 MG TAB PO SCH ×3 (08:38→21:16)
[2020-09-19] MEDS: CHOLECALCIFEROL 25 MCG (1000 IU) TABLET PO SCH (08:38)
[2020-09-19] MEDS: POTASSIUM CHLORIDE ER 20 MEQ TAB.ER PO SCH ×4 (08:38→18:49)
[2020-09-19] MEDS: CALCIUM CARBONATE 500 MG CHEWABLE PO SCH (08:39)
[2020-09-19] MEDS: amLODIPine 10 MG TAB PO SCH (08:39)
[2020-09-19] MEDS: FUROSEMIDE 100 MG in SODIUM CHLORIDE 0.9% 90 ML IV SCH (08:39)
[2020-09-19] MEDS: hydrALAZINE HCL 50 MG TAB PO SCH ×3 (08:39→21:16)
[2020-09-19] MEDS: ISOSORBIDE MONONITRATE ER 30 MG TAB.ER.24H PO SCH (08:42)
--- NOTE | 2020-09-19 09:01 | P.PN ---
Subjective This is a pleasant 75-year-old female past medical history significant for peripheral vascular disease status post endovascular aortic repair May 2020 patient is being treated for diastolic dysfunction with acute exacerbation Patient did have an echocardiogram with Doppler study performed which revealed a preserved left ventricular systolic function with ejection fraction of 55-60%, moderate to severe mitral regurgitation, [id number] TR and moderate pulmonary hypertension with RSVP of 50. Her blood pressure this morning 136/60 with a heart rate in the 70s, 93% on 5 L of oxygen. No lab data today. She continues to be on IV Lasix drip, her weight is down 1 kg today. And serum creatinine is bit worse and the serum sodium actually improved. Nephrology is following the patient managing the Lasix drip. 09/19/2020 Patient remains on IV Lasix drip at 5 mg/h. Patient was having episodes of anxiety for which patient received some Xanax patient chest x-ray from yesterday still showing pulmonary edema there is minimal improvement are fairly stable kidney function. Patient potassium is low which will be replaced Constitutional: Denied any fatigue denied any fever. Cardio vascular: denied any chest pain, palpitations Gastrointestinal denied any nausea vomiting Pulmonary: Denied any shortness of breath cough Neurologic denied any new focal deficits All inpatient medications were reviewed and appropriate changes in these medications as dictated in the interval history and assessment and plan. Objective - Vital Signs Vital signs: Vital Signs Temp 97.1 F L 09/19/20 04:00 Pulse 77 09/19/20 04:00 Resp 16 09/19/20 04:00 BP 144/60 09/19/20 04:00 Pulse Ox 92 L 09/19/20 04:00 Intake & Output 09/18/20 09/19/20 09/19/20 18:59 06:59 18:59 Intake Total 562 350 Output Total 200 Balance 362 350 Weight 37 kg Intake: Intake, IV Titration 100 350 Amount Furosemide 100 mg In 100 100 Sodium Chloride 0.9% 90 ml @ 5 MG/HR 5 mls/hr IV .Q20H [facility] Rx#:[id number] Heparin Sod,Pork in 0.45% 250 NaCl 25,000 unit In 0.45 % NaCl 1 250ml.bag @ 12 UNITS/KG/HR 5.171 mls/hr IV .Q24H [facility] Rx#: [id number] Oral 462 Output: Urine 200 Other: Voiding Method External Catheter Bedside Commode # Voids 1 # Bowel Movements 1 - Exam PHYSICAL EXAMINATION: GENERAL: The patient is alert and oriented x3, not in any acute distress. Thin built HEENT: Pupils are round and equally reacting to light. EOMI. No scleral icterus. No conjunctival pallor. Normocephalic, atraumatic. No pharyngeal erythema. No thyromegaly. CARDIOVASCULAR: S1 and S2 present. No murmurs, rubs, or gallops. PULMONARY: Air entry with mild bibasilar crackles ABDOMEN: Soft, nontender, nondistended, normoactive bowel sounds. No palpable organomegaly. MUSCULOSKELETAL: No joint swelling or deformity. EXTREMITIES: No cyanosis, clubbing, or pedal edema. NEUROLOGICAL: Gross neurological examination did not reveal any focal deficits. SKIN: No rashes. - Labs CBC & Chem 7: 09/17/20 06:05 09/19/20 07:33 Labs: Abnormal Lab Results - Last 24 Hours (Table) 09/18/20 09/19/20 09/19/20 Range/Units 12:57 07:33 07:33 APTT 44.4 H 38.0 H (22.0-30.0) sec Sodium 133 L (137-145) mmol/L Potassium 3.2 L (3.5-5.1) mmol/L BUN 36 H (7-17) mg/dL Creatinine 2.77 H (0.52-1.04) mg/dL Calcium 7.4 L (8.4-10.2) mg/dL Assessment and Plan Plan: -Congestive heart failure chronic diastolic dysfunction with acute exacerbation patient remains on IV Lasix drip nephrology is managing diuretics. Patient's kidney function is fairly stable or marginal improvement. -Anxiety: Patient was started on Xanax on as needed basis -Acute non-ST elevation microinfarction patient didn't undergo any cardiac catheterization because of elevated creatinine. -Acute renal failure baseline creatinine is within normal limits and creatinine presently is 2.77 -Hypertension next line-hyperlipidemia -chronic neck pain -Osteoarthritis -Nicotine use -Abdominal aortic aneurysm status post repair -Hypertensive urgency :improved
--- NOTE | 2020-09-19 10:39 | P.PN ---
Subjective Progress Note Date: 09/19/20 This is a pleasant 75-year-old female past medical history significant for peripheral vascular disease status post endovascular aortic repair May 2020 with a known endoleak, hypertension, dyslipidemia and chronic nicotine dependence. She denies prior history of coronary artery disease and does not follow in the office with a middle stitcher. Patient was seen and examined this morning, she states that she did not sleep very well through the night last night but denies any chest discomfort. She does state that her breathing seems to be improved from the prior couple of days. Patient did have an echocardiogram with Doppler study performed which revealed a preserved left ventricular systolic function with ejection fraction of 55-60%, moderate to severe mitral regurgitation, [id number] TR and moderate pulmonary hypertension with RSVP of 50. Her blood pressure this morning 136/60 with a heart rate in the 70s, 93% on 5 L of oxygen. No lab data today. She continues to be on IV Lasix drip, her weight is down 1 kg today. We will request lytes BUN and creatinine today. 09/19/2020 Patient seen and examined this morning, denies chest discomfort, breathing improved. Her blood pressure this morning 144/60 with a heart rate in the 70s, 92% on 3 L of oxygen. Her weight is down 4 kg today. Sodium 133, potassium 3.2, BUN 36, creatinine 2.7 which is down from yesterday. Repeat chest x-ray was performed this morning, findings consistent with congestive heart failure wi th some bibasilar effusions. Pneumonia not excluded. Objective - Vital Signs Vital signs: Vital Signs Temp 97.1 F L 09/19/20 04:00 Pulse 77 09/19/20 04:00 Resp 16 09/19/20 04:00 BP 144/60 09/19/20 04:00 Pulse Ox 92 L 09/19/20 04:00 Intake & Output 09/18/20 09/19/20 09/19/20 18:59 06:59 18:59 Intake Total 562 350 Output Total 200 Balance 362 350 Weight 37 kg Intake: Intake, IV Titration 100 350 Amount Furosemide 100 mg In 100 100 Sodium Chloride 0.9% 90 ml @ 5 MG/HR 5 mls/hr IV .Q20H [facility] Rx#:[id number] Heparin Sod,Pork in 0.45% 250 NaCl 25,000 unit In 0.45 % NaCl 1 250ml.bag @ 12 UNITS/KG/HR 5.171 mls/hr IV .Q24H [facility] Rx#: [id number] Oral 462 Output: Urine 200 Other: Voiding Method External Catheter Bedside Commode # Voids 1 # Bowel Movements 1 - Exam GENERAL EXAM: Alert, very pleasant, 75-year-old female patient, on 5 L of oxygen ,comfortable in no apparent distress. HEAD: Normocephalic/atraumatic. EYES: Normal reaction of pupils, equal size. Conjunctiva pink, sclera white. NOSE: Clear with pink turbinates. THROAT: No erythema or exudates. NECK: No masses, no JVD, no thyroid enlargement, no adenopathy. CHEST: No chest wall deformity. Symmetrical expansion. LUNGS: Equal air entry with bibasilar crackles, Diminished air entry bilaterally CVS: Regular rate and rhythm, normal S1 and S2, no gallops, systolic ejection murmur heard ABDOMEN: Soft, nontender. No hepatosplenomegaly, normal bowel sounds, no guarding or rigidity. EXTREMITIES: No clubbing, no edema, no cyanosis, 2+ pulses and upper and lower extremities. MUSCULOSKELETAL: Muscle strength and tone normal. SPINE: No scoliosis or deformity SKIN: No rashes CENTRAL NERVOUS SYSTEM: No focal deficits, tone is normal in all 4 extremities. PSYCHIATRIC: Alert and oriented -3. Appropriate affect. Intact judgment and insight. - Labs CBC & Chem 7: 09/17/20 06:05 09/19/20 07:33 Labs: Abnormal Lab Results - Last 24 Hours (Table) 09/18/20 09/19/20 09/19/20 Range/Units 12:57 07:33 07:33 APTT 44.4 H 38.0 H (22.0-30.0) sec Sodium 133 L (137-145) mmol/L Potassium 3.2 L (3.5-5.1) mmol/L BUN 36 H (7-17) mg/dL Creatinine 2.77 H (0.52-1.04) mg/dL Calcium 7.4 L (8.4-10.2) mg/dL Assessment and Plan Plan: ASSESSMENT AND PLAN 1 Acute non-ST elevated myocardial infarction, patient presented with increased shortness of breath, positive cardiac markers, and EKG showing sinus tachyc ardia, ST and T-wave abnormality the possibility of inferior subendocardial injury. Remains on heparin drip. 2 Acute hypoxic respiratory failure secondary to diastolic congestive heart failure and possibility of pneumonia, chest x-ray showing developing bibasilar infiltrates and small pleural effusions. Pro-calcitonin 0.34. COVID 19 PCR negative 3 Acute exacerbation of diastolic CHF with previously documented low normal EF of 50-55%. ProBNP 25,400 4 Acute kidney injury. Current creatinine 2.99 5 Hypertension 6 Hyperlipidemia 7 Chronic neck pain related to degenerative disc disease at cervical spine 8 Osteoarthritis 9 Chronic and ongoing history of smoking 10 Abdominal aortic aneurysm, status post EVAR with bilateral chimney renal stents with no endoleak 11 Recent hospitalization for hypertensive urgency, acute kidney injury Plan Continue IV Lasix drip as per pulmonary, continue to monitor the intake and output along with daily weights and daily lytes BUN and creatinine. Discontinue IV heparin. DNP note has been reviewed, I agree with a documented findings and plan of care. Patient was seen and examined.
--- NOTE | 2020-09-19 12:02 | P.PN ---
Subjective Progress Note Date: 09/19/20 Principal diagnosis: This is 75-year-old female who is followed up for acute kidney injury from cardiorenal syndrome. She was treated with IV Lasix drip, Currently she is on IV Lasix drip She is complaining of weakness and dizziness when she stands up. Blood pressure was taken by me this morning lying down blood pressure was 119/53 with a heart rate of 67. This on standing up she could not tolerate it before she had to sit down blood pressure was 100/30 systolic with a heart rate of 74 She says her appetite is poor She is on room air currently. She is known with bilateral renal artery stenting, AAA repair, kidney AZ Her ultrasound shows 9.4 and 9.57 kidneys on 09/09/2020 Objective - Vital Signs Vital signs: Vital Signs Temp 97.1 F L 09/19/20 04:00 Pulse 77 09/19/20 04:00 Resp 16 09/19/20 04:00 BP 144/60 09/19/20 04:00 Pulse Ox 92 L 09/19/20 04:00 Intake & Output 09/18/20 09/19/20 09/19/20 18:59 06:59 18:59 Intake Total 562 350 293 Output Total 200 Balance 362 350 293 Weight 37 kg Intake: Intake, IV Titration 100 350 Amount Furosemide 100 mg In 100 100 Sodium Chloride 0.9% 90 ml @ 5 MG/HR 5 mls/hr IV .Q20H [facility] Rx#:[id number] Heparin Sod,Pork in 0.45% 250 NaCl 25,000 unit In 0.45 % NaCl 1 250ml.bag @ 12 UNITS/KG/HR 5.171 mls/hr IV .Q24H [facility]ILY[facility] Rx#: [id number] Oral 462 293 Output: Urine 200 Other: Voiding Method External Catheter Bedside Commode # Voids 1 # Bowel Movements 1 Examination awake alert oriented but somewhat depressed and anxious HEENT exam no JVP neck is supple no facial asymmetry. Lungs are clear to auscultation fair air entry bilaterally Heart sounds are unremarkable for any murmur rub gallop Abdomen soft nontender no organomegaly status masses Extremity exam was no edema Neurologically awake alert oriented. - Labs CBC & Chem 7: 09/17/20 06:05 09/19/20 07:33 Labs: Abnormal Lab Results - Last 24 Hours (Table) 09/18/20 09/19/20 09/19/20 Range/Units 12:57 07:33 07:33 APTT 44.4 H 38.0 H (22.0-30.0) sec Sodium 133 L (137-145) mmol/L Potassium 3.2 L (3.5-5.1) mmol/L BUN 36 H (7-17) mg/dL Creatinine 2.77 H (0.52-1.04) mg/dL Calcium 7.4 L (8.4-10.2) mg/dL Assessment and Plan Assessment: Impression 1. Acute kidney injury from cardiorenal syndrome. No evidence of pulmonary edema currently, she is on Lasix drip and creatinine is worsening, this could be intravascular volume depletion. Significant drop in blood pressure from 116/51, heart rate of 67 drop down to 100/30 systolic with heart rate of 74 on sitting up patient could not stand up 2. Bilateral renal artery stenting 3. history of AAA repair 4 history of acute AZ 5. Hypokalemia secondary to diuretics Recommendation 1. Will discontinue Lasix drip. 2. Hold off any diuretics for now 3. encourage oral hydration 4. Potassium replacement of about 60 mEq today 5. Check magnesium today 6 Monitor orthostatic blood pressures and repeat labs tomorrow including magnesium
--- NOTE | 2020-09-19 13:09 | P.PN ---
Subjective Progress Note Date: 09/19/20 Principal diagnosis: Acute non-ST segment elevation myocardial infarction 75-year-old white female patient recently hospitalized from 09/08/2020 and then discharged on 09/10/2020 hypertensive urgency, acute kidney injury, and neck pain. CT scan of the cervical spine at that time showed degenerative changes with spinal canal stenosis and and plate spurring at C5, no acute injuries. Patient was also in acute kidney injury and nephrology consultation was requested. EKG at that time was unremarkable. Patient's past medical history is also significant for abdominal aortic aneurysm status post aortic iliac graft stenting in May [address] Bar[address]to[address] Her [address] angiogram showed abdominal aortic aneurysm unchanged in size, with endoleak. Patient's blood pressure had improved, patient was discharged home on 09/10/2020. On 09/15/2020 patient was sent in from Dr. Farnsworth's office for EKG changes. Apparently she was seen in follow-up in Dr. Farnsworth's office for post hospital visit. She has been complaining of some abdominal discomfort, and increased shortness of breath. She denied any chest pain, denies any palpitations, no fever or chills. No lower extremity edema, she's been having some abdominal discomfort only when she went to forcefully cough, no vomiting, or diarrhea, no back pain, no urinary symptoms. Her chest x-ray showed developing bibasilar infiltrates and small pleural effusions. Lab data revealed white blood cell, 12.4, hemoglobin of 11.8, d-dimer of 2.71, sodium is 132, the rest of the electrolytes were within normal limits, creatinine is 2.46, B1 is 36, plasma lactic acid was mildly elevated at 2.6, patient had troponin elevation at 1.340, and 1.090, proBNP was 37,400. COVID 19 PCR was negative. The patient is seen today 09/16/2020 in follow-up on the selective care unit. She is currently sitting up in bed. Awake and alert in no acute distress. Feeling quite fatigued and weak. She is maintaining O2 saturation in the low 90s on 3 L/m per nasal cannula. She's afebrile. Hemodynamically stable. No chest pain or palpitations. Chest x-ray shows COPD with increasing small left pleural effusion. White count 9.9. Hemoglobin 10.1. Sodium 132. Potassium 3.4. Creatinine 2.51. Glucose 136. Pro-calcitonin 0.34. She remains on ceftriaxone, azithromycin. Lasix 40 mg IV every 12 hours. Heparin drip continues. Echocardiogram pending. She is seen today 09/17/2020 on the selective care unit. She is currently awake and alert in no acute distress. Her oxygen requirements have continued to go up. She is currently on 15 L via Ventimask 50% FiO2. O2 saturation 92%. She's afebrile. Hemodynamically stable. She is dyspneic on minimal exertion. Chest x-ray continues to show evidence of congestive heart failure with bilateral effusions and basilar infiltrates. She's also having issues with diarrhea. C. diff is pending. She remains on heparin drip for her non-ST segment elevation myocardial infarction. Her proBNP level is 25,400. Last troponin 0.924. Sodium 132. Potassium 3.1. Creatinine 2.86. White count 8.6. Hemoglobin 9.8. She remains on ceftriaxone and azithromycin. Remains on bronchodilators, Lasix 40 mg IV every 12 hours. No accurate I&O. She has been voiding. She is at 42.5 kg. The patient is seen today 09/18/2020 in follow-up in the selective care unit. He is currently sitting up in bed. Awake and alert in no acute distress. Yesterday she was initiated on Lasix drip at 10 mg per hour. She was on 15 L high flow nasal cannula and today is down to 3 L/m per nasal cannula. Chest x- ray showing improved aeration. Continue with the left lower lobe consolidation. Sodium 133. Potassium 2.9. Bicarb 23. Creatinine 2.99. Glucose 100. She remains on a heparin drip per cardiology. Bronchodilators. Antibiotics in the form of ceftriaxone and azithromycin. Potassium being replaced. The patient is seen today 09/19/2020 in follow-up on the selective care unit. She is currently sitting up in bed. Awake and alert in no acute distress. Breathing a bit easier today compared to yesterday. Maintaining O2 saturation in the 90s on 3 L/m per nasal cannula. Chest x-ray continues to show by basilar densities suggestive of congestive heart failure. Small effusions. Afebrile. Hemodynamically stable. Remains on a Lasix drip at 5 mg per hour. No accurate I&O. She is down 4 kg. Sodium 133. Potassium 3.2. Creatinine 2.77. Heparin drip continues. Objective - Vital Signs Vital signs: Vital Signs Temp 97.7 F 09/19/20 08:00 Pulse 77 09/19/20 08:00 Resp 18 09/19/20 08:00 BP 124/60 09/19/20 08:00 Pulse Ox 94 L 09/19/20 08:00 Intake & Output 09/18/20 09/19/20 09/19/20 18:59 06:59 18:59 Intake Total 562 350 293 Output Total 200 Balance 362 350 293 Weight 37 kg Intake: Intake, IV Titration 100 350 Amount Furosemide 100 mg In 100 100 Sodium Chloride 0.9% 90 ml @ 5 MG/HR 5 mls/hr IV .Q20H [facility] Rx#:[id number] Heparin Sod,Pork in 0.45% 250 NaCl 25,000 unit In 0.45 % NaCl 1 250ml.bag @ 12 UNITS/KG/HR 5.171 mls/hr IV .Q24H [facility] Rx#: [id number] Oral 462 293 Output: Urine 200 Other: Voiding Method External Catheter Bedside Commode Bedside Commode # Voids 1 # Bowel Movements 1 - Exam GENERAL EXAM: Alert, very pleasant, 75-year-old female patient, on 3 L of oxygen pulse ox 94% comfortable in no apparent distress. HEAD: Normocephalic/atraumatic. EYES: Normal reaction of pupils, equal size. Conjunctiva pink, sclera white. NOSE: Clear with pink turbinates. THROAT: No erythema or exudates. NECK: No masses, no JVD, no thyroid enlargement, no adenopathy. CHEST: No chest wall deformity. Symmetrical expansion. LUNGS: Equal air entry with bibasilar crackles CVS: Regular rate and rhythm, normal S1 and S2, no gallops, no murmurs, no rubs ABDOMEN: Soft, nontender. No hepatosplenomegaly, normal bowel sounds, no guarding or rigidity. EXTREMITIES: No clubbing, no edema, no cyanosis, 2+ pulses and upper and lower extremities. MUSCULOSKELETAL: Muscle strength and tone normal. SPINE: No scoliosis or deformity SKIN: No rashes CENTRAL NERVOUS SYSTEM: No focal deficits, tone is normal in all 4 extremities. PSYCHIATRIC: Alert and oriented -3. Appropriate affect. Intact judgment and insight. - Labs CBC & Chem 7: 09/17/20 06:05 09/19/20 07:33 Labs: Abnormal Lab Results - Last 24 Hours (Table) 09/18/20 09/19/20 09/19/20 Range/Units 12:57 07:33 07:33 APTT 44.4 H 38.0 H (22.0-30.0) sec Sodium 133 L (137-145) mmol/L Potassium 3.2 L (3.5-5.1) mmol/L BUN 36 H (7-17) mg/dL Creatinine 2.77 H (0.52-1.04) mg/dL Calcium 7.4 L (8.4-10.2) mg/dL Assessment and Plan Assessment: 1 Acute non-ST elevated myocardial infarction, patient presented with increased shortness of breath, positive cardiac markers, and EKG showing sinus tachycardia, ST and T-wave abnormality the possibility of inferior subendocardial injury. Remains on heparin drip. 2 Acute hypoxic respiratory failure secondary to diastolic congestive heart failure and possibility of pneumonia, chest x-ray showing improved aeration. CoVID 19 PCR negative 3 Acute exacerbation of diastolic CHF with previously documented low normal EF of 50-55%. ProBNP 25,400 and initiated on a Lasix drip. 4 Acute kidney injury. Current creatinine 2.99 5 Hypertension 6 Hyperlipidemia 7 Chronic neck pain related to degenerative disc disease at cervical spine 8 Osteoarthritis 9 Chronic and ongoing history of smoking 10 Abdominal aortic aneurysm, status post EVAR with bilateral chimney renal stents with no endoleak 11 Recent hospitalization for hypertensive urgency, acute kidney injury Plan: The patient was seen and evaluated by Dr. Villagomez Chest x-ray and labs reviewed Continue Lasix drip to 5 mg per hour Continue antibiotics and bronchodilators Titrate down the FiO2 as tolerated Follow-up chest x-ray in a.m. Heparin drip per cardiology We will continue to follow I, the cosigning physician, performed a history & physical examination of the patient. Lungs sounds with bibasilar crackles. Maintaining good O2 saturations in the 90s on 3 L/m per nasal cannula. I discussed the assessment and plan of care with my nurse practitioner, Ngozi Larson. I attest to the above note as dictated by her.
[2020-09-19] MEDS: AZITHROMYCIN 500 MG TAB PO SCH (16:49)
[2020-09-20 05:32] VITALS: PULSE 76
--- NOTE | 2020-09-20 07:43 | XR ---
EXAMINATION TYPE: XR chest 1V portable DATE OF EXAM: 09/20/2020 HISTORY: Shortness of breath. COMPARISON: 09/19/2020 TECHNIQUE: Single view of the chest is submitted. FINDINGS: Demonstrated are scattered senescent parenchymal change. Pulmonary venous congestion as well as perihilar and basilar infiltrates and pleural effusions persis t. Hilar and mediastinal structures are within normal limits. Degenerative changes are seen of the dorsal spine. IMPRESSION: 1. No significant interval change.
[2020-09-20 08:31] LABS: Calcium 8.6 mg/dL (8.4-10.2); Potassium 4.4 mmol/L (3.5-5.1)
[2020-09-20] MEDS: POTASSIUM CHLORIDE ER 20 MEQ TAB.ER PO SCH ×3 (09:16→09:19)
[2020-09-20] MEDS: METOPROLOL TARTRATE 25 MG TAB PO SCH (09:19)
[2020-09-20] MEDS: CHOLECALCIFEROL 25 MCG (1000 IU) TABLET PO SCH (09:19)
[2020-09-20] MEDS: ASPIRIN 81 MG PO SCH (09:19)
[2020-09-20] MEDS: hydrALAZINE HCL 50 MG TAB PO SCH (09:19)
[2020-09-20] MEDS: amLODIPine 10 MG TAB PO SCH (09:19)
[2020-09-20] MEDS: ISOSORBIDE MONONITRATE ER 30 MG TAB.ER.24H PO SCH (09:20)
[2020-09-20] MEDS: CALCIUM CARBONATE 500 MG CHEWABLE PO SCH (09:20)
[2020-09-20] MEDS: ASCORBIC ACID 500 MG TAB PO SCH (09:20)
--- NOTE | 2020-09-20 09:24 | P.PN ---
Subjective Patient is seen in follow-up for acute kidney injury on chronic kidney disease. Renal function stable. Potassium normal. Off diuretics. Currently on 3 L nasal cannula. No edema. No active chest pain or shortness of breath. Vital signs are stable. General: The patient appeared well nourished and normally developed. HEENT: Head exam is unremarkable. Neck is without jugular venous distension. LUNGS: Breath sounds decreased. HEART: Rate and Rhythm are regular. ABDOMEN: Soft, nontender. EXTREMITITES: No edema. Objective - Vital Signs Vital signs: Vital Signs Temp 98.2 F 09/20/20 04:00 Pulse 76 09/20/20 04:00 Resp 16 09/20/20 04:00 BP 128/60 09/20/20 04:00 Pulse Ox 92 L 09/20/20 04:00 Intake & Output 09/19/20 09/20/20 09/20/20 18:59 06:59 18:59 Intake Total 773 Balance 773 Weight 37.5 kg Intake: Oral 773 Other: Voiding Method Bedside Commode Bedside Commode - Labs CBC & Chem 7: 09/17/20 06:05 09/20/20 07:25 Labs: Abnormal Lab Results - Last 24 Hours (Table) 09/20/20 Range/Units 07:25 Sodium 133 L (137-145) mmol/L BUN 37 H (7-17) mg/dL Creatinine 2.83 H (0.52-1.04) mg/dL Glucose 111 H (74-99) mg/dL Assessment and Plan Plan: Assessment: 1. Acute kidney injury secondary to ATN secondary to cardiorenal syndrome. Renal function stable. Creatinine 2.83 today. 2. History of bilateral renal artery stenting. N 3. Hypokalemia secondary to diuresis. Status post placement. Better. 4. History of AAA repair. 5. Acute on chronic diastolic CHF with moderate to severe mitral regurgitation and mild to moderate tricuspid regurgitation. 6. Pulmonary hypertension. 7. Volume overload. Plan: Add torsemide 20 mg once daily. Low-salt diet and 1500 mL fluid restriction. Hold antihypertensives for systolic blood pressure less than 120. Avoid nephrotoxins. Continue to monitor renal function and urine output.
[2020-09-20] MEDS ORDERED: TORSEMIDE 20 MG TAB PO SCH (09:30)
--- NOTE | 2020-09-20 11:01 | P.PN ---
Subjective HISTORY OF PRESENTING ILLNESS This is a pleasant 75-year-old female past medical history significant for peripheral vascular disease status post endovascular aortic repair May 2020 with a known endoleak, hypertension, dyslipidemia and chronic nicotine dependence. 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 She is seen and examined sitting up in bed on room air. She states her breathing is stable today with significant improvement since admission. She denies chest pain, dizziness or palpitations. Blood pressure 128/60 heart rate 76 afebrile and maintaining oxygen saturation on nasal cannula. Nephrology has transitioned her to oral diuretics this morning. Currently maintained on torsemide 20 mg daily, metoprolol 25 mg twice a day, Imdur 30 mg daily, hydralazine 50 mg 3 times a day, aspirin 81 mg daily and amlodipine 10 mg daily. PHYSICAL EXAMINATION CONSTITUTIONAL: No apparent distress. appears older than stated age. HEENT: Head is normocephalic. Pupils are equal, round. Sclerae anicteric. Mucous membranes of the mouth are moist. No JVD. No carotid bruit. CHEST EXAMINATION: Diminished bilaterally. No rales, wheezes or rhonchi. No chest wall tenderness is noted on palpation or with deep breathing. HEART EXAMINATION: Regular rate and rhythm. S1, S2 heard. Systolic ejection murmur at the left sternal border, no gallops or rub. EXTREMITIES: 2+ peripheral pulses, no lower extremity edema and no calf tenderness. ASSESSMENT Non-ST elevated myocardial infarction Acute diastolic heart failure Pneumonia Leukocytosis Acute kidney injury Acute diastolic heart failure Peripheral vascular disease status post EVAR 05/2020 Hypokalemia Lactic acidosis Hypertension Dyslipidemia Chronic nicotine dependence PLAN Clinically she has improved significantly since admission. Can be discharged home on current regimen, follow up with Dr. Nash in the office 1-2 weeks. Nurse Practitioner note has been reviewed, I agree with a documented findings and plan of care. Patient was seen and examined. Objective - Vital Signs Vital signs: Vital Signs Temp 98.2 F 09/20/20 04:00 Pulse 76 09/20/20 04:00 Resp 16 09/20/20 04:00 BP 128/60 09/20/20 04:00 Pulse Ox 92 L 09/20/20 04:00 Intake & Output 09/19/20 09/20/20 09/20/20 18:59 06:59 18:59 Intake Total 773 Balance 773 Weight 37.5 kg Intake: Oral 773 Other: Voiding Method Bedside Commode Bedside Commode - Labs CBC & Chem 7: 09/17/20 06:05 09/20/20 07:25 Labs: Abnormal Lab Results - Last 24 Hours (Table) 09/20/20 Range/Units 07:25 Sodium 133 L (137-145) mmol/L BUN 37 H (7-17) mg/dL Creatinine 2.83 H (0.52-1.04) mg/dL Glucose 111 H (74-99) mg/dL
--- NOTE | 2020-09-20 11:57 | P.DS ---
Providers Date of admission: 09/15/20 12:42 Attending physician: Agustín Farnsworth Consults: 09/15/20 12:42 Consult Physician Urgent Consulting Provider: [facility] Consult Reason/Comments: Non-STEMI Do you want consulting provider notified?: Yes 09/15/20 13:30 Consult Physician Urgent Consulting Provider: Kate Villagomez Consult Reason/Comments: fluid overload Do you want consulting provider notified?: Yes 09/15/20 13:32 Consult Physician Urgent Consulting Provider: Ansley Quinn Consult Reason/Comments: VLADIMIR Do you want consulting provider notified?: Yes Primary care physician: Agustín Farnsworth [facility] Course: This is a pleasant 75-year-old female past medical history significant for peripheral vascular disease status post endovascular aortic repair May 2020 patient is being treated for diastolic dysfunction with acute exacerbation Patient did have an echocardiogram with Doppler study performed which revealed a preserved left ventricular systolic function with ejection fraction of 55-60%, moderate to severe mitral regurgitation, [id number] TR and moderate pulmonary hypertension with RSVP of 50. Her blood pressure this morning 136/60 with a heart rate in the 70s, 93% on 5 L of oxygen. No lab data today. She continues to be on IV Lasix drip, her weight is down 1 kg today. And serum creatinine is bit worse and the serum sodium actually improved. Nephrology is following the patient managing the Lasix drip. 09/19/2020 Patient remains on IV Lasix drip at 5 mg/h. Patient was having episodes of anxiety for which patient received some Xanax patient chest x-ray from yesterday still showing pulmonary edema there is minimal improvement are fairly stable kidney function. Patient potassium is low which will be replaced. 09/20/2020 Patient is on oral Demadex today. Clinically doing well euvolemic and patient will be discharged today. As a pneumonia cannot be ruled out patient is also being discharged on Ceftin for 4 more days. Patient will need a repeat basic metabolic profile in 3 days and patient will follow with Dr. Farnsworth, nephrology, cardiology, pulmonology as an outpatient. Patient is clinically euvolemic PHYSICAL EXAMINATION: GENERAL: The patient is alert and oriented x3, not in any acute distress. Thin built HEENT: Pupils are round and equally reacting to light. EOMI. No scleral icterus. No conjunctival pallor. Normocephalic, atraumatic. No pharyngeal erythema. No thyromegaly. CARDIOVASCULAR: S1 and S2 present. No murmurs, rubs, or gallops. PULMONARY: Air entry with mild bibasilar crackles ABDOMEN: Soft, nontender, nondistended, normoactive bowel sounds. No palpable organomegaly. MUSCULOSKELETAL: No joint swelling or deformity. EXTREMITIES: No cyanosis, clubbing, or pedal edema. NEUROLOGICAL: Gross neurological examination did not reveal any focal deficits. SKIN: No rashes. Assessment and Plan Plan: -Congestive heart failure chronic diastolic dysfunction with acute exacerbation , patient is fairly limited this time patient will be discharged today on oral Demadex -Anxiety: Patient was started on Xanax on as needed basis -Possible non-ST elevation myocardial infarction patient didn't undergo any cardiac catheterization because of elevated creatinine. -Acute renal failure baseline creatinine is within normal limits and creatinine presently is 2.8, patient may have cardiorenal syndrome. - possibility of community-acquired pneumonia cannot be ruled out -Hypertension -hyperlipidemia -chronic neck pain -Osteoarthritis -Nicotine use -Abdominal aortic aneurysm status post repair -Hypertensive urgency :improved Plan - Discharge Summary Discharge Rx Participant: No New Discharge Prescriptions: New Aspirin 81 mg PO DAILY #30 chew Torsemide [Demadex] 20 mg PO DAILY #30 tab Isosorbide Mononitrate ER [Imdur] 30 mg PO DAILY #30 tab.er.24h Potassium Chloride ER [K-Dur 20] 10 meq PO DAILY #30 tab.er.prt Metoprolol Tartrate [Lopressor] 25 mg PO TID #90 tab guaiFENesin-DM 600/30MG [Mucinex Dm] 1 each PO Q12HR PRN #20 tab.er.12h PRN Reason: Cough Nitroglycerin Sl Tabs [Nitrostat] 0.4 mg SUBLINGUAL Q5M PRN #30 tab PRN Reason: Chest Pain Cefuroxime Axetil [Ceftin] 500 mg PO BID 4 Days #8 tab Albuterol Inhaler [Ventolin Hfa Inhaler] 2 puff INHALATION RT-QID PRN #1 inhaler PRN Reason: Shortness Of Breath Or Wheezing Continue Cholecalciferol [Vitamin D3 (25 Mcg = 1000 Iu)] 1,000 unit PO DAILY Ascorbic Acid [Vitamin C] 1,000 mg PO DAILY Calcium Carbonate [Calcium] 600 mg PO DAILY hydrALAZINE HCL [Apresoline] 50 mg PO TID #90 tab amLODIPine [Norvasc] 10 mg PO DAILY #30 tab Discharge Medication List Ascorbic Acid [Vitamin C] 1,000 mg PO DAILY 09/03/20 [History] Cholecalciferol [Vitamin D3 (25 Mcg = 1000 Iu)] 1,000 unit PO DAILY 09/03/20 [History] Calcium Carbonate [Calcium] 600 mg PO DAILY 09/08/20 [History] amLODIPine [Norvasc] 10 mg PO DAILY #30 tab 09/10/20 [Rx] hydrALAZINE HCL [Apresoline] 50 mg PO TID #90 tab 09/10/20 [Rx] Albuterol Inhaler [Ventolin Hfa Inhaler] 2 puff INHALATION RT-QID PRN #1 inhaler 09/20/20 [Rx] Aspirin 81 mg PO DAILY #30 chew 09/20/20 [Rx] Cefuroxime Axetil [Ceftin] 500 mg PO BID 4 Days #8 tab 09/20/20 [Rx] Isosorbide Mononitrate ER [Imdur] 30 mg PO DAILY #30 tab.er.24h 09/20/20 [Rx] Metoprolol Tartrate [Lopressor] 25 mg PO TID #90 tab 09/20/20 [Rx] Nitroglycerin Sl Tabs [Nitrostat] 0.4 mg SUBLINGUAL Q5M PRN #30 tab 09/20/20 [Rx] Potassium Chloride ER [K-Dur 20] 10 meq PO DAILY #30 tab.er.prt 09/20/20 [Rx] Torsemide [Demadex] 20 mg PO DAILY #30 tab 09/20/20 [Rx] guaiFENesin-DM 600/30MG [Mucinex Dm] 1 each PO Q12HR PRN #20 tab.er.12h 09/20/20 [Rx] Follow up Appointment(s)/Referral(s): Eldon Nash MD [STAFF PHYSICIAN] - 2 Weeks Agustín Farnsworth MD [Primary Care Provider] - 3 Days Kate Villagomez MD [STAFF PHYSICIAN] - 1 Week Bassem Sahu DO [STAFF PHYSICIAN] - 1 Week Discharge Disposition: HOME SELF-CARE
[2020-09-20 11:58] VITALS: BP 133/63; RESP 18; TEMP 97
[2020-09-20 13:23] VITALS: BMI 16.1
--- NOTE | 2020-09-20 13:39 | P.PN ---
Subjective Progress Note Date: 09/20/20 Principal diagnosis: Acute non-ST segment elevated myocardial infarction, exacerbation of COPD 75-year-old white female patient recently hospitalized from 09/08/2020 and then discharged on 09/10/2020 hypertensive urgency, acute kidney injury, and neck pain. CT scan of the cervical spine at that time showed degenerative changes with spinal canal stenosis and and plate spurring at C5, no acute injuries. Patient was also in acute kidney injury and nephrology consultation was requested. EKG at that time was unremarkable. Patient's past medical history is also significant for abdominal aortic aneurysm status post aortic iliac graft stenting in May [address] Barreto. Her CT angiogram showed abdominal aortic aneurysm unchanged in size, with endoleak. Patient's blood pressure had improved, patient was discharged home on 09/10/2020. On 09/15/2020 patient was sent in from Dr. Farnsworth's office for EKG changes. Apparently she was seen in follow-up in Dr. Farnsworth's office for post hospital visit. She has been complaining of some abdominal discomfort, and increased shortness of breath. She denied any chest pain, denies any palpitations, no fever or chills. No lower extremity edema, she's been having some abdominal discomfort only when she went to forcefully cough, no vomiting, or diarrhea, no back pain, no urinary symptoms. Her chest x-ray showed developing bibasilar infiltrates and small pleural effusions. Lab data revealed white blood cell, 12.4, hemoglobin of 11.8, d-dimer of 2.71, sodium is 132, the rest of the electrolytes were within normal limits, creatinine is 2.46, B1 is 36, plasma lactic acid was mildly elevated at 2.6, patient had troponin elevation at 1.340, and 1.090, proBNP was 37,400. COVID 19 PCR was negative. The patient is seen today 09/16/2020 in follow-up on the selective care unit. She is currently sitting up in bed. Awake and alert in no acute distress. Feeling quite fatigued and weak. She is maintaining O2 saturation in the low 90s on 3 L/m per nasal cannula. She's afebrile. Hemodynamically stable. No chest pain or palpitations. Chest x-ray shows COPD with increasing small left pleural effusion. White count 9.9. Hemoglobin 10.1. Sodium 132. Potassium 3.4. Creatinine 2.51. Glucose 136. Pro-calcitonin 0.34. She remains on ceftriaxone, azithromycin. Lasix 40 mg IV every 12 hours. Heparin drip continues. Echocardiogram pending. She is seen today 09/17/2020 on the selective care unit. She is currently awake and alert in no acute distress. Her oxygen requirements have continued to go up. She is currently on 15 L via Ventimask 50% FiO2. O2 saturation 92%. She's afebrile. Hemodynamically stable. She is dyspneic on minimal exertion. Chest x-ray continues to show evidence of congestive heart failure with bilateral effusions and basilar infiltrates. She's also having issues with diarrhea. C. diff is pending. She remains on heparin drip for her non-ST segment elevation myocardial infarction. Her proBNP level is 25,400. Last troponin 0.924. Sodium 132. Potassium 3.1. Creatinine 2.86. White count 8.6. Hemoglobin 9.8. She remains on ceftriaxone and azithromycin. Remains on bronchodilators, Lasix 40 mg IV every 12 hours. No accurate I&O. She has been voiding. She is at 42.5 kg. The patient is seen today 09/18/2020 in follow-up in the selective care unit. He is currently sitting up in bed. Awake and alert in no acute distress. Yesterday she was initiated on Lasix drip at 10 mg per hour. She was on 15 L high flow nasal cannula and today is down to 3 L/m per nasal cannula. Chest x- ray showing improved aeration. Continue with the left lower lobe consolidation. Sodium 133. Potassium 2.9. Bicarb 23. Creatinine 2.99. Glucose 100. She remains on a heparin drip per cardiology. Bronchodilators. Antibiotics in the form of ceftriaxone and azithromycin. Potassium being replaced. The patient is seen today 09/19/2020 in follow-up on the selective care unit. She is currently sitting up in bed. Awake and alert in no acute distress. Breathing a bit easier today compared to yesterday. Maintaining O2 saturation in the 90s on 3 L/m per nasal cannula. Chest x-ray continues to show by basilar densities suggestive of congestive heart failure. Small effusions. Afebrile. Hemodynamically stable. Remains on a Lasix drip at 5 mg per hour. No accurate I&O. She is down 4 kg. Sodium 133. Potassium 3.2. Creatinine 2.77. Heparin drip continues. On 08/20/2000 patient seen in follow-up on medical floor. She states she still has significant exertional dyspnea, she is fairly comfortable at rest, room air pulse ox at rest is 89%, and most likely patient will need home oxygen before discharge. Lung sounds reveal a few scattered wheezes, no significant rhonchi, she denies any chest pain. On 3 L of oxygen her pulse ox is 92% she's been afebrile, hemodynamically patient has been stable. She remains on empiric antib iotics in the form of ceftriaxone, she has been diuresed, she is currently on Demadex. Nephrology is following, today's labs have been reviewed, BNP was done only, sodium is 133, the rest of electrolytes within normal limits, B1 is 37, creatinine is 2.83 Objective - Vital Signs Vital signs: Vital Signs Temp 97.0 F L 09/20/20 08:00 Pulse 76 09/20/20 08:00 Resp 18 09/20/20 08:00 BP 133/63 09/20/20 08:00 Pulse Ox 92 L 09/20/20 08:00 Intake & Output 09/19/20 09/20/20 09/20/20 18:59 06:59 18:59 Intake Total 773 480 Balance 773 480 Weight 37.5 kg 37.5 kg Intake: Oral 773 480 Other: Voiding Method Bedside Commode Bedside Commode Bedside Commode # Voids 3 - Exam GENERAL EXAM: Alert, very pleasant, 75-year-old white female, on room air with pulse ox of 89% comfortable in no apparent distress. HEAD: Normocephalic/atraumatic. EYES: Normal reaction of pupils, equal size. Conjunctiva pink, sclera white. NOSE: Clear with pink turbinates. THROAT: No erythema or exudates. NECK: No masses, no JVD, no thyroid enlargement, no adenopathy. CHEST: No chest wall deformity. Symmetrical expansion. LUNGS: Diminished breath sounds with end expiratory wheezing CVS: Regular rate and rhythm, normal S1 and S2, no gallops, no murmurs, no rubs ABDOMEN: Soft, nontender. No hepatosplenomegaly, normal bowel sounds, no guarding or rigidity. EXTREMITIES: No clubbing, no edema, no cyanosis, 2+ pulses and upper and lower extremities. MUSCULOSKELETAL: Muscle strength and tone normal. SPINE: No scoliosis or deformity SKIN: No rashes CENTRAL NERVOUS SYSTEM: Alert and oriented -3. No focal deficits, tone is normal in all 4 extremities. PSYCHIATRIC: Alert and oriented -3. Appropriate affect. Intact judgment and insight. - Labs CBC & Chem 7: 09/17/20 06:05 09/20/20 07:25 Labs: Abnormal Lab Results - Last 24 Hours (Table) 09/20/20 Range/Units 07:25 Sodium 133 L (137-145) mmol/L BUN 37 H (7-17) mg/dL Creatinine 2.83 H (0.52-1.04) mg/dL Glucose 111 H (74-99) mg/dL Assessment and Plan Plan: Assessment: #1. Acute non-ST elevated myocardial infarction, patient presented with increased shortness of breath, positive cardiac markers, and EKG showing sinus tachycardia, ST and T-wave abnormality the possibility of inferior subendocardial injury. #2. Rule out possibility of pneumonia, chest x-ray showing developing bibasilar infiltrates and small pleural effusions. COVID 19 PCR negative #3. Acute exacerbation of diastolic CHF with previously documented low normal EF of 50-55% #4. Recent hospitalization for neck pain, hypertensive urgency, acute kidney injury #5. Hypertension #6. Hyperlipidemia #7. Chronic neck pain related to degenerative disc disease at cervical spine #8. Osteoarthritis #9. Chronic and ongoing history of smoking #10. Abdominal aortic aneurysm, status post EVAR with bilateral chimney renal stents with no endoleak Plan: Obtain home oxygen with ambulation, patient will need to on home oxygen 2-3 L/m. Increase activity as tolerated, continue diuretics per nephrology, vital signs have been stable, she's had no acute events overnight, discharge home is pending today. She will need outpatient follow-up with Dr. Lynne in the office in 7-10 days. I performed a history & physical examination of the patient and discussed their management with my nurse practitioner, Neena Fontenot. I reviewed the nurse practitioner's note and agree with the documented findings and plan of care. Lung sounds are positive for diminished breath sounds. The findings and the impression was discussed with the patient. I attest to the documentation by the nurse practitioner. Time with Patient: Less than 30
[2020-09-20] MEDS ORDERED: ACETAMINOPHEN TAB 500 MG TAB PO PRN (14:37)
--- NOTE | 2020-09-21 10:23 | CDI ---
Documentation Clarification Form Date: 09/21/2020 10:21:00 AM From: Roselia Hdz CCS Phone: If you have a question about this query, please contact Willa Silva Geospatial Specialist at [phone] between 8am and 5pm Admit Date: 09/15/2020 12:42:00 PM Patient Name: Odalis Kay Visit Number: [id number] Discharge Date: 09/20/2020 04:05:00 PM ATTENTION: The Clinical Documentation Specialists (CDI) and [facility] Coding Staff appreciate your assistance in clarifying documentation. Please respond to the clarification below the line at the bottom and electronically sign. The CDI & [facility] Coding staff will review the response and follow-up if needed. Please note: Queries are made part of the Legal Health Record. If you have any questions, please contact the author of this message via ITS. Dr. Ernie Franco Patient has been described as: thin, underweight, weight loss of 2% of body weight in 6 months History/Risk Factors: NSTEMI, HTN, CKD, CHF, ATN, Acute Resp Failure Clinical Indicators: Underweight Patients weight is: 43.091 kg Patients height is: 5 ft Calculated BMI is: 18.5 Labs: Albumin 3.9. 3.1, 3.3- Total Protein 6.8, 5.6, 5.7 Treatments: RD Ensure Enlive, Monitor PO, Supplement intake Dietary Consult: 09/15, 09/15, 09/20 In order to capture the severity of condition associated with patient BMI of 18.5, a clinical diagnosis needs to be documented by the physician. Please clarify: Cachexia Underweight Malnutrition Mild Moderate Severe Other Unable to determine Underweight MTDD
--- NOTE | 2020-09-21 10:33 | CDI ---
Documentation Clarification Form Date: 09/21/2020 10:31:00 AM From: Roselia Hdz CCS Phone: If you have a question about this query, please contact Willa Silva All Terrain Vehicle Racer at [phone] between 8am and 5pm Admit Date: 09/15/2020 12:42:00 PM Patient Name: Odalis Kay Visit Number: [id number] Discharge Date: 09/20/2020 04:05:00 PM ATTENTION: The Clinical Documentation Specialists (CDI) and [facility] Coding Staff appreciate your assistance in clarifying documentation. Please respond to the clarification below the line at the bottom and electronically sign. The CDI & [facility] Coding staff will review the response and follow-up if needed. Please note: Queries are made part of the Legal Health Record. If you have any questions, please contact the author of this message via ITS. Dr. Ernie Franco CKD is documented in the ED, H&P, 09/16 Consult, PNs . History/Risk Factors: HTN, ATN, CHF, NSTEMI, PNA, Acute Resp Failure, PVD Clinical Indicators: Acute on chronic renal failure Current BUN: 36, 37, 41 CR: 2.46, 2.51, 2.71 GFR: 19, 18, 17 Consults: Acute kidney injury, acute tubular necrosis versus cardiorenal.During last admission creatinine had peaked to around 2.5 mg/dL but decreased to 1.9 at the time of discharge.Patient was hydrated.Ultrasound of the abdomen does not show any evidence of hydronephrosis on 09/09/2020.I will continue to diurese the patient for now.I will check a urinalysis and repeat labs in a.m. Continue to avoid any nephrotoxic agents. In order to capture the severity of condition, please clarify the stage of the CKD, if known: CKD Stage 1 (GFR > 90) CKD Stage 2 (GFR 60-89) CKD Stage 3a (GFR 45-59) CKD Stage 3b (GFR 30-44) CKD Stage 4 (GFR 15-29) CKD Stage 5 (GFR <15) ESRD Other, please specify Unable to determine Unable to determine MTDD
== END 2020-09-20 16:05 | disposition home or self-care (01) | DRG 280 ==
LOC: EC 10:00 → 3SCARD 12:42
PROVIDERS: ADMIT Family Medicine; ATTEND Family Medicine
PROC: 5A09357 Assistance with Respiratory Ventilation, Less than 24 Consecutive Hours, Continuous Positive Airway Pressure (ICD-10-PCS; principal; 2020-09-16)
DX: I21.4 Non-ST elevation (NSTEMI) myocardial infarction (principal); I50.33 Acute on chronic diastolic (congestive) heart failure; N17.0 Acute kidney failure with tubular necrosis; J96.01 Acute respiratory failure with hypoxia; J18.9 Pneumonia, unspecified organism; E87.2 Acidosis; I13.0 Hypertensive heart and chronic kidney disease with heart failure and stage 1 through stage 4 chronic kidney disease, or unspecified chronic kidney disease; J44.0 Chronic obstructive pulmonary disease with (acute) lower respiratory infection; Z68.1 Body mass index [BMI] 19.9 or less, adult; I27.22 Pulmonary hypertension due to left heart disease; I73.9 Peripheral vascular disease, unspecified; I71.4 Abdominal aortic aneurysm, without rupture; Z20.822 Contact with and (suspected) exposure to COVID-19; M46.02 Spinal enthesopathy, cervical region; Z66 Do not resuscitate; E78.5 Hyperlipidemia, unspecified; M10.9 Gout, unspecified; M81.0 Age-related osteoporosis without current pathological fracture; G89.29 Other chronic pain; M50.30 Other cervical disc degeneration, unspecified cervical region; F17.210 Nicotine dependence, cigarettes, uncomplicated; R00.0 Tachycardia, unspecified; N18.9 Chronic kidney disease, unspecified; M19.90 Unspecified osteoarthritis, unspecified site; E87.6 Hypokalemia; I08.1 Rheumatic disorders of both mitral and tricuspid valves; I16.0 Hypertensive urgency; F41.9 Anxiety disorder, unspecified; I25.10 Atherosclerotic heart disease of native coronary artery without angina pectoris; R19.7 Diarrhea, unspecified; R63.6 Underweight; T50.1X5A Adverse effect of loop [high-ceiling] diuretics, initial encounter; Z71.3 Dietary counseling and surveillance; Z79.899 Other long term (current) drug therapy; Z87.01 Personal history of pneumonia (recurrent); Z85.828 Personal history of other malignant neoplasm of skin; Z90.49 Acquired absence of other specified parts of digestive tract; Z98.890 Other specified postprocedural states; Z96.1 Presence of intraocular lens; Z90.710 Acquired absence of both cervix and uterus; Z98.42 Cataract extraction status, left eye; Z98.41 Cataract extraction status, right eye; Z86.79 Personal history of other diseases of the circulatory system; Z53.09 Procedure and treatment not carried out because of other contraindication; Z88.5 Allergy status to narcotic agent; Z88.0 Allergy status to penicillin; Z88.8 Allergy status to other drugs, medicaments and biological substances; Z80.3 Family history of malignant neoplasm of breast
CPT/HCPCS: 36415; 36600; 71045; 71046; 80048; 80053; 80061; 81001; 82805; 83605; 83735; 83880; 84145; 84484; 85025; 85027; 85379; 85610; 85730; 87635; 93005; 93306; 94640; 94660; 96365; 96368; 96375; 96376; 99291

== ENCOUNTER → 2020-10-12 | Outpatient (CLI) | payer MEDICARE, BC ==
--- NOTE | 2020-10-12 15:50 | XR ---
EXAMINATION TYPE: XR chest 2V DATE OF EXAM: 10/12/2020 COMPARISON: Chest x-ray September 27, 2020. HISTORY: Pleural effusion. TECHNIQUE: Frontal and lateral views of the chest are obtained. FINDINGS: There is chronic parenchymal changes with slightly larger small left pleural effusion. The re is tiny right pleural effusion redemonstrated. There is associated left basilar opacity. The card iac silhouette size is upper limits of normal in current study. Partial visualization of stent graft in the abdominal aorta The osseous structures remain demineralized. IMPRESSION: Chronic changes with small left pleural effusion slightly larger versus most recent prio r. Slightly more prominent left basilar atelectasis and/or infiltrate.
== END | disposition home or self-care (01) ==
LOC: RADXRMAIN 15:29
PROVIDERS: ATTEND Nurse Practitioner
DX: J90 Pleural effusion, not elsewhere classified (principal)
CPT/HCPCS: 71046

== ENCOUNTER → 2021-01-10 | Outpatient (CLI) | payer MEDICARE, BC | LOC: RADCTMAIN 11:55 | PROVIDERS: ATTEND Surgery | DX: I71.4 Abdominal aortic aneurysm, without rupture (principal) | CPT/HCPCS: 82565; 84520 ==

== ENCOUNTER 2021-03-25 17:29 | Inpatient (IN) | payer MEDICARE, BC ==
[2021-03-25 19:29] LABS: Basophils # (A) 0.1 k/uL (0-0.2); Basophils % (A) 1 %; Eosinophils # (A) 0.7 k/uL (0-0.7); Eosinophils % (A) 8 %; HCT 38.1 % (34.0-46.0); HGB 12.9 gm/dL (11.4-16.0); Lymphocytes # (A) 0.9 k/uL (1.0-4.8); Lymphocytes % (A) 11 %; MCH 30.1 pg (25.0-35.0); MCHC 33.9 g/dL (31.0-37.0); Mean Platelet Volume 7.5; Monocytes # (A) 0.5 k/uL (0-1.0); Monocytes % (A) 7 %; Neutrophils # (A) 5.8 k/uL (1.3-7.7); Neutrophils % (A) 72 %; Platelet Count 248 k/uL (150-450); RBC 4.28 m/uL (3.80-5.40); RDW 14.2 % (11.5-15.5); WBC 8.1 k/uL (3.8-10.6)
[2021-03-25 19:47] LABS: Albumin 3.9 g/dL (3.5-5.0); Magnesium 2.3 mg/dL (1.6-2.3); Total Bilirubin 0.3 mg/dL (0.2-1.3); Total Protein 6.1 g/dL (6.3-8.2)
[2021-03-25 20:38] LABS: Calcium 13.3 mg/dL (8.4-10.2)
[2021-03-25] MEDS ORDERED: SODIUM CHLORIDE 0.9% 1,000 ML IV ONE (20:43)
[2021-03-25] MEDS ORDERED: POTASSIUM CHLORIDE ER 20 MEQ TAB.ER PO STA (20:44)
[2021-03-25] MEDS ORDERED: NALOXONE 0.4 MG/ML 1 ML VIAL IV PRN (21:05)
[2021-03-25] MEDS ORDERED: ALBUTEROL NEBULIZED 2.5 MG/3 ML INHALATION PRN (21:10)
[2021-03-25] MEDS: SODIUM CHLORIDE 0.9% 1,000 ML IV SCH (21:25)
[2021-03-25] MEDS: hydrALAZINE HCL 25 MG TAB PO SCH (21:38)
[2021-03-25] MEDS: METOPROLOL TARTRATE 25 MG TAB PO SCH (21:39)
--- NOTE | 2021-03-25 21:57 | ED ---
General Adult HPI - General Chief complaint: Recheck/Abnormal Lab/Rx Stated complaint: ABD blood work Time Seen by Provider: 03/25/21 17:50 Source: patient, RN notes reviewed, old records reviewed Mode of arrival: ambulatory Limitations: no limitations - History of Present Illness Initial comments: Patient is a 75-year-old female with past medical history remarkable for skin cancer, hyperlipidemia, hypertension, CK D presents after being sent by her PCP for abnormal laboratory studies. Electrolytes obtained 2 days ago showed the patient is hypercalcemic and hypokalemic. He wished that she be evaluated in the emergency department and have labs redrawn and likely admitted for treatment. Patient otherwise has no acute complaints and denies any l ightheadedness, numbness, sensory deficits. She has any weakness, chest pain, short of breath, abdominal pain. She denies any change in urination, hematuria, dysuria. She is still making good urine. She has any nausea or vomiting. She otherwise has no acute complaints at this time and would like to go home, however understands that her electrolytes are important. - Related Data Home Medications Medication Instructions Recorded Confirmed Clopidogrel [Plavix] 75 mg PO DAILY 03/25/21 03/25/21 Famotidine [Pepcid] 20 mg PO BID 03/25/21 03/25/21 Fluticasone/Umeclidin/Vilanter 1 puff INHALATION RT-DAILY 03/25/21 03/25/21 [Trelegy Ellipta 200-62.5-25] Furosemide [Lasix] 20 mg PO DAILY 03/25/21 03/25/21 Levofloxacin [Levaquin] 250 mg PO DAILY 03/25/21 03/25/21 Meclizine HCl 12.5 mg PO TID PRN 03/25/21 03/25/21 Temazepam [Restoril] 15 mg PO HS PRN 03/25/21 03/25/21 hydrALAZINE HCL [Apresoline] 25 mg PO TID 03/25/21 03/25/21 Previous Rx's Medication Instructions Recorded amLODIPine [Norvasc] 10 mg PO DAILY #30 tab 09/10/20 Albuterol Inhaler [Ventolin Hfa 2 puff INHALATION RT-QID PRN #1 09/20/20 Inhaler] inhaler Aspirin 81 mg PO DAILY #30 chew 09/20/20 Isosorbide Mononitrate ER [Imdur] 30 mg PO DAILY #30 tab.er.24h 09/20/20 Metoprolol Tartrate [Lopressor] 25 mg PO TID #90 tab 09/20/20 Nitroglycerin Sl Tabs [Nitrostat] 0.4 mg SUBLINGUAL Q5M PRN #30 tab 09/20/20 Allergies Allergy/AdvReac Type Severity Reaction Status Date / Time codeine Allergy Rash/Hives Verified 03/25/21 20:53 morphine Allergy Rash/Hives Verified 03/25/21 20:53 Penicillins Allergy Rash/Hives Verified 03/25/21 20:53 [id number] Reductase Allergy Itching Verified 03/25/21 20:53 Inhibitor any cholesterol medications Allergy Itching Uncoded 03/25/21 18:01 Review of Systems ROS Statement: Those systems with pertinent positive or pertinent negative responses have been documented in the HPI. Review of Systems: CONST: Denies fever EYES: Denies blurry vision ENT: Denies nasal congestion C/V: Denies Chest pain RESP: Denies shortness of breath GI: Denies abdominal pain : Denies dysuria SKIN: Denies rash. MSK: Denies joint pain. NEURO: Denies headache ROS Other: All systems not noted in ROS Statement are negative. Past Medical History Past Medical History: Cancer, Hyperlipidemia, Hypertension, Pneumonia Additional Past Medical History / Comment(s): Pt recently admitted to [facility] on 09/08/20 with acute kidney injury/cervical pain. Other hx: gout, hyperlipidemia but cannot tolerate statins, skin cancer , osteoporosis, diverticulitis with sepsis, degenerative disc disease/chronic pain at cervical spine History of Any Multi-Drug Resistant Organisms: None Reported Past Surgical History: Adenoidectomy, Appendectomy, Cholecystectomy, Hystere ctomy, Orthopedic Surgery, Tonsillectomy Additional Past Surgical History / Comment(s): L knee arthroscopy d/t effusion, R wrist ganglion cyst surgeries x 3, skin cancer removed from nose, bilateral cataract removals/lens implants. stents, EVAR with bilateral renal stent chi mneys, aneurysm repair 06/08 Past Anesthesia/Blood Transfusion Reactions: No Reported Reaction Additional Past Anesthesia/Blood Transfusion Reaction / Comment(s): CHILDREN=PONV Past Psychological History: No Psychological Hx Reported Smoking Status: Current every day smoker Past Alcohol Use History: None Reported Past Drug Use History: None Reported - Past Family History Mother Family Medical History: Dementia Father History Unknown: Yes Family Medical History: No Reported History Daughter(s) Family Medical History: Cancer Additional Family Medical History / Comment(s): Letty survived breast cancer. General Exam - General Exam Comments Initial Comments: General: Appears in no acute distress. HEAD: Normal with no signs of head trauma. EYES: PERRLA, EOMI, conjunctiva normal, no discharge. ENT: Hearing grossly intact, normal oropharynx. RESPIRATORY: Clear breath sounds bilaterally. No wheezes, rales, or rhonchi. C/V: Regular rate and rhythm. S1 and S2 auscultated, no edema, peripheral pulses 2+ and intact throughout ABD: Abd is soft, nontender, nondistended EXT: Normal range of motion, no obvious deformity SKIN: No rashes or lesions observed on exposed skin. NEURO: Alert and oriented 4. Limitations: no limitations Course Vital Signs 03/25/21 03/25/21 17:57 21:21 Temperature 98.2 F 98.2 F Pulse Rate 67 73 Respiratory 18 18 Rate Blood Pressure 112/55 169/77 O2 Sat by Pulse 97 100 Oximetry Medical Decision Making - Medical Decision Making Based on the patient's presentation and physical exam, we'll obtain repeat laboratory studies. She may require admission the hospital for correction of her lectured abnormalities. Patient's liver to studies were remarkable for a hypercalcemia of 13.3, a hypokalemia at 3.0, as well as an VLADIMIR and CK D with worsening of her creatinine to 3.21. This may GFR is 14 at this time. I did speak with the patient regarding these laboratory studies and requested that we admit her to the hospit al. She was in agreement this plan. A 1 L fluid bolus will be started patient's hypercalcemia as well as a maintenance drip of normal saline. Patient will be administered a potassium replenishment with oral potassium. Patient is very mild EKG changes at this time with T-wave increased duration, however she will be admitted to telemetry bed to ensure that no further EKG changes and see her. I did speak with the patient's PCP, Dr. Farnsworth who accepted the admission. I spoke with the [facility], Dr. Mckeon who is covering for Javad who accepted the admission. I consulted nephrology for evaluation the patient tomorrow. Patient was therefore admitted to the hospital in serious condition. She was admitted to a telemetry bed. - Lab Data Result diagrams: 03/25/21 19:03/25/21 19: Lab Results 03/25/21 03/25/21 Range/Units 19:01 19:01 WBC 8.1 (3.8-10.6) k/uL RBC 4.28 (3.80-5.40) m/uL Hgb 12.9 (11.4-16.0) gm/dL Hct 38.1 (34.0-46.0) % MCV 89.0 D (80.0-100.0) fL MCH 30.1 (25.0-35.0) pg MCHC 33.9 (31.0-37.0) g/dL RDW 14.2 (11.5-15.5) % Plt Count 248 (150-450) k/uL MPV 7.5 Neutrophils % 72 % Lymphocytes % 11 % Monocytes % 7 % Eosinophils % 8 % Basophils % 1 % Neutrophils # 5.8 (1.3-7.7) k/uL Lymphocytes # 0.9 L (1.0-4.8) k/uL Monocytes # 0.5 (0-1.0) k/uL Eosinophils # 0.7 (0-0.7) k/uL Basophils # 0.1 (0-0.2) k/uL Sodium 137 (137-145) mmol/L Potassium 3.0 L (3.5-5.1) mmol/L Chloride 100 (98-107) mmol/L Carbon Dioxide 29 (22-30) mmol/L Anion Gap 8 mmol/L BUN 34 H (7-17) mg/dL Creatinine 3.21 H (0.52-1.04) mg/dL Est GFR (CKD-EPI)AfAm 16 (>60 ml/min/1.73 sqM) Est GFR (CKD-EPI)NonAf 14 (>60 ml/min/1.73 sqM) Glucose 97 (74-99) mg/dL Calcium 13.3 H* (8.4-10.2) mg/dL Magnesium 2.3 (1.6-2.3) mg/dL Total Bilirubin 0.3 (0.2-1.3) mg/dL AST 18 (14-36) U/L ALT 12 (4-34) U/L Alkaline Phosphatase 78 (38-126) U/L Total Protein 6.1 L (6.3-8.2) g/dL Albumin 3.9 (3.5-5.0) g/dL - EKG Data -: EKG Interpreted by Me EKG Comments: 12-lead Electrocardiogram Interpretation Note EKG was reviewed and interpreted by myself. 12-lead ECG performed at 1555 is interpreted by me as revealing normal sinus rhythm with PACs and a bigeminy pattern. At a rate of 67 beats per minute. [place] is normal. MO interval 162 ms, QTc is 450 ms, QRS is 120 ms. Patient's P waves do appear mildly prolonged.. There were no ST or T wave abnormalities to suggest myocardial ischemia or injury. R wave progression across the precordium was satisfactory. By my interpretation this EKG is non-diagnostic for acute ischemia. Disposition Clinical Impression: Hypokalemia, Hypercalcemia, VLADIMIR (acute kidney injury), CKD (chronic kidney disease) Disposition: ADMITTED IP TO THIS HOSP Condition: Serious
[2021-03-26] MEDS ORDERED: NON FORMULARY DRUG (Fluticasone/Umeclidin/Vilanter [Trelegy Ellipta 200-62.5-25] 1 EACH Bl INHALATION SCH (08:00)
[2021-03-26] MEDS: hydrALAZINE HCL 25 MG TAB PO SCH ×3 (08:00→21:56)
[2021-03-26] MEDS: CLOPIDOGREL 75 MG TAB PO SCH (08:00)
[2021-03-26] MEDS: ISOSORBIDE MONONITRATE ER 30 MG TAB.ER.24H PO SCH (08:00)
[2021-03-26] MEDS: METOPROLOL TARTRATE 25 MG TAB PO SCH ×3 (08:00→21:56)
[2021-03-26] MEDS: ASPIRIN 81 MG PO SCH (08:01)
[2021-03-26] MEDS: amLODIPine 10 MG TAB PO SCH (08:01)
[2021-03-26] MEDS: FAMOTIDINE 20 MG TAB PO SCH (08:01)
[2021-03-26 08:31] LABS: Basophils # (A) 0.1 k/uL (0-0.2); Basophils % (A) 1 %; Eosinophils # (A) 0.9 k/uL (0-0.7); Eosinophils % (A) 12 %; HCT 34.7 % (34.0-46.0); HGB 11.9 gm/dL (11.4-16.0); Lymphocytes # (A) 0.9 k/uL (1.0-4.8); Lymphocytes % (A) 13 %; MCH 30.9 pg (25.0-35.0); MCHC 34.3 g/dL (31.0-37.0); Mean Platelet Volume 7.3; Monocytes # (A) 0.5 k/uL (0-1.0); Monocytes % (A) 7 %; Neutrophils # (A) 4.7 k/uL (1.3-7.7); Neutrophils % (A) 66 %; Platelet Count 239 k/uL (150-450); RBC 3.86 m/uL (3.80-5.40); RDW 14.1 % (11.5-15.5); WBC 7.1 k/uL (3.8-10.6)
[2021-03-26] MEDS: IPRATROPIUM 0.5 MG/2.5 ML NEBU INHALATION SCH ×4 (08:32→20:34)
[2021-03-26] MEDS: SYMBICORT 80-4.5 MCG INHALER INHALATION SCH ×2 (08:32→20:36)
[2021-03-26] MEDS ORDERED: FUROSEMIDE 20 MG TAB PO SCH (09:00)
[2021-03-26 11:40] VITALS: BMI 16.6
[2021-03-26 12:45] LABS: African American GFR (CKD) 18 (>60 ml/min/1.73 sqM); Anion Gap 6 mmol/L; Blood Urea Nitrogen 27 mg/dL (7-17); Calcium 11.9 mg/dL (8.4-10.2); Carbon Dioxide 26 mmol/L (22-30); Chloride 109 mmol/L (98-107); Glucose 94 mg/dL (74-99); Non-African American GFR(CKD) 15 (>60 ml/min/1.73 sqM); Potassium 2.9 mmol/L (3.5-5.1); Sodium 141 mmol/L (137-145)
--- NOTE | 2021-03-26 13:32 | CONS ---
CONSULTATION REASON FOR CONSULT: Hypercalcemia. HISTORY OF PRESENT ILLNESS: The patient is a 75-year-old female who is admitted to the hospital due to elevated calcium. The patient states that she has had previous episodes of hypercalcemia earlier on during the year and review of labs shows a serum calcium at 11.2 in September of 2020 following which it was down to 9.3. On admission this time she was 13.3 mg/dL. The patient denies use of any calcium supplements. She states she is not taking any vitamin D. A previous PTH was appropriately low at 13.7 on 03/08/2021. The patient denies any underlying history of malignancy. I do not see a chest x-ray from this admission. Serum creatinine was 3.2 mg/dL yesterday. We do not have any labs from today. Previous creatinine was 2.3 and 2.2 mg/dL in September and December of 2020. Currently patient is maintained on IV fluids. Her calcium is down to 12.0 today. PAST MEDICAL HISTORY: Chronic kidney disease, stage 3B with serum creatinine mostly around 2.5-2.4 mg/dL since August of 2020, previous creatinine as low as 1.1 in May of 2020. The patient also has underlying history of hypertension, pneumonia, hyperlipidemia and skin cancer which was removed. PAST SURGICAL HISTORY: Adenoidectomy, appendectomy, cholecystectomy, hysterectomy, tonsillectomy, left knee arthroscopy, right wrist ganglion cyst removed, cataract surgeries, history of renal stents and abdominal aortic aneurysm repair. SOCIAL HISTORY: Positive for smoking. No history of drug abuse or alcohol abuse. MEDICATIONS PRIOR TO ADMISSION: Included Plavix, Pepcid, Lasix, Levaquin, Restoril, hydralazine, Norvasc, Imdur, Lopressor, Nitrostat. ALLERGIES: Include CODEINE, MORPHINE, PENICILLIN, STATINS. REVIEW OF SYSTEMS: As per HPI. Other systems negative. EXAMINATION: Patient is currently comfortable, awake, not in any acute distress. Alert, oriented x3. Blood pressure 153/68, heart rate 76 per minute, she is afebrile. Examination of the heart S1, S2. Examination of the lungs, bilateral breath sounds are heard. Abdomen is soft, nontender. Examination of lower extremities shows no significant edema. 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 LAB: Show sodium 137, potassium 3.0, chloride 100, BUN 34, creatinine 3.2. On 03/25/2021 calcium was 13.3 now down to 12.0. No labs except for calcium available today. ASSESSMENT: 1. Acute kidney injury secondary to hypercalcemia. Expect improvement with improving calcium levels. We will check labs today and then again in a.m. Continue with IV fluids. Check urinalysis. 2. Chronic kidney disease stage 3B with creatinine staying mostly around 2.5-2.4 mg/dL all the way to August of 2020, however, creatinine was 1.3-1.1 in May of 2020. Renal function has definitely progressed and worsened since the beginning of this year. I will check a urinalysis and repeat an ultrasound of the kidneys. No nephrotoxic agents on board currently. Continue with small dose of Lasix with the IV fluids to help with hypercalcemia unless the creatinine is worse today then I will hold the loop diuretics. 3. Hypercalcemia with previously low PTH levels in February of 2021. We will recheck PTH 125 hydroxy vitamin D as well as Connor level. Consider sarcoidosis. Continue with the IV fluids for now. We can hold off on the bisphosphonates as long as serum calcium continues to improve. Otherwise, the patient can receive a dose of Prolia. 4. Hypertension, currently controlled. 5. History of abdominal aortic aneurysm with renal stents. 6. Moderate to severe mitral regurgitation with previous echocardiogram showing EF 55- 60% in August of 2020. PLAN: Check ultrasound kidneys. Check PTH 25 hydroxy vitamin D as well as 125 hydroxy vitamin D and angiotensin levels. Continue with normal saline. Check labs today and then again in a.m. Thank you for this consultation. Will continue to follow the patient with you during her hospitalization. MMODL / IJN: [id number] /
[2021-03-26] MEDS: POTASSIUM CHLORIDE ER 20 MEQ TAB.ER PO SCH ×2 (13:51→14:49)
[2021-03-26] MEDS: SODIUM CHLORIDE 0.9% 1,000 ML IV SCH ×2 (13:52→17:29)
--- NOTE | 2021-03-26 15:36 | US ---
EXAMINATION TYPE: US kidneys/renal and bladder DATE OF EXAM: 03/26/2021 COMPARISON: NONE CLINICAL HISTORY: RF. high calcium levels, Renal failure EXAM MEASUREMENTS: Right Kidney: 8.1 x 3.0 x 3.1cm Left Kidney: not seen Right Kidney: No hydronephrosis or masses seen Left Kidney: not seen due to bowel gas obscuring window *splenule noted as seen on previous exam* Bladder: not distended IMPRESSION: Left kidney not seen. Right kidney is small consistent with atrophy. No renal obstruction.
--- NOTE | 2021-03-26 18:13 | P.HPIM ---
History of Present Illness Patient was [id number] female was sent in from her PCPs office because of hypercalcemia. Patient did have previous episodes of hypercalcemia and patient is found to have 13.3 now has come down patient is on IV fluids at this time patient is also noted Lasix at home which she is being converted to IV Lasix at this time to help with that hypercalcemia. Patient denies using any calcium supplements or vitamin D supplements. Patient had a previous PTH which was low. Repeat PTH, along with SEMAJ levels, vitamin D levels are being obtained at this time. Patient baseline creatinine appears to be around 2 this year was around 1.2 late last year. Patient has elevated serum creatinine of 2.2. Ultrasound of the gallbladder and kidney were obtained which did not show left kidney right kidney was atrophied consistent with chronic kidney disease urinalysis is being obtained as well. REVIEW OF SYSTEMS: CONSTITUTIONAL: No fever, no malaise, no fatigue. HEENT: No recent visual problems or hearing problems. Denied any sore throat. CARDIOVASCULAR: No chest pain, orthopnea, PND, no palpitations, no syncope. PULMONARY: No shortness of breath, no cough, no hemoptysis. GASTROINTESTINAL: No diarrhea, no nausea, no vomiting, no abdominal pain. NEUROLOGICAL: No headaches, no weakness, no numbness. HEMATOLOGICAL: Denies any bleeding or petechiae. GENITOURINARY: Denies any burning micturition, frequency, or urgency. MUSCULOSKELETAL/RHEUMATOLOGICAL: Denies any joint pain, swelling, or any muscle pain. ENDOCRINE: Denies any polyuria or polydipsia. The rest of the 14-point review of systems is negative. PHYSICAL EXAMINATION: GENERAL: The patient is alert and oriented x3, not in any acute distress. Well developed, well nourished. HEENT: Pupils are round and equally reacting to light. EOMI. No scleral icterus. No conjunctival pallor. Normocephalic, atraumatic. No pharyngeal erythema. No thyromegaly. CARDIOVASCULAR: S1 and S2 present. No murmurs, rubs, or gallops. PULMONARY: Chest is clear to auscultation, no wheezing or crackles. ABDOMEN: Soft, nontender, nondistended, normoactive bowel sounds. No palpable organomegaly. MUSCULOSKELETAL: No joint swelling or deformity. EXTREMITIES: No cyanosis, clubbing, or pedal edema. NEUROLOGICAL: Gross neurological examination did not reveal any focal deficits. SKIN: No rashes. Assessment and plan -Acute renal failure: Secondary to hypercalcemia. Patient will continue on IV fluids and continue with the low-dose of IV Lasix to help with hypercalcemia. -Hypercalcemia workup under progress continue with IV fluids PTH levels will be obtained, 125 hydroxy vitamin D level as well as a sliver are being obtained. We will obtain a chest x-ray as sarcoidosis is a consideration. Because of elevated the serum creatinine bisphosphonates are being held -Chronic kidney disease stage III -Hypertension: Well controlled continue with amlodipine -Severe mitral regurgitation with normal ejection fraction the past. -History of skin cancer not melanoma. -Nicotine use: Counseling was provided DVT prophylaxis: Subcutaneous heparin Past Medical History Past Medical History: Cancer, Hyperlipidemia, Hypertension, Pneumonia Additional Past Medical History / Comment(s): Pt recently admitted to [facility] on 09/08/20 with acute kidney injury/cervical pain. Other hx: gout, hyperlipidemia but cannot tolerate statins, skin cancer , osteoporosis, diverticulitis with sepsis, degenerative disc disease/chronic pain at cervical spine History of Any Multi-Drug Resistant Organisms: None Reported Past Surgical History: Adenoidectomy, Appendectomy, Cholecystectomy, Hysterectomy, Orthopedic Surgery, Tonsillectomy Additional Past Surgical History / Comment(s): L knee arthroscopy d/t effusion, R wrist ganglion cyst surgeries x 3, skin cancer removed from nose, bilateral cataract removals/lens implants. stents, EVAR with bilateral renal stent chimneys, aneurysm repair 06/08 Past Anesthesia/Blood Transfusion Reactions: No Reported Reaction Additional Past Anesthesia/Blood Transfusion Reaction / Comment(s): CHILDREN=PONV Past Psychological History: No Psychological Hx Reported Smoking Status: Current every day smoker Past Alcohol Use History: None Reported Past Drug Use History: None Reported - Past Family History Mother Family Medical History: Dementia Father History Unknown: Yes Family Medical History: No Reported History Daughter(s) Family Medical History: Cancer Additional Family Medical History / Comment(s): Letty survived breast cancer. Medications and Allergies Home Medications Medication Instructions Recorded Confirmed Type amLODIPine [Norvasc] 10 mg PO DAILY #30 tab 09/10/20 03/25/21 Rx Albuterol Inhaler [Ventolin Hfa 2 puff INHALATION RT-QID PRN #1 09/20/20 03/25/21 Rx Inhaler] inhaler Aspirin 81 mg PO DAILY #30 chew 09/20/20 03/25/21 Rx Isosorbide Mononitrate ER [Imdur] 30 mg PO DAILY #30 tab.er.24h 09/20/20 08/02/07 Rx Metoprolol Tartrate [Lopressor] 25 mg PO TID #90 tab 09/20/20 03/25/21 Rx Nitroglycerin Sl Tabs [Nitrostat] 0.4 mg SUBLINGUAL Q5M PRN #30 tab 09/20/20 03/25/21 Rx Clopidogrel [Plavix] 75 mg PO DAILY 03/25/21 03/25/21 History Famotidine [Pepcid] 20 mg PO BID 03/25/21 03/25/21 History Fluticasone/Umeclidin/Vilanter 1 puff INHALATION RT-DAILY 03/25/21 03/25/21 History [Trelegy Ellipta 200-62.5-25] Furosemide [Lasix] 20 mg PO DAILY 03/25/21 03/25/21 History Levofloxacin [Levaquin] 250 mg PO DAILY 03/25/21 03/25/21 History Meclizine HCl 12.5 mg PO TID PRN 03/25/21 03/25/21 History Temazepam [Restoril] 15 mg PO HS PRN 03/25/21 03/25/21 History hydrALAZINE HCL [Apresoline] 25 mg PO TID 03/25/21 03/25/21 History Allergies Allergy/AdvReac Type Severity Reaction Status Date / Time codeine Allergy Rash/Hives Verified 03/25/21 20:53 morphine Allergy Rash/Hives Verified 03/25/21 20:53 Penicillins Allergy Rash/Hives Verified 03/25/21 20:53 Rbjldpw-Ail-Jag Reductase Allergy Itching Verified 03/25/21 20:53 Inhibitor any cholesterol medications Allergy Itching Uncoded 03/25/21 18:01 Physical Exam Vitals: Vital Signs Temp Pulse Pulse Resp BP BP Pulse Ox 03/26/21 14:45 98.2 F 66 16 134/54 95 03/26/21 07:11 98.8 F 76 16 153/68 99 03/26/21 02:45 98.6 F 79 17 144/77 94 L 08/07/21 01:47 92 L 03/25/21 23:10 16 03/25/21 22:45 98.0 F 79 16 150/72 98 03/25/21 21:21 98.2 F 73 18 169/77 100 Intake and Output 03/26/21 03/26/21 03/26/21 06:59 14:59 22:59 Intake Total 1000 Balance 1000 Intake: Intake, IV Titration 1000 Amount Sodium Chloride 0.9% 1, 1000 000 ml @ 100 mls/hr IV . Q10H [facility] Rx#:[id number] Other: Voiding Method Toilet # Voids 1 2 Weight 38.555 kg Results CBC & Chem 7: 03/26/21 07:49 03/26/21 07:49 Labs: Abnormal Lab Results - Last 24 Hours (Table) 03/25/21 03/25/21 03/26/21 Range/Units 19:01 19:01 07:49 Lymphocytes # 0.9 L 0.9 L (1.0-4.8) k/uL Eosinophils # 0.9 H (0-0.7) k/uL Potassium 3.0 L (3.5-5.1) mmol/L Chloride (98-107) mmol/L BUN 34 H (7-17) mg/dL Creatinine 3.21 H (0.52-1.04) mg/dL Calcium 13.3 H* (8.4-10.2) mg/dL Total Protein 6.1 L (6.3-8.2) g/dL 03/26/21 03/26/21 Range/Units 07:49 07:49 Lymphocytes # (1.0-4.8) k/uL Eosinophils # (0-0.7) k/uL Potassium 2.9 L (3.5-5.1) mmol/L Chloride 109 H (98-107) mmol/L BUN 27 H (7-17) mg/dL Creatinine 2.89 H (0.52-1.04) mg/dL Calcium 12.0 H 11.9 H (8.4-10.2) mg/dL Total Protein (6.3-8.2) g/dL Thrombosis Risk Factor Assmnt - Choose All That Apply Each Risk Factor Represents 3 Points: Age 75 years or older Thrombosis Risk Factor Assessment Total Risk Factor Score: 3 Thrombosis Risk Factor Assessment Level: Moderate Risk
[2021-03-26] MEDS: HEPARIN SODIUM,PORCINE/PF 5,000 UNIT/0.5 ML SYRINGE SQ SCH (21:56)
[2021-03-27] MEDS: SODIUM CHLORIDE 0.9% 1,000 ML IV SCH (00:08)
[2021-03-27] MEDS: SYMBICORT 80-4.5 MCG INHALER INHALATION SCH ×3 (07:50→22:53)
[2021-03-27] MEDS: IPRATROPIUM 0.5 MG/2.5 ML NEBU INHALATION SCH ×4 (07:50→21:10)
[2021-03-27] MEDS: HEPARIN SODIUM,PORCINE/PF 5,000 UNIT/0.5 ML SYRINGE SQ SCH ×2 (08:05→20:11)
[2021-03-27] MEDS: METOPROLOL TARTRATE 25 MG TAB PO SCH (08:05)
[2021-03-27] MEDS: FAMOTIDINE 20 MG TAB PO SCH (08:05)
[2021-03-27] MEDS: ISOSORBIDE MONONITRATE ER 30 MG TAB.ER.24H PO SCH (08:05)
[2021-03-27] MEDS: hydrALAZINE HCL 25 MG TAB PO SCH ×3 (08:05→20:11)
[2021-03-27] MEDS: CLOPIDOGREL 75 MG TAB PO SCH (08:05)
[2021-03-27] MEDS: ASPIRIN 81 MG PO SCH (08:05)
[2021-03-27] MEDS: amLODIPine 10 MG TAB PO SCH (08:05)
[2021-03-27] MEDS ORDERED: FUROSEMIDE 10 MG/ML 2 ML VIAL IV SCH (09:00)
[2021-03-27 10:05] LABS: African American GFR (CKD) 20.1 (60.0-200.0); Anion Gap 5.2 mmol/L (4.00-12.00); BUN/Creat Ratio 7.69 Ratio (12.00-20.00); Carbon Dioxide 24.8 mmol/L (21.6-31.8); Non-African American GFR(CKD) 17.3 (60.0-200.0); Potassium 3.4 mmol/L (3.5-5.5)
[2021-03-27] MEDS: SODIUM CHLORIDE 0.45% 1,000 ML IV SCH ×2 (12:00→20:12)
--- NOTE | 2021-03-27 12:24 | PN ---
PROGRESS NOTE Patient is seen for followup for acute kidney injury and hypercalcemia. Patient's calcium has improved to 11 from 13.3. Creatinine is improved to 2.6 from 3.2 on initial admission. Patient is maintained on IV fluids. Her PTH was noted to be appropriately low at 16.8. Other labs are still pending. The patient wants to go home today. The angiotensin level and 125 hydroxy vitamin D level is still pending. PHYSICAL EXAMINATION: Patient is comfortable. Blood pressure 177/77, heart rate 70 per minute, she is afebrile. Examination of the heart S1, S2. Examination of lungs, decreased breath sounds at the bases. Abdomen is soft, nontender. Examination of lower extremities shows no significant edema. 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 LAB: Show sodium 148, potassium 3.4, chloride 118, BUN 20, creatinine 2.6, calcium 11.0. ASSESSMENT: 1. Acute kidney injury associated with hypercalcemia, currently improving. Ultrasound was not able to picking tech the left kidney due to bowel gas pattern. No major abnormalities noted on the right kidney. I will decrease the IV fluids and switch to half-normal saline given the hypernatremia. I will hold off on the Lasix as well. 2. Hypercalcemia with appropriately low PTH levels, rule out sarcoidosis. 125 hydroxy vitamin D level is currently pending. 3. Chronic kidney disease stage 3B, with creatinine mostly 2.5-2.[address] back to August of 2020. Prior creatinine 1.3-1.1 in May of 2020. 4. Moderate to severe mitral regurgitation with echocardiogram in August of 2020 showing ejection fraction 55-60%. 5. History of abdominal aortic aneurysm, renal stents, possibly ischemic cardiomyopathy contributing to underlying CKD. PLAN: Await angiotensin levels and 125 hydroxy vitamin D levels. I will change IV fluids to half-normal saline because of hypernatremia and I will hold off on the IV Lasix for now. Patient should stay back at least one more day. MMODL / IJN: [id number] /
[2021-03-27] MEDS ORDERED: polyethylene glycoL 3350 17 GM POWD.PACK PO PRN (13:35)
[2021-03-27] MEDS ORDERED: POTASSIUM CHLORIDE ER 20 MEQ TAB.ER PO STA (13:42)
--- NOTE | 2021-03-27 13:58 | P.PN ---
Subjective Progress Note Date: 03/27/21 Patient was [id number] female was sent in from her PCPs office because of hypercalcemia. Patient did have previous episodes of hypercalcemia and patient is found to have 13.3 now has come down patient is on IV fluids at this time patient is also noted Lasix at home which she is being converted to IV Lasix at this time to help with that hypercalcemia. Patient denies using any calcium supplements or vitamin D supplements. Patient had a previous PTH which was low. Repeat PTH, along with CONNOR levels, vitamin D levels are being obtained at this time. Patient baseline creatinine appears to be around 2 this year was around 1.2 late last year. Patient has elevated serum creatinine of 2.2. U ltrasound of the gallbladder and kidney were obtained which did not show left kidney right kidney was atrophied consistent with chronic kidney disease urinalysis is being obtained as well. 03/27/2021 Calcium level 11.0, down from 13.3 on admission. PTH level is normal 16.8. Patient is maintained on IV fluids with half saline, her sodium 148, potassium 3.4, creatinine 2.6 today. she is receiving potassium supplementation. Connor level and vitamin D levels are pending at this time. REVIEW OF SYSTEMS: HEENT: No recent visual problems or hearing problems. Denied any sore throat. CARDIOVASCULAR: No chest pain, orthopnea, PND, no palpitations, no syncope. PULMONARY: No shortness of breath, no cough, no hemoptysis. GASTROINTESTINAL: No diarrhea, no nausea, no vomiting, no abdominal pain. NEUROLOGICAL: No headaches, no weakness, no numbness. GENITOURINARY: Denies any burning micturition, frequency, or urgency. PHYSICAL EXAMINATION: GENERAL: The patient is alert and oriented x3, not in any acute distress. Well developed, well nourished. HEENT: Pupils are round and equally reacting to light. EOMI. No scleral icterus. No conjunctival pallor. Normocephalic, atraumatic. No pharyngeal erythema. No thyromegaly. CARDIOVASCULAR: S1 and S2 present. No murmurs, rubs, or gallops. PULMONARY: Chest is clear to auscultation, no wheezing or crackles. ABDOMEN: Soft, nontender, nondistended, normoactive bowel sounds. No palpable organomegaly. MUSCULOSKELETAL: No joint swelling or deformity. EXTREMITIES: No cyanosis, clubbing, or pedal edema. NEUROLOGICAL: Gross neurological examination did not reveal any focal deficits. SKIN: No rashes. Assessment and plan -* -Acute renal failure: Secondary to hypercalcemia. Patient will be continued on IV fluids with half saline, diuretics are on hold at this time. Calcium level XI.0 today. Nephrology is following. -Hypercalcemia: Unclear etiology. PTH levels are normal. Because of elevated creatinine she is not on bisphosphonates and diuretics. Connor and vitamin D levels are pending, we've ordered a chest x-ray today as sarcoidosis is in the differential. -Hypokalemia: Replaced -Chronic kidney disease stage III -Hypertension: Well controlled continue with amlodipine -Severe mitral regurgitation with normal ejection fraction the past. -History of skin cancer not melanoma. -Nicotine use: Counseling was provided DVT prophylaxis: Subcutaneous heparin Objective - Vital Signs Vital signs: Vital Signs Temp 98.4 F 03/27/21 08:00 Pulse 70 03/27/21 08:00 Resp 16 03/27/21 08:00 BP 177/71 03/27/21 08:00 Pulse Ox 95 03/27/21 08:00 Intake & Output 03/26/21 03/27/21 03/27/21 18:59 06:59 18:59 Intake Total 1000 Balance 1000 Weight 38.555 kg Intake: Intake, IV Titration 1000 Amount Sodium Chloride 0.9% 1, 1000 000 ml @ 100 mls/hr IV . Q10H [facility] Rx#:[id number] Other: Voiding Method Toilet # Voids 2 - Labs CBC & Chem 7: 03/26/21 07:49 03/27/21 06:52 Labs: Abnormal Lab Results - Last 24 Hours (Table) 03/27/21 Range/Units 06:52 Sodium 148 H (135-145) mmol/L Potassium 3.4 L (3.5-5.5) mmol/L Chloride 118 H (96-109) mmol/L Creatinine 2.6 H (0.6-1.5) mg/dL Est GFR (CKD-EPI)AfAm 20.1 L (60.0-200.0) Est GFR (CKD-EPI)NonAf 17.3 L (60.0-200.0) BUN/Creatinine Ratio 7.69 L (12.00-20.00) Ratio Calcium 11.0 H (8.7-10.3) mg/dL
--- NOTE | 2021-03-27 14:42 | XR ---
EXAMINATION TYPE: XR chest 2V DATE OF EXAM: 03/27/2021 COMPARISON: 10/12/2020 HISTORY: Sarcoidosis TECHNIQUE: FINDINGS: Heart is normal. Lungs are clear of infiltrate. There are no hilar masses. Mediastinum is n ormal. There is pulmonary hyperinflation with flattening of the diaphragm. There is slight blunting o f the posterior costophrenic angles. IMPRESSION: COPD. Small pleural effusions. Pleural fluid improved compared to old exam. No heart fail ure. No sign of any adenopathy or significant interstitial lung disease.
[2021-03-27] MEDS: METOPROLOL TARTRATE 50 MG TAB PO SCH (20:11)
[2021-03-27] MEDS ORDERED: TEMAZEPAM 15 MG PO PRN (23:00)
[2021-03-28] MEDS: ISOSORBIDE MONONITRATE ER 30 MG TAB.ER.24H PO SCH (07:26)
[2021-03-28] MEDS: HEPARIN SODIUM,PORCINE/PF 5,000 UNIT/0.5 ML SYRINGE SQ SCH (07:26)
[2021-03-28] MEDS: amLODIPine 10 MG TAB PO SCH (07:26)
[2021-03-28] MEDS: METOPROLOL TARTRATE 50 MG TAB PO SCH (07:26)
[2021-03-28] MEDS: CLOPIDOGREL 75 MG TAB PO SCH (07:27)
[2021-03-28] MEDS: ASPIRIN 81 MG PO SCH (07:27)
[2021-03-28] MEDS: hydrALAZINE HCL 25 MG TAB PO SCH ×2 (07:27→15:26)
[2021-03-28] MEDS: FAMOTIDINE 20 MG TAB PO SCH (07:27)
[2021-03-28] MEDS: SYMBICORT 80-4.5 MCG INHALER INHALATION SCH (08:27)
[2021-03-28] MEDS: IPRATROPIUM 0.5 MG/2.5 ML NEBU INHALATION SCH ×3 (08:30→16:37)
[2021-03-28 08:51] VITALS: RESP 18; TEMP 98.5
[2021-03-28 10:14] LABS: African American GFR (CKD) 21.1 (60.0-200.0); Anion Gap 5.3 mmol/L (4.00-12.00); BUN/Creat Ratio 6.8 Ratio (12.00-20.00); Calcium 11.5 mg/dL (8.7-10.3); Carbon Dioxide 25.7 mmol/L (21.6-31.8); Non-African American GFR(CKD) 18.2 (60.0-200.0); Potassium 3.3 mmol/L (3.5-5.5)
[2021-03-28] MEDS ORDERED: Potassium Replacement Protocol 1 EACH MISC MISCELLANE PRN (10:54)
[2021-03-28] MEDS: POTASSIUM CHLORIDE ER 20 MEQ TAB.ER PO SCH ×2 (11:29→12:17)
[2021-03-28] MEDS: SODIUM CHLORIDE 0.45% 1,000 ML IV SCH (13:26)
[2021-03-28 14:06] VITALS: BP 127/57; PULSE 66
[2021-03-28] MEDS ORDERED: DENOSUMAB 60 MG/ML 1 ML SYRINGE SQ ONE (14:22)
[2021-03-28] MEDS ORDERED: POTASSIUM CHLORIDE ER 20 MEQ TAB.ER PO STA (14:32)
--- NOTE | 2021-03-28 14:33 | P.DS ---
Providers Date of admission: 03/25/21 21:05 Attending physician: Agustín Farnsworth Consults: 03/25/21 21:07 Consult Physician Routine Consulting Provider: Ansley Quinn Consult Reason/Comments: laurel on ckd, electrolyte abnormalities Do you want consulting provider notified?: Yes Primary care physician: Agustín Farnsworth [facility] Course: Patient was [id number] female was sent in from her PCPs office because of hypercalcemia. Patient did have previous episodes of hypercalcemia and patient is found to have 13.3 now has come down patient is on IV fluids at this time patient is also noted Lasix at home which she is being converted to IV Lasix at this time to help with that hypercalcemia. Patient denies using any calcium supplements or vitamin D supplements. Patient had a previous PTH which was low. Repeat PTH, along with CONNOR levels, vitamin D levels are being obtained at this time. Patient baseline creatinine appears to be around 2 this year was around 1.2 late last year. Patient has elevated serum creatinine of 2.2. Ultrasound of the gallbladder and kidney were obtained which did not show left kidney right kidney was atrophied consistent with chronic kidney disease urinalysis is being obtained as well. 03/27/2021 Calcium level 11.0, down from 13.3 on admission. PTH level is normal 16.8. Patient is maintained on IV fluids with half saline, her sodium 148, potassium 3.4, creatinine 2.6 today. she is receiving potassium supplementation. Connor level and vitamin D levels are pending at this time. 03/28/2021 patient is clinically doing well wanted to go home and serum calcium today is around 11.5 discussed with the nephrology, patient will get PTH RP tested as an outpatient. Rest of the lab workup including CONNOR levels, peak intact PTH are within normal limits patient serum creatinine came down to 2.5 which is about her baseline patient potassium is low at 3.3 which will be replaced patient will be given a dose of Denosumab, patient will follow-up with nephrology closely as an outpatient. Patient will be resumed on home dose of Lasix and basic metabolic profile will be obtained in about 3 days. PHYSICAL EXAMINATION: GENERAL: The patient is alert and oriented x3, not in any acute distress. Well developed, well nourished. HEENT: Pupils are round and equally reacting to light. EOMI. No scleral icterus. No conjunctival pallor. Normocephalic, atraumatic. No pharyngeal erythema. No thyromegaly. CARDIOVASCULAR: S1 and S2 present. No murmurs, rubs, or gallops. PULMONARY: Chest is clear to auscultation, no wheezing or crackles. ABDOMEN: Soft, nontender, nondistended, normoactive bowel sounds. No palpable organomegaly. MUSCULOSKELETAL: No joint swelling or deformity. EXTREMITIES: No cyanosis, clubbing, or pedal edema. NEUROLOGICAL: Gross neurological examination did not reveal any focal deficits. SKIN: No rashes. Assessment and plan -* -Acute renal failure: Secondary to hypercalcemia. Improved with IV fluids and the serum creatinine is at her baseline now -Hypercalcemia: Unclear etiology. CONNOR levels, PTH levels are normal, no paraprotein, no paraprotein on electrophoresis. Vitamin D level is pending chest x-ray today as sarcoidosis is in the differential. -Hypokalemia: Replaced -Chronic kidney disease stage III -Hypertension: Well controlled continue with amlodipine -Severe mitral regurgitation with normal ejection fraction the past. -History of skin cancer not melanoma. -Nicotine use: Counseling was provided Patient will be discharged today with close follow-up with nephrology and PCP as an outpatient Patient Condition at Discharge: Serious Plan - Discharge Summary Discharge Rx Participant: No New Discharge Prescriptions: Continue amLODIPine [Norvasc] 10 mg PO DAILY #30 tab Aspirin 81 mg PO DAILY #30 chew Isosorbide Mononitrate ER [Imdur] 30 mg PO DAILY #30 tab.er.24h Metoprolol Tartrate [Lopressor] 25 mg PO TID #90 tab Nitroglycerin Sl Tabs [Nitrostat] 0.4 mg SUBLINGUAL Q5M PRN #30 tab PRN Reason: Chest Pain Albuterol Inhaler [Ventolin Hfa Inhaler] 2 puff INHALATION RT-QID PRN #1 inhaler PRN Reason: Shortness Of Breath Or Wheezing Meclizine HCl 12.5 mg PO TID PRN PRN Reason: Vertigo Temazepam [Restoril] 15 mg PO HS PRN PRN Reason: Insomnia Famotidine [Pepcid] 20 mg PO BID Fluticasone/Umeclidin/Vilanter [Trelegy Ellipta 200-62.5-25] 1 puff INHALATION RT-DAILY hydrALAZINE HCL [Apresoline] 25 mg PO TID Furosemide [Lasix] 20 mg PO DAILY Clopidogrel [Plavix] 75 mg PO DAILY Discontinued Levofloxacin [Levaquin] 250 mg PO DAILY Discharge Medication List amLODIPine [Norvasc] 10 mg PO DAILY #30 tab 09/10/20 [Rx] Albuterol Inhaler [Ventolin Hfa Inhaler] 2 puff INHALATION RT-QID PRN #1 inhaler 09/20/20 [Rx] Aspirin 81 mg PO DAILY #30 chew 09/20/20 [Rx] Isosorbide Mononitrate ER [Imdur] 30 mg PO DAILY #30 tab.er.24h 09/20/20 [Rx] Metoprolol Tartrate [Lopressor] 25 mg PO TID #90 tab 09/20/20 [Rx] Nitroglycerin Sl Tabs [Nitrostat] 0.4 mg SUBLINGUAL Q5M PRN #30 tab 09/20/20 [Rx] Clopidogrel [Plavix] 75 mg PO DAILY 03/25/21 [History] Famotidine [Pepcid] 20 mg PO BID 03/25/21 [History] Fluticasone/Umeclidin/Vilanter [Trelegy Ellipta 200-62.5-25] 1 puff INHALATION RT-DAILY 03/25/21 [History] Furosemide [Lasix] 20 mg PO DAILY 03/25/21 [History] Meclizine HCl 12.5 mg PO TID PRN 03/25/21 [History] Temazepam [Restoril] 15 mg PO HS PRN 03/25/21 [History] hydrALAZINE HCL [Apresoline] 25 mg PO TID 03/25/21 [History] Follow up Appointment(s)/Referral(s): Agustín Farnsworth MD [Primary Care Provider] - 3 Days Ansley Quinn MD [STAFF PHYSICIAN] - 1 Week Ambulatory/Diagnostic Orders: Basic Metabolic Panel [LAB.AMB] Time Frame: 3 Days, Location: None Selected Discharge Disposition: HOME SELF-CARE
[2021-03-28 14:39] LABS: African American GFR (CKD) 22 (>60 ml/min/1.73 sqM); Anion Gap 7 mmol/L; Blood Urea Nitrogen 18 mg/dL (7-17); Calcium 12.3 mg/dL (8.4-10.2); Carbon Dioxide 24 mmol/L (22-30); Chloride 107 mmol/L (98-107); Glucose 139 mg/dL (74-99); Non-African American GFR(CKD) 19 (>60 ml/min/1.73 sqM); Potassium 3.6 mmol/L (3.5-5.1); Sodium 138 mmol/L (137-145)
--- NOTE | 2021-03-28 15:29 | PN ---
PROGRESS NOTE Patient is seen for hypercalcemia and acute kidney injury. The patient calcium remains elevated. She was down to 11.5 yesterday. Serum creatinine is improved and it is down from about 3.2-2.5 mg/dL. Previous creatinine has been around 2.8-2.2 mg/dL. Patient wants to go home. Her PTH is appropriately low. She was IV fluids. Chest x-ray shows evidence of small pleural effusions and COPD. No adenopathy or masses noted. PHYSICAL EXAMINATION: On examination today, blood pressure 130/74, heart rate 64 per minute. Patient is afebrile. She is currently euvolemic with no evidence of edema of lower extremities. LAB: Show sodium 145, potassium 3.3, chloride 114, BUN of 17, creatinine 2.5, calcium 11.5. ASSESSMENT: 1. Hypercalcemia with appropriately low PTH levels. The angiotensin level is not elevated as well to suggest sarcoidosis. Await 125 hydroxy vitamin D. Patient's chest x-ray does not show any significant adenopathy or masses, I will order a parathyroid related protein and the patient will be given a dose of and we will see her back for followup as outpatient in about 1-2 weeks time. The patient is advised to avoid any calcium supplements. The urine immunofixation was also within normal range. 2. Acute kidney injury secondary to hypercalcemia, improved. 3. Chronic kidney disease, etiology unclear, possibly nephrosclerosis. Serum creatinine baseline about 2.2-2.3. However, she was as low as 1.3 and 1.1 mg/dL in June of 2020. 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 PLAN: Prolia x1. Replace potassium. The patient can be discharged. Follow up on 125 hydroxy vitamin D level and check a parathyroid related protein and patient will be seen in the office for followup in 2 weeks time. MMODL / IJN: [id number] /
== END 2021-03-28 16:47 | disposition home or self-care (01) | DRG 683 ==
LOC: EC 17:29 → 4SSUR 21:05
PROVIDERS: ADMIT Family Medicine; ATTEND Family Medicine
DX: N17.9 Acute kidney failure, unspecified (principal); E87.0 Hyperosmolality and hypernatremia; E87.6 Hypokalemia; E78.5 Hyperlipidemia, unspecified; E83.52 Hypercalcemia; F17.200 Nicotine dependence, unspecified, uncomplicated; I12.9 Hypertensive chronic kidney disease with stage 1 through stage 4 chronic kidney disease, or unspecified chronic kidney disease; I34.0 Nonrheumatic mitral (valve) insufficiency; J44.9 Chronic obstructive pulmonary disease, unspecified; N18.32 Chronic kidney disease, stage 3b; Z79.02 Long term (current) use of antithrombotics/antiplatelets; Z79.82 Long term (current) use of aspirin; Z79.899 Other long term (current) drug therapy; Z80.3 Family history of malignant neoplasm of breast; Z85.828 Personal history of other malignant neoplasm of skin; Z86.79 Personal history of other diseases of the circulatory system; Z90.710 Acquired absence of both cervix and uterus; Z96.1 Presence of intraocular lens; M10.9 Gout, unspecified; M54.2 Cervicalgia
CPT/HCPCS: 36415; 71046; 76770; 80048; 80053; 82164; 82310; 82652; 83735; 83970; 85025; 86334; 86335; 93005; 94640; 94760

== ENCOUNTER 2021-04-01 12:13 | Inpatient (IN) | payer MEDICARE, BC ==
[2021-04-01] MEDS ORDERED: SODIUM CHLORIDE 0.9% 1,000 ML IV STA (13:06)
--- NOTE | 2021-04-01 13:10 | ED ---
Recheck HPI - General Chief Complaint: Recheck/Abnormal Lab/Rx Stated Complaint: Abnormal labs Time Seen by Provider: 04/01/21 12:37 Source: patient, family, RN notes reviewed, old records reviewed Mode of arrival: ambulatory Limitations: no limitations - History of Present Illness Initial Comments: 75-year-old female presents from home at a have suffered doctor for elevated calcium level. Just complains some weakness some lightheadedness and dizziness no fevers chills nausea vomiting sweats no tremors. She apparently was admitted for this week ago and her levels are now higher than a were then. No other current complaints or modifying factors - Related Data Home Medications Medication Instructions Recorded Confirmed Clopidogrel [Plavix] 75 mg PO DAILY 03/25/21 04/01/21 Famotidine [Pepcid] 20 mg PO BID 03/25/21 04/01/21 Fluticasone/Umeclidin/Vilanter 1 puff INHALATION RT-DAILY 03/25/21 04/01/21 [Trelegy Ellipta 200-62.5-25] Furosemide [Lasix] 20 mg PO DAILY 03/25/21 04/01/21 Meclizine HCl 12.5 mg PO TID PRN 03/25/21 04/01/21 Temazepam [Restoril] 15 mg PO HS 03/25/21 04/01/21 hydrALAZINE HCL [Apresoline] 25 mg PO TID 03/25/21 04/01/21 Previous Rx's Medication Instructions Recorded amLODIPine [Norvasc] 10 mg PO DAILY #30 tab 09/10/20 Albuterol Inhaler [Ventolin Hfa 2 puff INHALATION RT-QID PRN #1 09/20/20 Inhaler] inhaler Aspirin 81 mg PO DAILY #30 chew 09/20/20 Isosorbide Mononitrate ER [Imdur] 30 mg PO DAILY #30 tab.er.24h 09/20/20 Metoprolol Tartrate [Lopressor] 25 mg PO TID #90 tab 09/20/20 Nitroglycerin Sl Tabs [Nitrostat] 0.4 mg SUBLINGUAL Q5M PRN #30 tab 09/20/20 Allergies Allergy/AdvReac Type Severity Reaction Status Date / Time codeine Allergy Rash/Hives Verified 04/01/21 14:04 morphine Allergy Rash/Hives Verified 04/01/21 14:04 Penicillins Allergy Rash/Hives Verified 04/01/21 14:04 [id number] Reductase Allergy Itching Verified 04/01/21 14:04 Inhibitor any cholesterol medications Allergy Itching Uncoded 04/01/21 12:26 Review of Systems ROS Statement: Those systems with pertinent positive or pertinent negative responses have been documented in the HPI. ROS Other: All systems not noted in ROS Statement are negative. Past Medical History Past Medical History: Cancer, Hyperlipidemia, Hypertension, Pneumonia Additional Past Medical History / Comment(s): Pt recently admitted to [facility] on 09/08/20 with acute kidney injury/cervical pain. Other hx: gout, hyperlipidemia but cannot tolerate statins, skin cancer , osteoporosis, diverticulitis with sepsis, degenerative disc disease/chronic pain at cervical spine History of Any Multi-Drug Resistant Organisms: None Reported Past Surgical History: Adenoidectomy, Appendectomy, Cholecystectomy, Hysterectomy, Orthopedic Surgery, Tonsillectomy Additional Past Surgical History / Comment(s): L knee arthroscopy d/t effusion, R wrist ganglion cyst surgeries x 3, skin cancer removed from nose, bilateral cataract removals/lens implants. stents, EVAR with bilateral renal stent chimneys, aneurysm repair 06/08 Past Anesthesia/Blood Transfusion Reactions: No Reported Reaction Additional Past Anesthesia/Blood Transfusion Reaction / Comment(s): CHILD RANDY=PONV Past Psychological History: No Psychological Hx Reported Smoking Status: Current every day smoker Past Alcohol Use History: None Reported Past Drug Use History: None Reported - Past Family History Mother Family Medical History: Dementia Father History Unknown: Yes Family Medical History: No Reported History Daughter(s) Family Medical History: Cancer Additional Family Medical History / Comment(s): Letty survived breast cancer. General Exam - General Exam Comments Initial Comments: Is a well-developed asthenic appearing female who is awake alert oriented 3 Limitations: no limitations General appearance: alert, in no apparent distress Head exam: Present: atraumatic, normocephalic, normal inspection Eye exam: Present: normal appearance, PERRL, EOMI. Absent: scleral icterus, conjunctival injection, periorbital swelling ENT exam: Present: mucous membranes dry Neck exam: Present: normal inspection, full ROM, other. Absent: tenderness, meningismus, lymphadenopathy Respiratory exam: Present: normal lung sounds bilaterally. Absent: respiratory distress, wheezes, rales, rhonchi, stridor Cardiovascular Exam: Present: regular rate, normal rhythm, normal heart sounds. Absent: systolic murmur, diastolic murmur, rubs, gallop, clicks GI/Abdominal exam: Present: soft, normal bowel sounds. Absent: distended, tenderness, guarding, rebound, rigid Extremities exam: Present: normal inspection, full ROM, normal capillary refill. Absent: tenderness, pedal edema, joint swelling, calf tenderness Back exam: Present: normal inspection Neurological exam: Present: alert, oriented X3, CN II-XII intact Psychiatric exam: Present: normal affect, normal mood Skin exam: Present: warm, dry, intact, normal color. Absent: rash Course Vital Signs 04/01/21 12:21 Temperature 97.7 F Pulse Rate 70 Respiratory 20 Rate Blood Pressure 145/77 O2 Sat by Pulse 99 Oximetry Medical Decision Making - Medical Decision Making I did discuss findings with the patient and family as well as with Dr. Farnsworth's PA Mukund patient will be admitted with nephrology consultation. She currently is hemodynamically stable continue with IV hydration. - Lab Data Result diagrams: 04/01/21 13:13 04/01/21 13:13 Lab Results 04/01/21 04/01/21 Range/Units 13:13 13:13 WBC 7.0 (3.8-10.6) k/uL RBC 4.36 (3.80-5.40) m/uL Hgb 13.0 (11.4-16.0) gm/dL Hct 39.9 (34.0-46.0) % MCV 91.5 (80.0-100.0) fL MCH 29.9 (25.0-35.0) pg MCHC 32.7 (31.0-37.0) g/dL RDW 15.0 (11.5-15.5) % Plt Count 243 (150-450) k/uL MPV 7.6 Neutrophils % 69 % Lymphocytes % 15 % Monocytes % 8 % Eosinophils % 6 % Basophils % 1 % Neutrophils # 4.8 (1.3-7.7) k/uL Lymphocytes # 1.1 (1.0-4.8) k/uL Monocytes # 0.6 (0-1.0) k/uL Eosinophils # 0.5 (0-0.7) k/uL Basophils # 0.1 (0-0.2) k/uL Sodium 136 L (137-145) mmol/L Potassium 4.2 (3.5-5.1) mmol/L Chloride 103 (98-107) mmol/L Carbon Dioxide 23 (22-30) mmol/L Anion Gap 10 mmol/L BUN 39 H (7-17) mg/dL Creatinine 3.81 H (0.52-1.04) mg/dL Est GFR (CKD-EPI)AfAm 13 (>60 ml/min/1.73 sqM) Est GFR (CKD-EPI)NonAf 11 (>60 ml/min/1.73 sqM) Glucose 110 H (74-99) mg/dL Calcium 13.8 H* (8.4-10.2) mg/dL Phosphorus 5.7 H (2.5-4.5) mg/dL Magnesium 2.5 H (1.6-2.3) mg/dL Total Bilirubin 0.5 (0.2-1.3) mg/dL AST 27 (14-36) U/L ALT 17 (4-34) U/L Alkaline Phosphatase 77 (38-126) U/L Creatine Kinase 33 (30-135) U/L Total Protein 6.5 (6.3-8.2) g/dL Albumin 4.3 (3.5-5.0) g/dL - EKG Data -: EKG Interpreted by Ma EKG shows normal: sinus rhythm, axis, intervals, QRS complexes, ST-T waves Rate: normal EKG Comments: Normal sinus rhythm a 63. Interval 142 QRS 112 QT since QTC 412/421 st-t wave changes Disposition Clinical Impression: Acute kidney injury, Hypercalcemia, Dehydration Disposition: ADMITTED IP TO THIS HOSP Condition: Fair Referrals: Agustín Farnsworth MD [Primary Care Provider] - 1-2 days
[2021-04-01 13:43] LABS: Basophils # (A) 0.1 k/uL (0-0.2); Basophils % (A) 1 %; Eosinophils # (A) 0.5 k/uL (0-0.7); Eosinophils % (A) 6 %; HCT 39.9 % (34.0-46.0); Lymphocytes # (A) 1.1 k/uL (1.0-4.8); Lymphocytes % (A) 15 %; MCH 29.9 pg (25.0-35.0); MCHC 32.7 g/dL (31.0-37.0); MCV 91.5 fL (80.0-100.0); Mean Platelet Volume 7.6; Monocytes # (A) 0.6 k/uL (0-1.0); Monocytes % (A) 8 %; Neutrophils # (A) 4.8 k/uL (1.3-7.7); Neutrophils % (A) 69 %; Platelet Count 243 k/uL (150-450); RBC 4.36 m/uL (3.80-5.40)
[2021-04-01 13:59] LABS: Albumin 4.3 g/dL (3.5-5.0); Total Bilirubin 0.5 mg/dL (0.2-1.3); Total Protein 6.5 g/dL (6.3-8.2)
[2021-04-01 14:05] LABS: Calcium 13.8 mg/dL (8.4-10.2); Phosphorus 5.7 mg/dL (2.5-4.5); Potassium 4.2 mmol/L (3.5-5.1)
[2021-04-01 14:06] LABS: Magnesium 2.5 mg/dL (1.6-2.3)
[2021-04-01] MEDS ORDERED: ACETAMINOPHEN TAB 325 MG TAB PO PRN (15:27)
[2021-04-01] MEDS ORDERED: NALOXONE 0.4 MG/ML 1 ML VIAL IV PRN (15:27)
[2021-04-01] MEDS ORDERED: ALBUTEROL HFA INHALER INHALATION PRN (15:29)
[2021-04-01] MEDS ORDERED: MECLIZINE 12.5 MG TAB PO PRN (15:29)
[2021-04-01] MEDS ORDERED: NITROGLYCERIN SL TABS 0.4 MG TAB SUBLINGUAL PRN (15:29)
[2021-04-01 16:41] LABS: Appearance,Urine Clear (Clear); Bilirubin,Urine Negative (Negative); Blood,Urine Negative (Negative); Color,Urine Light Yellow; Glucose,Urine (UA) Negative (Negative); Ketones,Urine Negative (Negative); Leukocyte Esterase,Urine Negative (Negative); Nitrite,Urine Negative (Negative); PH, Urine 6.5 (5.0-8.0); Protein,Urine Trace (Negative); Specific Gravity,Urine 1.008 (1.001-1.035); Urobilinogen,Urine <2.0 mg/dL (<2.0)
[2021-04-01] MEDS: METOPROLOL TARTRATE 25 MG TAB PO SCH ×2 (17:22→21:10)
[2021-04-01] MEDS: hydrALAZINE HCL 25 MG TAB PO SCH ×2 (17:22→21:10)
[2021-04-01] MEDS: SODIUM CHLORIDE 0.9% 1,000 ML IV SCH (17:23)
--- NOTE | 2021-04-01 17:30 | P.HPIM ---
History of Present Illness H&P Date: 04/01/21 Chief Complaint: Generalized weakness 75-year-old female was sent to the emergency department for elevated calcium level of 14.4. Patient had extensive diagnostic workup in the emergency department revealing calcium of 13.8, increase in creatinine to 3.8 with a BUN of 39 and a GFR of 13. Patient subjective complaints of generalized weakness and intermittent dizziness episodes for acute on chronic duration. Patient has significant medical history of stage IV kidney disease, frequent episodes of elevated calcium level, hypertension, hyperlipidemia, and several comorbidities. 04/01/2021 Patient seen and examined at bedside. Patient resting comfortably in bed with nasal cannula 2 L. Patient denies fever, chills, chest pain, palpitations, abdominal pain or nausea vomiting. Patient continues to endorse acute on chronic generalized weakness with intermittent dizziness episodes. Review diagnostic testing done in the emergency department, vital signs stable. Con sultation with nephrology for acute on chronic renal failure and hypercalcemia. Review of Systems Constitutional: Reports fatigue, Reports weakness Respiratory: Reports dyspnea Musculoskeletal: Reports muscle cramps, Reports muscle weakness Neurological: Reports balance difficulties, Reports weakness Psychiatric: Reports anxiety Endocrine: Reports fatigue Past Medical History Past Medical History: Cancer, Hyperlipidemia, Hypertension, Pneumonia Additional Past Medical History / Comment(s): Pt recently admitted to [facility] on 09/08/20 with acute kidney injury/cervical pain. Other hx: gout, hyperlipidemia but cannot tolerate statins, skin cancer , osteoporosis, d iverticulitis with sepsis, degenerative disc disease/chronic pain at cervical spine History of Any Multi-Drug Resistant Organisms: None Reported Past Surgical History: Adenoidectomy, Appendectomy, Cholecystectomy, Hysterectomy, Orthopedic Surgery, Tonsillectomy Additional Past Surgical History / Comment(s): L knee arthroscopy d/t effusion, R wrist ganglion cyst surgeries x 3, skin cancer removed from nose, bilateral cataract removals/lens implants. stents, EVAR with bilateral renal stent chimneys, aneurysm repair 06/08 Past Anesthesia/Blood Transfusion Reactions: No Reported Reaction Additional Past Anesthesia/Blood Transfusion Reaction / Comment(s): CHILDREN=PONV Past Psychological History: No Psychological Hx Reported Smoking Status: Current every day smoker Past Alcohol Use History: None Reported Past Drug Use History: None Reported - Past Family History Mother Family Medical History: Dementia Father History Unknown: Yes Family Medical History: No Reported History Daughter(s) Family Medical History: Cancer Additional Family Medical History / Comment(s): Letty survived breast cancer. Medications and Allergies Home Medications and Allergies Comment(s): Medications and ALLERGIES reviewed Home Medications Medication Instructions Recorded Confirmed Type amLODIPine [Norvasc] 10 mg PO DAILY #30 tab 09/10/20 04/01/21 Rx Albuterol Inhaler [Ventolin Hfa 2 puff INHALATION RT-QID PRN #1 09/20/20 04/01/21 Rx Inhaler] inhaler Aspirin 81 mg PO DAILY #30 chew 09/20/20 04/01/21 Rx Isosorbide Mononitrate ER [Imdur] 30 mg PO DAILY #30 tab.er.24h 09/20/20 04/01/21 Rx Metoprolol Tartrate [Lopressor] 25 mg PO TID #90 tab 09/20/20 04/01/21 Rx Nitroglycerin Sl Tabs [Nitrostat] 0.4 mg SUBLINGUAL Q5M PRN #30 tab 09/20/20 04/01/21 Rx Clopidogrel [Plavix] 75 mg PO DAILY 03/25/21 04/01/21 History Famotidine [Pepcid] 20 mg PO BID 03/25/21 04/01/21 History Fluticasone/Umeclidin/Vilanter 1 puff INHALATION RT-DAILY 03/25/21 04/01/21 History [Trelegy Ellipta 200-62.5-25] Furosemide [Lasix] 20 mg PO DAILY 03/25/21 04/01/21 History Meclizine HCl 12.5 mg PO TID PRN 03/25/21 04/01/21 History Temazepam [Restoril] 15 mg PO HS 03/25/21 04/01/21 History hydrALAZINE HCL [Apresoline] 25 mg PO TID 03/25/21 04/01/21 History Allergies Allergy/AdvReac Type Severity Reaction Status Date / Time codeine Allergy Rash/Hives Verified 04/01/21 14:04 morphine Allergy Rash/Hives Verified 04/01/21 14:04 Penicillins Allergy Rash/Hives Verified 04/01/21 14:04 [id number]-[id number]-Iaa Reductase Allergy Itching Verified 04/01/21 14:04 Inhibitor any cholesterol medications Allergy Itching Uncoded 04/01/21 12:26 Physical Exam Vitals: Vital Signs Temp Pulse Resp BP Pulse Ox 04/01/21 12:21 97.7 F 70 20 145/77 99 Intake and Output 04/01/21 04/01/21 04/01/21 06:59 14:59 22:59 Other: Weight 38.555 kg - Constitutional General appearance: thin - EENT Eyes: PERRLA ENT: normal oropharynx Ears: bilateral: normal - Neck Neck: normal ROM Carotids: bilateral: upstroke normal Thyroid: bilateral: normal size - Respiratory Respiratory: bilateral: diminished (Anterior and posterior lung coleman) - Cardiovascular Heart rate: 84 Rhythm: regular Heart sounds: normal: S1, S2 radial pulse Peripheral Pulses: bilateral: Normal dorsalis pedis Peripheral Pulses: bilateral: Normal - Gastrointestinal General gastrointestinal: normal bowel sounds - Integumentary Integumentary: decreased turgor - Neurologic Neurologic: CNII-XII intact - Musculoskeletal Musculoskeletal: generalized weakness - Psychiatric Psychiatric: A&O x's 3, appropriate affect, intact judgment & insight Results CBC & Chem 7: 04/01/21 13:13 04/01/21 13:13 Labs: Abnormal Lab Results - Last 24 Hours (Table) 04/01/21 04/01/21 Range/Units 13:13 16:14 Sodium 136 L (137-145) mmol/L BUN 39 H (7-17) mg/dL Creatinine 3.81 H (0.52-1.04) mg/dL Glucose 110 H (74-99) mg/dL Calcium 13.8 H* (8.4-10.2) mg/dL Phosphorus 5.7 H (2.5-4.5) mg/dL Magnesium 2.5 H (1.6-2.3) mg/dL Urine Protein Trace H (Negative) Thrombosis Risk Factor Assmnt - Choose All That Apply Any of the Below Risk Factors Present?: No Each Risk Factor Represents 3 Points: Age 75 years or older Thrombosis Risk Factor Assessment Total Risk Factor Score: 3 Thrombosis Risk Factor Assessment Level: Moderate Risk Assessment and Plan Assessment: Hypercalcemia Acute on chronic renal failure Stage IV kidney disease Dehydration Hypertension Hyperlipidemia Gout Osteoporosis History of diverticulitis Degenerative disc disease History of cholecystectomy History of appendicectomy History of multiple orthopedic surgeries Full code Plan: Hypercalcemia, continue gentle IV hydration Acute on chronic renal failure, consultation with nephrology for recommendations treatment plan; avoid nephrotoxic drugs as possible Dehydration, continue gentle IV hydration Continue home medications Continue to monitor vital signs and diagnostic testing Continue medical management Further recommendations to come based on patient's clinical condition Time with Patient: Greater than 30
[2021-04-01] MEDS: SYMBICORT 80-4.5 MCG INHALER INHALATION SCH (18:53)
[2021-04-01] MEDS ORDERED: CALCITONIN INJ 200 UNIT/ML (MDV) VIAL SQ ONE (21:00)
[2021-04-01] MEDS: TEMAZEPAM 15 MG CAP PO PRN (21:10)
[2021-04-01] MEDS: FAMOTIDINE 20 MG TAB PO SCH (21:12)
[2021-04-01] MEDS: ONDANSETRON 4 MG/2 ML VIAL IVP PRN (23:22)
[2021-04-02] MEDS ORDERED: hydrALAZINE HCL 25 MG TAB PO STA (04:02)
[2021-04-02] MEDS: SODIUM CHLORIDE 0.9% 1,000 ML IV SCH ×4 (05:27→23:29)
[2021-04-02 07:15] LABS: Basophils # (A) 0.1 k/uL (0-0.2); Basophils % (A) 1 %; Eosinophils # (A) 0.3 k/uL (0-0.7); Eosinophils % (A) 4 %; HCT 33.2 % (34.0-46.0); HGB 11.6 gm/dL (11.4-16.0); Lymphocytes # (A) 0.8 k/uL (1.0-4.8); Lymphocytes % (A) 11 %; MCH 32.1 pg (25.0-35.0); MCHC 35.1 g/dL (31.0-37.0); MCV 91.5 fL (80.0-100.0); Monocytes # (A) 0.5 k/uL (0-1.0); Monocytes % (A) 6 %; Neutrophils # (A) 5.4 k/uL (1.3-7.7); Neutrophils % (A) 77 %; Platelet Count 267 k/uL (150-450); RBC 3.63 m/uL (3.80-5.40); RDW 15.5 % (11.5-15.5)
[2021-04-02] MEDS: SYMBICORT 80-4.5 MCG INHALER INHALATION SCH ×2 (07:51→19:17)
[2021-04-02] MEDS: IPRATROPIUM 0.5 MG/2.5 ML NEBU INHALATION SCH ×4 (07:52→19:14)
[2021-04-02] MEDS: ASPIRIN 81 MG PO SCH (08:16)
[2021-04-02] MEDS: CLOPIDOGREL 75 MG TAB PO SCH (08:17)
[2021-04-02] MEDS: amLODIPine 10 MG TAB PO SCH (08:17)
[2021-04-02] MEDS: FAMOTIDINE 20 MG TAB PO SCH (08:17)
[2021-04-02] MEDS: hydrALAZINE HCL 25 MG TAB PO SCH ×3 (08:17→20:03)
[2021-04-02] MEDS: METOPROLOL TARTRATE 25 MG TAB PO SCH ×3 (08:17→20:03)
[2021-04-02] MEDS: ISOSORBIDE MONONITRATE ER 30 MG TAB.ER.24H PO SCH (08:17)
[2021-04-02 08:25] LABS: Albumin 3.6 g/dL (3.5-5.0); Calcium 11.4 mg/dL (8.4-10.2); Magnesium 2.3 mg/dL (1.6-2.3); Phosphorus 4.7 mg/dL (2.5-4.5); Potassium 3.7 mmol/L (3.5-5.1); Total Bilirubin 0.4 mg/dL (0.2-1.3); Total Protein 5.6 g/dL (6.3-8.2)
[2021-04-02] MEDS ORDERED: FUROSEMIDE 20 MG TAB PO SCH (09:00)
--- NOTE | 2021-04-02 09:03 | P.NPCON ---
History of Present Illness - Reason for Consult acute renal failure - History of Present Illness Reason for consult: Acute kidney injury and hypercalcemia History of present illness: Patient is a 75-year-old female seen in consultation for acute kidney injury. Patient's creatinine on admission was 3.81 and is down to 3.56 today. Since the beginning of this year her creatinine has been in the range of 2-3. Patient states she had blood work an outpatient and was sent to the hospital due to high calcium level in acute kidney failure. She did have 1 episode of vomiting yesterday. She does admit to taking Lasix 20 mg daily. She denies any history of malignancy. Not on any thiazide diuretic. No chest pain or shortness of breath. No edema. Currently receiving normal saline at 1 30 mL an hour. Recent workup for hypercalcemia was negative. She did have an elevated CA-125 level. Calcium level was 13.8 yesterday and is down to 11.4 today. She did receive a dose of calcitonin yesterday. Vital signs are stable. General: The patient appeared well nourished and normally developed. HEENT: Head exam is unremarkable. Neck is without jugular venous distension. LUNGS: Breath sounds decreased. HEART: Rate and Rhythm are regular. ABDOMEN: Soft, no distention. EXTREMITITES: No edema. Past Medical History Past Medical History: Cancer, Hyperlipidemia, Hypertension, Myocardial Infarction ([place]), Pneumonia Additional Past Medical History / Comment(s): acute kidney injury/cervical pain, hyperlipidemia but cannot tolerate statins, skin cancer-nose, rheumatoid arthritis, diverticulitis with sepsis, abdominal aneursym, degenerative disc disease/chronic pain at cervical spine, states heart attack-unsure of date Last Myocardial Infarction Date:: unknown History of Any Multi-Drug Resistant Organisms: None Reported Past Surgical History: Adenoidectomy, Appendectomy, Cholecystectomy, Heart Catheterization, Hysterectomy, Orthopedic Surgery, Tonsillectomy Additional Past Surgical History / Comment(s): L knee arthroscopy d/t effusion, R wrist ganglion cyst surgeries x 3, skin cancer removed from nose, bilateral cataract removals/lens implants. stents, EVAR with bilateral renal stent chimneys, aneurysm repair 06/08 Past Anesthesia/Blood Transfusion Reactions: No Reported Reaction Additional Past Anesthesia/Blood Transfusion Reaction / Comment(s): CHILDREN=PONV Past Psychological History: No Psychological Hx Reported Additional Psychological History / Comment(s): Pt has an adult daughter residing with her. Pt uses no assistive device. She does not drive, her daughter or family take her to appointments. Smoking Status: Current every day smoker Past Alcohol Use History: None Reported Additional Past Alcohol Use History / Comment(s): Pt started smoking at age 20 smokes 1ppd Past Drug Use History: None Reported - Past Family History Mother Family Medical History: Dementia Father History Unknown: Yes Family Medical History: No Reported History Daughter(s) Family Medical History: Cancer Additional Family Medical History / Comment(s): Daughter survived breast cancer. Medications and Allergies Home Medications Medication Instructions Recorded Confirmed Type amLODIPine [Norvasc] 10 mg PO DAILY #30 tab 09/10/20 04/01/21 Rx Albuterol Inhaler [Ventolin Hfa 2 puff INHALATION RT-QID PRN #1 09/20/20 04/01/21 Rx Inhaler] inhaler Aspirin 81 mg PO DAILY #30 chew 09/20/20 04/01/21 Rx Isosorbide Mononitrate ER [Imdur] 30 mg PO DAILY #30 tab.er.24h 09/20/20 04/01/21 Rx Metoprolol Tartrate [Lopressor] 25 mg PO TID #90 tab 09/20/20 04/01/21 Rx Nitroglycerin Sl Tabs [Nitrostat] 0.4 mg SUBLINGUAL Q5M PRN #30 tab 09/20/20 04/01/21 Rx Clopidogrel [Plavix] 75 mg PO DAILY 03/25/21 04/01/21 History Famotidine [Pepcid] 20 mg PO BID 03/25/21 04/01/21 History Fluticasone/Umeclidin/Vilanter 1 puff INHALATION RT-DAILY 03/25/21 04/01/21 History [Trelegy Ellipta 200-62.5-25] Furosemide [Lasix] 20 mg PO DAILY 03/25/21 04/01/21 History Meclizine HCl 12.5 mg PO TID PRN 03/25/21 04/01/21 History Temazepam [Restoril] 15 mg PO HS 03/25/21 04/01/21 History hydrALAZINE HCL [Apresoline] 25 mg PO TID 03/25/21 04/01/21 History Allergies Allergy/AdvReac Type Severity Reaction Status Date / Time codeine Allergy Rash/Hives Verified 04/01/21 14:04 morphine Allergy Rash/Hives Verified 04/01/21 14:04 Penicillins Allergy Rash/Hives Verified 04/01/21 14:04 [id number] Reductase Allergy Itching Verified 04/01/21 14:04 Inhibitor any cholesterol medications Allergy Itching Uncoded 04/01/21 12:26 Physical Exam Vitals: Vital Signs Temp Pulse Pulse Resp BP BP Pulse Ox 04/02/21 08:15 98.7 F 74 16 140/63 95 04/02/21 08:00 74 16 04/02/21 04:00 98.7 F 80 16 170/74 96 04/02/21 01:28 77 18 04/01/21 22:59 98.4 F 80 18 184/66 96 04/01/21 20:30 100.0 F H 70 16 166/72 97 04/01/21 20:00 70 16 04/01/21 19:15 98.2 F 68 18 165/69 96 04/01/21 17:28 68 18 173/75 98 04/01/21 12:21 97.7 F 70 20 145/77 99 Intake and Output 04/01/21 04/02/21 04/02/21 22:59 06:59 14:59 Other: Voiding Method Toilet Toilet Toilet Diaper Diaper Diaper # Voids 1 Weight 38.555 kg 36.3 kg Results - Lab Results Most recent lab results Calcium 11.4 mg/dL (8.4-10.2) H 04/02/21 06:46 Phosphorus 4.7 mg/dL (2.5-4.5) H 04/02/21 06:46 Magnesium 2.3 mg/dL (1.6-2.3) 04/02/21 06:46 04/02/21 06:46 04/02/21 06:46 Assessment and Plan Plan: Assessment: 1. Acute kidney injury secondary to ATN secondary to hypercalcemia. Creatinine was 3.81 on admission and is 3.56 today. Since the beginning of this year her creatinine has been in the range of 2-3. UA is fairly benign. Kidney ultrasound done earlier this month revealed atrophic right kidney and left kidney was not seen. 2. Hypercalcemia possibly due to volume contraction. Recent workup including electrophoresis studies, vitamin D level, TSH, Connor level were in the normal range. CA-125 level was on the higher side. 3. Chronic diastolic CHF with moderate to severe mitral regurgitation and moderate pulmonary hypertension. 4. Metabolic acidosis secondary to acute kidney injury and IV fluids. 5. Chronic kidney disease stage IV. Recent baseline creatinine in the range of 2-3. Etiology is nephrosclerosis. Plan: Maintain normal saline. Stop Lasix. Check PTH related peptide. Avoid nephrotoxins. Continue to monitor renal function and urine output. Zoledronic acid 4 mg IV once today. Status post subcu calcitonin April 01. Thank you for the consultation. I will continue to follow the patient with you during her hospital stay.
[2021-04-02] MEDS ORDERED: ZOLEDRONIC ACID 4 MG in SODIUM CHLORIDE 0.9% 100 ML IV ONE (09:15)
--- NOTE | 2021-04-02 16:47 | PN ---
PROGRESS NOTE I am covering for Dr. Farnsworth. DATE OF SERVICE: 04/02/2001 This 75-year-old woman was admitted with generalized weakness with acute on chronic renal failure and severe hypercalcemia. She was also seen by Dr. Sahu. Dr. Sahu has recommended normal saline, stop Lasix, and also initiate zoledronic acid 4 mg IV. The patient is being closely monitored at this time. Past medical history reviewed. REVIEW OF SYSTEMS: CARDIOVASCULAR: No angina, palpitations. RESPIRATORY SYSTEM: As mentioned earlier. GI: As mentioned earlier. : As mentioned earlier. NERVOUS SYSTEM: No numbness, weakness. CURRENT MEDICATIONS: Current medications are reviewed and include Tylenol, Ventolin, Norvasc, aspirin, Symbicort, Plavix, Pepcid, apresoline. Doses are reviewed. PHYSICAL EXAMINATION: Patient alert and oriented x3. Pulse 65, blood pressure 121/75, respirations 16, temperature 98.4, pulse ox 94% on room air. HEENT: Conjunctivae normal. NECK: No jugular venous distention. CARDIOVASCULAR: S1, S2 muffled. RESPIRATORY SYSTEM: Breath sounds diminished at the bases. A few rhonchi. No crackles. ABDOMEN: Soft, nontender. LEGS: No edema. No swelling. NERVOUS SYSTEM: No focal deficit. LABS: Creatinine is 3.56 and calcium is 11.4. ASSESSMENT: 1. Acute on chronic kidney disease, possibly secondary to acute tubular necrosis secondary to hypercalcemia. 2. Severe hypercalcemia, multifactorial. 3. Congestive heart failure with chronic diastolic dysfunction. 4. Elevated random glucose. 5. Elevated AST and ALT with mild acute hepatitis of undetermined etiology. 6. Hyperlipidemia. 7. Hypertension. 8. History of myocardial infarction. 9. History of pneumonia. 10.History of cervical pain. 11.History of rheumatoid arthritis. 12.Diverticulitis with sepsis. 13.History of appendectomy. 14.History of cholecystectomy. 15.FULL CODE. 16.Severe protein-calorie malnutrition with body mass index of 15.6. RECOMMENDATIONS AND DISCUSSION: In this 75-year-old woman with past medical history of multiple medical problems was admitted with multiple medical problems. Zoledronic acid has been given. Continue with IV hydration, gentle, and avoid hepatotoxic and nephrotoxic medications. Repeat labs. Norvasc has been also given. Guarded prognosis because of multiple complex medical issues. Further recommendations to follow. A copy of this dictation is being forwarded to Dr. Agustín Farnsworth, who is the primary physician. MMODL / IJN: [id number] /
[2021-04-02] MEDS: TEMAZEPAM 15 MG CAP PO PRN (23:28)
[2021-04-03] MEDS: ONDANSETRON 4 MG/2 ML VIAL IVP PRN ×2 (04:11→12:04)
[2021-04-03] MEDS: SODIUM CHLORIDE 0.9% 1,000 ML IV SCH ×3 (06:32→22:55)
[2021-04-03] MEDS: IPRATROPIUM 0.5 MG/2.5 ML NEBU INHALATION SCH ×4 (07:37→21:25)
[2021-04-03] MEDS: SYMBICORT 80-4.5 MCG INHALER INHALATION SCH ×2 (07:37→21:23)
[2021-04-03 07:47] LABS: Calcium 9.6 mg/dL (8.4-10.2); Magnesium 1.9 mg/dL (1.6-2.3); Potassium 3.1 mmol/L (3.5-5.1); Total Bilirubin 0.3 mg/dL (0.2-1.3); Total Protein 4.9 g/dL (6.3-8.2)
[2021-04-03] MEDS: hydrALAZINE HCL 25 MG TAB PO SCH ×3 (08:15→20:06)
[2021-04-03] MEDS: FAMOTIDINE 20 MG TAB PO SCH (08:15)
[2021-04-03] MEDS: CLOPIDOGREL 75 MG TAB PO SCH (08:15)
[2021-04-03] MEDS: ASPIRIN 81 MG PO SCH (08:15)
[2021-04-03] MEDS: METOPROLOL TARTRATE 25 MG TAB PO SCH ×3 (08:15→20:06)
[2021-04-03] MEDS: amLODIPine 10 MG TAB PO SCH (08:15)
[2021-04-03] MEDS: ISOSORBIDE MONONITRATE ER 30 MG TAB.ER.24H PO SCH (08:15)
[2021-04-03] MEDS ORDERED: POTASSIUM CHLORIDE ER 20 MEQ TAB.ER PO STA (08:43)
--- NOTE | 2021-04-03 08:47 | P.PN ---
Subjective Patient is seen in follow-up for acute kidney injury on chronic kidney disease. Renal function improving. Calcium level also better. Currently resting in bed. Oral intake fair. No vomiting or diarrhea. Vital signs are stable. General: The patient appeared well nourished and normally developed. HEENT: Head exam is unremarkable. Neck is without jugular venous distension. LUNGS: Breath sounds decreased. HEART: Rate and Rhythm are regular. ABDOMEN: Soft, no distention. EXTREMITITES: No edema. Objective - Vital Signs Vital signs: Vital Signs Temp 97.9 F 04/03/21 08:13 Pulse 96 04/03/21 08:13 Resp 16 04/03/21 08:13 BP 144/67 04/03/21 08:13 Pulse Ox 94 L 04/03/21 08:13 Intake & Output 04/02/21 04/03/21 04/03/21 18:59 06:59 18:59 Intake Total 240 Balance 240 Weight 36.5 kg Intake: Oral 240 Other: Voiding Method Toilet Toilet Toilet Diaper Diaper Diaper # Voids 2 - Labs CBC & Chem 7: 04/02/21 06:46 04/03/21 06:55 Labs: Abnormal Lab Results - Last 24 Hours (Table) 04/03/21 Range/Units 06:55 Potassium 3.1 L (3.5-5.1) mmol/L Chloride 114 H (98-107) mmol/L Carbon Dioxide 20 L (22-30) mmol/L BUN 26 H (7-17) mg/dL Creatinine 2.99 H (0.52-1.04) mg/dL ALT 50 H (4-34) U/L Total Protein 4.9 L (6.3-8.2) g/dL Albumin 3.0 L (3.5-5.0) g/dL Assessment and Plan Plan: Assessment: 1. Acute kidney injury secondary to ATN secondary to hypercalcemia. Creatinine was 3.81 on admission and is 2.99 today. Since the beginning of this year her creatinine has been in the range of 2-3. UA is fairly benign. Kidney ultrasound done earlier this month revealed atrophic right kidney and left kidney was not seen. 2. Hypercalcemia possibly due to volume contraction. Recent workup including electrophoresis studies, vitamin D level, TSH, Connor level were in the normal range. CA-125 level was on the higher side. Improving. 3. Chronic diastolic CHF with moderate to severe mitral regurgitation and moderate pulmonary hypertension. 4. Metabolic acidosis secondary to acute kidney injury and IV fluids. 5. Chronic kidney disease stage IV. Recent baseline creatinine in the range of 2-3. Etiology is nephrosclerosis. 6. Hypokalemia from poor intake and hypercalcemia-induced diuresis. Plan: Maintain normal saline - decrease rate to 75 mL an hour Continue to hold Lasix. Follow-up PTH related peptide. Avoid nephrotoxins. Continue to monitor renal function and urine output. Zoledronic acid 4 mg IV given April 02. Status post subcu calcitonin April 01. Replace potassium.
[2021-04-03] MEDS: IOPAMIDOL CONTRAST (ORAL USE) VIAL PO PRN ×2 (14:02→15:00)
[2021-04-03 14:25] LABS: Basophils % (A) 0 %; Eosinophils # (A) 0.4 k/uL (0-0.7); Eosinophils % (A) 5 %; HCT 32.2 % (34.0-46.0); HGB 10.6 gm/dL (11.4-16.0); Lymphocytes # (A) 0.3 k/uL (1.0-4.8); Lymphocytes % (A) 4 %; MCH 30.9 pg (25.0-35.0); MCV 93.7 fL (80.0-100.0); Mean Platelet Volume 8.2; Monocytes # (A) 0.4 k/uL (0-1.0); Monocytes % (A) 6 %; Neutrophils # (A) 6.1 k/uL (1.3-7.7); Neutrophils % (A) 84 %; Platelet Count 227 k/uL (150-450); RBC 3.44 m/uL (3.80-5.40); WBC 7.3 k/uL (3.8-10.6)
--- NOTE | 2021-04-03 14:43 | PN ---
PROGRESS NOTE I am covering for Dr. Farnsworth. DATE OF SERVICE: 04/03/2021 This 75-year-old woman who presented with multiple medical problems, including acute renal failure and hypercalcemia, is being closely monitored. After hydration hypercalcemia has improved. The patient had persistent renal failure. The patient also is complaining of abdominal fullness and discomfort as well as some vomiting which is mostly postprandial. Past medical history reviewed. REVIEW OF SYSTEMS: CARDIOVASCULAR SYSTEM: No angina, palpitations. RESPIRATORY SYSTEM: As mentioned earlier. GI: As mentioned earlier. : As mentioned earlier. NERVOUS SYSTEM: No numbness, weakness. CURRENT MEDICATIONS: Current medications are reviewed and include Tylenol, Ventolin, Norvasc, aspirin, Symbicort, Plavix, Pepcid, apresoline. Doses are reviewed. PHYSICAL EXAMINATION: The patient is alert, oriented x2. Pulse 79, blood pressure 125/60, respirations 16, temperature 98 degrees, pulse ox 94% on room air. HEENT: Conjunctivae normal. NECK: No jugular venous distention. CARDIOVASCULAR: S1, S2 muffled. RESPIRATORY SYSTEM: Breath sounds diminished at the bases. No rhonchi. No crackles. ABDOMEN: Soft. Mild diffuse discomfort. No guarding. No rigidity. No mass palpable. No bruit. LEGS: No edema. No swelling. NERVOUS SYSTEM: No focal deficit. LABS: WBC 7, hemoglobin 11.6, sodium 141, potassium 3.1, creatinine is 2.99. ASSESSMENT: 1. Acute on chronic kidney disease, possibly secondary to acute tubular necrosis secondary to hypercalcemia. 2. Severe hypocalcemia, multifactorial. 3. Congestive heart failure with chronic diastolic dysfunction. 4. Elevated random glucose. 5. History of endoleak remotely in 2019. 6. Elevated AST and ALT with mild acute hepatitis of undetermined etiology. 7. Hyperlipidemia. 8. Hypertension. 9. History of myocardial infarction. 10.History of pneumonia. 11.History of cervical pain. 12.History rheumatoid arthritis. 13.History of diverticulitis with sepsis. 14.History of appendectomy. 15.History of cholecystectomy. 16.Severe protein-calorie malnutrition. BMI of 15.6. 17.Hypokalemia. 18.FULL CODE. RECOMMENDATIONS AND DISCUSSION: I recommend to continue current medications, continue with symptomatic treatment. I recommend Protonix IV. Conservative line of management. I would also recommend a CT scan of the abdomen and pelvis to evaluate for any vomiting, but supplement potassium. Repeat labs. Further recommendations to follow. Patient's hemoglobin is rather stable. MMODL / IJN: [id number] /
--- NOTE | 2021-04-03 16:22 | CT ---
EXAMINATION TYPE: CT abdomen pelvis wo con DATE OF EXAM: 04/03/2021 COMPARISON: 07/13/2020 HISTORY: Vomiting h/o endo leak CT DLP: 284.1 mGycm Automated exposure control for dose reduction was used. Images obtained from the diaphragm to the floor the pelvis with oral contrast only. There is small pleural effusions and basilar atelectasis. Heart size is normal. There is no pericardi al effusion. There are hypodensities in the liver that measure up to 2 cm that are probably old. This . Unchanged. Spleen is intact. Heart size is normal. Stomach is intact. There is aorto iliac endograft. There is large aneurysm of the lower abdominal aorta that measures 6. 5 x 5.8 cm. I see no fluid around the aorta. Kidneys show no hydronephrosis. There is no retroperiton eal adenopathy. There is contrast opacification of the large and small bowel. There is oral contrast extending down to the rectum. There is no evidence of a bowel obstruction. There is no inguinal herni a. There is no free fluid in the pelvis. The lumbar spine is intact. There is no significant compression deformity. There is spondylosis noted at L2-3 and L1-L2. The bony pelvis is intact. Hip joints are intact. There is no ascites or free air. IMPRESSION: Large abdominal aortic aneurysm without change compared to old exam. Small pleural effusions and basilar atelectasis increased compared to old exam.
[2021-04-03] MEDS: PANTOPRAZOLE 40 MG/10 ML VIAL IVP SCH (20:06)
[2021-04-03] MEDS: TEMAZEPAM 15 MG CAP PO PRN (22:55)
[2021-04-04 06:07] LABS: Basophils % (A) 0 %; Eosinophils # (A) 0.5 k/uL (0-0.7); Eosinophils % (A) 8 %; HCT 28.9 % (34.0-46.0); HGB 9.7 gm/dL (11.4-16.0); Lymphocytes # (A) 0.7 k/uL (1.0-4.8); Lymphocytes % (A) 10 %; MCH 30.7 pg (25.0-35.0); MCHC 33.7 g/dL (31.0-37.0); MCV 91.1 fL (80.0-100.0); Mean Platelet Volume 6.8; Monocytes # (A) 0.4 k/uL (0-1.0); Monocytes % (A) 7 %; Neutrophils # (A) 4.9 k/uL (1.3-7.7); Neutrophils % (A) 74 %; Platelet Count 214 k/uL (150-450); RBC 3.17 m/uL (3.80-5.40); RDW 15.5 % (11.5-15.5); WBC 6.6 k/uL (3.8-10.6)
[2021-04-04 06:34] LABS: Albumin 2.8 g/dL (3.5-5.0); Calcium 8.8 mg/dL (8.4-10.2); Magnesium 1.7 mg/dL (1.6-2.3); Potassium 3.5 mmol/L (3.5-5.1); Total Bilirubin 0.2 mg/dL (0.2-1.3); Total Protein 4.7 g/dL (6.3-8.2)
[2021-04-04] MEDS: SYMBICORT 80-4.5 MCG INHALER INHALATION SCH (08:21)
[2021-04-04] MEDS ORDERED: POTASSIUM CHLORIDE ER 20 MEQ TAB.ER PO STA (08:21)
[2021-04-04] MEDS: IPRATROPIUM 0.5 MG/2.5 ML NEBU INHALATION SCH ×2 (08:22→12:19)
--- NOTE | 2021-04-04 08:22 | P.PN ---
Subjective Patient is seen in follow-up for acute kidney injury on chronic kidney disease. Renal function slightly better. Calcium level in the normal range. Currently resting in bed. Oral intake fair. No vomiting or diarrhea. Blood pressure stable. Receiving IV fluids. Vital signs are stable. General: The patient appeared well nourished and normally developed. HEENT: Head exam is unremarkable. Neck is without jugular venous distension. LUNGS: Breath sounds decreased. HEART: Rate and Rhythm are regular. ABDOMEN: Soft, no distention. EXTREMITITES: No edema. Objective - Vital Signs Vital signs: Vital Signs Temp 98.1 F 04/04/21 08:00 Pulse 85 04/04/21 08:00 Resp 16 04/04/21 08:00 BP 130/58 04/04/21 08:00 Pulse Ox 99 04/04/21 08:00 Intake & Output 04/03/21 04/04/21 04/04/21 18:59 06:59 18:59 Intake Total 0 Balance 0 Weight 39 kg Intake: Oral 0 Other: Voiding Method Toilet Toilet Diaper Diaper # Voids 2 1 - Labs CBC & Chem 7: 04/04/21 05:22 04/04/21 05:22 Labs: Abnormal Lab Results - Last 24 Hours (Table) 04/03/21 04/04/21 04/04/21 Range/Units 06:55 05:22 05:22 RBC 3.44 L 3.17 L (3.80-5.40) m/uL Hgb 10.6 L 9.7 L (11.4-16.0) gm/dL Hct 32.2 L 28.9 L (34.0-46.0) % Lymphocytes # 0.3 L 0.7 L (1.0-4.8) k/uL Chloride 115 H (98-107) mmol/L Carbon Dioxide 17 L (22-30) mmol/L BUN 19 H (7-17) mg/dL Creatinine 2.83 H (0.52-1.04) mg/dL Total Protein 4.7 L (6.3-8.2) g/dL Albumin 2.8 L (3.5-5.0) g/dL Assessment and Plan Plan: Assessment: 1. Acute kidney injury secondary to ATN secondary to hypercalcemia. Creatinine was 3.81 on admission and is 2.83 today. Since the beginning of this year her creatinine has been in the range of 2-3. UA is fairly benign. Kidney ultrasound done earlier this month revealed atrophic right kidney and left kidney was not seen. 2. Hypercalcemia possibly due to volume contraction. Recent workup including electrophoresis studies, vitamin D level, TSH, Connor level were in the normal range. CA-125 level was on the higher side. Improving. 3. Chronic diastolic CHF with moderate to severe mitral regurgitation and moderate pulmonary hypertension. 4. Metabolic acidosis secondary to acute kidney injury and IV fluids. 5. Chronic kidney disease stage IV. Recent baseline creatinine in the range of 2-3. Etiology is nephrosclerosis. 6. Hypokalemia from poor intake and hypercalcemia-induced diuresis. Improved post replacement. Plan: Hep-Lock IV fluids. Continue to hold Lasix. Follow-up PTH related peptide. Avoid nephrotoxins. Continue to monitor renal function and urine output. Zoledronic acid 4 mg IV given April 02. Status post subcu calcitonin April 01. Replace potassium. Add oral sodium bicarbonate.
[2021-04-04] MEDS: amLODIPine 10 MG TAB PO SCH (08:29)
[2021-04-04] MEDS: PANTOPRAZOLE 40 MG/10 ML VIAL IVP SCH (08:29)
[2021-04-04] MEDS: hydrALAZINE HCL 25 MG TAB PO SCH (08:29)
[2021-04-04] MEDS: ASPIRIN 81 MG PO SCH (08:29)
[2021-04-04] MEDS: ISOSORBIDE MONONITRATE ER 30 MG TAB.ER.24H PO SCH (08:29)
[2021-04-04] MEDS: METOPROLOL TARTRATE 25 MG TAB PO SCH (08:29)
[2021-04-04] MEDS: FAMOTIDINE 20 MG TAB PO SCH (08:29)
[2021-04-04] MEDS: CLOPIDOGREL 75 MG TAB PO SCH (08:29)
[2021-04-04] MEDS ORDERED: SODIUM BICARBONATE TAB 650 MG TAB PO SCH (09:00)
[2021-04-04 11:22] VITALS: BP 113/49; PULSE 68; RESP 18; TEMP 97.9
--- NOTE | 2021-04-05 09:23 | P.DS ---
Providers Date of admission: 04/01/21 15:28 Expected date of discharge: 04/04/21 Attending physician: Agustín Farnsworth Consults: 04/01/21 15:28 Consult Physician Routine Consulting Provider: Ansley Quinn Consult Reason/Comments: Acute kidney injury, hypercalcemia Do you want consulting provider notified?: Yes Primary care physician: Agustín Farnsworth Hospital Course: Final diagnosis Acute on chronic kidney disease, possibly secondary to acute tubular necrosis secondary to hypercalcemia Severe hypercalcemia, multifactorial Congestive heart failure with chronic diastolic dysfunction Elevated random glucose History of endoleak remotely in 2019 Elevated AST and ALT with mild acute hepatitis of undetermined etiology Hyperlipidemia Hypertension History of myocardial infarction history of pneumonia History of cervical pain history of rheumatoid arthritis History of diverticulitis with sepsis History of appendectomy History of cholecystectomy Severe protein calorie malnutrition with a BMI of 15.6 Hypokalemia Full code Discharge disposition Patient is being discharged in a stable condition with guarded prognosis to home. Patient will follow-up with Dr. Farnsworth in the outpatient setting upon discharge. Patient is to continue with sodium bicarb tablets and needs outpatient follow-up with repeat labs and nephrology consult. Patient will hold Lasix on discharge until follow-up. Total time taken is greater than 35 minutes. Hospital course This is a 75-year-old female who was recently admitted with acute renal failure and hypercalcemia and being followed closely by nephrology. Recommend repeat labs in a few days of CBC and BMP and outpatient follow-up with nephrology along with primary care provider Dr. Farnsworth. Patient underwent CT abdomen showing continued large aortic aneurysm without change from previous exam along with small pleural effusion and basilar atelectasis. Patient was having abdominal pain which has improved and patient denies any further nausea or vomiting and is tolerating diet. Patient is requesting to go home today. Currently no reports of chest pain, shortness of breath, or palpitations. Patient is afebrile. No reports of nausea or vomiting and patient is tolerating diet. Patient will be discharged home today. Guarded prognosis On exam vital signs are stable. Cardio S1, S2 are muffled. Respiratory system shows diminished breath sounds at the bases with no wheezing or rhonchi noted. Abdomen is soft and nontender. Nervous system shows no focal deficits. Please refer to medication reconciliation sheet for a list of medications. Patient Condition at Discharge: Fair Plan - Discharge Summary Discharge Rx Participant: No New Discharge Prescriptions: New Acetaminophen Tab [Tylenol] 650 mg PO Q6HR PRN tab PRN Reason: Mild Pain Or Fever > 100.5 Sodium Bicarbonate Tab 650 mg PO TID 30 Days #90 tab Continue amLODIPine [Norvasc] 10 mg PO DAILY #30 tab Aspirin 81 mg PO DAILY #30 chew Isosorbide Mononitrate ER [Imdur] 30 mg PO DAILY #30 tab.er.24h Metoprolol Tartrate [Lopressor] 25 mg PO TID #90 tab Nitroglycerin Sl Tabs [Nitrostat] 0.4 mg SUBLINGUAL Q5M PRN #30 tab PRN Reason: Chest Pain Albuterol Inhaler [Ventolin Hfa Inhaler] 2 puff INHALATION RT-QID PRN #1 in haler PRN Reason: Shortness Of Breath Or Wheezing Meclizine HCl 12.5 mg PO TID PRN PRN Reason: Vertigo Temazepam [Restoril] 15 mg PO HS Famotidine [Pepcid] 20 mg PO BID Fluticasone/Umeclidin/Vilanter [Trelegy Ellipta 200-62.5-25] 1 puff INHALATION RT-DAILY hydrALAZINE HCL [Apresoline] 25 mg PO TID Clopidogrel [Plavix] 75 mg PO DAILY Discontinued Furosemide [Lasix] 20 mg PO DAILY Discharge Medication List amLODIPine [Norvasc] 10 mg PO DAILY #30 tab 09/10/20 [Rx] Albuterol Inhaler [Ventolin Hfa Inhaler] 2 puff INHALATION RT-QID PRN #1 inhaler 09/20/20 [Rx] Aspirin 81 mg PO DAILY #30 chew 09/20/20 [Rx] Isosorbide Mononitrate ER [Imdur] 30 mg PO DAILY #30 tab.er.24h 09/20/20 [Rx] Metoprolol Tartrate [Lopressor] 25 mg PO TID #90 tab 09/20/20 [Rx] Nitroglycerin Sl Tabs [Nitrostat] 0.4 mg SUBLINGUAL Q5M PRN #30 tab 09/20/20 [Rx] Clopidogrel [Plavix] 75 mg PO DAILY 03/25/21 [History] Famotidine [Pepcid] 20 mg PO BID 03/25/21 [History] Fluticasone/Umeclidin/Vilanter [Trelegy Ellipta 200-62.5-25] 1 puff INHALATION RT-DAILY 03/25/21 [History] Meclizine HCl 12.5 mg PO TID PRN 03/25/21 [History] Temazepam [Restoril] 15 mg PO HS 03/25/21 [History] hydrALAZINE HCL [Apresoline] 25 mg PO TID 03/25/21 [History] Acetaminophen Tab [Tylenol] 650 mg PO Q6HR PRN tab 04/04/21 [Rx] Sodium Bicarbonate Tab 650 mg PO TID 30 Days #90 tab 04/04/21 [Rx] Follow up Appointment(s)/Referral(s): Agustín Farnsworth MD [Primary Care Provider] - 04/06/21 4:30 pm Ambulatory/Diagnostic Orders: Complete Blood Count w/diff [LAB.AMB] Time Frame: 3 Days, Location: None Selected Patient Instructions/Handouts: Hypercalcemia (DC) Activity/Diet/Wound Care/Special Instructions: Activity Limited until follow-up Follow-up with primary care provider upon discharge Follow-up with nephrology outpatient Recommend repeat labs in 2-3 days to monitor kidney functions Continue heart healthy diet Discharge Disposition: HOME SELF-CARE
== END 2021-04-04 13:19 | disposition home or self-care (01) | DRG 640 ==
LOC: EC 12:13 → 3SCARD 15:28
PROVIDERS: ADMIT Family Medicine; ATTEND Family Medicine
DX: E83.52 Hypercalcemia (principal); N17.0 Acute kidney failure with tubular necrosis; E43 Unspecified severe protein-calorie malnutrition; I13.0 Hypertensive heart and chronic kidney disease with heart failure and stage 1 through stage 4 chronic kidney disease, or unspecified chronic kidney disease; E87.2 Acidosis; I50.32 Chronic diastolic (congestive) heart failure; Z68.1 Body mass index [BMI] 19.9 or less, adult; B17.9 Acute viral hepatitis, unspecified; N18.4 Chronic kidney disease, stage 4 (severe); E87.6 Hypokalemia; F17.200 Nicotine dependence, unspecified, uncomplicated; I25.2 Old myocardial infarction; E78.5 Hyperlipidemia, unspecified; E86.0 Dehydration; I34.0 Nonrheumatic mitral (valve) insufficiency; I27.22 Pulmonary hypertension due to left heart disease; Z96.1 Presence of intraocular lens; Z90.710 Acquired absence of both cervix and uterus; Z90.49 Acquired absence of other specified parts of digestive tract; Z87.01 Personal history of pneumonia (recurrent); Z85.828 Personal history of other malignant neoplasm of skin; Z80.3 Family history of malignant neoplasm of breast; Z79.899 Other long term (current) drug therapy; Z79.82 Long term (current) use of aspirin; Z79.02 Long term (current) use of antithrombotics/antiplatelets; R97.1 Elevated cancer antigen 125 [CA 125]; M54.2 Cervicalgia; E83.51 Hypocalcemia; M06.9 Rheumatoid arthritis, unspecified; M10.9 Gout, unspecified; M81.0 Age-related osteoporosis without current pathological fracture
CPT/HCPCS: 36415; 74176; 80053; 81003; 82330; 82550; 83735; 84100; 85025; 93005; 94640; 96360; 96361; 99285

== ENCOUNTER → 2021-04-12 | Outpatient (CLI) | payer MEDICARE, BC ==
[2021-04-12 13:15] LABS: Anisocytosis Slight; Basophils # (A) 0.1 k/uL (0-0.2); Basophils % (A) 1 %; Eosinophils # (A) 0.4 k/uL (0-0.7); Eosinophils % (A) 4 %; HCT 32.7 % (34.0-46.0); HGB 10.9 gm/dL (11.4-16.0); Lymphocytes % (A) 11 %; MCH 30.3 pg (25.0-35.0); MCHC 33.4 g/dL (31.0-37.0); MCV 90.7 fL (80.0-100.0); Mean Platelet Volume 6.7; Monocytes # (A) 0.6 k/uL (0-1.0); Monocytes % (A) 6 %; Neutrophils # (A) 7.2 k/uL (1.3-7.7); Neutrophils % (A) 76 %; Platelet Count 406 k/uL (150-450); RDW 16.2 % (11.5-15.5); WBC 9.5 k/uL (3.8-10.6)
[2021-04-12 13:20] LABS: Ionized Calcium 4.7 mg/dL (4.5-5.3)
[2021-04-12 13:27] LABS: ALT 14 U/L (4-34); AST 16 U/L (14-36); African American GFR (CKD) 20 (>60 ml/min/1.73 sqM); Albumin 3.6 g/dL (3.5-5.0); Albumin/Globulin Ratio 1.6; Alkaline Phosphatase 86 U/L (38-126); Anion Gap 7 mmol/L; Blood Urea Nitrogen 19 mg/dL (7-17); Calcium 8.2 mg/dL (8.4-10.2); Carbon Dioxide 23 mmol/L (22-30); Chloride 105 mmol/L (98-107); Globulin 2.2 g/dL; Glucose 109 mg/dL (74-99); Non-African American GFR(CKD) 18 (>60 ml/min/1.73 sqM); Potassium 3.5 mmol/L (3.5-5.1); Sodium 135 mmol/L (137-145); Total Bilirubin 0.3 mg/dL (0.2-1.3); Total Protein 5.8 g/dL (6.3-8.2); Uric Acid 3.5 mg/dL (3.7-7.4)
--- NOTE | 2021-04-12 13:32 | XR ---
EXAMINATION TYPE: XR chest 2V DATE OF EXAM: 04/12/2021 COMPARISON: NONE TECHNIQUE: PA and lateral views submitted. HISTORY: Heart failure FINDINGS: The lungs are clear and there is no pneumothorax, pleural effusion, or focal pneumonia. Hyperinflat ion. Degenerative changes spine. There is a 6 stenting metallic material overlying the epigastric reg ion. No overt failure. Biapical pleural thickening. Diffuse osteopenia and arthropathy of the shoulde rs. IMPRESSION: 1. No acute process. Correlate for COPD.
== END | disposition home or self-care (01) ==
LOC: LABWHC1 12:49
PROVIDERS: ATTEND Nurse Practitioner
DX: I11.0 Hypertensive heart disease with heart failure (principal); I50.9 Heart failure, unspecified; E83.52 Hypercalcemia; N08 Glomerular disorders in diseases classified elsewhere
CPT/HCPCS: 36415; 71046; 80053; 82330; 83735; 84550; 85025

== ENCOUNTER → 2021-11-02 | Outpatient (CLI) | payer MEDICARE, BC ==
--- NOTE | 2021-11-02 07:56 | XR ---
EXAMINATION TYPE: XR knee 4V RT DATE OF EXAM: 11/02/2021 CLINICAL HISTORY: pain TECHNIQUE: Three views of the right knee are obtained. Read[place] patellar view also obtained. COMPARISON: None. FINDINGS: There is no acute fracture/dislocation. The tri-compartment joint spaces appear within no rmal limits. Evidence of lateral meniscal chondrocalcinosis. The overlying soft tissue appears unre markable. IMPRESSION: There is no acute fracture or dislocation.ICD 10 NO FRACTURE, INITIAL EVALUATION
== END | disposition home or self-care (01) ==
LOC: RADXRMAIN 07:33
PROVIDERS: ATTEND Family Medicine
DX: M25.561 Pain in right knee (principal)

== ENCOUNTER → 2022-05-02 | Outpatient (CLI) | payer MEDICARE, BC ==
--- NOTE | 2022-05-02 11:58 | BD ---
EXAMINATION TYPE: Axial Bone Density DATE OF EXAM: 05/02/2022 COMPARISON: 2017 CLINICAL HISTORY: 76 years year old Female. ICD-10 CODE: Z78.0 ASYMTOMATIC MENOPAUSAL STATE Height: 4'11 1/2 Weight: 87 FRAX RISK QUESTIONS: Glucocorticoids (More than 3mos): Y (Ex: prednisone, prednisolone, methylprednisolone, dexamethasone, and hydrocortisone). Secondary Osteoporosis: 3. Menopause before 45: y Current Tobacco Use: y RISK FACTORS HISTORY OF: Diet low in dairy products/other sources of calcium: y Postmenopausal woman: y MEDICATIONS: Additional Medications: heart , Additional History: kidney disease EXAM MEASUREMENTS: Bone mineral densitometry was performed using the [employer] System. Bone mineral density as measured about the Lumbar spine is: ----- L1-L4(G/cm2): 1.115 T Score Values are as follows: ----- L1: 0.4 ----- L2: -0.5 ----- L3: -1.4 ----- L4: -0.9 ----- L1-L4: -0.5 Bone mineral density has: Increased 0.3% since study of: 04/29/2018 Bone mineral density about the R hip (g/cm2): 0.679 Bone mineral density about the L hip (g/cm2): 0.665 T Score values are as follows: -----R Neck: -2.6 -----L Neck: -2.7 -----R Total: -2.3 -----L Total: -2.6 Bone mineral density has: Decreased -10.6% since study of: 04/29/2018 FRAX%s: The graph provided illustrates a 16.9% chance for a major osteoporotic fx and a 9.0% chance f or the hips probability for fx in 10 years time. IMPRESSION: Osteoporosis (T Score less than -2.5). There is increased fracture risk and therapy is usually indicated based on age. Re-Screen 1-2 years. NOTE: T-SCORE=SD OF THE YOUNG ADULT MEAN.
--- NOTE | 2022-05-03 15:35 | MM ---
Reason for Exam: Screening (asymptomatic). Last mammogram was performed 3 year(s) and 0 month(s) ago. Patient History: Menarche at age 16. First Full-Term at age 19. Left ovary removed at age 37. Hysterectomy at age 37. Postmenopausal. Estrogen for 1 year until age 60. Daughter had breast cancer, age 44. Risk Values: Ashlee 5 year model risk: 3.0%. NCI Lifetime model risk: 6.0%. Prior Study Comparison: 04/29/2018 Bilateral Screening Mammogram, [facility]. 05/07/2019 Bilateral Screening Mammogram, [facility]. 05/16/2019 Right Diagnostic Mammogram, [facility]. Tissue Density: The breast tissue is heterogeneously dense. This may lower the sensitivity of mammography. Findings: Analyzed By CAD. There is no suspicious group of microcalcifications or new suspicious mass in either breast. Stable appearing calcifications that are benign-appearing. Overall Assessment: Benign, BI-RAD 2 Management: Screening Mammogram of both breasts in 1 year. A clinical breast exam by your physician is recommended on an annual basis and results should be correlated with mammographic findings. Electronically signed and approved by: Duran Taveras DO
== END | disposition home or self-care (01) ==
LOC: RADBDWWP 11:00
PROVIDERS: ATTEND Family Medicine
DX: Z12.31 Encounter for screening mammogram for malignant neoplasm of breast (principal); M81.0 Age-related osteoporosis without current pathological fracture; Z78.0 Asymptomatic menopausal state; Z80.3 Family history of malignant neoplasm of breast
CPT/HCPCS: 77063; 77067; 77080

== ENCOUNTER → 2022-07-31 | Outpatient (CLI) | payer MEDICARE, BC ==
--- NOTE | 2022-07-31 12:03 | CA ---
Stress Echo Report Odalis Kay Age: 77 Gender: F : 1945 Exam Date: 07/31/2022 09:47 Exam Location: [facility] Ht (in): 57 Wt (lb): 88 Ordering Physician: Agustín Farnsworth MD Referring Physician: Javad DIAZ Voice Pathologist: Gretchen Hansen RDCS Technologist Procedure CPT: Indication: R07.9 CHEST PAIN, UNSPECIFIED ICD-9 Codes: Rhythm: Patient History: Cardiac Medications: Medications in past 24 hours: Contrast: Stress Results Protocol: Clarence Total dose(mL): Exercise Duration (min:sec): 2:[address] Depression (mm): Angina Score: Isabel Score: METS: 4.0 Resting HR: 95 Resting BP: 145 / 61 Peak HR: 118 Peak BP: 169 / 68 Max Predicted HR: 143 83 % Max Predicted HR Target HR: 122 Double Product: Stress Summary: BP Response: Reason for Termination: Fatigue,Dyspnea Cardiac Symptoms: FATIGUE,DIFFICULTY IN BREATHING ECG Analysis Resting ECG: Sinus rhythm with [address] segment depression in the inferolateral leads Stress ECG: Patient exercised on Clarence protocol for a total of 2 and half minutes achieving 3 METs 82% of predicted maximal heart rate without chest pain the test was stopped secondary to discomfort in her legs and shortness of breath Arrhythmia: Echo Analysis Resting Echo: Normal left ventricular size wall motion systolic function Peak Echo Analysis: Post exercise there is exercise induced wall motion abnormality involving mid to distal anterior wall MEASUREMENTS (Male/Female) Normal Values CONCLUSIONS Extremely poor exercise tolerance Inconclusive EKG part of the stress test due to baseline EKG abnormalities Abnormal stress echo showing ischemia in LAD distribution Dr. Vinod Lomax MD (Electronically Signed) Final Date: 31 July 2022 12:02
== END | disposition home or self-care (01) ==
LOC: RADNMMAIN 08:54
PROVIDERS: ATTEND Family Medicine
DX: R07.9 Chest pain, unspecified (principal)
CPT/HCPCS: 93351

== ENCOUNTER → 2022-12-18 | Outpatient (CLI) | payer MEDICARE, BC ==
[2022-12-18 17:02] LABS: Basophils # (A) 0.08 X 10*3/uL (0.00-0.10); Basophils % (A) 0.7 %; Eosinophils # (A) 0.23 X 10*3/uL (0.04-0.35); HCT 42.9 % (37.2-46.3); HGB 13.8 g/dL (12.0-15.0); Immature Grans, Automated 0.5 %; Lymphocytes # (A) 0.94 X 10*3/uL (0.90-5.00); Lymphocytes % (A) 8.4 %; MCH 31.4 pg (27.0-32.0); MCHC 32.2 g/dL (32.0-37.0); MCV 97.7 fL (80.0-97.0); Mean Platelet Volume 9.4 fL (9.5-12.2); Monocytes # (A) 0.99 X 10*3/uL (0.20-1.00); Monocytes % (A) 8.8 %; NRBC Per 100 WBC 0 /100 WBCS (0.0-0.0); Neutrophils # (A) 8.95 X 10*3/uL (1.80-7.70); Neutrophils % (A) 79.6 %; Platelet Count 322 X 10*3/uL (140-440); RBC 4.39 X 10*6/uL (4.10-5.20); WBC 11.25 X 10*3/uL (4.50-10.00)
[2022-12-18 23:10] LABS: African American GFR (CKD) 27.4 (60.0-200.0); BUN/Creat Ratio 12.31 Ratio (12.00-20.00); Blood Urea Nitrogen 24.5 mg/dL (9.0-27.0); Calcium 9.6 mg/dL (8.7-10.3); Carbon Dioxide 22.4 mmol/L (20.0-27.5); Chloride 102 mmol/L (96-109); Glucose 105 mg/dL (70-110); LDL Cholesterol,Calculated 125.3 mg/dL (0.0-131.0); Magnesium 2.4 mg/dL (1.5-2.4); Non-African American GFR(CKD) 23.6 (60.0-200.0); Sodium 140 mmol/L (135-145); Uric Acid 5.2 mg/dL (2.9-7.7)
[2022-12-18 23:11] LABS: Phosphorus 3.5 mg/dL (2.4-5.1)
== END | disposition home or self-care (01) ==
LOC: LABWHC1 09:02
PROVIDERS: ATTEND Family Medicine
DX: N18.4 Chronic kidney disease, stage 4 (severe) (principal)
CPT/HCPCS: 36415; 80048; 80061; 82306; 83735; 83970; 84100; 84550; 85025

== ENCOUNTER 2023-01-22 12:11 | Inpatient (IN) | payer MEDICARE, BC ==
[2023-01-22] MEDS ORDERED: ACETAMINOPHEN TAB 325 MG TAB PO STA (12:49)
--- NOTE | 2023-01-22 12:52 | ED ---
General Adult HPI - General Chief complaint: Shortness of Breath Stated complaint: SOB Sent by Dr Farnsworth Time Seen by Provider: 01/22/23 12:33 Source: patient, family, RN notes reviewed Mode of arrival: ambulatory Limitations: no limitations - History of Present Illness Initial comments: Patient is a pleasant 77-year-old female presenting to the emergency department with concerns with difficulty in breathing. Onset of symptoms was a couple of days ago. Patient does have cough that is nonproductive. Patient is unclear if she has fevers. Patient does have history of CHF previously. Patient unclear whether or not she has a history of COPD. - Related Data Home Medications Medication Instructions Recorded Confirmed Clopidogrel [Plavix] 75 mg PO DAILY 03/25/21 10/19/22 Famotidine [Pepcid] 20 mg PO BID 03/25/21 10/19/22 Fluticasone/Umeclidin/Vilanter 1 puff INHALATION RT-DAILY 03/25/21 10/19/22 [Trelegy Ellipta 200-62.5-25] Meclizine HCl 12.5 mg PO TID PRN 03/25/21 10/19/22 Temazepam [Restoril] 15 mg PO HS 03/25/21 10/19/22 hydrALAZINE HCL [Apresoline] 25 mg PO TID 03/25/21 10/19/22 Previous Rx's Medication Instructions Recorded amLODIPine [Norvasc] 10 mg PO DAILY #30 tab 09/10/20 Albuterol Inhaler [Ventolin Hfa 2 puff INHALATION RT-QID PRN #1 09/20/20 Inhaler] inhaler Aspirin 81 mg PO DAILY #30 chew 09/20/20 Isosorbide Mononitrate ER [Imdur] 30 mg PO DAILY #30 tab.er.24h 09/20/20 Metoprolol Tartrate [Lopressor] 25 mg PO TID #90 tab 09/20/20 Nitroglycerin Sl Tabs [Nitrostat] 0.4 mg SUBLINGUAL Q5M PRN #30 tab 09/20/20 Acetaminophen Tab [Tylenol] 650 mg PO Q6HR PRN tab 04/04/21 Sodium Bicarbonate Tab 650 mg PO TID 30 Days #90 tab 04/04/21 Allergies Allergy/AdvReac Type Severity Reaction Status Date / Time codeine Allergy Rash/Hives Verified 01/22/23 12:18 morphine Allergy Rash/Hives Verified 01/22/23 12:18 Penicillins Allergy Rash/Hives Verified 01/22/23 12:18 Vkzgchr-VHY-YrZ Reductase Allergy Itching Verified 01/22/23 12:18 Inhibitor [Lxmvurz-Trl-Dwx Reductase Inhibitor] any cholesterol medications Allergy Itching Uncoded 01/22/23 12:18 Review of Systems ROS Statement: Those systems with pertinent positive or pertinent negative responses have been documented in the HPI. ROS Other: All systems not noted in ROS Statement are negative. Constitutional: Reports: as per HPI ENT: Denies: ear pain Respiratory: Reports: as per HPI, cough, dyspnea Cardiovascular: Denies: chest pain Endocrine: Reports: fatigue Gastrointestinal: Denies: abdominal pain Genitourinary: Denies: dysuria Past Medical History Past Medical History: Blood Disorder, Cancer, Hyperlipidemia, Hypertension, Myocardial Infarction (NH), Pneumonia Additional Past Medical History / Comment(s): acute kidney injury/cervical pain, hyperlipidemia but cannot tolerate statins, skin cancer-nose, rheumatoid arthritis, diverticulitis with sepsis, abdominal aneursym, degenerative disc disease/chronic pain at cervical spine, states heart attack-unsure of date Last Myocardial Infarction Date:: unknown History of Any Multi-Drug Resistant Organisms: None Reported Past Surgical History: Adenoidectomy, Appendectomy, Cholecystectomy, Heart Catheterization, Hysterectomy, Orthopedic Surgery, Tonsillectomy Additional Past Surgical History / Comment(s): L knee arthroscopy d/t effusion, R wrist ganglion cyst surgeries x 3, skin cancer removed from nose, bilateral cataract removals/lens implants. stents, EVAR with bilateral renal stent chimneys, aneurysm repair 06/08 Past Anesthesia/Blood Transfusion Reactions: No Reported Reaction Additional Past Anesthesia/Blood Transfusion Reaction / Comment(s): CHILDREN=PONV Past Psychological History: No Psychological Hx Reported Smoking Status: Current every day smoker Past Alcohol Use History: None Reported Past Drug Use History: None Reported - Past Family History Mother Family Medical History: Dementia Father History Unknown: Yes Family Medical History: No Reported History Daughter(s) Family Medical History: Cancer Additional Family Medical History / Comment(s): Daughter survived breast cancer. General Exam Limitations: no limitations General appearance: alert, in no apparent distress Head exam: Present: normocephalic Eye exam: Present: normal appearance ENT exam: Present: mucous membranes dry Neck exam: Present: normal inspection Respiratory exam: Present: rales (L base) Cardiovascular Exam: Present: regular rate, normal rhythm GI/Abdominal exam: Present: soft. Absent: tenderness Extremities exam: Present: normal inspection. Absent: pedal edema, calf tenderness Neurological exam: Present: alert Psychiatric exam: Present: normal affect, normal mood Skin exam: Present: normal color Course Vital Signs 01/22/23 01/22/23 12:15 12:32 Temperature 100.0 F H 99.2 F Pulse Rate 99 93 Respiratory 24 26 H Rate Blood Pressure 109/64 127/65 O2 Sat by Pulse 94 L 93 L Oximetry EKG Findings - EKG Results: EKG: interpreted by ERMD (Right axis. Nonspecific ST-T.), sinus rhythm, normal QRS Medical Decision Making - Medical Decision Making Was pt. sent in by a medical professional or institution (Dr. PA, MOBILE APPLICATION ENGINEER, urgent care, hospital, or detention...) When possible be specific @ -No Did you speak to anyone other than the patient for history (EMS, parent, family, police, friend...)? What history was obtained from this source @ -Daughter is present to help provide history including onset of symptoms Did you review nursing and triage notes (agree or disagree)? Why? @ -I reviewed and agree with nursing and triage notes Were old charts reviewed (outside hosp., previous admission, EMS record, old EKG, old radiological studies, urgent care reports/EKG's, detention records)? Report findings @ -No old charts were reviewed Differential Diagnosis (chest pain, altered mental status, abdominal pain women, abdominal pain men, vaginal bleeding, weakness, fever, dyspnea, syncope, headache, dizziness, GI bleed, back pain, seizure, CVA, palpatations, mental health)? @ -Differential Dyspnea: Coronary syndrome, arrhythmia, tamponade, asthma, COPD, pulmonary embolism, pneumonia, pneumothorax, pulmonary effusion, anaphylaxis, diabetic ketoacidosis, flailed chest, pulmonary contusion, diaphragmatic rupture, anemia, neuromuscular, this is not meant to be an all-inclusive list. EKG interpreted by me (3pts min.). @ -As above X-rays interpreted by me (1pt min.). @ -Chest x-ray interpreted by myself shows right lower posterior infiltrate CT interpreted by me (1pt min.). @ -None done U/S interpreted by me (1pt. min.). @ -None done What testing was considered but not performed or refused? (CT, X-rays, U/S, labs)? Why? @ -None What meds were considered but not given or refused? Why? @ -None Did you discuss the management of the patient with other professionals (professionals i.e. DrViridiana, PA, MOBILE APPLICATION ENGINEER, lab, RT, psych nurse, public health social worker, health commissioner, teacher, transportation officer, case fitter)? Give summary @ -Case was discussed with [facility] hospitalist who will admit covering Dr. Farnsworth Was smoking cessation discussed for >3mins.? @ -No Was critical care preformed (if so, how long)? @ -32 minutes critical care time. Were there social determinants of health that impacted care today? How? (Homelessness, low income, unemployed, alcoholism, drug addiction, transportation, low edu. Level, literacy, decrease access to med. care, skilled nursing, rehab)? @ -No Was there de-escalation of care discussed even if they declined (Discuss DNR or withdrawal of care, Hospice)? DNR status @ -No What co-morbidities impacted this encounter? (DM, HTN, Smoking, COPD, CAD, C ancer, CVA, ARF, Chemo, Hep., AIDS, mental health diagnosis, sleep apnea, morbid obesity)? @ -None Was patient admitted / discharged? Hospital course, mention meds given and route, prescriptions, significant lab abnormalities, going to OR and other pertinent info. @ -Patient does meet sepsis criteria diagnosed at 1400. Blood culture and la ctic acid and IV antibiotics have all been ordered Patient evaluated. Patient and family updated on results and plan. Patient will be admitted Undiagnosed new problem with uncertain prognosis? @ -No Drug Therapy requiring intensive monitoring for toxicity (Heparin, Nitro, Insulin, Cardizem)? @ -No Were any procedures done? @ -No Diagnosis/symptom? @ -Pneumonia, sepsis Acute, or Chronic, or Acute on Chronic? @ -Acute, acute Uncomplicated (without systemic symptoms) or Complicated (systemic symptoms)? @ -Pneumonia is complicated with sepsis Side effects of treatment? @ -No Exacerbation, Progression, or Severe Exacerbation? @ -No Poses a threat to life or bodily function? How? (Chest pain, USA, NH, pneumonia, PE, COPD, DKA, ARF, appy, cholecystitis, CVA, Diverticulitis, Homicidal, Suicidal, threat to staff... and all critical care pts) @ -Patient is septic posing threat to life and bodily function - Lab Data Result diagrams: 01/22/23 13:42 Lab Results 01/22/23 Range/Units 13:42 WBC 13.2 H (3.8-10.6) k/uL RBC 4.03 (3.80-5.40) m/uL Hgb 12.5 (11.4-16.0) gm/dL Hct 39.0 (34.0-46.0) % MCV 96.8 (80.0-100.0) fL MCH 31.1 (25.0-35.0) pg MCHC 32.2 (31.0-37.0) g/dL RDW 13.9 (11.5-15.5) % Plt Count 189 (150-450) k/uL MPV 8.6 Neutrophils % 90 % Lymphocytes % 4 % Monocytes % 4 % Eosinophils % 1 % Basophils % 0 % Neutrophils # 11.9 H (1.3-7.7) k/uL Lymphocytes # 0.5 L (1.0-4.8) k/uL Monocytes # 0.6 (0-1.0) k/uL Eosinophils # 0.1 (0-0.7) k/uL Basophils # 0.0 (0-0.2) k/uL Critical Care Time Critical Care Time: Yes Total Critical Care Time: 32 Disposition Clinical Impression: Pneumonia, Sepsis Disposition: ADMITTED IP TO [facility] Condition: Serious Is patient prescribed a controlled substance at d/c from ED?: No Referrals: Agustín Farnsworth MD [Primary Care Provider] - 1-2 days Time of Disposition: 13:59
[2023-01-22 13:51] LABS: Basophils % (A) 0 %; Eosinophils # (A) 0.1 k/uL (0-0.7); Eosinophils % (A) 1 %; HGB 12.5 gm/dL (11.4-16.0); Lymphocytes # (A) 0.5 k/uL (1.0-4.8); Lymphocytes % (A) 4 %; MCH 31.1 pg (25.0-35.0); MCHC 32.2 g/dL (31.0-37.0); MCV 96.8 fL (80.0-100.0); Mean Platelet Volume 8.6; Monocytes # (A) 0.6 k/uL (0-1.0); Monocytes % (A) 4 %; Neutrophils # (A) 11.9 k/uL (1.3-7.7); Neutrophils % (A) 90 %; Platelet Count 189 k/uL (150-450); RBC 4.03 m/uL (3.80-5.40); RDW 13.9 % (11.5-15.5); WBC 13.2 k/uL (3.8-10.6)
--- NOTE | 2023-01-22 13:59 | XR ---
EXAMINATION TYPE: XR chest 2V DATE OF EXAM: 01/22/2023 1:55 PM COMPARISON: Chest radiographs from 04/12/2021 TECHNIQUE: XR chest 2V Frontal and lateral views of the chest. CLINICAL INDICATION:Female, 77 years old with history of difficulty breathing; FINDINGS: Lungs/Pleura: No pneumothorax or pleural effusion. Patchy right lower lobe airspace opacity. Hyperinf lation. Pulmonary vascularity: Unremarkable. Heart/mediastinum: Cardiomediastinal silhouette is unremarkable. Atherosclerotic calcifications are seen in the aorta. Musculoskeletal: No acute osseous pathology. Other findings: Abdominal aortic stent graft identified. IMPRESSION: Background COPD changes with patchy right lower lobe airspace opacity likely representing pneumonia.
[2023-01-22] MEDS ORDERED: AZITHROMYCIN 500 MG in SODIUM CHLORIDE 0.9% 250 ML IVPB STA (14:00)
[2023-01-22] MEDS ORDERED: PNEUMONIA PROTOCOL UTILIZED 1 EACH MISC PO PRN (14:00)
[2023-01-22 14:04] LABS: ALT 41 U/L (4-34); AST 83 U/L (14-36); African American GFR (CKD) 23 (>60 ml/min/1.73 sqM); Albumin 3.6 g/dL (3.5-5.0); Alkaline Phosphatase 90 U/L (38-126); Anion Gap 10 mmol/L; Blood Urea Nitrogen 32 mg/dL (7-17); Calcium 8.2 mg/dL (8.4-10.2); Carbon Dioxide 25 mmol/L (22-30); Chloride 99 mmol/L (98-107); Glucose 112 mg/dL (74-99); Magnesium 2.2 mg/dL (1.6-2.3); Non-African American GFR(CKD) 20 (>60 ml/min/1.73 sqM); Potassium 3.4 mmol/L (3.5-5.1); Sodium 134 mmol/L (137-145); Total Bilirubin 0.5 mg/dL (0.2-1.3); Total Protein 5.9 g/dL (6.3-8.2)
[2023-01-22 14:07] LABS: Partial Thromboplastin Time 28.3 sec (22.0-30.0); Prothrombin Time 10.4 sec (9.0-12.0)
[2023-01-22] MEDS ORDERED: SODIUM CHLORIDE 0.9% 500 ML 500 ML IV STA (14:11)
[2023-01-22] MEDS ORDERED: SODIUM CHLORIDE 0.9% 1,000 ML IV STA (14:11)
[2023-01-22] MEDS: IPRATROPIUM-ALBUTEROL 3 ML NEB INHALATION PRN (14:59)
[2023-01-22] MEDS: METOPROLOL TARTRATE 25 MG TAB PO SCH ×2 (17:51→21:24)
[2023-01-22] MEDS: FAMOTIDINE 20 MG TAB PO SCH (21:24)
[2023-01-22] MEDS: TEMAZEPAM 15 MG CAP PO SCH (21:24)
--- NOTE | 2023-01-22 23:35 | P.HPIM ---
History of Present Illness H&P Date: 01/22/23 This is a pleasant 77-year-old female who presented to the emergency department with daughter and reports she was at her primary care provider's Dr. Farnsworth's office this morning and sent here for further evaluation. Patient has been reporting some shortness of breath and cough with some sputum production the last few days and progressively getting worse. Patient does have past medical history of heart failure, hyperlipidemia, hypertension, previous myocardial infarction, chronic kidney disease, pneumonias along with history of rheumatoid arthritis. Patient denies illicit drug use and continues to smoke about half a pack to a pack per day. Patient denies alcohol use. Daughter reports patient was recently hospitalized approximately a month ago and has not smoked much since. Patient does not wear oxygen in the outpatient setting and currently requiring 3 L of oxygen via nasal cannula. Chest x-ray shows background COPD changes with patchy right lower lobe airspace opacification likely representing pneumonia, EKG showed normal sinus rhythm, and virology testing including Covid, influenza, RSV are negative. White count slightly elevated at 13.2 with a hemoglobin of 12.5, platelets are 189, sodium is 134 with a potassium of 3.4, BUN is 32 with a creatinine of 2.29, BNP is 6480, magnesium is 2.2. Patient was admitted for pneumonia with features of sepsis. We'll place a consult to pulmonary and appreciate input and recommendations. Review Of Systems: Constitutional: Reports some fever and chills, no night sweats. No weight change. Reports generalized weakness, fatigue or lethargy. No daytime sleepiness. EENT: No headache. No blurred vision or double vision, no loss of vision. No loss of Hearing, no ringing in the ears, no dizziness. No nasal drainage or congestion. No epistaxis. No sore throat. Lungs: Reports shortness of breath with a cough and some sputum production. No wheezing. Cardiovascular: No chest pain, no lower extremity edema. No palpitations. No paroxysmal nocturnal dyspnea. No orthopnea. No lightheadedness or dizziness. No syncopal episodes. Abdominal: No abdominal pain. No nausea, vomiting. No diarrhea. No constipation. No bloody or tarry stools.. Reports loss of appetite. Genitourinary: No dysuria, increased frequency, urgency. No urinary retention. Musculoskeletal: No myalgias. No muscle weakness, no gait dysfunction, no frequent falls. No back pain. No neck pain. Integumentary: No wounds, no lesions. No rash or pruritus. No unusual bruising. No change in hair or nails. Neurologic: No aphasia. No facial droop. No change in mentation. No head injury. No headache. No paralysis. No paresthesia. Psychiatric: No depression. No anxiety. No mood swings. Endocrine: No abnormal blood sugars. No weight change. No excessive sweating or thirst. No cold intolerance. PHYSICAL EXAMINATION: GENERAL: The patient is alert and oriented x4, thin built, elderly appearing HEENT: Pupils are round and equally reacting to light. EOMI. no scleral icterus. No conjunctival pallor. Normocephalic, atraumatic. No pharyngeal erythema. No thyromegaly. CARDIOVASCULAR: S1 and S2 muffled PULMONARY: diminished breath sounds bilaterally with no wheezing, some scattered rhonchi noted. ABDOMEN: soft. Nontender on exam. Thin, cachectic, non-distended, normoactive bowel sounds. No palpable organomegaly. MUSCULOSKELETAL: No joint swelling or deformity. EXTREMITIES: No cyanosis, clubbing, or pedal edema. NEUROLOGICAL: Gross neurological examination did not reveal any focal deficits. SKIN: No rashes. Assessment: Shortness of breath with fevers, features of sepsis, present on admission likely secondary to right lower lobe pneumonia, community-acquired Acute hypoxic respiratory failure secondary to above Chronic obstructive pulmonary disease, acute exacerbation History of heart failure, diastolic dysfunction Hypovolemic hyponatremia, appears to be volume depleted with dehydration Continued ongoing nicotine abuse History of chronic kidney disease History of hyperlipidemia, unable to tolerate statins [place] hypertension history History of rheumatoid arthritis Mild protein calorie malnutrition with a BMI of 18.0 GI prophylaxis DVT prophylaxis No code Plan: Recommend to continue with current medications and management for admission of pneumonia, community-acquired Patient was at primary care provider Dr. Agustín Farnsworth's office today and sent here for further evaluation. Patient has been having fevers and increased shortness of breath and does not normally wear oxygen outpatient requiring 2 L currently. Recommend wean FiO2 as tolerated Recommend DuoNeb treatments as needed and will continue antibiotics in the form of Zithromax. Patient did receive ceftriaxone Will consult pulmonary and appreciate input and recommendations. Patient does not report documented history of COPD although has been a smoker for many years and most likely does have COPD Patient appears to be somewhat dehydrated and volume depleted will continue gentle IV hydration overnight and follow-up with repeat labs Encourage complete tobacco cessation Will follow-up with repeat labs and chest x-ray in a.m. The impression and plan of care has been dictated by Beena Mccann, nurse practitioner as directed. Dr. Salvador MD I have performed a history and examination and MDM of this patient, discussed the same with the dictator, and agree with the dictator's assessment and plan as written ,documented as a scribe. Based on total visit time, I have performed more than 50% of the visit. Any additional findings or plans will be noted. Past Medical History Past Medical History: Blood Disorder, Cancer, Hyperlipidemia, Hypertension, Myocardial Infarction ([place]), Pneumonia Additional Past Medical History / Comment(s): acute kidney injury/cervical pain, hyperlipidemia but cannot tolerate statins, skin cancer-nose, rheumatoid arthritis, diverticulitis with sepsis, abdominal aneursym, degenerative disc disease/chronic pain at cervical spine, states heart attack-unsure of date Last Myocardial Infarction Date:: unknown History of Any Multi-Drug Resistant Organisms: None Reported Past Surgical History: Adenoidectomy, Appendectomy, Cholecystectomy, Heart Catheterization, Hysterectomy, Orthopedic Surgery, Tonsillectomy Additional Past Surgical History / Comment(s): L knee arthroscopy d/t effusion, R wrist ganglion cyst surgeries x 3, skin cancer removed from nose, bilateral cataract removals/lens implants. stents, EVAR with bilateral renal stent chimneys, aneurysm repair 06/08 Past Anesthesia/Blood Transfusion Reactions: No Reported Reaction Additional Past Anesthesia/Blood Transfusion Reaction / Comment(s): CHILDREN=PONV Past Psychological History: No Psychological Hx Reported Smoking Status: Current every day smoker Past Alcohol Use History: None Reported Past Drug Use History: None Reported - Past Family History Mother Family Medical History: Dementia Father History Unknown: Yes Family Medical History: No Reported History Daughter(s) Family Medical History: Cancer Additional Family Medical History / Comment(s): Daughter survived breast cancer. Medications and Allergies Home Medications Medication Instructions Recorded Confirmed Type amLODIPine [Norvasc] 10 mg PO DAILY #30 tab 09/10/20 01/22/23 Rx Aspirin 81 mg PO DAILY #30 chew 09/20/20 01/22/23 Rx Isosorbide Mononitrate ER [Imdur] 30 mg PO DAILY #30 tab.er.24h 09/20/20 Rx Metoprolol Tartrate [Lopressor] 25 mg PO TID #90 tab 09/20/20 01/22/23 Rx Clopidogrel [Plavix] 75 mg PO DAILY 03/25/21 01/22/23 History Famotidine [Pepcid] 20 mg PO BID 03/25/21 01/22/23 History Temazepam [Restoril] 15 mg PO HS 03/25/21 01/22/23 History hydrALAZINE HCL [Apresoline] 25 mg PO TID 03/25/21 01/22/23 History Furosemide [Lasix] 20 mg PO DAILY 01/22/23 01/22/23 History Allergies Allergy/AdvReac Type Severity Reaction Status Date / Time codeine Allergy Rash/Hives Verified 01/22/23 15:03 morphine Allergy Rash/Hives Verified 01/22/23 15:03 Penicillins Allergy Rash/Hives Verified 01/22/23 15:03 Nvualik-[id number]-[id number] Reductase Allergy Itching Verified 01/22/23 15:03 Inhibitor [Socvtlq-Alg-Ykc Reductase Inhibitor] any cholesterol medications Allergy Itching Uncoded 01/22/23 12:18 Physical Exam Vitals: Vital Signs Temp Pulse Resp BP Pulse Ox 01/22/23 14:22 95 26 H 124/56 94 L 01/22/23 12:32 99.2 F 93 26 H 127/65 93 L 01/22/23 12:15 100.0 F H 99 24 109/64 94 L Intake and Output 01/21/23 01/22/23 01/22/23 22:59 06:59 14:59 Other: Weight 37.648 kg Results CBC & Chem 7: 01/22/23 13:42 01/22/23 13:42 Labs: Abnormal Lab Results - Last 24 Hours (Table) 01/22/23 01/22/23 Range/Units 13:42 13:42 WBC 13.2 H (3.8-10.6) k/uL Neutrophils # 11.9 H (1.3-7.7) k/uL Lymphocytes # 0.5 L (1.0-4.8) k/uL Sodium 134 L (137-145) mmol/L Potassium 3.4 L (3.5-5.1) mmol/L BUN 32 H (7-17) mg/dL Creatinine 2.29 H (0.52-1.04) mg/dL Glucose 112 H (74-99) mg/dL Calcium 8.2 L (8.4-10.2) mg/dL AST 83 H (14-36) U/L ALT 41 H (4-34) U/L Total Protein 5.9 L (6.3-8.2) g/dL Thrombosis Risk Factor Assmnt - DVT/VTE Prophylaxis DVT/VTE Prophylaxis: Mechanical Prophylaxis ordered Assessment and Plan Time with Patient: Greater than 30
[2023-01-23] MEDS: ACETAMINOPHEN TAB 325 MG TAB PO PRN ×2 (01:55→14:35)
--- NOTE | 2023-01-23 04:02 | P.CNPUL ---
History of Present Illness Consult date: 01/23/23 Requesting physician: Beena Mccann Reason for consult: COPD, pneumonia Chief complaint: Shortness of breath and congested cough for the last 24 hours History of present illness: I am seeing this patient in new consultation today 01/23/2023 for suspected right lower lobe pneumonia. Patient is a 77-year-old white female with past medical history significant for diastolic congestive heart failure, mitral regurgitation, coronary artery disease, hypertension, hyperlipidemia, chronic kidney disease stage IV, and PVD. No documented history of COPD, however, she is a lifelong smoker. She continues to smoke 1 pack per day. 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 She was reportedly at her primary care provider's office, Dr. Farnsworth, earlier yesterday morning, and was sent to the emergency room for further evaluation. She has been experiencing shortness of breath with an associated congested cough over the last day or so. She denies any fevers, chills, sputum production, chest pain. Denies any sick contacts. She is currently febrile currently with a T-max of 102.8F. Patient is currently sitting in bed, on 3 L nasal cannula, in no acute distress. Chest x-ray on arrival showed a patchy right lower lobe airspace opacity concerning for pneumonia. Chronic hyperinflation consistent with COPD. CBC on arrival showed some mild leukocytosis with a WBC count of 13.2, hemoglobin 12.5, hematocrit 39, platelets 189. BMP shows sodium 134, potassium 3.4, chloride 99, serum CO2 25, BUN 32, creatinine 2.29, glucose 112. Normal saline is infusing at 75 mL per hour. NT proBNP was elevated at 6180, however, no evidence of CHF exacerbation on chest x-ray. Lactic acid level not elevated. Procalcitonin level is elevated at 6. Patient is currently empirically covered on a combination of Rocephin and Zithromax. She was negative for influenza, RSV, COVID-19. Vital signs are stable Review of Systems REVIEW OF SYSTEMS: CONSTITUTIONAL: Denies any recent significant weight loss or weight gain. EYES: Denies change in vision. EARS, NOSE, MOUTH, THROAT: Denies headaches, denies sore throat. CARDIOVASCULAR: Denies chest pain, palpitations or syncopal episodes. RESPIRATORY: See HPI GASTROINTESTINAL: Denies change in appetite, abdominal pain, nausea and vomiting, or diarrhea GENITOURINARY: Denies hematuria, denies infections. MUSKULOSKELETAL: Denies pain, denies swelling. INTEGUMENTARY: Denies rash, denies eczema. NEUROLOGICAL: Denies recent memory loss, no recent seizure activity. PSYCHIATRIC: Denies anxiety, denies depression. HEMATOLOGIC/LYMPHATIC: Denies anemia, denies enlarged lymph node Past Medical History Past Medical History: Blood Disorder, Cancer, Hyperlipidemia, Hypertension, Myocardial Infarction ([place]), Pneumonia Additional Past Medical History / Comment(s): acute kidney injury/cervical pain, hyperlipidemia but cannot tolerate statins, skin cancer-nose, rheumatoid arthritis, diverticulitis with sepsis, abdominal aneursym, degenerative disc disease/chronic pain at cervical spine, states heart attack-unsure of date Last Myocardial Infarction Date:: unknown History of Any Multi-Drug Resistant Organisms: None Reported Past Surgical History: Adenoidectomy, Appendectomy, Cholecystectomy, Heart Catheterization, Hysterectomy, Orthopedic Surgery, Tonsillectomy Additional Past Surgical History / Comment(s): L knee arthroscopy d/t effusion, R wrist ganglion cyst surgeries x 3, skin cancer removed from nose, bilateral cataract removals/lens implants. stents, EVAR with bilateral renal stent chimneys, aneurysm repair 06/08 Past Anesthesia/Blood Transfusion Reactions: No Reported Reaction Additional Past Anesthesia/Blood Transfusion Reaction / Comment(s): CHILDREN=PONV Past Psychological History: No Psychological Hx Reported Smoking Status: Current every day smoker Past Alcohol Use History: None Reported Past Drug Use History: None Reported - Past Family History Mother Family Medical History: Dementia Father History Unknown: Yes Family Medical History: No Reported History Daughter(s) Family Medical History: Cancer Additional Family Medical History / Comment(s): Daughter survived breast cancer. Medications and Allergies Home Medications Medication Instructions Recorded Confirmed Type amLODIPine [Norvasc] 10 mg PO DAILY #30 tab 09/10/20 01/22/23 Rx Aspirin 81 mg PO DAILY #30 chew 09/20/20 01/22/23 Rx Isosorbide Mononitrate ER [Imdur] 30 mg PO DAILY #30 tab.er.24h 09/20/20 01/22/23 Rx Metoprolol Tartrate [Lopressor] 25 mg PO TID #90 tab 09/20/20 01/22/23 Rx Clopidogrel [Plavix] 75 mg PO DAILY 03/25/21 01/22/23 History Famotidine [Pepcid] 20 mg PO BID 03/25/21 01/22/23 History Temazepam [Restoril] 15 mg PO HS 03/25/21 01/22/23 History hydrALAZINE HCL [Apresoline] 25 mg PO TID 03/25/21 01/22/23 History Furosemide [Lasix] 20 mg PO DAILY 01/22/23 01/22/23 History Allergies Allergy/AdvReac Type Severity Reaction Status Date / Time codeine Allergy Rash/Hives Verified 01/22/23 15:03 morphine Allergy Rash/Hives Verified 01/22/23 15:03 Penicillins Allergy Rash/Hives Verified 01/22/23 15:03 Nkwcxfg-HKK-CuR Reductase Allergy Itching Verified 01/22/23 15:03 Inhibitor [Medeymm-Ubv-Rtn Reductase Inhibitor] any cholesterol medications Allergy Itching Uncoded 01/22/23 12:18 Physical Exam Vitals: Vital Signs Temp Pulse Pulse Resp BP BP Pulse Ox 01/23/23 02:59 97.6 F 01/23/23 01:51 102.8 F H 114 H 16 143/67 93 L 01/22/23 20:06 99.7 F H 99 17 111/60 90 L 01/22/23 20:00 99 01/22/23 17:33 98.8 F 89 18 109/46 93 L 01/22/23 15:32 99.4 F 01/22/23 15:10 86 01/22/23 15:02 80 01/22/23 14:22 95 26 H 124/56 94 L 01/22/23 12:32 99.2 F 93 26 H 127/65 93 L 01/22/23 12:15 100.0 F H 99 24 109/64 94 L Intake and Output 01/22/23 01/22/23 01/23/23 14:59 22:59 06:59 Intake Total 75 Balance 75 Intake: Intake, IV Titration 75 Amount Sodium Chloride 0.9% 1, 75 000 ml @ 75 mls/hr IV . [id number] STA Rx#:[id number] Other: Weight 37.648 kg 37.648 kg GENERAL EXAM: Alert, 77-year-old white female, comfortable in no apparent distre ss. HEAD: Normocephalic and atraumatic EYES: Normal reaction of pupils, equal size. NOSE: Clear with pink turbinates. THROAT: No erythema or exudates. NECK: No masses, no JVD. CHEST: No chest wall deformity. LUNGS: Equal air entry diffuse coarse rhonchi throughout and mild expiratory wheezes. On 3 L nasal cannula. No conversational dyspnea or accessory muscle use.. CVS: S1 and S2 normal with no audible murmur, regular rhythm. No extra heart sounds ABDOMEN: No hepatosplenomegaly, active bowel sounds, no guarding or rigidity. SPINE: No scoliosis or deformity SKIN: No rashes CENTRAL NERVOUS SYSTEM: No focal deficits, tone is normal in all 4 extremities. EXTREMITIES: There is no peripheral edema, clubbing, or cyanosis. Peripheral pulses are intact. Results - Laboratory Findings CBC and BMP: 01/22/23 13:42 01/22/23 13:42 PT/INR, D-dimer PT 10.4 sec (9.0-12.0) 01/22/23 13:42 INR 1.0 (<1.2) 01/22/23 13:42 Abnormal lab findings: Abnormal Labs 01/22/23 01/22/23 01/22/23 13:42 13:42 13:42 WBC 13.2 H Neutrophils # 11.9 H Lymphocytes # 0.5 L Sodium 134 L Potassium 3.4 L BUN 32 H Creatinine 2.29 H Glucose 112 H Calcium 8.2 L AST 83 H ALT 41 H Total Protein 5.9 L Procalcitonin 6.08 H - Diagnostic Findings Chest x-ray: image reviewed Assessment and Plan Assessment: Community-acquired right lower lobe pneumonia. Chest x-ray on arrival shows evidence of a patchy right lower lobe infiltrate concerning for pneumonia. Negative for influenza, RSV, COVID-19. Procalcitonin level was elevated at 6. She is febrile with a T-max of 102.8F. Suspected COPD exacerbation secondary to above. No documented history of COPD, however, there is chronic hyperinflation seen on chest x-ray consistent with COPD. She is slightly bronchospastic on physical examination. Acute hypoxemic respiratory failure secondary to above, currently on 3 L nasal cannula Coronary artery disease History of diastolic congestive heart failure with moderate to severe mitral regurgitation, stable Essential hypertension Hyperlipidemia Chronic kidney disease stage IV History peripheral vascular disease Chronic nicotine dependence. Smokes approximately 1 pack per day, and she is trying to cut back Plan: Patient's medications, labs, chest x-ray reviewed Continue antibiotics for community-acquired pneumonia Continue supplemental oxygen Start combination of bronchodilators and Symbicort inhaler Start the patient on Mucinex and flutter valve for congested nonproductive cough Blood cultures are pending Sputum and urine Legionella antigen ordered Smoking cessation education performed Nicotine replacement offered Patient appears nontoxic, and is admitted to the general medical floor. We will continue to follow I have personally seen and examined the patient, performed the documentation and the assessment and plan as written. Number of minutes spent on the visit:20
[2023-01-23 06:24] LABS: African American GFR (CKD) 25 (>60 ml/min/1.73 sqM); Anion Gap 8 mmol/L; Blood Urea Nitrogen 29 mg/dL (7-17); Calcium 7.4 mg/dL (8.4-10.2); Carbon Dioxide 22 mmol/L (22-30); Chloride 104 mmol/L (98-107); Glucose 144 mg/dL (74-99); Magnesium 2.1 mg/dL (1.6-2.3); Non-African American GFR(CKD) 22 (>60 ml/min/1.73 sqM); Sodium 134 mmol/L (137-145)
[2023-01-23 06:38] LABS: Basophils % (A) 0 %; Eosinophils % (A) 0 %; HCT 34.2 % (34.0-46.0); Lymphocytes # (A) 0.4 k/uL (1.0-4.8); Lymphocytes % (A) 6 %; MCH 31.5 pg (25.0-35.0); MCHC 32.2 g/dL (31.0-37.0); MCV 97.8 fL (80.0-100.0); Monocytes # (A) 0.4 k/uL (0-1.0); Monocytes % (A) 5 %; Neutrophils # (A) 6.8 k/uL (1.3-7.7); Neutrophils % (A) 88 %; Platelet Count 139 k/uL (150-450); RBC 3.49 m/uL (3.80-5.40); RDW 13.9 % (11.5-15.5); WBC 7.8 k/uL (3.8-10.6)
[2023-01-23] MEDS ORDERED: SYMBICORT 160-4.5 MCG INHALER INHALATION SCH (08:00)
--- NOTE | 2023-01-23 08:56 | XR ---
EXAMINATION TYPE: XR chest 2V DATE OF EXAM: 01/23/2023 COMPARISON: 01/22/2023 HISTORY: 77-year-old female pneumonia follow-up TECHNIQUE: Frontal and lateral views FINDINGS: Heart normal size. Atherosclerotic arch calcifications. Hyperinflation. Worsening posterior right bas ilar opacity. Endovascular aortic stent graft upper abdominal aorta. IMPRESSION: COPD with worsening right lower lobe pneumonia.
[2023-01-23] MEDS: HEPARIN SODIUM,PORCINE/PF 5,000 UNIT/0.5 ML SYRINGE SQ SCH ×2 (09:22→20:52)
[2023-01-23] MEDS: CLOPIDOGREL 75 MG TAB PO SCH (09:22)
[2023-01-23] MEDS: AZITHROMYCIN 500 MG TAB PO SCH (09:22)
[2023-01-23] MEDS: ASPIRIN 81 MG PO SCH (09:22)
[2023-01-23] MEDS: METOPROLOL TARTRATE 25 MG TAB PO SCH ×3 (09:22→21:03)
[2023-01-23] MEDS: FAMOTIDINE 20 MG TAB PO SCH ×2 (09:22→20:52)
[2023-01-23] MEDS: guaiFENesin 600 MG TABLET.ER PO SCH ×2 (09:22→20:52)
[2023-01-23] MEDS: NICOTINE 21MG/24HR PATCH TRANSDERM SCH (09:32)
[2023-01-23] MEDS: IPRATROPIUM-ALBUTEROL 3 ML NEB INHALATION SCH ×4 (10:35→21:10)
[2023-01-23] MEDS ORDERED: Potassium Replacement Protocol 1 EACH MISC MISCELLANE PRN (11:46)
[2023-01-23] MEDS ORDERED: Magnesium Replacement Protocol 1 EACH MISC MISCELLANE PRN (11:46)
[2023-01-23] MEDS: guaiFENesin SYRUP 100MG/5ML 200 MG/10 ML CUP PO PRN (14:35)
--- NOTE | 2023-01-23 20:24 | P.CONS ---
History of Present Illness - Reason for Consult Consult date: 01/23/23 - History of Present Illness Patient is a 77-year-old female with a past medical history significant for hypertension hyperlipidemia ME diverticulitis with sepsis presenting to the ER for evaluation of increasing shortness of breath in this patient's symptom has been going on for few days before presentation to the hospital patient complaining of increasing shortness of breath minimal exertion even at rest the patient also have a cough moderate intensity has been bringing up some purulent sputum denies having any pleuritic chest pain on presentation to the hospital the patient did have a fever 100 F she did spike a fever this morning of 102.8 F patient was hypoxic requiring supplemental oxygen did have white count of 13.2 with a left shift. Creatinine has been elevated influenza RSV and COVID testing was negative did have a Protos of 6.08 patient did have a chest x-ray which shows a right lower lobe pneumonia patient is currently being treated with Rocephin and Zithromax because of her penicillin allergy infectious was consulted for further management of antibiotic therapy Past Medical History Past Medical History: Blood Disorder, Cancer, Hyperlipidemia, Hypertension, Myocardial Infarction (ME), Pneumonia Additional Past Medical History / Comment(s): acute kidney injury/cervical pain, hyperlipidemia but cannot tolerate statins, skin cancer-nose, rheumatoid arthritis, diverticulitis with sepsis, abdominal aneursym, degenerative disc disease/chronic pain at cervical spine, states heart attack-unsure of date Last Myocardial Infarction Date:: unknown History of Any Multi-Drug Resistant Organisms: None Reported Past Surgical History: Adenoidectomy, Appendectomy, Cholecystectomy, Heart Catheterization, Hysterectomy, Orthopedic Surgery, Tonsillectomy Additional Past Surgical History / Comment(s): L knee arthroscopy d/t effusion, R wrist ganglion cyst surgeries x 3, skin cancer removed from nose, bilateral cataract removals/lens implants. stents, EVAR with bilateral renal stent chimneys, aneurysm repair 06/08 Past Anesthesia/Blood Transfusion Reactions: No Reported Reaction Additional Past Anesthesia/Blood Transfusion Reaction / Comm: CHILDREN=PONV Past Psychological History: No Psychological Hx Reported Smoking Status: Current every day smoker Past Alcohol Use History: None Reported Past Drug Use History: None Reported - Past Family History Mother Family Medical History: Dementia Father History Unknown: Yes Family Medical History: No Reported History Daughter(s) Family Medical History: Cancer Additional Family Medical History / Comment(s): Daughter survived breast cancer. Medications and Allergies Home Medications Medication Instructions Recorded Confirmed Type amLODIPine [Norvasc] 10 mg PO DAILY #30 tab 09/10/20 01/22/23 Rx Aspirin 81 mg PO DAILY #30 chew 09/20/20 01/22/23 Rx Isosorbide Mononitrate ER [Imdur] 30 mg PO DAILY #30 tab.er.24h 09/20/20 01/22/23 Rx Metoprolol Tartrate [Lopressor] 25 mg PO TID #90 tab 09/20/20 01/22/23 Rx Clopidogrel [Plavix] 75 mg PO DAILY 03/25/21 01/22/23 History Famotidine [Pepcid] 20 mg PO BID 03/25/21 01/22/23 History Temazepam [Restoril] 15 mg PO HS 03/25/21 01/22/23 History hydrALAZINE HCL [Apresoline] 25 mg PO TID 03/25/21 01/22/23 History Furosemide [Lasix] 20 mg PO DAILY 01/22/23 01/22/23 History Allergies Allergy/AdvReac Type Severity Reaction Status Date / Time codeine Allergy Rash/Hives Verified 01/22/23 15:03 morphine Allergy Rash/Hives Verified 01/22/23 15:03 Penicillins Allergy Rash/Hives Verified 01/22/23 15:03 [id number] Reductase Allergy Itching Verified 01/22/23 15:03 Inhibitor [Ifvswwk-Rdo-Glc Reductase Inhibitor] any cholesterol medications Allergy Itching Uncoded 01/22/23 12:18 Physical Exam Vitals: Vital Signs Temp Pulse Pulse Resp BP Pulse Ox 01/23/23 14:13 94 L 01/23/23 12:01 84 01/23/23 11:47 84 86 L 01/23/23 11:27 98.8 F 70 18 120/67 01/23/23 07:25 97.4 F L 78 18 129/68 92 L 01/23/23 02:59 97.6 F 01/23/23 01:51 102.8 F H 114 H 16 143/67 93 L 01/22/23 20:06 99.7 F H 99 17 111/60 90 L 01/22/23 20:00 99 01/22/23 17:33 98.8 F 89 18 109/46 93 L 01/22/23 15:32 99.4 F Intake and Output 01/23/23 01/23/23 01/23/23 06:59 14:59 22:59 Intake Total 750 Balance 750 Intake: Intake, IV Titration 750 Amount Sodium Chloride 0.9% 1, 750 000 ml @ 75 mls/hr IV . [id number] STA Rx#:[id number] Other: # Voids 1 1 1 # Bowel Movements 1 1 Weight 39.3 kg Results CBC & Chem 7: 01/23/23 05:47 01/23/23 05:47 Labs: Abnormal Lab Results - Last 24 Hours (Table) 01/22/23 01/23/23 01/23/23 Range/Units 13:42 05:47 05:47 RBC 3.49 L (3.80-5.40) m/uL Hgb 11.0 L (11.4-16.0) gm/dL Plt Count 139 L (150-450) k/uL Lymphocytes # 0.4 L (1.0-4.8) k/uL Sodium 134 L (137-145) mmol/L Potassium 3.0 L (3.5-5.1) mmol/L BUN 29 H (7-17) mg/dL Creatinine 2.12 H (0.52-1.04) mg/dL Glucose 144 H (74-99) mg/dL Calcium 7.4 L (8.4-10.2) mg/dL Procalcitonin 6.08 H ng/mL Assessment and Plan Plan: 1patient to the hospital with sepsis in this patient did have fever tachycardia elevated white count source right lower lobe pneumonia likely community-acquired in this patient who do have a history of COPD and possibly could be a gram- negative pneumonia 2-we will obtain sputum for Gram stain and culture 3--we will adjust antibiotic to cefepime 2 g every 8 hours in view of slight worsening of the x-ray finding and clinical condition to cover for possible gram-negative pneumonia We will follow on clinical condition and cultures to further adjust medication i f needed Thank you for this consultation we will follow the patient along with you Time with Patient: Greater than 30
[2023-01-23] MEDS: TEMAZEPAM 15 MG CAP PO SCH (20:51)
[2023-01-23] MEDS: MONTELUKAST 10 MG TAB PO SCH (20:51)
[2023-01-23] MEDS: BUDESONIDE 1 MG/2 ML NEBU INHALATION SCH (21:10)
[2023-01-23] MEDS: FORMOTEROL FUMARATE 20 MCG/2 ML NEBU INHALATION SCH (21:10)
[2023-01-24] MEDS: CEFEPIME 2 GM in SODIUM CHLORIDE 0.9% 100 ML IVPB SCH ×4 (00:08→23:42)
[2023-01-24] MEDS: ACETAMINOPHEN TAB 325 MG TAB PO PRN (01:25)
--- NOTE | 2023-01-24 05:46 | P.PN ---
Subjective Progress Note Date: 01/23/23 This is a pleasant 77-year-old female who presented to the emergency department with daughter and reports she was at her primary care provider's Dr. Farnsworth's office this morning and sent here for further evaluation. Patient has been reporting some shortness of breath and cough with some sputum production the last few days and progressively getting worse. Patient does have past medical history of heart failure, hyperlipidemia, hypertension, previous myocardial infarction, chronic kidney disease, pneumonias along with history of rheumatoid arthritis. Patient denies illicit drug use and continues to smoke about half a pack to a pack per day. Patient denies alcohol use. Daughter reports patient was recently hospitalized approximately a month ago and has not smoked much since. Patient does not wear oxygen in the outpatient setting and currently requiring 3 L of oxygen via nasal cannula. Chest x-ray shows background COPD changes with patchy right lower lobe airspace opacification likely representing pneumonia, EKG showed normal sinus rhythm, and virology testing including Covid, influenza, RSV are negative. White count slightly elevated at 13.2 with a hemoglobin of 12.5, platelets are 189, sodium is 134 with a potassium of 3.4, BUN is 32 with a creatinine of 2.29, BNP is 6480, magnesium is 2.2. Patient was admitted for pneumonia with features of sepsis. We'll place a consult to pulmonary and appreciate input and recommendations. 01/23/2023 Patient is seen and evaluated in follow-up this morning continues to be extremely bronchospastic and cough. Patient has received ceftriaxone along with Zithromax with pulmonary following and will consult infectious disease and appreciate input recommendations. Patient continues to have low-grade temps with generalized weakness and fatigue. No reports of nausea or vomiting although patient reports reduced poor oral intake and not much of an appetite. Patient reports she especially does not eat very well when feeling sick. Enc ouraged oral intake even small meals to keep her strength. Patient is continued on DuoNeb treatments and will add Perforomist and Pulmicort. Recommend follow- up labs in the a.m. Review of systems: Constitutional: reports of fatigue, reports fever, or chills Cardiovascular: No reports of chest pain or palpitations Respiratory: reports of shortness of breath with continued cough GI: No reports of nausea, vomiting, or diarrhea, reports no real appetite : No reports of dysuria or retention Neurovascular: No reports of weakness or numbness All medications have been reviewed Active Medications Acetaminophen (Acetaminophen Tab 325 Mg Tab) 650 mg PO Q4HR PRN PRN Reason: Fever and/ or Pain Last Admin: 01/23/23 14:35 Dose: 650 mg Albuterol/Ipratropium (Ipratropium-Albuterol 3 Ml Neb) 3 ml INHALATION RT-Q4H PRN PRN Reason: shortness of breath Last Admin: 01/22/23 14:59 Dose: 3 ml Albuterol/Ipratropium (Ipratropium-Albuterol 3 Ml Neb) 3 ml INHALATION RT-QID [facility] Last Admin: 01/23/23 11:47 Dose: 3 ml Aspirin (Aspirin 81 Mg) 81 mg PO DAILY [facility] Last Admin: 01/23/23 09:22 Dose: 81 mg Azithromycin (Azithromycin 500 Mg Tab) 500 mg PO DAILY [facility]; Protocol Stop: 01/24/23 09:01 Last Admin: 01/23/23 09:22 Dose: 500 mg Budesonide (Budesonide 1 Mg/2 Ml Nebu) 1 mg INHALATION RT-BID [facility] Clopidogrel Bisulfate (Clopidogrel 75 Mg Tab) 75 mg PO DAILY [facility] Last Admin: 01/23/23 09:22 Dose: 75 mg Famotidine (Famotidine 20 Mg Tab) 20 mg PO BID [facility] Last Admin: 01/23/23 09:22 Dose: 20 mg Formoterol Fumarate (Formoterol Fumarate 20 Mcg/2 Ml Nebu) 20 mcg INHALATION RT-BID [facility] Guaifenesin (Guaifenesin 600 Mg Tablet.Er) 600 mg PO Q12HR [facility] Last Admin: 01/23/23 09:22 Dose: 600 mg Guaifenesin (Guaifenesin Syrup 100mg/5ml 200 Mg/10 Ml Cup) 200 mg PO Q6HR PRN PRN Reason: Cough Last Admin: 01/23/23 14:35 Dose: 200 mg Heparin Sodium (Porcine) (Heparin Sodium,Porcine/Pf 5,000 Unit/0.5 Ml Syringe) 5,000 unit SQ Q12HR [facility] Last Admin: 01/23/23 09:22 Dose: 5,000 unit Ceftriaxone Sodium 2 gm/ (Sodium Chloride) 50 mls @ 100 mls/hr IVPB Q24HR [facility]; Protocol Stop: 01/26/23 09:29 Last Admin: 01/23/23 09:23 Dose: 100 mls/hr Metoprolol Tartrate (Metoprolol Tartrate 25 Mg Tab) 25 mg PO TID [facility] Last Admin: 01/23/23 09:22 Dose: 25 mg Miscellaneous Information (Pneumonia Protocol Utilized 1 Each [facility]) 1 each PO ONCE PRN PRN Reason: Per Protocol Miscellaneous Information (Magnesium Replacement Protocol 1 Each [facility]) 1 each MISCELLANE DAILY PRN; Protocol PRN Reason: Per Protocol Miscellaneous Information (Potassium Replacement Protocol 1 Each [facility] [place]) 1 each MISCELLANE DAILY PRN; Protocol PRN Reason: Per Protocol Montelukast Sodium (Montelukast 10 Mg Tab) 10 mg PO HS [facility] Nicotine (Nicotine 21mg/24hr Patch) 1 patch TRANSDERM DAILY [facility] Last Admin: 01/23/23 09:32 Dose: Not Given Temazepam (Temazepam 15 Mg Cap) 15 mg PO HS [facility] Last Admin: 01/22/23 21:24 Dose: 15 mg PHYSICAL EXAMINATION: GENERAL: The patient is alert and oriented x4, thin built, elderly appearing HEENT: Pupils are round and equally reacting to light. EOMI. no scleral icterus. No conjunctival pallor. Normocephalic, atraumatic. No pharyngeal erythema. No thyromegaly. CARDIOVASCULAR: S1 and S2 muffled PULMONARY: diminished breath sounds bilaterally with no wheezing, some scattered rhonchi noted. Harsh cough and bronchospastic noted on exam ABDOMEN: soft. Nontender on exam. Thin, cachectic, non-distended, normoactive bowel sounds. No palpable organomegaly. MUSCULOSKELETAL: No joint swelling or deformity. EXTREMITIES: No cyanosis, clubbing, or pedal edema. NEUROLOGICAL: Gross neurological examination did not reveal any focal deficits. SKIN: No rashes. Assessment: Shortness of breath with fevers, features of sepsis, present on admission likely secondary to right lower lobe pneumonia, community-acquired Acute hypoxic respiratory failure secondary to above Chronic obstructive pulmonary disease, acute exacerbation History of heart failure, diastolic dysfunction Hypovolemic hyponatremia, appears to be volume depleted with dehydration Continued ongoing nicotine abuse History of chronic kidney disease History of hyperlipidemia, unable to tolerate statins hypertension history History of rheumatoid arthritis Mild protein calorie malnutrition with a BMI of 18.0 GI prophylaxis DVT prophylaxis No code Plan: Recommend to continue with current medications and management for admission of pneumonia, community-acquired Patient has been having fevers and increased shortness of breath and does not normally wear oxygen outpatient requiring 2 L currently. Recommend wean FiO2 as tolerated Recommend DuoNeb treatments as needed and will continue antibiotics in the form of Zithromax. Patient did receive ceftriaxone. Patient is having fevers and will consult infectious disease and appreciate input recommendations Pulmonary following. Patient does not report documented history of COPD although has been a smoker for many years and most likely does have COPD. Continued on DuoNeb treatments along with inhalers and will add perforomist along with Pulmicort Recommend repeat labs in the a.m. Encourage complete tobacco cessation Encouraged oral intake Encouraged increased activity as tolerated Due to multiple complex medical issues, prognosis is guarded The impression and plan of care has been dictated by Beena Mccann, nurse practitioner as directed. Dr. Star MD I have performed a history and examination and MDM of this patient, discussed the same with the dictator, and agree with the dictator's assessment and plan as written ,documented as a scribe. Based on total visit time, I have performed more than 50% of the visit. Any additional findings or plans will be noted. Objective - Vital Signs Vital signs: Vital Signs Temp 98.8 F 01/23/23 11:27 Pulse 84 01/23/23 12:01 Resp 18 01/23/23 11:27 BP 120/67 01/23/23 11:27 Pulse Ox 86 L 01/23/23 11:47 FiO2 Intake & Output 01/22/23 01/23/23 01/23/23 18:59 06:59 18:59 Intake Total 75 750 Balance 75 750 Weight 37.648 kg 39.3 kg Intake: Intake, IV Titration 75 750 Amount Sodium Chloride 0.9% 1, 75 750 000 ml @ 75 mls/hr IV . [id number] STA Rx#:[id number] Other: # Voids 1 - Labs CBC & Chem 7: 01/23/23 05:47 01/23/23 05:47 Labs: Abnormal Lab Results - Last 24 Hours (Table) 01/22/23 01/22/23 01/22/23 Range/Units 13:42 13:42 13:42 WBC 13.2 H (3.8-10.6) k/uL RBC (3.80-5.40) m/uL Hgb (11.4-16.0) gm/dL Plt Count (150-450) k/uL Neutrophils # 11.9 H (1.3-7.7) k/uL Lymphocytes # 0.5 L (1.0-4.8) k/uL Sodium 134 L (137-145) mmol/L Potassium 3.4 L (3.5-5.1) mmol/L BUN 32 H (7-17) mg/dL Creatinine 2.29 H (0.52-1.04) mg/dL Glucose 112 H (74-99) mg/dL Calcium 8.2 L (8.4-10.2) mg/dL AST 83 H (14-36) U/L ALT 41 H (4-34) U/L Total Protein 5.9 L (6.3-8.2) g/dL Procalcitonin 6.08 H ng/mL 01/23/23 01/23/23 Range/Units 05:47 05:47 WBC (3.8-10.6) k/uL RBC 3.49 L (3.80-5.40) m/uL Hgb 11.0 L (11.4-16.0) gm/dL Plt Count 139 L (150-450) k/uL Neutrophils # (1.3-7.7) k/uL Lymphocytes # 0.4 L (1.0-4.8) k/uL Sodium 134 L (137-145) mmol/L Potassium 3.0 L (3.5-5.1) mmol/L BUN 29 H (7-17) mg/dL Creatinine 2.12 H (0.52-1.04) mg/dL Glucose 144 H (74-99) mg/dL Calcium 7.4 L (8.4-10.2) mg/dL AST (14-36) U/L ALT (4-34) U/L Total Protein (6.3-8.2) g/dL Procalcitonin ng/mL
[2023-01-24 07:43] LABS: Basophils % (A) 0 %; Eosinophils # (A) 0.1 k/uL (0-0.7); Eosinophils % (A) 1 %; HCT 33.3 % (34.0-46.0); HGB 10.8 gm/dL (11.4-16.0); Lymphocytes # (A) 0.4 k/uL (1.0-4.8); Lymphocytes % (A) 6 %; MCH 31.4 pg (25.0-35.0); MCHC 32.5 g/dL (31.0-37.0); MCV 96.6 fL (80.0-100.0); Mean Platelet Volume 9.8; Monocytes # (A) 0.3 k/uL (0-1.0); Monocytes % (A) 5 %; Neutrophils # (A) 5.9 k/uL (1.3-7.7); Neutrophils % (A) 86 %; Platelet Count 146 k/uL (150-450); RBC 3.45 m/uL (3.80-5.40); RDW 14.4 % (11.5-15.5); WBC 6.9 k/uL (3.8-10.6)
[2023-01-24 07:49] LABS: ALT 41 U/L (4-34); AST 54 U/L (14-36); African American GFR (CKD) 32 (>60 ml/min/1.73 sqM); Albumin 2.5 g/dL (3.5-5.0); Albumin/Globulin Ratio 1.3; Alkaline Phosphatase 69 U/L (38-126); Anion Gap 7 mmol/L; Blood Urea Nitrogen 24 mg/dL (7-17); Calcium 7.7 mg/dL (8.4-10.2); Carbon Dioxide 21 mmol/L (22-30); Chloride 107 mmol/L (98-107); Glucose 127 mg/dL (74-99); Magnesium 2.1 mg/dL (1.6-2.3); Non-African American GFR(CKD) 28 (>60 ml/min/1.73 sqM); Potassium 3.1 mmol/L (3.5-5.1); Sodium 135 mmol/L (137-145); Total Bilirubin 0.3 mg/dL (0.2-1.3); Total Protein 4.5 g/dL (6.3-8.2)
[2023-01-24] MEDS: BUDESONIDE 1 MG/2 ML NEBU INHALATION SCH ×2 (09:15→20:50)
[2023-01-24] MEDS: FORMOTEROL FUMARATE 20 MCG/2 ML NEBU INHALATION SCH ×2 (09:16→20:50)
[2023-01-24] MEDS: IPRATROPIUM-ALBUTEROL 3 ML NEB INHALATION SCH ×4 (09:16→20:50)
[2023-01-24 09:23] LABS: C Reactive Protein 23.2 mg/dL (<1.0)
[2023-01-24] MEDS: ASPIRIN 81 MG PO SCH (09:27)
[2023-01-24] MEDS: METOPROLOL TARTRATE 25 MG TAB PO SCH ×3 (09:27→21:17)
[2023-01-24] MEDS: CLOPIDOGREL 75 MG TAB PO SCH (09:27)
[2023-01-24] MEDS: AZITHROMYCIN 500 MG TAB PO SCH (09:27)
[2023-01-24] MEDS: FAMOTIDINE 20 MG TAB PO SCH ×2 (09:27→21:17)
[2023-01-24] MEDS: guaiFENesin 600 MG TABLET.ER PO SCH ×2 (09:27→21:17)
[2023-01-24] MEDS: HEPARIN SODIUM,PORCINE/PF 5,000 UNIT/0.5 ML SYRINGE SQ SCH ×2 (09:28→20:55)
[2023-01-24] MEDS: NICOTINE 21MG/24HR PATCH TRANSDERM SCH (09:28)
[2023-01-24] MEDS ORDERED: Potassium Replacement Protocol 1 EACH MISC MISCELLANE PRN ×2 (11:44→13:04)
[2023-01-24] MEDS: POTASSIUM CHLORIDE ER 20 MEQ TAB.ER PO SCH ×5 (12:58→14:42)
--- NOTE | 2023-01-24 13:20 | P.PN ---
Subjective Progress Note Date: 01/24/23 I am seeing this patient in new consultation today 01/23/2023 for suspected right lower lobe pneumonia. Patient is a 77-year-old white female with past medical history significant for diastolic congestive heart failure, mitral regurgitation, coronary artery disease, hypertension, hyperlipidemia, chronic kidney disease stage IV, and PVD. No documented history of COPD, however, she is a lifelong smoker. She continues to smoke 1 pack per day. 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 She was reportedly at her primary care provider's office, Dr. Farnsworth, earlier yesterday morning, and was sent to the emergency room for further evaluation. She has been experiencing shortness of breath with an associated congested cough over the last day or so. She denies any fevers, chills, sputum production, chest pain. Denies any sick contacts. She is currently febrile currently with a T-max of 102.8F. Patient is currently sitting in bed, on 3 L nasal cannula, in no acute distress. Chest x-ray on arrival showed a patchy right lower lobe airspace opacity concerning for pneumonia. Chronic hyperinflation consistent with COPD. CBC on arrival showed some mild leukocytosis with a WBC count of 13.2, hemoglobin 12.5, hematocrit 39, platelets 189. BMP shows sodium 134, potassium 3.4, chloride 99, serum CO2 25, BUN 32, creatinine 2.29, glucose 112. Normal saline is infusing at 75 mL per hour. NT proBNP was elevated at 6180, however, no evidence of CHF exacerbation on chest x-ray. Lactic acid level not elevated. Procalcitonin level is elevated at 6. Patient is currently empirically covered on a combination of Rocephin and Zithromax. She was negative for influenza, RSV, COVID-19. Vital signs are stable The patient is seen today 01/24/2023 in follow-up on the regular medical floor. She is currently sitting up in bed. Awake and alert in no acute distress. She is doing just a bit better today compared to yesterday. Still with significant cough and congestion. Still requiring 10 L high flow nasal cannula. Blood cultures are pending. White count 6.9. Hemoglobin 10.8. Platelets 146. Sodium 135. Potassium 3.1. Total BUN 24. Creatinine 1.74. AST 54. ALT 41. ProCalcitonin 5.08. She is continued on DuoNeb inhalations, Pulmicort and Perforomist inhalations, IV Solu-Medrol. Antibiotics in the form of cefepime. NicoDerm patch remains in place. Heparin for DVT prophylaxis. Continued on Mucinex. Objective - Vital Signs Vital signs: Vital Signs Temp 98.4 F 01/24/23 12:26 Pulse 86 01/24/23 12:41 Resp 16 01/24/23 12:26 BP 132/61 01/24/23 12:26 Pulse Ox 93 L 01/24/23 12:27 FiO2 Intake & Output 01/23/23 01/24/23 01/24/23 18:59 06:59 18:59 Weight 39.3 kg 39.1 kg Other: Voiding Method Bedside Commode # Voids 1 1 # Bowel Movements 1 1 - Exam GENERAL EXAM: Alert, very pleasant, thin 77-year-old female, on 10 L high flow nasal cannula, fairly comfortable in no apparent distress. HEAD: Normocephalic. EYES: Normal reaction of pupils, equal size. NOSE: Clear with pink turbinates. THROAT: No erythema or exudates. NECK: No masses, no JVD. CHEST: No chest wall deformity. LUNGS: Equal air entry with bilateral coarse rhonchi. CVS: S1 and S2 normal with no audible murmur, regular rhythm. ABDOMEN: No hepatosplenomegaly, normal bowel sounds, no guarding or rigidity. SPINE: No scoliosis or deformity SKIN: No rashes CENTRAL NERVOUS SYSTEM: No focal deficits, tone is normal in all 4 extremities. EXTREMITIES: There is no peripheral edema. No clubbing, no cyanosis. Peripheral pulses are intact. - Labs CBC & Chem 7: 01/24/23 06:35 01/24/23 06:35 Labs: Abnormal Lab Results - Last 24 Hours (Table) 01/24/23 01/24/23 01/24/23 Range/Units 06:35 06:35 06:35 RBC 3.45 L (3.80-5.40) m/uL Hgb 10.8 L (11.4-16.0) gm/dL Hct 33.3 L (34.0-46.0) % Plt Count 146 L (150-450) k/uL Lymphocytes # 0.4 L (1.0-4.8) k/uL D-Dimer (<0.60) mg/L FEU Sodium 135 L (137-145) mmol/L Potassium 3.1 L (3.5-5.1) mmol/L Carbon Dioxide 21 L (22-30) mmol/L BUN 24 H (7-17) mg/dL Creatinine 1.74 H (0.52-1.04) mg/dL Glucose 127 H (74-99) mg/dL Calcium 7.7 L (8.4-10.2) mg/dL AST 54 H (14-36) U/L ALT 41 H (4-34) U/L C-Reactive Protein 23.2 H (<1.0) mg/dL Total Protein 4.5 L (6.3-8.2) g/dL Albumin 2.5 L (3.5-5.0) g/dL Procalcitonin 5.08 H (0.02-0.09) ng/mL 01/24/23 Range/Units 10:12 RBC (3.80-5.40) m/uL Hgb (11.4-16.0) gm/dL Hct (34.0-46.0) % Plt Count (150-450) k/uL Lymphocytes # (1.0-4.8) k/uL D-Dimer 5.77 H (<0.60) mg/L FEU Sodium (137-145) mmol/L Potassium (3.5-5.1) mmol/L Carbon Dioxide (22-30) mmol/L BUN (7-17) mg/dL Creatinine (0.52-1.04) mg/dL Glucose (74-99) mg/dL Calcium (8.4-10.2) mg/dL AST (14-36) U/L ALT (4-34) U/L C-Reactive Protein (<1.0) mg/dL Total Protein (6.3-8.2) g/dL Albumin (3.5-5.0) g/dL Procalcitonin (0.02-0.09) ng/mL Microbiology - Last 24 Hours (Table) 01/22/23 13:30 Blood Culture - Preliminary Blood 01/22/23 13:15 Blood Culture - Preliminary Blood Assessment and Plan Assessment: Community-acquired right lower lobe pneumonia. Chest x-ray on arrival shows evidence of a patchy right lower lobe infiltrate concerning for pneumonia. Negative for influenza, RSV, COVID-19. Procalcitonin level was elevated at 6. She is febrile with a T-max of 102.8F. Suspected COPD exacerbation secondary to above. No documented history of COPD, however, there is chronic hyperinflation seen on chest x-ray consistent with COPD. She is slightly bronchospastic on physical examination. Acute hypoxemic respiratory failure secondary to above, currently on 10 L nasal cannula Coronary artery disease History of diastolic congestive heart failure with moderate to severe mitral regurgitation, stable Essential hypertension Hyperlipidemia Chronic kidney disease stage IV History peripheral vascular disease Chronic nicotine dependence. Smokes approximately 1 pack per day, and she is trying to cut back Plan: The patient was seen and evaluated Medications and labs reviewed Titrate down the FiO2 as tolerated Continue cefepime Continue bronchodilators NicoDerm patch in place Educated regarding the importance of complete smoking cessation Heparin for DVT prophylaxis Continue scheduled Mucinex Increase her activity as tolerated We will continue to follow I have personally seen and examined the patient, performed the documentation and the assessment and plan as written. Number of minutes spent on the visit: 10.
[2023-01-24] MEDS ORDERED: POTASSIUM CHLORIDE ER 20 MEQ TAB.ER PO STA (14:18)
--- NOTE | 2023-01-24 14:30 | P.PN ---
Subjective Progress Note Date: 01/24/23 This is a pleasant 77-year-old female who presented to the emergency department with daughter and reports she was at her primary care provider's Dr. Farnsworth's office this morning and sent here for further evaluation. Patient has been reporting some shortness of breath and cough with some sputum production the last few days and progressively getting worse. Patient does have past medical history of heart failure, hyperlipidemia, hypertension, previous myocardial infarction, chronic kidney disease, pneumonias along with history of rheumatoid arthritis. Patient denies illicit drug use and continues to smoke about half a pack to a pack per day. Patient denies alcohol use. Daughter reports patient was recently hospitalized approximately a month ago and has not smoked much since. Patient does not wear oxygen in the outpatient setting and currently requiring 3 L of oxygen via nasal cannula. Chest x-ray shows background COPD changes with patchy right lower lobe airspace opacification likely representing pneumonia, EKG showed normal sinus rhythm, and virology testing including Covid, influenza, RSV are negative. White count slightly elevated at 13.2 with a hemoglobin of 12.5, platelets are 189, sodium is 134 with a potassium of 3.4, BUN is 32 with a creatinine of 2.29, BNP is 6480, magnesium is 2.2. Patient was admitted for pneumonia with features of sepsis. We'll place a consult to pulmonary and appreciate input and recommendations. 01/23/2023 Patient is seen and evaluated in follow-up this morning continues to be extremely bronchospastic and cough. Patient has received ceftriaxone along with Zithromax with pulmonary following and will consult infectious disease and appreciate input recommendations. Patient continues to have low-grade temps with generalized weakness and fatigue. No reports of nausea or vomiting although patient reports reduced poor oral intake and not much of an appetite. Patient reports she especially does not eat very well when feeling sick. Enc ouraged oral intake even small meals to keep her strength. Patient is continued on DuoNeb treatments and will add Perforomist and Pulmicort. Recommend follow- up labs in the a.m. 01/24/2023 Patient is seen and evaluated in follow-up continues to be short of breath and congested requiring 10 L high flow oxygen. Pulmonary and infectious disease following and patient is continued on IV antibiotics in the form of cefepime. Sputum culture uncollected and blood cultures thus far are negative. Covid, influenza, RSV were all negative. Will obtain a d-dimer is positive will order CT chest as well as VQ scan as kidney functions are improved although continues to be elevated at 1.74. Recommend replacement of potassium per protocol his potassium is 3.1 today. Pro-calcitonin was found to be 5.08. Urine Legionella was negative. Patient is currently afebrile although was having fevers overni ght and temperature max this morning was 102.5. Encouraged oral intake and increased activity as tolerated. Recommend follow-up labs in the a.m. Review of systems: Constitutional: reports of fatigue, reports fever, or chills Cardiovascular: No reports of chest pain or palpitations Respiratory: reports of shortness of breath with continued cough GI: No reports of nausea, vomiting, or diarrhea, reports no real appetite : No reports of dysuria or retention Neurovascular: No reports of weakness or numbness All medications have been reviewed PHYSICAL EXAMINATION: GENERAL: The patient is alert and oriented x4, thin built, elderly appearing HEENT: Pupils are round and equally reacting to light. EOMI. no scleral icterus. No conjunctival pallor. Normocephalic, atraumatic. No pharyngeal erythema. No thyromegaly. CARDIOVASCULAR: S1 and S2 muffled PULMONARY: diminished breath sounds bilaterally with no wheezing, some scattered rhonchi noted. Harsh cough and congestion noted on exam ABDOMEN: soft. Nontender on exam. Thin, cachectic, non-distended, normoactive bowel sounds. No palpable organomegaly. MUSCULOSKELETAL: No joint swelling or deformity. EXTREMITIES: No cyanosis, clubbing, or pedal edema. NEUROLOGICAL: Gross neurological examination did not reveal any focal deficits. SKIN: No rashes. Assessment: Shortness of breath with fevers, features of sepsis, present on admission likely secondary to right lower lobe pneumonia, community-acquired Acute hypoxic respiratory failure secondary to above Elevated d-dimer, rule out PE Chronic obstructive pulmonary disease, acute exacerbation History of heart failure, diastolic dysfunction Hypovolemic hyponatremia, appears to be volume depleted with dehydration, improved Hypokalemia Continued ongoing nicotine abuse History of chronic kidney disease History of hyperlipidemia, unable to tolerate statins hypertension history History of rheumatoid arthritis Mild protein calorie malnutrition with a BMI of 18.0 GI prophylaxis DVT prophylaxis No code Plan: Recommend to continue with current medications and management with pulmonary and infectious disease following. Patient is maintained on IV cefepime along with DuoNeb treatments along with perforomist and Pulmicort Patient continues to have fevers and increased shortness of breath currently maintained on 10 L high flow and recommend weaning FiO2 as tolerated Will order VQ scan along with CT chest without contrast this patient's kidney functions continue to be elevated although improving Pulmonary following. Patient does not report documented history of COPD although has been a smoker for many years and most likely does have COPD. Recommend repeat labs in the a.m. Encourage complete tobacco cessation Encouraged oral intake Encouraged increased activity as tolerated Due to multiple complex medical issues, prognosis is guarded The impression and plan of care has been dictated by Beena Mccann, nurse practitioner as directed. Dr. Star MD I have performed a history and examination and MDM of this patient, discussed the same with the dictator, and agree with the dictator's assessment and plan as written ,documented as a scribe. Based on total visit time, I have performed more than 50% of the visit. Any additional findings or plans will be noted. Objective - Vital Signs Vital signs: Vital Signs Temp 98.9 F 01/24/23 07:15 Pulse 92 01/24/23 09:50 Resp 14 01/24/23 09:50 BP 126/52 01/24/23 07:15 Pulse Ox 96 01/24/23 11:46 FiO2 Intake & Output 01/23/23 01/24/23 01/24/23 18:59 06:59 18:59 Weight 39.3 kg 39.1 kg Other: Voiding Method Bedside Commode # Voids 1 1 # Bowel Movements 1 1 - Labs CBC & Chem 7: 01/24/23 06:35 01/24/23 06:35 Labs: Abnormal Lab Results - Last 24 Hours (Table) 01/24/23 01/24/23 01/24/23 Range/Units 06:35 06:35 06:35 RBC 3.45 L (3.80-5.40) m/uL Hgb 10.8 L (11.4-16.0) gm/dL Hct 33.3 L (34.0-46.0) % Plt Count 146 L (150-450) k/uL Lymphocytes # 0.4 L (1.0-4.8) k/uL D-Dimer (<0.60) mg/L FEU Sodium 135 L (137-145) mmol/L Potassium 3.1 L (3.5-5.1) mmol/L Carbon Dioxide 21 L (22-30) mmol/L BUN 24 H (7-17) mg/dL Creatinine 1.74 H (0.52-1.04) mg/dL Glucose 127 H (74-99) mg/dL Calcium 7.7 L (8.4-10.2) mg/dL AST 54 H (14-36) U/L ALT 41 H (4-34) U/L C-Reactive Protein 23.2 H (<1.0) mg/dL Total Protein 4.5 L (6.3-8.2) g/dL Albumin 2.5 L (3.5-5.0) g/dL Procalcitonin 5.08 H (0.02-0.09) ng/mL 01/24/23 Range/Units 10:12 RBC (3.80-5.40) m/uL Hgb (11.4-16.0) gm/dL Hct (34.0-46.0) % Plt Count (150-450) k/uL Lymphocytes # (1.0-4.8) k/uL D-Dimer 5.77 H (<0.60) mg/L FEU Sodium (137-145) mmol/L Potassium (3.5-5.1) mmol/L Carbon Dioxide (22-30) mmol/L BUN (7-17) mg/dL Creatinine (0.52-1.04) mg/dL Glucose (74-99) mg/dL Calcium (8.4-10.2) mg/dL AST (14-36) U/L ALT (4-34) U/L C-Reactive Protein (<1.0) mg/dL Total Protein (6.3-8.2) g/dL Albumin (3.5-5.0) g/dL Procalcitonin (0.02-0.09) ng/mL Microbiology - Last 24 Hours (Table) 01/22/23 13:30 Blood Culture - Preliminary Blood 01/22/23 13:15 Blood Culture - Preliminary Blood
--- NOTE | 2023-01-24 14:32 | CT ---
EXAMINATION TYPE: CT chest wo con DATE OF EXAM: 01/24/2023 COMPARISON: CTA chest June 10, 2020 HISTORY: severe cough, elevated d-dimer. poor kidney function. CT DLP: 101.80 mGycm. Automated Exposure Control for Dose Reduction was Utilized. TECHNIQUE: CT scan of the thorax is performed without IV contrast. FINDINGS: LUNGS: There are small to tiny bilateral pleural effusions. There is background mild to moderate unde rlying emphysematous change. There is irregular consolidation occupying majority of the right lower l obe on current study. There is focal linear scarring and/or atelectasis in the left lower lobe. There is patchy groundglass opacity and reticulation in the anterior-inferior right upper lobe at a few le vels and in the anterior aspect of the right middle lobe. MEDIASTINUM: Lack of IV contrast is noted to limit evaluation for mediastinal and especially hilar ad enopathy. There are new prominent and slightly enlarged mediastinal lymph nodes. For reference there is slightly enlarged 1.5 x 1.1 cm right tracheobronchial lymph node axial image 27. No cardiomegaly . Small to tiny pericardial effusion is now seen. Severe three-vessel coronary artery calcification is present. OTHER: Diffuse calcifications in small size pancreas is partially imaged consistent with product of c hronic pancreatitis. There are hypodense round lesions throughout the liver favoring benign thin-wall ed cyst. There is partial visualization of large AAA with stent graft. Scoliotic curvature. Loss of n ormal kyphosis of the thoracic spine. Mild subcutaneous edema towards the axillary regions. IMPRESSION: Mild to moderate emphysematous change with small to tiny bilateral pleural effusions. Irr egular consolidation with air bronchograms throughout the right lower lobe is present. There are ion tional areas of involvement to lesser degree in the right middle lobe and inferior right upper lobe a nteriorly. Abnormal thoracic adenopathy is seen and warrants follow-up.
--- NOTE | 2023-01-24 14:45 | P.PN ---
Subjective Progress Note Date: 01/24/23 Principal diagnosis: Pneumonia Patient is a 77-year-old female with a past medical history significant for hypertension hyperlipidemia CT diverticulitis with sepsis prese nting to the ER for evaluation of increasing shortness of breath , patient has been diagnosed with right lower lobe pneumonia. On today's evaluation that is 01/24/2023, patient did spike a fever of 102F after midnight however the patient is afebrile since then, patient is currently down to 6 L nasal cannula oxygen, the patient denies having any chest pain patient cough is decreased intensity not bring Any sputum no nausea no vomiting or diarrhea Objective - Vital Signs Vital signs: Vital Signs Temp 98.4 F 01/24/23 12:26 Pulse 86 01/24/23 12:41 Resp 16 01/24/23 12:26 BP 132/61 01/24/23 12:26 Pulse Ox 93 L 01/24/23 12:27 FiO2 Intake & Output 01/23/23 01/24/23 01/24/23 18:59 06:59 18:59 Weight 39.3 kg 39.1 kg Other: Voiding Method Bedside Commode # Voids 1 1 # Bowel Movements 1 1 - Exam GENERAL DESCRIPTION: An elderly female lying in bed in no distress RESPIRATORY SYSTEM: Unlabored breathing , coarse breath sounds bilaterally HEART: S1 S2 regular rate and rhythm , ABDOMEN: Soft , no tenderness EXTREMITIES: No edema feet - Labs CBC & Chem 7: 01/24/23 06:35 01/24/23 06:35 Labs: Abnormal Lab Results - Last 24 Hours (Table) 01/24/23 01/24/23 01/24/23 Range/Units 06:35 06:35 06:35 RBC 3.45 L (3.80-5.40) m/uL Hgb 10.8 L (11.4-16.0) gm/dL Hct 33.3 L (34.0-46.0) % Plt Count 146 L (150-450) k/uL Lymphocytes # 0.4 L (1.0-4.8) k/uL D-Dimer (<0.60) mg/L FEU Sodium 135 L (137-145) mmol/L Potassium 3.1 L (3.5-5.1) mmol/L Carbon Dioxide 21 L (22-30) mmol/L BUN 24 H (7-17) mg/dL Creatinine 1.74 H (0.52-1.04) mg/dL Glucose 127 H (74-99) mg/dL Calcium 7.7 L (8.4-10.2) mg/dL AST 54 H (14-36) U/L ALT 41 H (4-34) U/L C-Reactive Protein 23.2 H (<1.0) mg/dL Total Protein 4.5 L (6.3-8.2) g/dL Albumin 2.5 L (3.5-5.0) g/dL Procalcitonin 5.08 H (0.02-0.09) ng/mL 01/24/23 Range/Units 10:12 RBC (3.80-5.40) m/uL Hgb (11.4-16.0) gm/dL Hct (34.0-46.0) % Plt Count (150-450) k/uL Lymphocytes # (1.0-4.8) k/uL D-Dimer 5.77 H (<0.60) mg/L FEU Sodium (137-145) mmol/L Potassium (3.5-5.1) mmol/L Carbon Dioxide (22-30) mmol/L BUN (7-17) mg/dL Creatinine (0.52-1.04) mg/dL Glucose (74-99) mg/dL Calcium (8.4-10.2) mg/dL AST (14-36) U/L ALT (4-34) U/L C-Reactive Protein (<1.0) mg/dL Total Protein (6.3-8.2) g/dL Albumin (3.5-5.0) g/dL Procalcitonin (0.02-0.09) ng/mL Microbiology - Last 24 Hours (Table) 01/22/23 13:30 Blood Culture - Preliminary Blood 01/22/23 13:15 Blood Culture - Preliminary Blood Assessment and Plan (1) Pneumonia Current Visit: Yes Status: Acute Code(s): J18.9 - PNEUMONIA, UNSPECIFIED ORGANISM SNOMED Code(s): 311727761 (2) Sepsis Current Visit: Yes Status: Acute Code(s): A41.9 - SEPSIS, UNSPECIFIED ORGANISM SNOMED Code(s): 72780470 Plan: 1patient to the hospital with sepsis in this patient did have fever tachycardia elevated white count source right lower lobe pneumonia likely community-acquired in this patient who do have a history of COPD and possibly could be a gram- negative pneumonia 2-nursing staff has been instructed to obtain sputum for Gram stain and culture 3--patient to continue with cefepime 2 g every 8 hours and monitor clinical course closely Time with Patient: Less than 30
[2023-01-24] MEDS: TEMAZEPAM 15 MG CAP PO SCH (21:17)
[2023-01-24] MEDS: MONTELUKAST 10 MG TAB PO SCH (21:17)
--- NOTE | 2023-01-25 07:09 | XR ---
EXAMINATION TYPE: XR chest 1V portable DATE OF EXAM: 01/25/2023 Comparison: 01/23/2023 Clinical History: 77-year-old female RLL pneumonia Findings: Heart borderline enlarged. Partially visualized abdominal aortic endovascular stent graft. Hyperinfla tion. Convexity marginated edges projecting along the periphery of the right lung highly suggestive o f skin folds rather than pneumothorax. Airspace disease throughout the right mid and lower lung has i ncreased in the interval. Impression: 1. Borderline heart size and COPD. 2. Worsening right mid and lower lung pneumonia. 3. Edges projecting along the periphery of the right lung highly suggestive of skin folds rather than pneumothorax. Attention on follow-up.
[2023-01-25 08:34] LABS: Basophils % (A) 0 %; Eosinophils # (A) 0.2 k/uL (0-0.7); Eosinophils % (A) 3 %; HCT 34.8 % (34.0-46.0); HGB 11.3 gm/dL (11.4-16.0); Hypochromasia Slight; Lymphocytes # (A) 0.4 k/uL (1.0-4.8); Lymphocytes % (A) 5 %; MCH 31.9 pg (25.0-35.0); MCHC 32.4 g/dL (31.0-37.0); MCV 98.3 fL (80.0-100.0); Mean Platelet Volume 8.8; Monocytes # (A) 0.4 k/uL (0-1.0); Monocytes % (A) 5 %; Neutrophils # (A) 6.9 k/uL (1.3-7.7); Neutrophils % (A) 85 %; Platelet Count 222 k/uL (150-450); RBC 3.54 m/uL (3.80-5.40); RDW 14.3 % (11.5-15.5); WBC 8.1 k/uL (3.8-10.6)
[2023-01-25] MEDS: IPRATROPIUM-ALBUTEROL 3 ML NEB INHALATION SCH ×4 (08:47→20:27)
[2023-01-25] MEDS: FORMOTEROL FUMARATE 20 MCG/2 ML NEBU INHALATION SCH ×2 (08:47→20:27)
[2023-01-25] MEDS: BUDESONIDE 1 MG/2 ML NEBU INHALATION SCH ×2 (08:47→20:27)
[2023-01-25 08:53] LABS: African American GFR (CKD) 40 (>60 ml/min/1.73 sqM); Anion Gap 8 mmol/L; Blood Urea Nitrogen 19 mg/dL (7-17); Calcium 8.3 mg/dL (8.4-10.2); Carbon Dioxide 23 mmol/L (22-30); Chloride 106 mmol/L (98-107); Glucose 96 mg/dL (74-99); Non-African American GFR(CKD) 35 (>60 ml/min/1.73 sqM); Potassium 3.7 mmol/L (3.5-5.1); Sodium 137 mmol/L (137-145)
[2023-01-25] MEDS ORDERED: LORazepam 0.5 MG TAB PO PRN (09:47)
[2023-01-25] MEDS: NICOTINE 21MG/24HR PATCH TRANSDERM SCH (10:02)
[2023-01-25] MEDS: HEPARIN SODIUM,PORCINE/PF 5,000 UNIT/0.5 ML SYRINGE SQ SCH ×2 (10:02→21:37)
[2023-01-25] MEDS: CLOPIDOGREL 75 MG TAB PO SCH (10:03)
[2023-01-25] MEDS: METOPROLOL TARTRATE 25 MG TAB PO SCH ×3 (10:03→21:39)
[2023-01-25] MEDS: guaiFENesin 600 MG TABLET.ER PO SCH ×2 (10:03→21:36)
[2023-01-25] MEDS: guaiFENesin SYRUP 100MG/5ML 200 MG/10 ML CUP PO PRN ×2 (10:03→21:59)
[2023-01-25] MEDS: ASPIRIN 81 MG PO SCH (10:03)
--- NOTE | 2023-01-25 12:01 | P.PN ---
Subjective Progress Note Date: 01/25/23 I am seeing this patient in new consultation today 01/23/2023 for suspected right lower lobe pneumonia. Patient is a 77-year-old white female with past medical history significant for diastolic congestive heart failure, mitral regurgitation, coronary artery disease, hypertension, hyperlipidemia, chronic kidney disease stage IV, and PVD. No documented history of COPD, however, she is a lifelong smoker. She continues to smoke 1 pack per day. She does not follow with bushler. She was reportedly at her primary care provider's office, Dr. Farnsworth, earlier yesterday morning, and was sent to the emergency room for further evaluation. She has been experiencing shortness of breath with an associated congested cough over the last day or so. She denies any fevers, chills, sputum production, chest pain. Denies any sick contacts. She is currently febrile currently with a T-max of 102.8F. Patient is currently sitting in bed, on 3 L nasal cannula, in no acute distress. Chest x-ray on arrival showed a patchy right lower lobe airspace opacity concerning for pneumonia. Chronic hyperinflation consistent with COPD. CBC on arrival showed some mild leukocytosis with a WBC count of 13.2, hemoglobin 12.5, hematocrit 39, platelets 189. BMP shows sodium 134, potassium 3.4, chloride 99, serum CO2 25, BUN 32, creatinine 2.29, glucose 112. Normal saline is infusing at 75 mL per hour. NT proBNP was elevated at 6180, however, no evidence of CHF exacerbation on chest x-ray. Lactic acid level not elevated. Procalcitonin level is elevated at 6. Patient is currently empirically covered on a combination of Rocephin and Zithromax. She was negative for influenza, RSV, COVID-19. Vital signs are stable The patient is seen today 01/24/2023 in follow-up on the regular medical floor. She is currently sitting up in bed. Awake and alert in no acute distress. She is doing just a bit better today compared to yesterday. Still with significant cough and congestion. Still requiring 10 L high flow nasal cannula. Blood cultures are pending. White count 6.9. Hemoglobin 10.8. Platelets 146. Sodium 135. Potassium 3.1. Total BUN 24. Creatinine 1.74. AST 54. ALT 41. ProCalcitonin 5.08. She is continued on DuoNeb inhalations, Pulmicort and Perforomist inhalations, IV Solu-Medrol. Antibiotics in the form of cefepime. NicoDerm patch remains in place. Heparin for DVT prophylaxis. Continued on Mucinex. The patient is seen today 01/25/2023 in follow-up on the regular medical floor. She is awake and alert in no acute distress. Feeling a bit better today compared to yesterday. Still with a loose cough. Maintaining O2 saturations in the 90s on 9 L high flow nasal cannula. Computed tomography scan of the chest revealed mild to moderate emphysematous changes with small tiny bilateral pleural effusions. Irregular consolidation with air bronchograms throughout the right lower lobe. There is slightly enlarged mediastinal lymph nodes. This x-ray continues to show right mid and lower lobe pneumonia. White count 8.1. Hemoglobin 11.3. Sodium 137. Potassium 3.7. Bicarb 23. BUN 19. Creatinine 1.45. She remains afebrile. Hemodynamically stable. Continued on DuoNeb inhalations, Pulmicort and Perforomist inhalations, antibiotics in the form of cefepime. Heparin for DVT prophylaxis. NicoDerm patch in place. Continued on Mucinex and Robitussin as needed. Objective - Vital Signs Vital signs: Vital Signs Temp 98.8 F 01/25/23 07:22 Pulse 96 01/25/23 09:09 Resp 16 01/25/23 07:22 BP 142/61 01/25/23 07:22 Pulse Ox 94 L 01/25/23 08:50 FiO2 Intake & Output 01/24/23 01/25/23 01/25/23 18:59 06:59 18:59 Intake Total 690 Balance 690 Intake: Oral 690 Other: Voiding Method Bedside Commode Bedside Commode # Voids 2 2 # Bowel Movements 1 1 - Exam GENERAL EXAM: Alert, thin 77-year-old female, on 9 L high flow nasal cannula, fairly comfortable in no apparent distress. HEAD: Normocephalic. EYES: Normal reaction of pupils, equal size. NOSE: Clear with pink turbinates. THROAT: No erythema or exudates. NECK: No masses, no JVD. CHEST: No chest wall deformity. LUNGS: Equal air entry with bilateral coarse rhonchi more so on the right lung base. CVS: S1 and S2 normal with no audible murmur, regular rhythm. ABDOMEN: No hepatosplenomegaly, normal bowel sounds, no guarding or rigidity. SPINE: Kyphosis SKIN: No rashes CENTRAL NERVOUS SYSTEM: No focal deficits, tone is normal in all 4 extremities. EXTREMITIES: There is no peripheral edema. No clubbing, no cyanosis. Peripheral pulses are intact. - Labs CBC & Chem 7: 01/25/23 07:10 01/25/23 07:10 Labs: Abnormal Lab Results - Last 24 Hours (Table) 01/24/23 01/25/23 01/25/23 Range/Units 06:35 07:10 07:10 RBC 3.54 L (3.80-5.40) m/uL Hgb 11.3 L (11.4-16.0) gm/dL Lymphocytes # 0.4 L (1.0-4.8) k/uL BUN 19 H (7-17) mg/dL Creatinine 1.45 H (0.52-1.04) mg/dL Calcium 8.3 L (8.4-10.2) mg/dL Procalcitonin 5.08 H (0.02-0.09) ng/mL Microbiology - Last 24 Hours (Table) 01/22/23 13:30 Blood Culture - Preliminary Blood 01/22/23 13:15 Blood Culture - Preliminary Blood Assessment and Plan Assessment: Community-acquired right lower lobe pneumonia. Chest x-ray continues to show evidence of a patchy right lower lobe infiltrate concerning for pneumonia. Remains on cefepime Suspected COPD exacerbation secondary to above. No documented history of COPD, however, there is chronic hyperinflation seen on chest x-ray consistent with COPD. She is slightly bronchospastic on physical examination. Acute hypoxemic respiratory failure secondary to above, currently on 9 L nasal cannula Coronary artery disease History of diastolic congestive heart failure with moderate to severe mitral regurgitation, stable Essential hypertension Hyperlipidemia Chronic kidney disease stage IV History peripheral vascular disease Chronic nicotine dependence. Smokes approximately 1 pack per day, and she is trying to cut back History of abdominal aortic aneurysm repair with stent Plan: The patient was seen and evaluated CAT scan, chest x-ray, medications and labs reviewed Continue cefepime, bronchodilators May need bronchoscopy if no significant improvement We'll wait till her oxygen needs are less, currently on 9 L high flow nasal cannula We will continue to follow I have personally seen and examined the patient, performed the documentation and the assessment and plan as written. Number of minutes spent on the visit: 10.
[2023-01-25] MEDS: CEFEPIME 1 GM in SODIUM CHLORIDE 0.9% 50 ML IVPB SCH (14:41)
--- NOTE | 2023-01-25 14:51 | P.PN ---
Subjective Progress Note Date: 01/25/23 This is a pleasant 77-year-old female who presented to the emergency department with daughter and reports she was at her primary care provider's Dr. Farnsworth's office this morning and sent here for further evaluation. Patient has been reporting some shortness of breath and cough with some sputum production the last few days and progressively getting worse. Patient does have past medical history of heart failure, hyperlipidemia, hypertension, previous myocardial infarction, chronic kidney disease, pneumonias along with history of rheumatoid arthritis. Patient denies illicit drug use and continues to smoke about half a pack to a pack per day. Patient denies alcohol use. Daughter reports patient was recently hospitalized approximately a month ago and has not smoked much since. Patient does not wear oxygen in the outpatient setting and currently requiring 3 L of oxygen via nasal cannula. Chest x-ray shows background COPD changes with patchy right lower lobe airspace opacification likely representing pneumonia, EKG showed normal sinus rhythm, and virology testing including Covid, influenza, RSV are negative. White count slightly elevated at 13.2 with a hemoglobin of 12.5, platelets are 189, sodium is 134 with a potassium of 3.4, BUN is 32 with a creatinine of 2.29, BNP is 6480, magnesium is 2.2. Patient was admitted for pneumonia with features of sepsis. We'll place a consult to pulmonary and appreciate input and recommendations. 01/23/2023 Patient is seen and evaluated in follow-up this morning continues to be extremely bronchospastic and cough. Patient has received ceftriaxone along with Zithromax with pulmonary following and will consult infectious disease and appreciate input recommendations. Patient continues to have low-grade temps with generalized weakness and fatigue. No reports of nausea or vomiting although patient reports reduced poor oral intake and not much of an appetite. Patient reports she especially does not eat very well when feeling sick. Enc ouraged oral intake even small meals to keep her strength. Patient is continued on DuoNeb treatments and will add Perforomist and Pulmicort. Recommend follow- up labs in the a.m. 01/24/2023 Patient is seen and evaluated in follow-up continues to be short of breath and congested requiring 10 L high flow oxygen. Pulmonary and infectious disease following and patient is continued on IV antibiotics in the form of cefepime. Sputum culture uncollected and blood cultures thus far are negative. Covid, influenza, RSV were all negative. Will obtain a d-dimer is positive will order CT chest as well as VQ scan as kidney functions are improved although continues to be elevated at 1.74. Recommend replacement of potassium per protocol his potassium is 3.1 today. Pro-calcitonin was found to be 5.08. Urine Legionella was negative. Patient is currently afebrile although was having fevers overni ght and temperature max this morning was 102.5. Encouraged oral intake and increased activity as tolerated. Recommend follow-up labs in the a.m. 01/25/2023 Patient is seen and evaluated in follow-up this morning being followed by infectious disease along with pulmonary. Patient weaning FiO2 as tolerated although requiring high flow oxygen currently maintained on 9 L. Oxygen saturation 93% and does continue to be dyspneic with exertion. Patient had CT done yesterday of the chest and initially ordered VQ scan as patient had elevated d-dimer although patient is refusing at this time. CT chest showed mild to moderate emphysematous changes with small to tiny bilateral pleural effusions with irregular consolidation with air bronchograms throughout the right lower lobe present abnormal thoracic adenopathy is also seen in warrant follow-up. Patient is continued on breathing treatments along with IV antibiotics and will continue. Patient is afebrile today with no reports of worsening shortness of breath. Patient denies chest pain or palpitations. Patient is tolerating diet and encouraged oral intake. Patient having some overall anxiety will add low-dose Ativan as needed. Pulmonary discussing possible bronchoscopy if no improvement. Encouraged increased activity as tolerated. Review of systems: Constitutional: reports of fatigue, reports fever, or chills Cardiovascular: No reports of chest pain or palpitations Respiratory: reports of shortness of breath with continued cough GI: No reports of nausea, vomiting, or diarrhea, reports no real appetite : No reports of dysuria or retention Neurovascular: No reports of weakness or numbness All medications have been reviewed PHYSICAL EXAMINATION: GENERAL: The patient is alert and oriented x4, thin built, elderly appearing HEENT: Pupils are round and equally reacting to light. EOMI. no scleral icterus. No conjunctival pallor. Normocephalic, atraumatic. No pharyngeal erythema. No thyromegaly. CARDIOVASCULAR: S1 and S2 muffled PULMONARY: diminished breath sounds bilaterally with no wheezing, some scattered rhonchi noted. Harsh cough and congestion noted on exam ABDOMEN: soft. Nontender on exam. Thin, cachectic, non-distended, normoactive bowel sounds. No palpable organomegaly. MUSCULOSKELETAL: No joint swelling or deformity. EXTREMITIES: No cyanosis, clubbing, or pedal edema. NEUROLOGICAL: Gross neurological examination did not reveal any focal deficits. SKIN: No rashes. Assessment: Shortness of breath with fevers, features of sepsis, present on admission likely secondary to right lower lobe pneumonia, community-acquired Acute hypoxic respiratory failure secondary to above Elevated d-dimer, rule out PE Chronic obstructive pulmonary disease, acute exacerbation History of heart failure, diastolic dysfunction Hypovolemic hyponatremia, appears to be volume depleted with dehydration, improved Hypokalemia, improved Continued ongoing nicotine abuse History of chronic kidney disease History of hyperlipidemia, unable to tolerate statins hypertension history History of rheumatoid arthritis Mild protein calorie malnutrition with a BMI of 18.0 GI prophylaxis DVT prophylaxis No code Plan: Recommend to continue with current medications and management with pulmonary and infectious disease following. Patient is maintained on IV cefepime along with DuoNeb treatments along with perforomist and Pulmicort Patient continues to have fevers and increased shortness of breath currently laly ntained on 9 L high flow and recommend weaning FiO2 as tolerated CT chest reviewed as mentioned above and pulmonary following discussing possible bronchoscopy if no improvement. Patient did refuse VQ scan and was canceled. Recommend repeat labs in the a.m. Encourage complete tobacco cessation Encouraged oral intake Encouraged increased activity as tolerated Due to multiple complex medical issues, prognosis is guarded The impression and plan of care has been dictated by Beena Mccann, nurse practitioner as directed. Dr. Star MD I have performed a history and examination and MDM of this patient, discussed the same with the dictator, and agree with the dictator's assessment and plan as written ,documented as a scribe. Based on total visit time, I have performed more than 50% of the visit. Any additional findings or plans will be noted. Objective - Vital Signs Vital signs: Vital Signs Temp 98.3 F 01/25/23 11:47 Pulse 94 01/25/23 12:55 Resp 16 01/25/23 11:47 BP 125/55 01/25/23 11:47 Pulse Ox 95 01/25/23 12:35 FiO2 Intake & Output 01/24/23 01/25/23 01/25/23 18:59 06:59 18:59 Intake Total 690 Balance 690 Weight 39.2 kg Intake: Oral 690 Other: Voiding Method Bedside Commode Bedside Commode Bedside Commode # Voids 2 2 # Bowel Movements 1 1 - Labs CBC & Chem 7: 01/25/23 07:10 01/25/23 07:10 Labs: Abnormal Lab Results - Last 24 Hours (Table) 01/25/23 01/25/23 Range/Units 07:10 07:10 RBC 3.54 L (3.80-5.40) m/uL Hgb 11.3 L (11.4-16.0) gm/dL Lymphocytes # 0.4 L (1.0-4.8) k/uL BUN 19 H (7-17) mg/dL Creatinine 1.45 H (0.52-1.04) mg/dL Calcium 8.3 L (8.4-10.2) mg/dL Microbiology - Last 24 Hours (Table) 01/22/23 13:30 Blood Culture - Preliminary Blood 01/22/23 13:15 Blood Culture - Preliminary Blood
[2023-01-25] MEDS: TEMAZEPAM 15 MG CAP PO SCH (21:36)
[2023-01-25] MEDS: FAMOTIDINE 20 MG TAB PO SCH (21:36)
[2023-01-25] MEDS: MONTELUKAST 10 MG TAB PO SCH (21:59)
--- NOTE | 2023-01-25 22:51 | P.PN ---
Subjective Progress Note Date: 01/25/23 Principal diagnosis: Pneumonia Patient is a 77-year-old female with a past medical history significant for hypertension hyperlipidemia SD diverticulitis with sepsis prese nting to the ER for evaluation of increasing shortness of breath , patient has been diagnosed with right lower lobe pneumonia. On today's evaluation that is 01/25/2023, patient is afebrile today, patient is breathing comfortably however is requiring 8 L nasal cannula oxygen, the patient denies having any chest pain patient cough is decreased intensity not bring Any sputum no nausea no vomiting or diarrhea Objective - Vital Signs Vital signs: Vital Signs Temp 98.3 F 01/25/23 11:47 Pulse 94 01/25/23 12:55 Resp 16 01/25/23 11:47 BP 125/55 01/25/23 11:47 Pulse Ox 95 01/25/23 12:35 FiO2 Intake & Output 01/24/23 01/25/23 01/25/23 18:59 06:59 18:59 Intake Total 690 Balance 690 Weight 39.1 kg Intake: Oral 690 Other: Voiding Method Bedside Commode Bedside Commode Bedside Commode # Voids 2 2 # Bowel Movements 1 1 - Exam GENERAL DESCRIPTION: An elderly female lying in bed in no distress RESPIRATORY SYSTEM: Unlabored breathing , coarse breath sounds bilaterally HEART: S1 S2 regular rate and rhythm , ABDOMEN: Soft , no tenderness EXTREMITIES: No edema feet - Labs CBC & Chem 7: 01/25/23 07:10 01/25/23 07:10 Labs: Abnormal Lab Results - Last 24 Hours (Table) 01/25/23 01/25/23 Range/Units 07:10 07:10 RBC 3.54 L (3.80-5.40) m/uL Hgb 11.3 L (11.4-16.0) gm/dL Lymphocytes # 0.4 L (1.0-4.8) k/uL BUN 19 H (7-17) mg/dL Creatinine 1.45 H (0.52-1.04) mg/dL Calcium 8.3 L (8.4-10.2) mg/dL Microbiology - Last 24 Hours (Table) 01/22/23 13:30 Blood Culture - Preliminary Blood 01/22/23 13:15 Blood Culture - Preliminary Blood Assessment and Plan (1) Pneumonia Current Visit: Yes Status: Acute Code(s): J18.9 - PNEUMONIA, UNSPECIFIED ORGANISM SNOMED Code(s): 209242461 (2) Sepsis Current Visit: Yes Status: Acute Code(s): A41.9 - SEPSIS, UNSPECIFIED ORGANISM SNOMED Code(s): 42475260 Plan: 1patient to the hospital with sepsis in this patient did have fever tachycardia elevated white count source right lower lobe pneumonia likely community-acquired in this patient who do have a history of COPD and possibly could be a gram- negative pneumonia 2Patient seemed to have shown some clinical improvement and will continue with cefepime 2 g every 8 hours and monitor clinical course closely Time with Patient: Less than 30
[2023-01-26] MEDS: CEFEPIME 1 GM in SODIUM CHLORIDE 0.9% 50 ML IVPB SCH ×3 (00:15→23:29)
[2023-01-26] MEDS: IPRATROPIUM-ALBUTEROL 3 ML NEB INHALATION PRN (02:44)
[2023-01-26 05:14] LABS: Mycoplasma IgG Antibody (EIA) 1.26 INDEX (<=0.90); Mycoplasma IgM Antibody 0.01 INDEX (<=0.90)
[2023-01-26] MEDS: IPRATROPIUM-ALBUTEROL 3 ML NEB INHALATION SCH ×4 (08:05→20:17)
[2023-01-26] MEDS: BUDESONIDE 1 MG/2 ML NEBU INHALATION SCH ×2 (08:06→20:17)
[2023-01-26] MEDS: FORMOTEROL FUMARATE 20 MCG/2 ML NEBU INHALATION SCH ×2 (08:06→20:16)
[2023-01-26] MEDS: METOPROLOL TARTRATE 25 MG TAB PO SCH ×3 (08:14→21:15)
[2023-01-26] MEDS: ASPIRIN 81 MG PO SCH (08:14)
[2023-01-26] MEDS: HEPARIN SODIUM,PORCINE/PF 5,000 UNIT/0.5 ML SYRINGE SQ SCH ×3 (08:14→21:15)
[2023-01-26] MEDS: guaiFENesin 600 MG TABLET.ER PO SCH ×2 (08:14→21:15)
[2023-01-26] MEDS: CLOPIDOGREL 75 MG TAB PO SCH (08:14)
[2023-01-26] MEDS: guaiFENesin SYRUP 100MG/5ML 200 MG/10 ML CUP PO PRN ×2 (08:14→21:20)
[2023-01-26] MEDS: NICOTINE 21MG/24HR PATCH TRANSDERM SCH (08:15)
[2023-01-26] MEDS: ISOSORBIDE MONONITRATE ER 30 MG TAB.ER.24H PO SCH (11:17)
[2023-01-26 11:34] LABS: African American GFR (CKD) 42 (>60 ml/min/1.73 sqM); Anion Gap 6 mmol/L; Blood Urea Nitrogen 15 mg/dL (7-17); Calcium 8.3 mg/dL (8.4-10.2); Carbon Dioxide 25 mmol/L (22-30); Chloride 107 mmol/L (98-107); Glucose 95 mg/dL (74-99); Non-African American GFR(CKD) 36 (>60 ml/min/1.73 sqM); Potassium 3.3 mmol/L (3.5-5.1); Sodium 138 mmol/L (137-145)
[2023-01-26] MEDS: POTASSIUM CHLORIDE ER 20 MEQ TAB.ER PO SCH (12:00)
--- NOTE | 2023-01-26 13:09 | P.PN ---
Subjective Progress Note Date: 01/26/23 Principal diagnosis: Pneumonia Patient is a 77-year-old female with a past medical history significant for hypertension hyperlipidemia [place] diverticulitis with sepsis prese nting to the ER for evaluation of increasing shortness of breath , patient has been diagnosed with right lower lobe pneumonia. On today's evaluation that is 01/26/2023, patient remains to be afebrile, patient is breathing comfortably currently requiring 9 L nasal cannula oxygen, the patient denies having any chest pain patient cough is decreased intensity not bring Any sputum no nausea no vomiting or diarrhea Objective - Vital Signs Vital signs: Vital Signs Temp 99.2 F 01/26/23 07:39 Pulse 82 01/26/23 11:28 Resp 14 01/26/23 07:39 BP 136/63 01/26/23 07:39 Pulse Ox 92 L 01/26/23 08:09 FiO2 Intake & Output 01/25/23 01/26/23 01/26/23 18:59 06:59 18:59 Intake Total 240 740 60 Output Total 600 Balance 240 740 -540 Weight 39.2 kg 38.4 kg Intake: IV 10 Invasive Line 2 10 Intake, IV Titration 50 Amount Cefepime 1 gm In Sodium 50 Chloride 0.9% 50 ml @ 12. 5 mls/hr IVPB Q12H [facility] Rx #:[id number] Oral 240 740 Output: Urine 600 Other: Voiding Method Bedside Commode Bedside Commode Bedside Commode # Voids 3 2 1 # Bowel Movements 1 - Exam GENERAL DESCRIPTION: An elderly female lying in bed in no distress RESPIRATORY SYSTEM: Unlabored breathing , coarse breath sounds bilaterally HEART: S1 S2 regular rate and rhythm , ABDOMEN: Soft , no tenderness EXTREMITIES: No edema feet - Labs CBC & Chem 7: 01/25/23 07:10 01/26/23 10:55 Labs: Abnormal Lab Results - Last 24 Hours (Table) 01/24/23 01/26/23 Range/Units 10:12 10:55 Potassium 3.3 L (3.5-5.1) mmol/L Creatinine 1.40 H (0.52-1.04) mg/dL Calcium 8.3 L (8.4-10.2) mg/dL Mycoplasma pneumon IgG 1.26 H (<=0.90) INDEX Microbiology - Last 24 Hours (Table) 01/22/23 13:30 Blood Culture - Preliminary Blood 01/22/23 13:15 Blood Culture - Preliminary Blood Assessment and Plan (1) Pneumonia Current Visit: Yes Status: Acute Code(s): J18.9 - PNEUMONIA, UNSPECIFIED ORGANISM SNOMED Code(s): 834890111 (2) Sepsis Current Visit: Yes Status: Acute Code(s): A41.9 - SEPSIS, UNSPECIFIED ORGANISM SNOMED Code(s): 62921627 Plan: 1patient to the hospital with sepsis in this patient did have fever tachycardia elevated white count source right lower lobe pneumonia likely community-acquired in this patient who do have a history of COPD and possibly could be a gram- negative pneumonia 2Patient slowly clinically improving to continue with cefepime 2 g every 8 hours , try to obtain a sputum and monitor clinical course closely Time with Patient: Less than 30
--- NOTE | 2023-01-26 14:23 | P.PN ---
Subjective Progress Note Date: 01/26/23 I am seeing this patient in new consultation today 01/23/2023 for suspected right lower lobe pneumonia. Patient is a 77-year-old white female with past medical history significant for diastolic congestive heart failure, mitral regurgitation, coronary artery disease, hypertension, hyperlipidemia, chronic kidney disease stage IV, and PVD. No documented history of COPD, however, she is a lifelong smoker. She continues to smoke 1 pack per day. She does not follow with operations vice president. She was reportedly at her primary care provider's office, Dr. Farnsworth, earlier yesterday morning, and was sent to the emergency room for further evaluation. She has been experiencing shortness of breath with an associated congested cough over the last day or so. She denies any fevers, chills, sputum production, chest pain. Denies any sick contacts. She is currently febrile currently with a T-max of 102.8F. Patient is currently sitting in bed, on 3 L nasal cannula, in no acute distress. Chest x-ray on arrival showed a patchy right lower lobe airspace opacity concerning for pneumonia. Chronic hyperinflation consistent with COPD. CBC on arrival showed some mild leukocytosis with a WBC count of 13.2, hemoglobin 12.5, hematocrit 39, platelets 189. BMP shows sodium 134, potassium 3.4, chloride 99, serum CO2 25, BUN 32, creatinine 2.29, glucose 112. Normal saline is infusing at 75 mL per hour. NT proBNP was elevated at 6180, however, no evidence of CHF exacerbation on chest x-ray. Lactic acid level not elevated. Procalcitonin level is elevated at 6. Patient is currently empirically covered on a combination of Rocephin and Zithromax. She was negative for influenza, RSV, COVID-19. Vital signs are stable The patient is seen today 01/24/2023 in follow-up on the regular medical floor. She is currently sitting up in bed. Awake and alert in no acute distress. She is doing just a bit better today compared to yesterday. Still with significant cough and congestion. Still requiring 10 L high flow nasal cannula. Blood cultures are pending. White count 6.9. Hemoglobin 10.8. Platelets 146. Sodium 135. Potassium 3.1. Total BUN 24. Creatinine 1.74. AST 54. ALT 41. ProCalcitonin 5.08. She is continued on DuoNeb inhalations, Pulmicort and Perforomist inhalations, IV Solu-Medrol. Antibiotics in the form of cefepime. NicoDerm patch remains in place. Heparin for DVT prophylaxis. Continued on Mucinex. The patient is seen today 01/25/2023 in follow-up on the regular medical floor. She is awake and alert in no acute distress. Feeling a bit better today compared to yesterday. Still with a loose cough. Maintaining O2 saturations in the 90s on 9 L high flow nasal cannula. Computed tomography scan of the chest revealed mild to moderate emphysematous changes with small tiny bilateral pleural effusions. Irregular consolidation with air bronchograms throughout the right lower lobe. There is slightly enlarged mediastinal lymph nodes. This x-ray continues to show right mid and lower lobe pneumonia. White count 8.1. Hemoglobin 11.3. Sodium 137. Potassium 3.7. Bicarb 23. BUN 19. Creatinine 1.45. She remains afebrile. Hemodynamically stable. Continued on DuoNeb inhalations, Pulmicort and Perforomist inhalations, antibiotics in the form of cefepime. Heparin for DVT prophylaxis. NicoDerm patch in place. Continued on Mucinex and Robitussin as needed. The patient is seen today 01/26/2023 in follow-up on the regular medical floor. She is sitting up in bed. Awake and alert in no acute distress. She is still somewhat bronchospastic and wheezing. She has a very loose cough. Unable to expectorate. She is requiring 9 L high flow nasal cannula to maintain O2 saturations in the 90s. She's been afebrile. Hemodynamically stable. She is continued on Mucinex, Robitussin, bronchodilators and steroids. She is continued on cefepime. Heparin for DVT prophylaxis. NicoDerm patch in place. She continues to work with the incentive spirometer and flutter valve. Sodium 138. Potassium 3.3. Bicarb 25. BUN 15. Creatinine 1.40. Mycoplasma IgG anti body 1.26. IgM 0.01. Objective - Vital Signs Vital signs: Vital Signs Temp 97.6 F 01/26/23 12:39 Pulse 99 01/26/23 12:39 Resp 16 01/26/23 12:39 BP 122/66 01/26/23 12:39 Pulse Ox 94 L 01/26/23 12:39 FiO2 Intake & Output 01/25/23 01/26/23 01/26/23 18:59 06:59 18:59 Intake Total 240 740 60 Output Total 600 Balance 240 740 -540 Weight 39.2 kg 38.4 kg Intake: IV 10 Invasive Line 2 10 Intake, IV Titration 50 Amount Cefepime 1 gm In Sodium 50 Chloride 0.9% 50 ml @ 12. 5 mls/hr IVPB Q12H [facility] Rx #:[id number] Oral 240 740 Output: Urine 600 Other: Voiding Method Bedside Commode Bedside Commode Bedside Commode # Voids 3 2 1 # Bowel Movements 1 - Exam GENERAL EXAM: Alert, frail, pleasant 77-year-old female, on 9 L high flow nasal cannula, fairly comfortable in no apparent distress. HEAD: Normocephalic. EYES: Normal reaction of pupils, equal size. NOSE: Clear with pink turbinates. THROAT: No erythema or exudates. NECK: No masses, no JVD. CHEST: No chest wall deformity. LUNGS: Equal air entry with bilateral coarse rhonchi more so on the right lung base. CVS: S1 and S2 normal with no audible murmur, regular rhythm. ABDOMEN: No hepatosplenomegaly, normal bowel sounds, no guarding or rigidity. SPINE: Kyphosis SKIN: No rashes CENTRAL NERVOUS SYSTEM: No focal deficits, tone is normal in all 4 extremities. EXTREMITIES: There is no peripheral edema. No clubbing, no cyanosis. Peripheral pulses are intact. - Labs CBC & Chem 7: 01/25/23 07:10 01/26/23 10:55 Labs: Abnormal Lab Results - Last 24 Hours (Table) 01/24/23 01/26/23 Range/Units 10:12 10:55 Potassium 3.3 L (3.5-5.1) mmol/L Creatinine 1.40 H (0.52-1.04) mg/dL Calcium 8.3 L (8.4-10.2) mg/dL Mycoplasma pneumon IgG 1.26 H (<=0.90) INDEX Microbiology - Last 24 Hours (Table) 01/22/23 13:30 Blood Culture - Preliminary Blood 01/22/23 13:15 Blood Culture - Preliminary Blood Assessment and Plan Assessment: Community-acquired right lower lobe pneumonia. Chest x-ray continues to show evidence of a patchy right lower lobe infiltrate concerning for pneumonia. Remains on cefepime Suspected COPD exacerbation secondary to above. No documented history of COPD, however, there is chronic hyperinflation seen on chest x-ray consistent with COPD. She is slightly bronchospastic on physical examination. Acute hypoxemic respiratory failure secondary to above, currently on 9 L nasal cannula Coronary artery disease History of diastolic congestive heart failure with moderate to severe mitral regurgitation, stable Essential hypertension Hyperlipidemia Chronic kidney disease stage IV History peripheral vascular disease Chronic nicotine dependence. Smokes approximately 1 pack per day, and she is tr alaina to cut back History of abdominal aortic aneurysm repair with stent Plan: The patient was seen and evaluated Medications and labs reviewed Continue cefepime, bronchodilators Continues on Mucinex, Robitussin Continue with the incentive spirometer, flutter valve May need bronchoscopy if no significant improvement We'll wait until her oxygen requirements improve Patient states she does not want to end up on a ventilator DO NOT RESUSCITATE/DO NOT INTUBATE CODE STATUS Follow-up chest x-ray in a.m. We will continue to follow I have personally seen and examined the patient, performed the documentation and the assessment and plan as written. Number of minutes spent on the visit: 10.
--- NOTE | 2023-01-26 15:37 | P.PN ---
Subjective Progress Note Date: 01/26/23 This is a pleasant 77-year-old female who presented to the emergency department with daughter and reports she was at her primary care provider's Dr. Farnsworth's office this morning and sent here for further evaluation. Patient has been reporting some shortness of breath and cough with some sputum production the last few days and progressively getting worse. Patient does have past medical history of heart failure, hyperlipidemia, hypertension, previous myocardial infarction, chronic kidney disease, pneumonias along with history of rheumatoid arthritis. Patient denies illicit drug use and continues to smoke about half a pack to a pack per day. Patient denies alcohol use. Daughter reports patient was recently hospitalized approximately a month ago and has not smoked much since. Patient does not wear oxygen in the outpatient setting and currently requiring 3 L of oxygen via nasal cannula. Chest x-ray shows background COPD changes with patchy right lower lobe airspace opacification likely representing pneumonia, EKG showed normal sinus rhythm, and virology testing including Covid, influenza, RSV are negative. White count slightly elevated at 13.2 with a hemoglobin of 12.5, platelets are 189, sodium is 134 with a potassium of 3.4, BUN is 32 with a creatinine of 2.29, BNP is 6480, magnesium is 2.2. Patient was admitted for pneumonia with features of sepsis. We'll place a consult to pulmonary and appreciate input and recommendations. 01/23/2023 Patient is seen and evaluated in follow-up this morning continues to be extremely bronchospastic and cough. Patient has received ceftriaxone along with Zithromax with pulmonary following and will consult infectious disease and appreciate input recommendations. Patient continues to have low-grade temps with generalized weakness and fatigue. No reports of nausea or vomiting although patient reports reduced poor oral intake and not much of an appetite. Patient reports she especially does not eat very well when feeling sick. Enc ouraged oral intake even small meals to keep her strength. Patient is continued on DuoNeb treatments and will add Perforomist and Pulmicort. Recommend follow- up labs in the a.m. 01/24/2023 Patient is seen and evaluated in follow-up continues to be short of breath and congested requiring 10 L high flow oxygen. Pulmonary and infectious disease following and patient is continued on IV antibiotics in the form of cefepime. Sputum culture uncollected and blood cultures thus far are negative. Covid, influenza, RSV were all negative. Will obtain a d-dimer is positive will order CT chest as well as VQ scan as kidney functions are improved although continues to be elevated at 1.74. Recommend replacement of potassium per protocol his potassium is 3.1 today. Pro-calcitonin was found to be 5.08. Urine Legionella was negative. Patient is currently afebrile although was having fevers overni ght and temperature max this morning was 102.5. Encouraged oral intake and increased activity as tolerated. Recommend follow-up labs in the a.m. 01/25/2023 Patient is seen and evaluated in follow-up this morning being followed by infectious disease along with pulmonary. Patient weaning FiO2 as tolerated although requiring high flow oxygen currently maintained on 9 L. Oxygen saturation 93% and does continue to be dyspneic with exertion. Patient had CT done yesterday of the chest and initially ordered VQ scan as patient had elevated d-dimer although patient is refusing at this time. CT chest showed mild to moderate emphysematous changes with small to tiny bilateral pleural effusions with irregular consolidation with air bronchograms throughout the right lower lobe present abnormal thoracic adenopathy is also seen in warrant follow-up. Patient is continued on breathing treatments along with IV antibiotics and will continue. Patient is afebrile today with no reports of worsening shortness of breath. Patient denies chest pain or palpitations. Patient is tolerating diet and encouraged oral intake. Patient having some overall anxiety will add low-dose Ativan as needed. Pulmonary discussing possible bronchoscopy if no improvement. Encouraged increased activity as tolerated. 01/26/2023 Patient is seen and evaluated in follow-up today currently sitting up at the side of the bed attempting to get dressed and having difficulty having to take multiple breaks due to breathing status. Patient continues to be bronchospastic and severely congested and short of breath with minimal exertion maintained on 9 L high flow. Pulmonary following along with infectious disease and patient is maintained on IV antibiotics in the form of cefepime. Patient also receiving breathing inhalational treatments along with inhalers and will continue. Patient is on inhaled steroid therapy with no real wheezing noted on exam. Would encourage increased activity as tolerated as patient is significantly weak although respiratory status exacerbating this weakness. Patient is afebrile de nies chest pain or palpitations. No reports of nausea or vomiting and patient is tolerating oral intake. Needs encouragement with oral intake as she is not eating very much. Patient does have incentive spirometer along with flutter device at the bedside and encourage the patient to continue using as instructed. Potassium slightly low at 3.3 and will replace per protocol as well as adding daily supplementation. Kidney functions trending down and creatinine is currently 1.40 today. Review of systems: Constitutional: reports of fatigue, reports fever, or chills Cardiovascular: No reports of chest pain or palpitations Respiratory: reports of shortness of breath with continued cough, dyspnea with minimal exertion having to take frequent rest periods to do anything GI: No reports of nausea, vomiting, or diarrhea, reports no real appetite : No reports of dysuria or retention Neurovascular: No reports of weakness or numbness All medications have been reviewed PHYSICAL EXAMINATION: GENERAL: The patient is alert and oriented x4, thin built, elderly appearing HEENT: Pupils are round and equally reacting to light. EOMI. no scleral icterus. No conjunctival pallor. Normocephalic, atraumatic. No pharyngeal erythema. No thyromegaly. CARDIOVASCULAR: S1 and S2 muffled PULMONARY: diminished breath sounds bilaterally with no wheezing, some scattered rhonchi noted. Harsh cough and congestion noted on exam ABDOMEN: soft. Nontender on exam. Thin, cachectic, non-distended, normoactive bowel sounds. No palpable organomegaly. MUSCULOSKELETAL: No joint swelling or deformity. EXTREMITIES: No cyanosis, clubbing, or pedal edema. NEUROLOGICAL: Gross neurological examination did not reveal any focal deficits. Diffusely weak SKIN: No rashes. Assessment: Shortness of breath with fevers, features of sepsis, present on admission likely secondary to right lower lobe pneumonia, community-acquired Acute hypoxic respiratory failure secondary to above Elevated d-dimer, ruled out PE Chronic obstructive pulmonary disease, acute exacerbation History of heart failure, diastolic dysfunction Hypovolemic hyponatremia, appears to be volume depleted with dehydration, improved Hypokalemia, improving Continued ongoing nicotine abuse History of chronic kidney disease History of hyperlipidemia, unable to tolerate statins hypertension history History of rheumatoid arthritis Mild protein calorie malnutrition with a BMI of 18.0 GI prophylaxis DVT prophylaxis No code Plan: Recommend to continue with current medications and management with pulmonary and infectious disease following. Patient is maintained on IV cefepime along with DuoNeb treatments along with perforomist and Pulmicort Patient currently maintained on 9 L high flow and recommend weaning FiO2 as tolerated. Patient has been afebrile for [address] chest reviewed as mentioned above and pulmonary following discussing possible bronchoscopy if no improvement. Patient did refuse VQ scan and was canceled. CT chest was done showing no PE Recommend repeat labs in the a.m. and continue to replace electrolytes per p rotocol. Potassium 3.0 and will add daily supplementation Encourage complete tobacco cessation Encouraged oral intake Encouraged increased activity as tolerated Due to multiple complex medical issues, prognosis is guarded The impression and plan of care has been dictated by Beena Mccann, nurse practitioner as directed. Dr. Dickson MD I have performed a history and examination and MDM of this patient, discussed the same with the dictator, and agree with the dictator's assessment and plan as written ,documented as a scribe. Based on total visit time, I have performed more than 50% of the visit. Any additional findings or plans will be noted. Objective - Vital Signs Vital signs: Vital Signs Temp 99.2 F 01/26/23 07:39 Pulse 84 01/26/23 08:28 Resp 14 01/26/23 07:39 BP 136/63 01/26/23 07:39 Pulse Ox 92 L 01/26/23 08:09 FiO2 Intake & Output 01/25/23 01/26/23 01/26/23 18:59 06:59 18:59 Intake Total 240 740 60 Output Total 600 Balance 240 740 -540 Weight 39.2 kg 38.4 kg Intake: IV 10 Invasive Line 2 10 Intake, IV Titration 50 Amount Cefepime 1 gm In Sodium 50 Chloride 0.9% 50 ml @ 12. 5 mls/hr IVPB Q12H [facility] Rx #:[id number] Oral 240 740 Output: Urine 600 Other: Voiding Method Bedside Commode Bedside Commode Bedside Commode # Voids 3 2 1 # Bowel Movements 1 - Labs CBC & Chem 7: 01/25/23 07:10 01/26/23 10:55 Labs: Abnormal Lab Results - Last 24 Hours (Table) 01/24/23 Range/Units 10:12 Mycoplasma pneumon IgG 1.26 H (<=0.90) INDEX Microbiology - Last 24 Hours (Table) 01/22/23 13:30 Blood Culture - Preliminary Blood 01/22/23 13:15 Blood Culture - Preliminary Blood
[2023-01-26] MEDS ORDERED: hydrALAZINE HCL 25 MG TAB PO SCH (16:00)
[2023-01-26] MEDS: TEMAZEPAM 15 MG CAP PO SCH (21:15)
[2023-01-26] MEDS: MONTELUKAST 10 MG TAB PO SCH (21:15)
[2023-01-26] MEDS: FAMOTIDINE 20 MG TAB PO SCH (21:15)
[2023-01-27 07:31] LABS: African American GFR (CKD) 41 (>60 ml/min/1.73 sqM); Anion Gap 6 mmol/L; Blood Urea Nitrogen 16 mg/dL (7-17); Calcium 8.3 mg/dL (8.4-10.2); Carbon Dioxide 24 mmol/L (22-30); Chloride 110 mmol/L (98-107); Glucose 90 mg/dL (74-99); Magnesium 2.3 mg/dL (1.6-2.3); Non-African American GFR(CKD) 35 (>60 ml/min/1.73 sqM); Potassium 3.8 mmol/L (3.5-5.1); Sodium 140 mmol/L (137-145)
[2023-01-27] MEDS ORDERED: amLODIPine 10 MG TAB PO SCH (09:00)
[2023-01-27] MEDS: NICOTINE 21MG/24HR PATCH TRANSDERM SCH (09:13)
[2023-01-27] MEDS: HEPARIN SODIUM,PORCINE/PF 5,000 UNIT/0.5 ML SYRINGE SQ SCH ×2 (09:13→20:20)
[2023-01-27] MEDS: guaiFENesin 600 MG TABLET.ER PO SCH ×2 (09:14→21:43)
[2023-01-27] MEDS: POTASSIUM CHLORIDE ER 20 MEQ TAB.ER PO SCH (09:14)
[2023-01-27] MEDS: METOPROLOL TARTRATE 25 MG TAB PO SCH ×3 (09:14→21:43)
[2023-01-27] MEDS: CLOPIDOGREL 75 MG TAB PO SCH (09:14)
[2023-01-27] MEDS: ASPIRIN 81 MG PO SCH (09:14)
[2023-01-27] MEDS: amLODIPine 5 MG TAB PO SCH (09:14)
[2023-01-27] MEDS: ISOSORBIDE MONONITRATE ER 30 MG TAB.ER.24H PO SCH (09:14)
[2023-01-27] MEDS: FORMOTEROL FUMARATE 20 MCG/2 ML NEBU INHALATION SCH ×2 (09:33→20:31)
[2023-01-27] MEDS: BUDESONIDE 1 MG/2 ML NEBU INHALATION SCH ×2 (09:33→20:31)
[2023-01-27] MEDS: IPRATROPIUM-ALBUTEROL 3 ML NEB INHALATION SCH ×4 (09:33→20:31)
--- NOTE | 2023-01-27 10:13 | XR ---
EXAMINATION TYPE: XR chest 1V portable DATE OF EXAM: 01/27/2023 Comparison: 01/25/2023 Clinical History: 77-year-old female Pneumonia follow up Findings: Heart normal size. Trace left pleural effusion may be slightly increased. Some adjacent patchy left b asilar atelectasis or mild infiltrate. Prominent airspace opacity right middle lower lung shows some cement. Hyperinflation. No pneumothorax. Abdominal aortic endovascular stent graft partially seen. Impression: Persistent but improving right lower lobe pneumonia. Trace left pleural effusion with adjacent atelec tasis and/or consolidation may be increased.
--- NOTE | 2023-01-27 10:55 | P.PN ---
Subjective Progress Note Date: 01/27/23 Principal diagnosis: Pneumonia Patient is a 77-year-old female with a past medical history significant for hypertension hyperlipidemia [place] diverticulitis with sepsis prese nting to the ER for evaluation of increasing shortness of breath , patient has been diagnosed with right lower lobe pneumonia. On today's evaluation that is 01/27/2023, patient remains to be afebrile, patient is breathing comfortably currently requiring 8 L nasal cannula oxygen, the patient denies having any chest pain patient cough has decreased and intensity and remains to be dry in nature, no nausea no vomiting or diarrhea Objective - Vital Signs Vital signs: Vital Signs Temp 98.0 F 01/27/23 01:55 Pulse 93 01/27/23 01:55 Resp 20 01/27/23 01:55 BP 137/62 01/27/23 01:55 Pulse Ox 92 L 01/27/23 01:56 FiO2 Intake & Output 01/26/23 01/27/23 01/27/23 18:59 06:59 18:59 Intake Total 60 600 Output Total 600 Balance -540 600 Intake: IV 10 10 Invasive Line 2 10 10 Intake, IV Titration 50 Amount Cefepime 1 gm In Sodium 50 Chloride 0.9% 50 ml @ 12. 5 mls/hr IVPB Q12H [facility] Rx #:[id number] Oral 590 Output: Urine 600 Other: Voiding Method Bedside Commode # Voids 1 3 - Exam GENERAL DESCRIPTION: An elderly female lying in bed in no distress RESPIRATORY SYSTEM: Unlabored breathing , coarse breath sounds bilaterally HEART: S1 S2 regular rate and rhythm , ABDOMEN: Soft , no tenderness EXTREMITIES: No edema feet - Labs CBC & Chem 7: 01/25/23 07:10 01/27/23 06:26 Labs: Abnormal Lab Results - Last 24 Hours (Table) 01/26/23 01/27/23 Range/Units 10:55 06:26 Potassium 3.3 L (3.5-5.1) mmol/L Chloride 110 H (98-107) mmol/L Creatinine 1.40 H 1.44 H (0.52-1.04) mg/dL Calcium 8.3 L 8.3 L (8.4-10.2) mg/dL Assessment and Plan (1) Pneumonia Current Visit: Yes Status: Acute Code(s): J18.9 - PNEUMONIA, UNSPECIFIED ORGANISM SNOMED Code(s): 504369204 (2) Sepsis Current Visit: Yes Status: Acute Code(s): A41.9 - SEPSIS, UNSPECIFIED ORGANISM SNOMED Code(s): 55812384 Plan: 1patient to the hospital with sepsis in this patient did have fever tachycardia elevated white count source right lower lobe pneumonia likely community-acquired in this patient who do have a history of COPD and possibly could be a gram- negative pneumonia 2Patient remains to be afebrile the patient white count is normal blood culture negative, sputum has not been collected patient to continue with the cefepime and monitor clinical course closely Time with Patient: Less than 30
--- NOTE | 2023-01-27 12:43 | P.PN ---
Subjective Progress Note Date: 01/27/23 I am seeing this patient in new consultation today 01/23/2023 for suspected right lower lobe pneumonia. Patient is a 77-year-old white female with past medical history significant for diastolic congestive heart failure, mitral regurgitation, coronary artery disease, hypertension, hyperlipidemia, chronic kidney disease stage IV, and PVD. No documented history of COPD, however, she is a lifelong smoker. She continues to smoke 1 pack per day. She does not follow with improvement analyst. She was reportedly at her primary care provider's office, Dr. Farnsworth, earlier yesterday morning, and was sent to the emergency room for further evaluation. She has been experiencing shortness of breath with an associated congested cough over the last day or so. She denies any fevers, chills, sputum production, chest pain. Denies any sick contacts. She is currently febrile currently with a T-max of 102.8F. Patient is currently sitting in bed, on 3 L nasal cannula, in no acute distress. Chest x-ray on arrival showed a patchy right lower lobe airspace opacity concerning for pneumonia. Chronic hyperinflation consistent with COPD. CBC on arrival showed some mild leukocytosis with a WBC count of 13.2, hemoglobin 12.5, hematocrit 39, platelets 189. BMP shows sodium 134, potassium 3.4, chloride 99, serum CO2 25, BUN 32, creatinine 2.29, glucose 112. Normal saline is infusing at 75 mL per hour. NT proBNP was elevated at 6180, however, no evidence of CHF exacerbation on chest x-ray. Lactic acid level not elevated. Procalcitonin level is elevated at 6. Patient is currently empirically covered on a combination of Rocephin and Zithromax. She was negative for influenza, RSV, COVID-19. Vital signs are stable The patient is seen today 01/24/2023 in follow-up on the regular medical floor. She is currently sitting up in bed. Awake and alert in no acute distress. She is doing just a bit better today compared to yesterday. Still with significant cough and congestion. Still requiring 10 L high flow nasal cannula. Blood cultures are pending. White count 6.9. Hemoglobin 10.8. Platelets 146. Sodium 135. Potassium 3.1. Total BUN 24. Creatinine 1.74. AST 54. ALT 41. ProCalcitonin 5.08. She is continued on DuoNeb inhalations, Pulmicort and Perforomist inhalations, IV Solu-Medrol. Antibiotics in the form of cefepime. NicoDerm patch remains in place. Heparin for DVT prophylaxis. Continued on Mucinex. The patient is seen today 01/25/2023 in follow-up on the regular medical floor. She is awake and alert in no acute distress. Feeling a bit better today compared to yesterday. Still with a loose cough. Maintaining O2 saturations in the 90s on 9 L high flow nasal cannula. Computed tomography scan of the chest revealed mild to moderate emphysematous changes with small tiny bilateral pleural effusions. Irregular consolidation with air bronchograms throughout the right lower lobe. There is slightly enlarged mediastinal lymph nodes. This x-ray continues to show right mid and lower lobe pneumonia. White count 8.1. Hemoglobin 11.3. Sodium 137. Potassium 3.7. Bicarb 23. BUN 19. Creatinine 1.45. She remains afebrile. Hemodynamically stable. Continued on DuoNeb inhalations, Pulmicort and Perforomist inhalations, antibiotics in the form of cefepime. Heparin for DVT prophylaxis. NicoDerm patch in place. Continued on Mucinex and Robitussin as needed. The patient is seen today 01/26/2023 in follow-up on the regular medical floor. She is sitting up in bed. Awake and alert in no acute distress. She is still somewhat bronchospastic and wheezing. She has a very loose cough. Unable to expectorate. She is requiring 9 L high flow nasal cannula to maintain O2 saturations in the 90s. She's been afebrile. Hemodynamically stable. She is continued on Mucinex, Robitussin, bronchodilators and steroids. She is continued on cefepime. Heparin for DVT prophylaxis. NicoDerm patch in place. She continues to work with the incentive spirometer and flutter valve. Sodium 138. Potassium 3.3. Bicarb 25. BUN 15. Creatinine 1.40. Mycoplasma IgG anti body 1.26. IgM 0.01. The patient is seen today 01/27/2023 in follow-up on the regular medical floor. She is awake and alert in no acute distress. Sitting up in bed. Doing a bit better today compared to yesterday. Her oxygen has been titrated down to 6 L high flow nasal cannula. O2 saturations in the mid 90s. She remains afebrile. Hemodynamically stable. Chest x-ray shows persistent but improving right lower lobe pneumonia. Trace left pleural effusion. Blood cultures reveal no growth. Sodium 140. Potassium 3.8. Bicarb 24. BUN 16. Creatinine 1.44. She remains on DuoNeb inhalations, Pulmicort and performs inhalations, Singulair. Antibiotics in the form of cefepime. Heparin for DVT prophylaxis. NicoDerm patch in place. Objective - Vital Signs Vital signs: Vital Signs Temp 98.1 F 01/27/23 11:40 Pulse 95 01/27/23 11:40 Resp 18 01/27/23 11:40 BP 127/54 01/27/23 11:40 Pulse Ox 95 01/27/23 11:40 FiO2 Intake & Output 01/26/23 01/27/23 01/27/23 18:59 06:59 18:59 Intake Total 60 600 Output Total 600 Balance -540 600 Intake: IV 10 10 Invasive Line 2 10 10 Intake, IV Titration 50 Amount Cefepime 1 gm In Sodium 50 Chloride 0.9% 50 ml @ 12. 5 mls/hr IVPB Q12H [facility] Rx #:[id number] Oral 590 Output: Urine 600 Other: Voiding Method Bedside Commode Bedside Commode # Voids 1 3 - Exam GENERAL EXAM: Alert, frail 77-year-old female, on 6 L high flow nasal cannula, comfortable in no apparent distress. HEAD: Normocephalic. EYES: Normal reaction of pupils, equal size. NOSE: Clear with pink turbinates. THROAT: No erythema or exudates. NECK: No masses, no JVD. CHEST: No chest wall deformity. LUNGS: Equal air entry with bilateral coarse rhonchi more so on the right lung base. CVS: S1 and S2 normal with no audible murmur, regular rhythm. ABDOMEN: No hepatosplenomegaly, normal bowel sounds, no guarding or rigidity. SPINE: Kyphosis SKIN: No rashes CENTRAL NERVOUS SYSTEM: No focal deficits, tone is normal in all 4 extremities. EXTREMITIES: There is no peripheral edema. No clubbing, no cyanosis. Peripheral pulses are intact. - Labs CBC & Chem 7: 01/25/23 07:10 01/27/23 06:26 Labs: Abnormal Lab Results - Last 24 Hours (Table) 01/27/23 Range/Units 06:26 Chloride 110 H (98-107) mmol/L Creatinine 1.44 H (0.52-1.04) mg/dL Calcium 8.3 L (8.4-10.2) mg/dL Assessment and Plan Assessment: Community-acquired right lower lobe pneumonia. Chest x-ray continues to show persistent but improving right lower lobe infiltrate. Remains on cefepime Suspected COPD exacerbation secondary to above. No documented history of COPD, however, there is chronic hyperinflation seen on chest x-ray consistent with CO PD. She is slightly bronchospastic on physical examination. Acute hypoxemic respiratory failure secondary to above, currently on 6 L nasal cannula Coronary artery disease History of diastolic congestive heart failure with moderate to severe mitral regurgitation, stable Essential hypertension Hyperlipidemia Chronic kidney disease stage IV History peripheral vascular disease Chronic nicotine dependence. Smokes approximately 1 pack per day, and she is trying to cut back History of abdominal aortic aneurysm repair with stent Plan: The patient was seen and evaluated Medications, chest x-ray and labs reviewed Improving and down to 6 L high flow nasal cannula Continue cefepime, bronchodilators May need bronchoscopy if no significant improvement Patient states she does not want to end up on a ventilator DO NOT RESUSCITATE/DO NOT INTUBATE CODE STATUS We will continue to follow I have personally seen and examined the patient, performed the documentation and the assessment and plan as written. Number of minutes spent on the visit: 10.
[2023-01-27] MEDS: CEFEPIME 1 GM in SODIUM CHLORIDE 0.9% 50 ML IVPB SCH ×2 (12:56→23:10)
[2023-01-27] MEDS: methylPREDNISolone SOD SUCCI 40 MG/ML 1 ML VIAL IV SCH ×3 (13:42→23:11)
[2023-01-27] MEDS: FAMOTIDINE 20 MG TAB PO SCH (21:43)
[2023-01-27] MEDS: TEMAZEPAM 15 MG CAP PO SCH (21:43)
[2023-01-27] MEDS: MONTELUKAST 10 MG TAB PO SCH (21:43)
[2023-01-27] MEDS: guaiFENesin SYRUP 100MG/5ML 200 MG/10 ML CUP PO PRN (21:43)
[2023-01-28] MEDS: methylPREDNISolone SOD SUCCI 40 MG/ML 1 ML VIAL IV SCH ×3 (05:39→16:56)
[2023-01-28] MEDS: guaiFENesin 600 MG TABLET.ER PO SCH ×2 (09:04→21:16)
[2023-01-28] MEDS: HEPARIN SODIUM,PORCINE/PF 5,000 UNIT/0.5 ML SYRINGE SQ SCH ×2 (09:04→21:16)
[2023-01-28] MEDS: CLOPIDOGREL 75 MG TAB PO SCH (09:04)
[2023-01-28] MEDS: POTASSIUM CHLORIDE ER 20 MEQ TAB.ER PO SCH (09:04)
[2023-01-28] MEDS: ASPIRIN 81 MG PO SCH (09:04)
[2023-01-28] MEDS: amLODIPine 5 MG TAB PO SCH (09:04)
[2023-01-28] MEDS: NICOTINE 21MG/24HR PATCH TRANSDERM SCH (09:04)
[2023-01-28] MEDS: ISOSORBIDE MONONITRATE ER 30 MG TAB.ER.24H PO SCH (09:04)
[2023-01-28] MEDS: METOPROLOL TARTRATE 25 MG TAB PO SCH ×3 (09:04→21:16)
[2023-01-28] MEDS: FORMOTEROL FUMARATE 20 MCG/2 ML NEBU INHALATION SCH ×2 (09:24→20:46)
[2023-01-28] MEDS: BUDESONIDE 1 MG/2 ML NEBU INHALATION SCH ×2 (09:25→20:46)
[2023-01-28] MEDS: IPRATROPIUM-ALBUTEROL 3 ML NEB INHALATION SCH ×4 (09:25→20:46)
--- NOTE | 2023-01-28 11:14 | P.PN ---
Subjective Progress Note Date: 01/28/23 I am seeing this patient in new consultation today 01/23/2023 for suspected right lower lobe pneumonia. Patient is a 77-year-old white female with past medical history significant for diastolic congestive heart failure, mitral regurgitation, coronary artery disease, hypertension, hyperlipidemia, chronic kidney disease stage IV, and PVD. No documented history of COPD, however, she is a lifelong smoker. She continues to smoke 1 pack per day. She does not follow with psych specialist. She was reportedly at her primary care provider's office, Dr. Farnsworth, earlier yesterday morning, and was sent to the emergency room for further evaluation. She has been experiencing shortness of breath with an associated congested cough over the last day or so. She denies any fevers, chills, sputum production, chest pain. Denies any sick contacts. She is currently febrile currently with a T-max of 102.8F. Patient is currently sitting in bed, on 3 L nasal cannula, in no acute distress. Chest x-ray on arrival showed a patchy right lower lobe airspace opacity concerning for pneumonia. Chronic hyperinflation consistent with COPD. CBC on arrival showed some mild leukocytosis with a WBC count of 13.2, hemoglobin 12.5, hematocrit 39, platelets 189. BMP shows sodium 134, potassium 3.4, chloride 99, serum CO2 25, BUN 32, creatinine 2.29, glucose 112. Normal saline is infusing at 75 mL per hour. NT proBNP was elevated at 6180, however, no evidence of CHF exacerbation on chest x-ray. Lactic acid level not elevated. Procalcitonin level is elevated at 6. Patient is currently empirically covered on a combination of Rocephin and Zithromax. She was negative for influenza, RSV, COVID-19. Vital signs are stable The patient is seen today 01/24/2023 in follow-up on the regular medical floor. She is currently sitting up in bed. Awake and alert in no acute distress. She is doing just a bit better today compared to yesterday. Still with significant cough and congestion. Still requiring 10 L high flow nasal cannula. Blood cultures are pending. White count 6.9. Hemoglobin 10.8. Platelets 146. Sodium 135. Potassium 3.1. Total BUN 24. Creatinine 1.74. AST 54. ALT 41. ProCalcitonin 5.08. She is continued on DuoNeb inhalations, Pulmicort and Perforomist inhalations, IV Solu-Medrol. Antibiotics in the form of cefepime. NicoDerm patch remains in place. Heparin for DVT prophylaxis. Continued on Mucinex. The patient is seen today 01/25/2023 in follow-up on the regular medical floor. She is awake and alert in no acute distress. Feeling a bit better today compared to yesterday. Still with a loose cough. Maintaining O2 saturations in the 90s on 9 L high flow nasal cannula. Computed tomography scan of the chest revealed mild to moderate emphysematous changes with small tiny bilateral pleural effusions. Irregular consolidation with air bronchograms throughout the right lower lobe. There is slightly enlarged mediastinal lymph nodes. This x-ray continues to show right mid and lower lobe pneumonia. White count 8.1. Hemoglobin 11.3. Sodium 137. Potassium 3.7. Bicarb 23. BUN 19. Creatinine 1.45. She remains afebrile. Hemodynamically stable. Continued on DuoNeb inhalations, Pulmicort and Perforomist inhalations, antibiotics in the form of cefepime. Heparin for DVT prophylaxis. NicoDerm patch in place. Continued on Mucinex and Robitussin as needed. The patient is seen today 01/26/2023 in follow-up on the regular medical floor. She is sitting up in bed. Awake and alert in no acute distress. She is still somewhat bronchospastic and wheezing. She has a very loose cough. Unable to expectorate. She is requiring 9 L high flow nasal cannula to maintain O2 saturations in the 90s. She's been afebrile. Hemodynamically stable. She is continued on Mucinex, Robitussin, bronchodilators and steroids. She is continued on cefepime. Heparin for DVT prophylaxis. NicoDerm patch in place. She continues to work with the incentive spirometer and flutter valve. Sodium 138. Potassium 3.3. Bicarb 25. BUN 15. Creatinine 1.40. Mycoplasma IgG anti body 1.26. IgM 0.01. The patient is seen today 01/27/2023 in follow-up on the regular medical floor. She is awake and alert in no acute distress. Sitting up in bed. Doing a bit better today compared to yesterday. Her oxygen has been titrated down to 6 L high flow nasal cannula. O2 saturations in the mid 90s. She remains afebrile. Hemodynamically stable. Chest x-ray shows persistent but improving right lower lobe pneumonia. Trace left pleural effusion. Blood cultures reveal no growth. Sodium 140. Potassium 3.8. Bicarb 24. BUN 16. Creatinine 1.44. She remains on DuoNeb inhalations, Pulmicort and performs inhalations, Singulair. Antibiotics in the form of cefepime. Heparin for DVT prophylaxis. NicoDerm patch in place. The patient is seen today 01/28/2023 in follow-up on the regular medical floor. She is currently sitting up in bed. Awake and alert in no acute distress. Breathing a bit easier today compared to yesterday. She is continued on 6 L high flow nasal cannula to maintain O2 saturations in the 90s. She is continued on DuoNeb inhalations, Pulmicort and Perforomist inhalations, IV Solu-Medrol. Remains on antibiotics in the form of cefepime. NicoDerm patch in place. Heparin for DVT prophylaxis. Cultures revealed no growth. No new labs today. Follow-up chest x-ray in a.m. Objective - Vital Signs Vital signs: Vital Signs Temp 98.1 F 01/28/23 07:15 Pulse 92 01/28/23 09:52 Resp 17 01/28/23 08:00 BP 146/66 01/28/23 07:15 Pulse Ox 98 01/28/23 09:25 FiO2 Intake & Output 01/27/23 01/28/23 01/28/23 18:59 06:59 18:59 Intake Total 480 50 Output Total 800 Balance -320 50 Intake: Intake, IV Titration 50 Amount Cefepime 1 gm In Sodium 50 Chloride 0.9% 50 ml @ 12. 5 mls/hr IVPB Q12H [facility] Rx #:[id number] Oral 480 Output: Urine 800 Other: Voiding Method Bedside Commode Bedside Commode # Voids 2 1 # Bowel Movements 1 - Exam GENERAL EXAM: Alert, frail, pleasant 77-year-old female, sitting up in bed, on 6 L high flow nasal cannula, comfortable in no apparent distress. HEAD: Normocephalic. EYES: Normal reaction of pupils, equal size. NOSE: Clear with pink turbinates. THROAT: No erythema or exudates. NECK: No masses, no JVD. CHEST: No chest wall deformity. LUNGS: Equal air entry with bilateral coarse rhonchi more so on the right lung base. CVS: S1 and S2 normal with no audible murmur, regular rhythm. ABDOMEN: No hepatosplenomegaly, normal bowel sounds, no guarding or rigidity. SPINE: Kyphosis SKIN: No rashes CENTRAL NERVOUS SYSTEM: No focal deficits, tone is normal in all 4 extremities. EXTREMITIES: There is no peripheral edema. No clubbing, no cyanosis. Peripheral pulses are intact. - Labs CBC & Chem 7: 01/25/23 07:10 01/27/23 06:26 Labs: Microbiology - Last 24 Hours (Table) 01/22/23 13:30 Blood Culture - Final Blood 01/22/23 13:15 Blood Culture - Final Blood Assessment and Plan Assessment: Community-acquired right lower lobe pneumonia. Chest x-ray continues to show p ersistent but improving right lower lobe infiltrate. Remains on cefepime Suspected COPD exacerbation secondary to above. No documented history of COPD, however, there is chronic hyperinflation seen on chest x-ray consistent with COPD. She is slightly bronchospastic on physical examination. Acute hypoxemic respiratory failure secondary to above, currently on 6 L nasal cannula Coronary artery disease History of diastolic congestive heart failure with moderate to severe mitral regurgitation, stable Essential hypertension Hyperlipidemia Chronic kidney disease stage IV History peripheral vascular disease Chronic nicotine dependence. Smokes approximately 1 pack per day, and she is trying to cut back History of abdominal aortic aneurysm repair with stent Plan: The patient was seen and evaluated Medications reviewed Improving and down to 6 L high flow nasal cannula Continue to titrate down the FiO2 as tolerated Continue cefepime, bronchodilators and steroids Follow-up chest x-ray in a.m. We will continue to follow I have personally seen and examined the patient, performed the documentation and the assessment and plan as written. Number of minutes spent on the visit: 10.
[2023-01-28] MEDS: CEFEPIME 1 GM in SODIUM CHLORIDE 0.9% 50 ML IVPB SCH (12:14)
[2023-01-28 14:47] LABS: Basophils % (A) 0 %; Eosinophils % (A) 0 %; HCT 30.3 % (34.0-46.0); Hypochromasia Slight; Lymphocytes # (A) 0.5 k/uL (1.0-4.8); Lymphocytes % (A) 3 %; MCH 31.5 pg (25.0-35.0); MCHC 31.7 g/dL (31.0-37.0); MCV 99.6 fL (80.0-100.0); Macrocytosis Slight; Mean Platelet Volume 8.1; Monocytes # (A) 0.3 k/uL (0-1.0); Monocytes % (A) 2 %; Neutrophils # (A) 15.6 k/uL (1.3-7.7); Neutrophils % (A) 95 %; RBC 3.04 m/uL (3.80-5.40); WBC 16.5 k/uL (3.8-10.6)
[2023-01-28 14:54] LABS: HGB 9.6 gm/dL (11.4-16.0)
[2023-01-28 14:55] LABS: Platelet Count 524 k/uL (150-450)
[2023-01-28 15:04] LABS: African American GFR (CKD) 42 (>60 ml/min/1.73 sqM); Anion Gap 10 mmol/L; Blood Urea Nitrogen 29 mg/dL (7-17); Calcium 8.7 mg/dL (8.4-10.2); Carbon Dioxide 19 mmol/L (22-30); Chloride 107 mmol/L (98-107); Glucose 190 mg/dL (74-99); Non-African American GFR(CKD) 36 (>60 ml/min/1.73 sqM); Potassium 4.4 mmol/L (3.5-5.1); Sodium 136 mmol/L (137-145)
--- NOTE | 2023-01-28 15:57 | P.PN ---
Subjective Progress Note Date: 01/28/23 Principal diagnosis: Pneumonia Patient is a 77-year-old female with a past medical history significant for hypertension hyperlipidemia MA diverticulitis with sepsis prese nting to the ER for evaluation of increasing shortness of breath , patient has been diagnosed with right lower lobe pneumonia. On today's evaluation that is 01/28/2023, patient continues to be afebrile, patient is breathing comfortably and is down to 4 L nasal cannula oxygen, the patient denies having any chest pain patient cough has decreased and intensity and remains to be dry in nature, no nausea no vomiting or diarrhea Objective - Vital Signs Vital signs: Vital Signs Temp 97.5 F L 01/28/23 11:57 Pulse 94 01/28/23 12:21 Resp 18 01/28/23 11:57 BP 133/51 01/28/23 11:57 Pulse Ox 95 01/28/23 11:57 FiO2 Intake & Output 01/27/23 01/28/23 01/28/23 18:59 06:59 18:59 Intake Total 480 50 Output Total 800 Balance -320 50 Intake: Intake, IV Titration 50 Amount Cefepime 1 gm In Sodium 50 Chloride 0.9% 50 ml @ 12. 5 mls/hr IVPB Q12H [facility] Rx #:[id number] Oral 480 Output: Urine 800 Other: Voiding Method Bedside Commode Bedside Commode # Voids 2 1 # Bowel Movements 1 1 - Exam GENERAL DESCRIPTION: An elderly female lying in bed in no distress RESPIRATORY SYSTEM: Unlabored breathing , coarse breath sounds bilaterally HEART: S1 S2 regular rate and rhythm , ABDOMEN: Soft , no tenderness EXTREMITIES: No edema feet - Labs CBC & Chem 7: 01/28/23 14:12 01/28/23 14:12 Labs: Abnormal Lab Results - Last 24 Hours (Table) 01/28/23 01/28/23 Range/Units 14:12 14:12 WBC 16.5 H (3.8-10.6) k/uL RBC 3.04 L (3.80-5.40) m/uL Hgb 9.6 L D (11.4-16.0) gm/dL Hct 30.3 L (34.0-46.0) % Plt Count 524 H D (150-450) k/uL Neutrophils # 15.6 H (1.3-7.7) k/uL Lymphocytes # 0.5 L (1.0-4.8) k/uL Sodium 136 L (137-145) mmol/L Carbon Dioxide 19 L (22-30) mmol/L BUN 29 H (7-17) mg/dL Creatinine 1.40 H (0.52-1.04) mg/dL Glucose 190 H (74-99) mg/dL Microbiology - Last 24 Hours (Table) 01/26/23 15:44 Gram Stain - Final Sputum Sputum Culture - Final 01/22/23 13:30 Blood Culture - Final Blood 01/22/23 13:15 Blood Culture - Final Blood Assessment and Plan (1) Pneumonia Current Visit: Yes Status: Acute Code(s): J18.9 - PNEUMONIA, UNSPECIFIED ORGANISM SNOMED Code(s): 460219461 (2) Sepsis Current Visit: Yes Status: Acute Code(s): A41.9 - SEPSIS, UNSPECIFIED ORGANISM SNOMED Code(s): 49801291 Plan: 1patient to the hospital with sepsis in this patient did have fever tachycardia elevated white count source right lower lobe pneumonia likely community-acquired in this patient who do have a history of COPD and possibly could be a gram- negative pneumonia 2Patient remains to be afebrile , repeat chest x-ray today shows improvement in the right lower lobe pneumonia plan is to continue the patient on cefepime finishing therapy with oral Avelox 3-leukocytosis more likely steroid related as the patient has shown clinical improvement and chest x-ray also showed improvement Time with Patient: Less than 30
[2023-01-28] MEDS: FAMOTIDINE 20 MG TAB PO SCH (21:16)
[2023-01-28] MEDS: MONTELUKAST 10 MG TAB PO SCH (21:16)
[2023-01-28] MEDS: TEMAZEPAM 15 MG CAP PO SCH (22:06)
--- NOTE | 2023-01-29 00:25 | P.PN ---
Subjective Progress Note Date: 01/27/23 This is a pleasant 77-year-old female who presented to the emergency department with daughter and reports she was at her primary care provider's Dr. Farnsworth's office this morning and sent here for further evaluation. Patient has been reporting some shortness of breath and cough with some sputum production the last few days and progressively getting worse. Patient does have past medical history of heart failure, hyperlipidemia, hypertension, previous myocardial infarction, chronic kidney disease, pneumonias along with history of rheumatoid arthritis. Patient denies illicit drug use and continues to smoke about half a pack to a pack per day. Patient denies alcohol use. Daughter reports patient was recently hospitalized approximately a month ago and has not smoked much since. Patient does not wear oxygen in the outpatient setting and currently requiring 3 L of oxygen via nasal cannula. Chest x-ray shows background COPD changes with patchy right lower lobe airspace opacification likely representing pneumonia, EKG showed normal sinus rhythm, and virology testing including Covid, influenza, RSV are negative. White count slightly elevated at 13.2 with a hemoglobin of 12.5, platelets are 189, sodium is 134 with a potassium of 3.4, BUN is 32 with a creatinine of 2.29, BNP is 6480, magnesium is 2.2. Patient was admitted for pneumonia with features of sepsis. We'll place a consult to pu onary and appreciate input and recommendations. 01/23/2023 Patient is seen and evaluated in follow-up this morning continues to be extremely bronchospastic and cough. Patient has received ceftriaxone along with Zithromax with pulmonary following and will consult infectious disease and appreciate input recommendations. Patient continues to have low-grade temps with generalized weakness and fatigue. No reports of nausea or vomiting although patient reports reduced poor oral intake and not much of an appetite. Patient reports she especially does not eat very well when feeling sick. Encou raged oral intake even small meals to keep her strength. Patient is continued on DuoNeb treatments and will add Perforomist and Pulmicort. Recommend follow- up labs in the a.m. 01/24/2023 Patient is seen and evaluated in follow-up continues to be short of breath and congested requiring 10 L high flow oxygen. Pulmonary and infectious disease following and patient is continued on IV antibiotics in the form of cefepime. Sputum culture uncollected and blood cultures thus far are negative. Covid, influenza, RSV were all negative. Will obtain a d-dimer is positive will order CT chest as well as VQ scan as kidney functions are improved although continues to be elevated at 1.74. Recommend replacement of potassium per protocol his potassium is 3.1 today. Pro-calcitonin was found to be 5.08. Urine Legionella was negative. Patient is currently afebrile although was having fevers overnigh t and temperature max this morning was 102.5. Encouraged oral intake and increased activity as tolerated. Recommend follow-up labs in the a.m. 01/25/2023 Patient is seen and evaluated in follow-up this morning being followed by infectious disease along with pulmonary. Patient weaning FiO2 as tolerated although requiring high flow oxygen currently maintained on 9 L. Oxygen saturation 93% and does continue to be dyspneic with exertion. Patient had CT done yesterday of the chest and initially ordered VQ scan as patient had elevated d-dimer although patient is refusing at this time. CT chest showed mild to moderate emphysematous changes with small to tiny bilateral pleural effusions with irregular consolidation with air bronchograms throughout the right lower lobe present abnormal thoracic adenopathy is also seen in warrant follow-up. Patient is continued on breathing treatments along with IV antibiotics and will continue. Patient is afebrile today with no reports of worsening shortness of breath. Patient denies chest pain or palpitations. Patient is tolerating diet and encouraged oral intake. Patient having some overall anxiety will add low-dose Ativan as needed. Pulmonary discussing possible bronchoscopy if no improvement. Encouraged increased activity as tolerated. 01/26/2023 Patient is seen and evaluated in follow-up today currently sitting up at the side of the bed attempting to get dressed and having difficulty having to take multiple breaks due to breathing status. Patient continues to be bronchospastic and severely congested and short of breath with minimal exertion maintained on 9 L high flow. Pulmonary following along with infectious disease and patient is maintained on IV antibiotics in the form of cefepime. Patient also receiving breathing inhalational treatments along with inhalers and will continue. Patient is on inhaled steroid therapy with no real wheezing noted on exam. Would encourage increased activity as tolerated as patient is significantly weak although respiratory status exacerbating this weakness. Patient is afebrile denies chest pain or palpitations. No reports of nausea or vomiting and patient is tolerating oral intake. Needs encouragement with oral intake as she is not eating very much. Patient does have incentive spirometer along with flutter device at the bedside and encourage the patient to continue using as instructed. Potassium slightly low at 3.3 and will replace per protocol as well as adding daily supplementation. Kidney functions trending down and creatinine is currently 1.40 today. 01/27/2023 Patient is currently resting in the bed. Awake alert and oriented x3. Still having exertional dyspnea. No complaints of cough or sputum production. Requiring high flow oxygen at 6 L per nasal cannula. Patient has been afebrile. Chest x-ray this morning showed persistent but improved right lower lobe pneumonia. Trace left pleural effusion with adjacent atelectasis and/or consolidation may be increasing. Laboratory data showed WBC 8.1 hemoglobin 11.3 and platelets 222 BUN 19 and creatinine 1.45 and calcium 8.3. Potassium 3.7. Patient is being continued on antibiotics cefepime. Pulmonary and ID is on board. Current medications reviewed. Review of systems: Constitutional: reports of fatigue, reports fever, or chills Cardiovascular: No reports of chest pain or palpitations Respiratory: reports of shortness of breath with continued cough, dyspnea with minimal exertion having to take frequent rest periods to do anything GI: No reports of nausea, vomiting, or diarrhea, reports no real appetite : No reports of dysuria or retention Neurovascular: No reports of weakness or numbness All medications have been reviewed PHYSICAL EXAMINATION: GENERAL: The patient is alert and oriented x4, thin built, elderly appearing HEENT: Pupils are round and equally reacting to light. EOMI. no scleral icterus. No conjunctival pallor. Normocephalic, atraumatic. No pharyngeal erythema. No thyromegaly. CARDIOVASCULAR: S1 and S2 muffled PULMONARY: diminished breath sounds bilaterally with no wheezing, some scattered rhonchi noted. Harsh cough and congestion noted on exam ABDOMEN: soft. Nontender on exam. Thin, cachectic, non-distended, normoactive bowel sounds. No palpable organomegaly. MUSCULOSKELETAL: No joint swelling or deformity. EXTREMITIES: No cyanosis, clubbing, or pedal edema. NEUROLOGICAL: Gross neurological examination did not reveal any focal deficits. Diffusely weak SKIN: No rashes. Assessment: Shortness of breath with fevers, features of sepsis, present on admission likely secondary to right lower lobe pneumonia, community-acquired Acute hypoxic respiratory failure secondary to above Elevated d-dimer, ruled out PE Chronic obstructive pulmonary disease, acute exacerbation History of heart failure, diastolic dysfunction Hypovolemic hyponatremia, appears to be volume depleted with dehydration, improved Hypokalemia, improving Continued ongoing nicotine abuse History of chronic kidney disease History of hyperlipidemia, unable to tolerate statins hypertension history History of rheumatoid arthritis Mild protein calorie malnutrition with a BMI of 18.0 GI prophylaxis DVT prophylaxis No code Plan: Recommend to continue with current medications and management with pulmonary and infectious disease following. Patient is maintained on IV cefepime along with DuoNeb treatments along with perforomist and Pulmicort Patient currently maintained on 9 L high flow and recommend weaning FiO2 as tolerated. Patient has been afebrile for [address] chest reviewed as mentioned above and pulmonary following discussing possible bronchoscopy if no improvement. Patient did refuse VQ scan and was canceled. CT chest was done showing no PE Recommend repeat labs in the a.m. and continue to replace electrolytes per protocol. Potassium 3.0 and will add daily supplementation Encourage complete tobacco cessation Encouraged oral intake Encouraged increased activity as tolerated Due to multiple complex medical issues, prognosis is guarded Objective - Vital Signs Vital signs: Vital Signs Temp 97.6 F 01/27/23 19:57 Pulse 90 01/27/23 20:34 Resp 20 01/27/23 19:57 BP 138/55 01/27/23 19:57 Pulse Ox 95 01/27/23 19:57 FiO2 Intake & Output 01/27/23 01/27/23 01/28/23 06:59 18:59 06:59 Intake Total 600 480 Output Total 800 Balance 600 -320 Intake: IV 10 Invasive Line 2 10 Oral 590 480 Output: Urine 800 Other: Voiding Method Bedside Commode # Voids 3 # Bowel Movements 1 - Labs CBC & Chem 7: 01/28/23 14:12 01/28/23 14:12 Labs: Abnormal Lab Results - Last 24 Hours (Table) 01/27/23 Range/Units 06:26 Chloride 110 H (98-107) mmol/L Creatinine 1.44 H (0.52-1.04) mg/dL Calcium 8.3 L (8.4-10.2) mg/dL
--- NOTE | 2023-01-29 00:27 | P.PN ---
Subjective Progress Note Date: 01/28/23 This is a pleasant 77-year-old female who presented to the emergency department with daughter and reports she was at her primary care provider's Dr. Farnsworth's office this morning and sent here for further evaluation. Patient has been reporting some shortness of breath and cough with some sputum production the last few days and progressively getting worse. Patient does have past medical history of heart failure, hyperlipidemia, hypertension, previous myocardial infarction, chronic kidney disease, pneumonias along with history of rheumatoid arthritis. Patient denies illicit drug use and continues to smoke about half a pack to a pack per day. Patient denies alcohol use. Daughter reports patient was recently hospitalized approximately a month ago and has not smoked much since. Patient does not wear oxygen in the outpatient setting and currently requiring 3 L of oxygen via nasal cannula. Chest x-ray shows background COPD changes with patchy right lower lobe airspace opacification likely representing pneumonia, EKG showed normal sinus rhythm, and virology testing including Covid, influenza, RSV are negative. White count slightly elevated at 13.2 with a hemoglobin of 12.5, platelets are 189, sodium is 134 with a potassium of 3.4, BUN is 32 with a creatinine of 2.29, BNP is 6480, magnesium is 2.2. Patient was admitted for pneumonia with features of sepsis. We'll place a consult to pu onary and appreciate input and recommendations. 01/23/2023 Patient is seen and evaluated in follow-up this morning continues to be extremely bronchospastic and cough. Patient has received ceftriaxone along with Zithromax with pulmonary following and will consult infectious disease and appreciate input recommendations. Patient continues to have low-grade temps with generalized weakness and fatigue. No reports of nausea or vomiting although patient reports reduced poor oral intake and not much of an appetite. Patient reports she especially does not eat very well when feeling sick. Encou raged oral intake even small meals to keep her strength. Patient is continued on DuoNeb treatments and will add Perforomist and Pulmicort. Recommend follow- up labs in the a.m. 01/24/2023 Patient is seen and evaluated in follow-up continues to be short of breath and congested requiring 10 L high flow oxygen. Pulmonary and infectious disease following and patient is continued on IV antibiotics in the form of cefepime. Sputum culture uncollected and blood cultures thus far are negative. Covid, influenza, RSV were all negative. Will obtain a d-dimer is positive will order CT chest as well as VQ scan as kidney functions are improved although continues to be elevated at 1.74. Recommend replacement of potassium per protocol his potassium is 3.1 today. Pro-calcitonin was found to be 5.08. Urine Legionella was negative. Patient is currently afebrile although was having fevers overnigh t and temperature max this morning was 102.5. Encouraged oral intake and increased activity as tolerated. Recommend follow-up labs in the a.m. 01/25/2023 Patient is seen and evaluated in follow-up this morning being followed by infectious disease along with pulmonary. Patient weaning FiO2 as tolerated although requiring high flow oxygen currently maintained on 9 L. Oxygen saturation 93% and does continue to be dyspneic with exertion. Patient had CT done yesterday of the chest and initially ordered VQ scan as patient had elevated d-dimer although patient is refusing at this time. CT chest showed mild to moderate emphysematous changes with small to tiny bilateral pleural effusions with irregular consolidation with air bronchograms throughout the right lower lobe present abnormal thoracic adenopathy is also seen in warrant follow-up. Patient is continued on breathing treatments along with IV antibiotics and will continue. Patient is afebrile today with no reports of worsening shortness of breath. Patient denies chest pain or palpitations. Patient is tolerating diet and encouraged oral intake. Patient having some overall anxiety will add low-dose Ativan as needed. Pulmonary discussing possible bronchoscopy if no improvement. Encouraged increased activity as tolerated. 01/26/2023 Patient is seen and evaluated in follow-up today currently sitting up at the side of the bed attempting to get dressed and having difficulty having to take multiple breaks due to breathing status. Patient continues to be bronchospastic and severely congested and short of breath with minimal exertion maintained on 9 L high flow. Pulmonary following along with infectious disease and patient is maintained on IV antibiotics in the form of cefepime. Patient also receiving breathing inhalational treatments along with inhalers and will continue. Patient is on inhaled steroid therapy with no real wheezing noted on exam. Would encourage increased activity as tolerated as patient is significantly weak although respiratory status exacerbating this weakness. Patient is afebrile denies chest pain or palpitations. No reports of nausea or vomiting and patient is tolerating oral intake. Needs encouragement with oral intake as she is not eating very much. Patient does have incentive spirometer along with flutter device at the bedside and encourage the patient to continue using as instructed. Potassium slightly low at 3.3 and will replace per protocol as well as adding daily supplementation. Kidney functions trending down and creatinine is currently 1.40 today. 01/27/2023 Patient is currently resting in the bed. Awake alert and oriented x3. Still having exertional dyspnea. No complaints of cough or sputum production. Requiring high flow oxygen at 6 L per nasal cannula. Patient has been afebrile. Chest x-ray this morning showed persistent but improved right lower lobe pneumonia. Trace left pleural effusion with adjacent atelectasis and/or consolidation may be increasing. Laboratory data showed WBC 8.1 hemoglobin 11.3 and platelets 222 BUN 19 and creatinine 1.45 and calcium 8.3. Potassium 3.7. Patient is being continued on antibiotics cefepime. Pulmonary and ID is on board. 01/28/2023 Patient is resting in the bed. Awake alert and oriented x3. Patient states that her breathing status is better compared to yesterday. No complaints of chest pain. No nausea vomiting abdominal pain or diarrhea. Patient has been afebrile. Requiring 4 L oxygen liters oxygen via nasal cannula. Patient is being continued on antibiotics, cefepime. Laboratory data showed WBC 16.5 hemoglobin 9.6 and platelets 524 sodium 136 potassium 4.4 chloride 107 bicarb is 19 BUN 29 and creatinine 1.4 Patient is being current on IV Solu-Medrol, DuoNebs and Pulmicort/Perforomist. Current medications reviewed. Review of systems: Constitutional: reports of fatigue, reports fever, or chills Cardiovascular: No reports of chest pain or palpitations Respiratory: reports of shortness of breath with continued cough, dyspnea with minimal exertion having to take frequent rest periods to do anything GI: No reports of nausea, vomiting, or diarrhea, reports no real appetite : No reports of dysuria or retention Neurovascular: No reports of weakness or numbness All medications have been reviewed PHYSICAL EXAMINATION: GENERAL: The patient is alert and oriented x4, thin built, elderly appearing HEENT: Pupils are round and equally reacting to light. EOMI. no scleral icterus. No conjunctival pallor. Normocephalic, atraumatic. No pharyngeal erythema. No thyromegaly. CARDIOVASCULAR: S1 and S2 muffled PULMONARY: diminished breath sounds bilaterally with no wheezing, some scattered rhonchi noted. Harsh cough and congestion noted on exam ABDOMEN: soft. Nontender on exam. Thin, cachectic, non-distended, normoactive bowel sounds. No palpable organomegaly. MUSCULOSKELETAL: No joint swelling or deformity. EXTREMITIES: No cyanosis, clubbing, or pedal edema. NEUROLOGICAL: Gross neurological examination did not reveal any focal deficits. Diffusely weak SKIN: No rashes. Assessment: Shortness of breath with fevers, features of sepsis, present on admission likely secondary to right lower lobe pneumonia, community-acquired Acute hypoxic respiratory failure secondary to above Elevated d-dimer, ruled out PE Chronic obstructive pulmonary disease, acute exacerbation History of heart failure, diastolic dysfunction Hypovolemic hyponatremia, appears to be volume depleted with dehydration, improved Hypokalemia, improving Continued ongoing nicotine abuse History of chronic kidney disease History of hyperlipidemia, unable to tolerate statins hypertension history History of rheumatoid arthritis Mild protein calorie malnutrition with a BMI of 18.0 GI prophylaxis DVT prophylaxis No code Plan: Recommend to continue with current medications and management with pulmonary and infectious disease following. Patient is maintained on IV cefepime along with DuoNeb treatments along with perforomist and Pulmicort Patient currently maintained on 9 L high flow and recommend weaning FiO2 as tolerated. Patient has been afebrile for [address] chest reviewed as mentioned above and pulmonary following discussing possible bronchoscopy if no improvement. Patient did refuse VQ scan and was canceled. CT chest was done showing no PE Recommend repeat labs in the a.m. and continue to replace electrolytes per protocol. Potassium 3.0 and will add daily supplementation Encourage complete tobacco cessation Encouraged oral intake Encouraged increased activity as tolerated Due to multiple complex medical issues, prognosis is guarded Objective - Vital Signs Vital signs: Vital Signs Temp 97.5 F L 01/28/23 11:57 Pulse 92 01/28/23 16:51 Resp 18 01/28/23 11:57 BP 133/51 01/28/23 11:57 Pulse Ox 94 L 01/28/23 17:24 FiO2 Intake & Output 01/27/23 01/28/23 01/28/23 18:59 06:59 18:59 Intake Total 480 50 Output Total 800 Balance -320 50 Intake: Intake, IV Titration 50 Amount Cefepime 1 gm In Sodium 50 Chloride 0.9% 50 ml @ 12. 5 mls/hr IVPB Q12H [facility] Rx #:[id number] Oral 480 Output: Urine 800 Other: Voiding Method Bedside Commode Bedside Commode # Voids 2 1 # Bowel Movements 1 1 - Labs CBC & Chem 7: 01/28/23 14:12 01/28/23 14:12 Labs: Abnormal Lab Results - Last 24 Hours (Table) 01/28/23 01/28/23 Range/Units 14:12 14:12 WBC 16.5 H (3.8-10.6) k/uL RBC 3.04 L (3.80-5.40) m/uL Hgb 9.6 L D (11.4-16.0) gm/dL Hct 30.3 L (34.0-46.0) % Plt Count 524 H D (150-450) k/uL Neutrophils # 15.6 H (1.3-7.7) k/uL Lymphocytes # 0.5 L (1.0-4.8) k/uL Sodium 136 L (137-145) mmol/L Carbon Dioxide 19 L (22-30) mmol/L BUN 29 H (7-17) mg/dL Creatinine 1.40 H (0.52-1.04) mg/dL Glucose 190 H (74-99) mg/dL Microbiology - Last 24 Hours (Table) 01/26/23 15:44 Gram Stain - Final Sputum Sputum Culture - Final 01/22/23 13:30 Blood Culture - Final Blood 01/22/23 13:15 Blood Culture - Final Blood
[2023-01-29] MEDS: methylPREDNISolone SOD SUCCI 40 MG/ML 1 ML VIAL IV SCH ×2 (00:32→06:15)
[2023-01-29] MEDS: CEFEPIME 1 GM in SODIUM CHLORIDE 0.9% 50 ML IVPB SCH (00:32)
--- NOTE | 2023-01-29 08:00 | XR ---
EXAMINATION TYPE: XR chest 1V portable DATE OF EXAM: 01/29/2023 HISTORY: Shortness of breath. COMPARISON: 01/27/2023 TECHNIQUE: Single view of the chest is submitted. FINDINGS: Demonstrated are scattered senescent parenchymal change. Reticulonodular infiltrate right midlung zone and right lower lobe persists although appear to be imp roving. Improving left basilar opacity as well in addition to a left-sided small pleural effusion. The heart is stable. Hilar and mediastinal structures are within normal limits. Degenerative changes are seen of the dorsal spine. IMPRESSION: 1. Reticulonodular infiltrate right midlung zone and right lower lobe persists although appear to be improving. Improving left basilar opacity as well in addition to a left-sided small pleural effusion .
[2023-01-29] MEDS ORDERED: predniSONE 10 MG TAB PO SCH (09:00)
[2023-01-29] MEDS ORDERED: DOXYCYCLINE 100 MG CAP PO SCH (09:00)
[2023-01-29] MEDS: FORMOTEROL FUMARATE 20 MCG/2 ML NEBU INHALATION SCH (09:07)
[2023-01-29] MEDS: IPRATROPIUM-ALBUTEROL 3 ML NEB INHALATION SCH ×2 (09:07→12:55)
[2023-01-29] MEDS: BUDESONIDE 1 MG/2 ML NEBU INHALATION SCH (09:08)
[2023-01-29] MEDS: ASPIRIN 81 MG PO SCH (09:50)
[2023-01-29] MEDS: amLODIPine 5 MG TAB PO SCH (09:50)
[2023-01-29] MEDS: guaiFENesin 600 MG TABLET.ER PO SCH (09:51)
[2023-01-29] MEDS: CLOPIDOGREL 75 MG TAB PO SCH (09:52)
[2023-01-29] MEDS: ISOSORBIDE MONONITRATE ER 30 MG TAB.ER.24H PO SCH (09:52)
[2023-01-29] MEDS: METOPROLOL TARTRATE 25 MG TAB PO SCH (09:53)
[2023-01-29] MEDS: NICOTINE 21MG/24HR PATCH TRANSDERM SCH ×2 (09:53→10:32)
[2023-01-29] MEDS: HEPARIN SODIUM,PORCINE/PF 5,000 UNIT/0.5 ML SYRINGE SQ SCH (09:54)
[2023-01-29] MEDS: POTASSIUM CHLORIDE ER 20 MEQ TAB.ER PO SCH (10:33)
[2023-01-29 11:08] LABS: Basophils % (A) 0 %; Eosinophils % (A) 0 %; HCT 30.2 % (34.0-46.0); HGB 9.7 gm/dL (11.4-16.0); Hypochromasia Slight; Lymphocytes # (A) 0.5 k/uL (1.0-4.8); Lymphocytes % (A) 3 %; MCH 31.7 pg (25.0-35.0); MCHC 32.1 g/dL (31.0-37.0); MCV 98.8 fL (80.0-100.0); Monocytes # (A) 0.3 k/uL (0-1.0); Monocytes % (A) 2 %; Neutrophils # (A) 16.3 k/uL (1.3-7.7); Neutrophils % (A) 95 %; Platelet Count 572 k/uL (150-450); RBC 3.06 m/uL (3.80-5.40); WBC 17.1 k/uL (3.8-10.6)
[2023-01-29 11:27] LABS: African American GFR (CKD) 39 (>60 ml/min/1.73 sqM); Anion Gap 8 mmol/L; Blood Urea Nitrogen 31 mg/dL (7-17); Calcium 8.6 mg/dL (8.4-10.2); Carbon Dioxide 20 mmol/L (22-30); Chloride 107 mmol/L (98-107); Glucose 197 mg/dL (74-99); Non-African American GFR(CKD) 34 (>60 ml/min/1.73 sqM); Potassium 4.3 mmol/L (3.5-5.1); Sodium 135 mmol/L (137-145)
[2023-01-29 11:32] VITALS: BP 113/59; RESP 20; TEMP 97.6
[2023-01-29 11:58] VITALS: BMI 18.3
--- NOTE | 2023-01-29 12:08 | P.PN ---
Subjective Progress Note Date: 01/29/23 I am seeing this patient in new consultation today 01/23/2023 for suspected right lower lobe pneumonia. Patient is a 77-year-old white female with past medical history significant for diastolic congestive heart failure, mitral regurgitation, coronary artery disease, hypertension, hyperlipidemia, chronic kidney disease stage IV, and PVD. No documented history of COPD, however, she is a lifelong smoker. She continues to smoke 1 pack per day. 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 She was reportedly at her primary care provider's office, Dr. Farnsworth, earlier yesterday morning, and was sent to the emergency room for further evaluation. She has been experiencing shortness of breath with an associated congested cough over the last day or so. She denies any fevers, chills, sputum production, chest pain. Denies any sick contacts. She is currently febrile currently with a T-max of 102.8F. Patient is currently sitting in bed, on 3 L nasal cannula, in no acute distress. Chest x-ray on arrival showed a patchy right lower lobe airspace opacity concerning for pneumonia. Chronic hyperinflation consistent with COPD. CBC on arrival showed some mild leukocytosis with a WBC count of 13.2, hemoglobin 12.5, hematocrit 39, platelets 189. BMP shows sodium 134, potassium 3.4, chloride 99, serum CO2 25, BUN 32, creatinine 2.29, glucose 112. Normal saline is infusing at 75 mL per hour. NT proBNP was elevated at 6180, however, no evidence of CHF exacerbation on chest x-ray. Lactic acid level not elevated. Procalcitonin level is elevated at 6. Patient is currently empirically covered on a combination of Rocephin and Zithromax. She was negative for influenza, RSV, COVID-19. Vital signs are stable The patient is seen today 01/24/2023 in follow-up on the regular medical floor. She is currently sitting up in bed. Awake and alert in no acute distress. She is doing just a bit better today compared to yesterday. Still with significant cough and congestion. Still requiring 10 L high flow nasal cannula. Blood cultures are pending. White count 6.9. Hemoglobin 10.8. Platelets 146. Sodium 135. Potassium 3.1. Total BUN 24. Creatinine 1.74. AST 54. ALT 41. ProCalcitonin 5.08. She is continued on DuoNeb inhalations, Pulmicort and Perforomist inhalations, IV Solu-Medrol. Antibiotics in the form of cefepime. NicoDerm patch remains in place. Heparin for DVT prophylaxis. Continued on Mucinex. The patient is seen today 01/25/2023 in follow-up on the regular medical floor. She is awake and alert in no acute distress. Feeling a bit better today compared to yesterday. Still with a loose cough. Maintaining O2 saturations in the 90s on 9 L high flow nasal cannula. Computed tomography scan of the chest revealed mild to moderate emphysematous changes with small tiny bilateral pleural effusions. Irregular consolidation with air bronchograms throughout the right lower lobe. There is slightly enlarged mediastinal lymph nodes. This x-ray continues to show right mid and lower lobe pneumonia. White count 8.1. Hemoglobin 11.3. Sodium 137. Potassium 3.7. Bicarb 23. BUN 19. Creatinine 1.45. She remains afebrile. Hemodynamically stable. Continued on DuoNeb inhalations, Pulmicort and Perforomist inhalations, antibiotics in the form of cefepime. Heparin for DVT prophylaxis. NicoDerm patch in place. Continued on Mucinex and Robitussin as needed. The patient is seen today 01/26/2023 in follow-up on the regular medical floor. She is sitting up in bed. Awake and alert in no acute distress. She is still somewhat bronchospastic and wheezing. She has a very loose cough. Unable to expectorate. She is requiring 9 L high flow nasal cannula to maintain O2 saturations in the 90s. She's been afebrile. Hemodynamically stable. She is continued on Mucinex, Robitussin, bronchodilators and steroids. She is continued on cefepime. Heparin for DVT prophylaxis. NicoDerm patch in place. She continues to work with the incentive spirometer and flutter valve. Sodium 138. Potassium 3.3. Bicarb 25. BUN 15. Creatinine 1.40. Mycoplasma IgG anti body 1.26. IgM 0.01. The patient is seen today 01/27/2023 in follow-up on the regular medical floor. She is awake and alert in no acute distress. Sitting up in bed. Doing a bit better today compared to yesterday. Her oxygen has been titrated down to 6 L high flow nasal cannula. O2 saturations in the mid 90s. She remains afebrile. Hemodynamically stable. Chest x-ray shows persistent but improving right lower lobe pneumonia. Trace left pleural effusion. Blood cultures reveal no growth. Sodium 140. Potassium 3.8. Bicarb 24. BUN 16. Creatinine 1.44. She remains on DuoNeb inhalations, Pulmicort and performs inhalations, Singulair. Antibiotics in the form of cefepime. Heparin for DVT prophylaxis. NicoDerm patch in place. The patient is seen today 01/28/2023 in follow-up on the regular medical floor. She is currently sitting up in bed. Awake and alert in no acute distress. Breathing a bit easier today compared to yesterday. She is continued on 6 L high flow nasal cannula to maintain O2 saturations in the 90s. She is continued on DuoNeb inhalations, Pulmicort and Perforomist inhalations, IV Solu-Medrol. Remains on antibiotics in the form of cefepime. NicoDerm patch in place. Heparin for DVT prophylaxis. Cultures revealed no growth. No new labs today. Follow-up chest x-ray in a.m. The patient is seen today 01/29/2023 in follow-up on the regular medical floor. She is awake and alert in no acute distress. Breathing better today compared to yesterday. Maintaining O2 saturations in the 90s on 4 L/m per nasal cannula. 0.9 normal saline at KVO. Chest x-ray showing improved aeration in the right midlung and lower lobe infiltrates. Blood culture reveals no growth. Sputum culture revealed no growth. White count 17.1. Hemoglobin 9.7. Sodium 135. Potassium 4.3. Bicarb 20. BUN 31. Creatinine 1.47. Glucose 197. She is continued on DuoNeb inhalations, Pulmicort and performs inhalations, Singulair. Antibiotics in the form of cefepime. NicoDerm patch in place. Objective - Vital Signs Vital signs: Vital Signs Temp 97.6 F 01/29/23 11:31 Pulse 75 01/29/23 11:31 Resp 20 01/29/23 11:31 BP 113/59 01/29/23 11:31 Pulse Ox 92 L 01/29/23 11:31 FiO2 Intake & Output 01/28/23 01/29/23 01/29/23 18:59 06:59 18:59 Intake Total 50 Balance 50 Intake: Intake, IV Titration 50 Amount Cefepime 1 gm In Sodium 50 Chloride 0.9% 50 ml @ 12. 5 mls/hr IVPB Q12H [facility] Rx #:[id number] Other: Voiding Method Bedside Commode Bedside Commode Bedside Commode # Voids 1 2 # Bowel Movements 1 - Exam GENERAL EXAM: Alert, pleasant 77-year-old female, on 4 L high flow nasal cannula, comfortable in no apparent distress. HEAD: Normocephalic. EYES: Normal reaction of pupils, equal size. NOSE: Clear with pink turbinates. THROAT: No erythema or exudates. NECK: No masses, no JVD. CHEST: No chest wall deformity. LUNGS: Equal air entry with bilateral coarse rhonchi more so on the right lung base. CVS: S1 and S2 normal with no audible murmur, regular rhythm. ABDOMEN: No hepatosplenomegaly, normal bowel sounds, no guarding or rigidity. SPINE: Kyphosis SKIN: No rashes CENTRAL NERVOUS SYSTEM: No focal deficits, tone is normal in all 4 extremities. EXTREMITIES: There is no peripheral edema. No clubbing, no cyanosis. Peripheral pulses are intact. - Labs CBC & Chem 7: 01/29/23 10:41 01/29/23 10:41 Labs: Abnormal Lab Results - Last 24 Hours (Table) 01/28/23 01/28/23 01/29/23 Range/Units 14:12 14:12 10:41 WBC 16.5 H 17.1 H (3.8-10.6) k/uL RBC 3.04 L 3.06 L (3.80-5.40) m/uL Hgb 9.6 L D 9.7 L (11.4-16.0) gm/dL Hct 30.3 L 30.2 L (34.0-46.0) % Plt Count 524 H D 572 H (150-450) k/uL Neutrophils # 15.6 H 16.3 H (1.3-7.7) k/uL Lymphocytes # 0.5 L 0.5 L (1.0-4.8) k/uL Sodium 136 L (137-145) mmol/L Carbon Dioxide 19 L (22-30) mmol/L BUN 29 H (7-17) mg/dL Creatinine 1.40 H (0.52-1.04) mg/dL Glucose 190 H (74-99) mg/dL 01/29/23 Range/Units 10:41 WBC (3.8-10.6) k/uL RBC (3.80-5.40) m/uL Hgb (11.4-16.0) gm/dL Hct (34.0-46.0) % Plt Count (150-450) k/uL Neutrophils # (1.3-7.7) k/uL Lymphocytes # (1.0-4.8) k/uL Sodium 135 L (137-145) mmol/L Carbon Dioxide 20 L (22-30) mmol/L BUN 31 H (7-17) mg/dL Creatinine 1.47 H (0.52-1.04) mg/dL Glucose 197 H (74-99) mg/dL Microbiology - Last 24 Hours (Table) 01/26/23 15:44 Gram Stain - Final Sputum Sputum Culture - Final Assessment and Plan Assessment: Community-acquired right lower lobe pneumonia. Chest x-ray continues to show persistent but improving right lower lobe infiltrate. Remains on cefepime Suspected COPD exacerbation secondary to above. No documented history of COPD, however, there is chronic hyperinflation seen on chest x-ray consistent with COPD. She is slightly bronchospastic on physical examination. Acute hypoxemic respiratory failure secondary to above, currently on 6 L nasal cannula Coronary artery disease History of diastolic congestive heart failure with moderate to severe mitral regurgitation, stable Essential hypertension Hyperlipidemia Chronic kidney disease stage IV History peripheral vascular disease Chronic nicotine dependence. Smokes approximately 1 pack per day, and she is trying to cut back History of abdominal aortic aneurysm repair with stent Plan: The patient was seen and evaluated Chest x-ray, labs and medications reviewed Improving and down to 4 L high flow nasal cannula She is anxious to go home Test for possible home oxygen Discontinue cefepime Add doxycycline 5 more days Continue DuoNeb inhalations, Pulmicort inhalations Again educated regarding the importance of complete smoking cessation Continue with NicoDerm patch Follow-up in our office in 1 week I have personally seen and examined the patient, performed the documentation and the assessment and plan as written. Number of minutes spent on the visit: 10.
[2023-01-29 13:09] VITALS: PULSE 90
--- NOTE | 2023-01-30 11:11 | P.DS ---
Providers Date of admission: 01/22/23 14:02 Expected date of discharge: 01/29/23 Attending physician: Darcy Graves Consults: 01/22/23 23:12 Consult Physician Routine Consulting Provider: Kate Villagomez Consult Reason/Comments: PNA, sepsis, copd Do you want consulting provider notified?: Yes 01/23/23 12:55 Consult Physician Urgent Consulting Provider: Sina Anton Consult Reason/Comments: pna, sepsis Do you want consulting provider notified?: Yes Primary care physician: Agustín Farnsworth Hospital Course: Final diagnosis Shortness of breath with fevers, features of sepsis, present on admission likely secondary to right lower lobe pneumonia, community-acquired Acute hypoxic respiratory failure secondary to above Elevated d-dimer, ruled out PE Chronic obstructive pulmonary disease, acute exacerbation History of heart failure, diastolic dysfunction Hypovolemic hyponatremia, appears to be volume depleted with dehydration, improved Hypokalemia, improving Continued ongoing nicotine abuse History of chronic kidney disease History of hyperlipidemia, unable to tolerate statins hypertension history History of rheumatoid arthritis Mild protein calorie malnutrition with a BMI of 18.0 GI prophylaxis DVT prophylaxis No code Discharge disposition Patient is being discharged in a stable condition with guarded prognosis to home. Patient will follow-up with Dr. Farnsworth in the outpatient setting upon discharge. Patient is to continue with prednisone taper along with oral Avelox daily for the next week and close outpatient follow-up with pulmonary as scheduled. Total time taken is greater than 35 minutes. Hospital course This is a 77-year-old female who was recently admitted with increased shortness of breath and sent from primary care provider's office with hypoxic respiratory failure secondary to right lower lobe pneumonia as well as COPD. Multiple medical consultations following including pulmonary and patient requiring high flow oxygen. Patient currently titrated down to 4 L and will require oxygen to manage COPD. Patient also to continue on breathing inhalational treatments along with DuoNeb treatments and a prednisone taper and has been transitioned to Avelox per infectious disease recommendations. Recommend close outpatient follow-up. Patient has been cleared by consultations for discharge today. Please refer to other consultation notes for further HPI. Strongly recommend complete tobacco cessation as well as exposure to and patient to follow-up with pulmonary outpatient once more stable and undergo further testing. Currently no reports of chest pain, worsening shortness of breath, or palpitations. Patient is afebrile. No reports of nausea or vomiting and patient is tolerating diet. Patient will be discharged home today. Physical exam: Gen: This is a 77-year-old female who is awake, alert and oriented 3, thin built, elderly appearing HEENT: Head is atraumatic, normocephalic. Pupils equal, round. Sclerae is anicteric. NECK: Supple. No JVD. No lymphadenopathy. No thyromegaly. LUNGS: Diminished breath sounds bilaterally with some scattered coarse rhonchi noted. No intercostal retractions. HEART: S1, S2 are muffled ABDOMEN: Soft. Bowel sounds are present. No masses. No tenderness. EXTREMITIES: No pedal edema. No calf tenderness. NEUROLOGICAL: Patient is awake, alert and oriented x3. Cranial nerves 2 through 12 are grossly intact. Please refer to medication reconciliation sheet for a list of medications. The impression and plan of care has been dictated by Beena Mccann, Nurse Practitioner as directed. Dr. Salvador MD I have performed a history and examination and MDM of this patient, discussed the same with the dictator, and agree with the dictator's assessment and plan as written ,documented as a scribe. Based on total visit time, I have performed more than 50% of the visit. Patient Condition at Discharge: Fair Plan - Discharge Summary Discharge Rx Participant: No New Discharge Prescriptions: New Ipratropium-Albuterol Nebulize [Duoneb 0.5 mg-3 mg/3 ml Soln] 3 ml INHALATION RT-Q4H PRN each PRN Reason: shortness of breath Montelukast [Singulair] 10 mg PO HS #30 tab Moxifloxacin HCl [Avelox] 400 mg PO DAILY #7 tab Ipratropium-Albuterol Nebulize [Duoneb 0.5 mg-3 mg/3 ml Soln] 3 ml INHALATION RT-QID 30 Days #120 each Nicotine 21Mg/24Hr Patch [Habitrol] 1 patch TRANSDERM DAILY #30 patch guaiFENesin [Mucinex] 600 mg PO Q12HR 10 Days #20 tab amLODIPine [Norvasc] 5 mg PO DAILY #30 tab guaiFENesin SYRUP 100MG/5ML [Robitussin] 200 mg PO Q6HR PRN #120 ml PRN Reason: Cough Acetaminophen Tab [Tylenol] 650 mg PO Q4HR PRN tab PRN Reason: Fever And/ Or Pain predniSONE 10 mg PO DIRECTED #24 tab Budesonide 1 mg INHALATION BID 30 Days #60 each Continue Aspirin 81 mg PO DAILY #30 chew Isosorbide Mononitrate ER [Imdur] 30 mg PO DAILY #30 tab.er.24h Metoprolol Tartrate [Lopressor] 25 mg PO TID #90 tab Temazepam [Restoril] 15 mg PO HS Famotidine [Pepcid] 20 mg PO BID Clopidogrel [Plavix] 75 mg PO DAILY Discontinued amLODIPine [Norvasc] 10 mg PO DAILY #30 tab Furosemide [Lasix] 20 mg PO DAILY hydrALAZINE HCL [Apresoline] 25 mg PO TID Discharge Medication List Aspirin 81 mg PO DAILY #30 chew 09/20/20 [Rx] Isosorbide Mononitrate ER [Imdur] 30 mg PO DAILY #30 tab.er.24h 09/20/20 [Rx] Metoprolol Tartrate [Lopressor] 25 mg PO TID #90 tab 09/20/20 [Rx] Clopidogrel [Plavix] 75 mg PO DAILY 03/25/21 [History] Famotidine [Pepcid] 20 mg PO BID 03/25/21 [History] Temazepam [Restoril] 15 mg PO HS 03/25/21 [History] Acetaminophen Tab [Tylenol] 650 mg PO Q4HR PRN tab 01/29/23 [Rx] Ipratropium-Albuterol Nebulize [Duoneb 0.5 mg-3 mg/3 ml Soln] 3 ml INHALATION RT-Q4H PRN each 01/29/23 [Rx] Ipratropium-Albuterol Nebulize [Duoneb 0.5 mg-3 mg/3 ml Soln] 3 ml INHALATION RT-QID 30 Days #120 each 01/29/23 [Rx] Montelukast [Singulair] 10 mg PO HS #30 tab 01/29/23 [Rx] Moxifloxacin HCl [Avelox] 400 mg PO DAILY #7 tab 01/29/23 [Rx] Nicotine 21Mg/24Hr Patch [Habitrol] 1 patch TRANSDERM DAILY #30 patch 01/29/23 [Rx] amLODIPine [Norvasc] 5 mg PO DAILY #30 tab 01/29/23 [Rx] guaiFENesin SYRUP 100MG/5ML [Robitussin] 200 mg PO Q6HR PRN #120 ml 01/29/23 [Rx] guaiFENesin [Mucinex] 600 mg PO Q12HR 10 Days #20 tab 01/29/23 [Rx] predniSONE 10 mg PO DIRECTED #24 tab 01/29/23 [Rx] Budesonide 1 mg INHALATION BID 30 Days #60 each 01/30/23 [Rx] Follow up Appointment(s)/Referral(s): Agustín Farnsworth MD [Primary Care Provider] - 02/01/23 10:10 am Kate Villagomez MD [STAFF PHYSICIAN] - 02/06/23 1:45 pm [facility] [NON-STAFF] - 1 Week [facility], [NON-STAFF] - 1 Week Ambulatory/Diagnostic Orders: Basic Metabolic Panel [LAB.AMB] Time Frame: 3 Days, Location: None Selected Activity/Diet/Wound Care/Special Instructions: Activity Limited until follow-up Follow-up with primary care provider discharge Follow-up with pulmonary outpatient in 1-2 weeks Continue taking medication as prescribed Continue with oxygen on discharge to manage COPD via nasal cannula at 4 L Discharge Disposition: HOME WITH HOME HEALTH SERVICES
== END 2023-01-29 15:39 | disposition home health service (06) | DRG 871 ==
LOC: EC 12:11 → 5NMEDONC 14:02
PROVIDERS: ADMIT Hospitalist; ATTEND Hospitalist
DX: A41.9 Sepsis, unspecified organism (principal); J18.9 Pneumonia, unspecified organism; J96.01 Acute respiratory failure with hypoxia; E44.1 Mild protein-calorie malnutrition; Z68.1 Body mass index [BMI] 19.9 or less, adult; I50.32 Chronic diastolic (congestive) heart failure; I13.0 Hypertensive heart and chronic kidney disease with heart failure and stage 1 through stage 4 chronic kidney disease, or unspecified chronic kidney disease; E87.1 Hypo-osmolality and hyponatremia; N18.4 Chronic kidney disease, stage 4 (severe); J44.0 Chronic obstructive pulmonary disease with (acute) lower respiratory infection; J44.1 Chronic obstructive pulmonary disease with (acute) exacerbation; M06.9 Rheumatoid arthritis, unspecified; I73.9 Peripheral vascular disease, unspecified; Z66 Do not resuscitate; Z20.822 Contact with and (suspected) exposure to COVID-19; Z28.310 Unvaccinated for COVID-19; I34.0 Nonrheumatic mitral (valve) insufficiency; E87.6 Hypokalemia; E86.1 Hypovolemia; E86.0 Dehydration; E78.5 Hyperlipidemia, unspecified; I25.10 Atherosclerotic heart disease of native coronary artery without angina pectoris; I25.2 Old myocardial infarction; F41.9 Anxiety disorder, unspecified; G89.29 Other chronic pain; M50.30 Other cervical disc degeneration, unspecified cervical region; R59.0 Localized enlarged lymph nodes; F17.210 Nicotine dependence, cigarettes, uncomplicated; Z71.6 Tobacco abuse counseling; Z79.82 Long term (current) use of aspirin; Z79.02 Long term (current) use of antithrombotics/antiplatelets; Z79.899 Other long term (current) drug therapy; Z85.828 Personal history of other malignant neoplasm of skin; Z86.79 Personal history of other diseases of the circulatory system; Z96.0 Presence of urogenital implants; Z71.3 Dietary counseling and surveillance; Z88.0 Allergy status to penicillin; Z88.5 Allergy status to narcotic agent; Z88.8 Allergy status to other drugs, medicaments and biological substances
CPT/HCPCS: 36415; 71045; 71046; 71250; 80048; 80053; 83605; 83735; 83880; 84132; 84145; 85025; 85379; 85610; 85730; 86140; 86738; 87040; 87070; 87205; 87449; 87636; 93005; 94640; 94667; 94760; 96365; 96367; 96368; 99291

== ENCOUNTER 2024-02-16 19:09 | Emergency (ER) | payer MEDICARE, BC ==
[2024-02-16 19:28] VITALS: PULSE 94; RESP 18
[2024-02-16] MEDS: OXYMETAZOLINE 0.05% NASL SPRAY 1 SPRAY BOTTLE NASAL STA (19:54)
[2024-02-16] MEDS: SILVER NITRATE APPLICATOR 1 EACH STICK..EA. TOPICAL STA (19:54)
--- NOTE | 2024-02-16 20:03 | ED ---
ENT HPI - General Chief complaint: ENT Stated complaint: nose bleed Time Seen by Provider: 02/16/24 19:33 Source: patient Mode of arrival: ambulatory - History of Present Illness Initial comments: 78-year-old female presenting with chief complaint of nosebleed. Patient has had several nosebleeds over the last 3 weeks. She denies any injury or trauma. She is on Plavix and aspirin. There is no bleeding currently. She denies any pain. No dizziness or weakness. - Related Data Home Medications Medication Instructions Recorded Confirmed Clopidogrel [Plavix] 75 mg PO DAILY 03/25/21 08/23/23 Famotidine [Pepcid] 20 mg PO BID 03/25/21 08/23/23 Temazepam [Restoril] 15 mg PO HS 03/25/21 08/23/23 Previous Rx's Medication Instructions Recorded Aspirin 81 mg PO DAILY #30 chew 09/20/20 Isosorbide Mononitrate ER [Imdur] 30 mg PO DAILY #30 tab.er.24h 09/20/20 Metoprolol Tartrate [Lopressor] 25 mg PO TID #90 tab 09/20/20 amLODIPine [Norvasc] 5 mg PO DAILY #30 tab 01/29/23 Allergies Allergy/AdvReac Type Severity Reaction Status Date / Time codeine Allergy Rash/Hives Verified 02/16/24 19:28 morphine Allergy Rash/Hives Verified 02/16/24 19:28 Penicillins Allergy Rash/Hives Verified 02/16/24 19:28 [id number]-CmJ Reductase Allergy Itching Verified 02/16/24 19:28 Inhibitor [Jumpsgj-Ouq-Dtu Reductase Inhibitor] any cholesterol medications Allergy Itching Uncoded 02/16/24 19:28 Review of Systems ROS Statement: Those systems with pertinent positive or pertinent negative responses have been documented in the HPI. ROS Other: All systems not noted in ROS Statement are negative. Past Medical History Past Medical History: Cancer, Heart Failure, Hyperlipidemia, Hypertension, Pneumonia, Renal Disease Additional Past Medical History / Comment(s): acute kidney injury/cervical pain, hyperlipidemia but cannot tolerate statins, skin cancer-nose, rheumatoid arthritis, diverticulitis with sepsis, abdominal aneursym, degenerative disc disease/chronic pain at cervical spine, CHF, kidney failure Last Myocardial Infarction Date:: unknown History of Any Multi-Drug Resistant Organisms: None Reported Past Surgical History: Adenoidectomy, Appendectomy, Cholecystectomy, Hysterectomy, Orthopedic Surgery, Tonsillectomy Additional Past Surgical History / Comment(s): L knee arthroscopy d/t effusion, R wrist ganglion cyst surgeries x 3, skin cancer removed from nose, bilateral cataract removals/lens implants. stents, EVAR with bilateral renal stent chimneys, attempted aneurysm repair 06/08 Past Anesthesia/Blood Transfusion Reactions: No Reported Reaction Additional Past Anesthesia/Blood Transfusion Reaction / Comment(s): CHILDREN=PONV Past Psychological History: No Psychological Hx Reported Smoking Status: Current every day smoker Past Alcohol Use History: None Reported Past Drug Use History: None Reported - Past Family History Mother Family Medical History: Dementia Father History Unknown: Yes Family Medical History: No Reported History Daughter(s) Family Medical History: Cancer Additional Family Medical History / Comment(s): Daughter survived breast cancer. General Exam Limitations: no limitations General appearance: alert, in no apparent distress Head exam: Present: atraumatic, normocephalic Eye exam: Present: normal appearance, EOMI ENT exam: Present: normal oropharynx, mucous membranes moist, other (Patient has no active nosebleed. I see 1 scabbed lesion that may be where the bleeding was coming from,) Neck exam: Present: normal inspection. Absent: meningismus Respiratory exam: Absent: respiratory distress Cardiovascular Exam: Present: regular rate Neurological exam: Present: alert, oriented X3 Psychiatric exam: Present: normal affect, normal mood Skin exam: Present: warm, dry Course Vital Signs 02/16/24 02/16/24 19:22 20:33 Temperature 98.4 F 98.6 F Pulse Rate 94 94 Respiratory 18 18 Rate Blood Pressure 128/70 148/76 O2 Sat by Pulse 97 95 Oximetry Medical Decision Making - Medical Decision Making Was pt. sent in by a medical professional or institution (, PA, [employer], urgent care, hospital, or residential...) When possible be specific @ -No Did you speak to anyone other than the patient for history (EMS, parent, family, police, friend...)? What history was obtained from this source @ -No Did you review nursing and triage notes (agree or disagree)? Why? @ -I reviewed and agree with nursing and triage notes Were old charts reviewed (outside hosp., previous admission, EMS record, old EKG, old radiological studies, urgent care reports/EKG's, residential records)? Report findings @ -No old charts were reviewed Differential Diagnosis (chest pain, altered mental status, abdominal pain women, abdominal pain men, vaginal bleeding, weakness, fever, dyspnea, syncope, headache, dizziness, GI bleed, back pain, seizure, CVA, palpatations, mental health, musculoskeletal)? @ -Differential includes trauma induced, vascular malformation, structural malformation, this is not an all-inclusive list EKG interpreted by me (3pts min.). @ -As above X-rays interpreted by me (1pt min.). @ -None done CT interpreted by me (1pt min.). @ -None done U/S interpreted by me (1pt. min.). @ -None done What testing was considered but not performed or refused? (CT, X-rays, U/S, labs)? Why? @ -None What meds were considered but not given or refused? Why? @ -None Did you discuss the management of the patient with other professionals (professionals i.e. , PA, [employer], lab, RT, psych nurse, manager social work, straight knife machine cutter, teacher, press officer, manager garage)? Give summary @ -No Was smoking cessation discussed for >3mins.? @ -No Was critical care preformed (if so, how long)? @ -No Were there social determinants of health that impacted care today? How? (Homelessness, low income, unemployed, alcoholism, drug addiction, transportation, low edu. Level, literacy, decrease access to med. care, penitentiary, rehab)? @ -No Was there de-escalation of care discussed even if they declined (Discuss DNR or withdrawal of care, Hospice)? DNR status @ -No What co-morbidities impacted this encounter? (DM, HTN, Smoking, COPD, CAD, Cancer, CVA, ARF, Chemo, Hep., AIDS, mental health diagnosis, sleep apnea, morbid obesity)? @ -None Was patient admitted / discharged? Hospital course, mention meds given and route, prescriptions, significant lab abnormalities, going to OR and other pertinent info. @ -78-year-old female presenting with chief complaint of nosebleed. No nosebleed currently. She has had recurrent nosebleeds for the last 3 weeks. On exam I see 1 small scabbed over lesion that may be where the bleeding has been coming from. Patient is insistent that I cauterized this area. Silver nitrate is used to cauterize the area. Prior to the procedure the patient was vigorously rubbing her nose with a tissue. I educated the patient on avoiding touching her nose, do not blow your nose or insert anything into your nose. She is provided with ENT follow-up. Provided with Afrin and nasal clamp for home. Discharged home. Follow-up with PCP. Report back to ER with any new or worsening symptoms. Discussed return parameters and answered all questions. Patient conveyed verbal understanding and agreed to the plan. I discussed this case in detail with my attending Dr. Nash Undiagnosed new problem with uncertain prognosis? @ -No Drug Therapy requiring intensive monitoring for toxicity (Heparin, Nitro, Insulin, Cardizem)? @ -No Were any procedures done? @ -No Diagnosis/symptom? @ -Epistaxis Acute, or Chronic, or Acute on Chronic? @ -Acute Uncomplicated (without systemic symptoms) or Complicated (systemic symptoms)? @ -Uncomplicated Side effects of treatment? @ -No Exacerbation, Progression, or Severe Exacerbation? @ -No Poses a threat to life or bodily function? How? (Chest pain, [place], NH, pneumonia, PE, COPD, DKA, ARF, appy, cholecystitis, CVA, Diverticulitis, Homicidal, Suicidal, threat to staff... and all critical care pts) @ -No Disposition Clinical Impression: Epistaxis Disposition: HOME SELF-CARE Condition: Good Instructions (If sedation given, give patient instructions): Nosebleed (ED) Additional Instructions: Follow-up with ENT. Report back to ER with any new or worsening symptoms. In the event of a nosebleed at home blow your nose to clear the nostrils of any clots, apply 2 pumps of nasal spray to the affected nostril, and then apply the nasal clamp. Set a timer for 20 minutes, afterwards the bleeding should stop or significantly slow. Otherwise avoid blowing your nose or touching or inserting anything into the nostrils Is patient prescribed a controlled substance at d/c from ED?: No Referrals: Agustín Farnsworth MD [Primary Care Provider] - 1-2 days Tyler Ponce MD [STAFF PHYSICIAN] - 1-2 days Time of Disposition: 20:02
[2024-02-16 20:34] VITALS: BP 148/76; TEMP 98.6
== END 2024-02-16 20:34 | disposition home or self-care (01) ==
LOC: EC 19:09
DX: R04.0 Epistaxis (principal); F17.200 Nicotine dependence, unspecified, uncomplicated; Z88.0 Allergy status to penicillin; Z88.5 Allergy status to narcotic agent; Z88.8 Allergy status to other drugs, medicaments and biological substances
CPT/HCPCS: 99283

== ENCOUNTER 2024-11-22 19:49 | Inpatient (IN) | payer MEDICARE, BC ==
--- NOTE | 2024-11-22 19:59 | ED ---
SOB HPI - General Chief Complaint: Shortness of Breath Stated Complaint: Pneumonia Time Seen by Provider: 11/22/24 19:58 Source: patient, RN notes reviewed, old records reviewed Mode of arrival: ambulatory Limitations: no limitations - History of Present Illness Initial Comments: This is a 79 female to the ER for severe COPD exacerbation coughing fits that resulted in significant shortness of breath occasional chest pain during these coughing fits and cannot catch her breath. Patient has no travel no sick contacts no other complaints MD Complaint: shortness of breath, cough -: days(s) Radiation: back Severity: moderate Severity scale (1-10): 7 Quality: dull Consistency: constant Improves With: nothing Worsens With: nothing Known History Of: COPD, congestive heart failure Context: recent URI, recent illness Associated Symptoms: cough, sputum production Treatments Prior to Arrival: none - Related Data Home Medications Medication Instructions Recorded Confirmed Clopidogrel [Plavix] 75 mg PO DAILY 03/25/21 04/30/24 Famotidine [Pepcid] 20 mg PO BID 03/25/21 04/30/24 Temazepam [Restoril] 15 mg PO HS 03/25/21 04/30/24 Furosemide [Lasix] 20 mg PO DAILY 04/30/24 04/30/24 amLODIPine [Norvasc] 10 mg PO DAILY 04/30/24 04/30/24 hydrALAZINE HCL 25 mg PO TID 04/30/24 04/30/24 Previous Rx's Medication Instructions Recorded Aspirin 81 mg PO DAILY #30 chew 09/20/20 Isosorbide Mononitrate ER [Imdur] 30 mg PO DAILY #30 tab.er.24h 09/20/20 Metoprolol Tartrate [Lopressor] 25 mg PO TID #90 tab 09/20/20 Allergies Allergy/AdvReac Type Severity Reaction Status Date / Time codeine Allergy Rash/Hives Verified 11/22/24 19:55 morphine Allergy Rash/Hives Verified 11/22/24 19:55 Penicillins Allergy Rash/Hives Verified 11/22/24 19:55 Rmbpeuj-JEF-KrB Reductase Allergy Itching Verified 11/22/24 19:55 Inhibitor [Btyghur-Zxe-Sje Reductase Inhibitor] any cholesterol medications Allergy Itching Uncoded 11/22/24 19:55 Review of Systems ROS Statement: Those systems with pertinent positive or pertinent negative responses have been documented in the HPI. ROS Other: All systems not noted in ROS Statement are negative. Past Medical History Past Medical History: Cancer, Heart Failure, Hyperlipidemia, Hypertension, Pneumonia, Renal Disease Additional Past Medical History / Comment(s): acute kidney injury/cervical pain, hyperlipidemia but cannot tolerate statins, skin cancer-nose, rheumatoid arthritis, diverticulitis with sepsis, abdominal aneursym, degenerative disc disease/chronic pain at cervical spine, CHF, kidney failure Last Myocardial Infarction Date:: unknown History of Any Multi-Drug Resistant Organisms: None Reported Past Surgical History: Adenoidectomy, Appendectomy, Cholecystectomy, Hysterectomy, Orthopedic Surgery, Tonsillectomy Additional Past Surgical History / Comment(s): L knee arthroscopy d/t effusion, R wrist ganglion cyst surgeries x 3, skin cancer removed from nose, bilateral cataract removals/lens implants. stents, EVAR with bilateral renal stent chimneys, attempted aneurysm repair 06/08 Past Anesthesia/Blood Transfusion Reactions: No Reported Reaction Additional Past Anesthesia/Blood Transfusion Reaction / Comment(s): CHILDREN=PONV Past Psychological History: No Psychological Hx Reported Smoking Status: Current every day smoker Past Alcohol Use History: None Reported Past Drug Use History: None Reported - Past Family History Mother Family Medical History: Dementia Father History Unknown: Yes Family Medical History: No Reported History Daughter(s) Family Medical History: Cancer Additional Family Medical History / Comment(s): Daughter survived breast cancer. General Exam Limitations: no limitations General appearance: alert, in no apparent distress, anxious Head exam: Present: atraumatic, normocephalic, normal inspection Eye exam: Present: normal appearance, PERRL, EOMI. Absent: scleral icterus, conjunctival injection, periorbital swelling ENT exam: Present: normal exam, mucous membranes moist Neck exam: Present: normal inspection. Absent: tenderness, meningismus, lymphadenopathy Respiratory exam: Present: normal lung sounds bilaterally. Absent: respiratory distress, wheezes, rales, rhonchi, stridor Cardiovascular Exam: Present: regular rate, normal rhythm, tachycardia, normal heart sounds. Absent: systolic murmur, diastolic murmur, rubs, gallop, clicks GI/Abdominal exam: Present: soft, normal bowel sounds. Absent: distended, tenderness, guarding, rebound, rigid Extremities exam: Present: normal inspection, full ROM, normal capillary refill. Absent: tenderness, pedal edema, joint swelling, calf tenderness Back exam: Present: normal inspection Neurological exam: Present: alert, oriented X3, CN II-XII intact Psychiatric exam: Present: normal affect, normal mood Skin exam: Present: warm, dry, intact, normal color. Absent: rash Course Vital Signs 11/22/24 11/22/24 11/22/24 19:53 20:20 20:37 Temperature 99.3 F Pulse Rate 100 100 Respiratory 26 H 20 Rate Blood Pressure 130/67 O2 Sat by Pulse 88 L Oximetry 11/22/24 11/22/24 20:48 22:41 Temperature Pulse Rate 105 H 102 H Respiratory 18 Rate Blood Pressure 129/55 O2 Sat by Pulse 93 L Oximetry - Reevaluation(s) Reevaluation #1: 11/22/24 21:59 Medical records review prescription Reevaluation #2: 11/22/24 21:59 Patient symptoms unchanged Minimal improvement after first breathing treatment Patient continues to have coughing fits and coughing exacerbations that she cannot stop during these events she does get borderline hypoxic she is not currently on home O2 which she was stopped, patient requiring h supplemental e O2 here in the ER Reevaluation #3: 11/22/24 21:59 Patient informed of results questions answered Reevaluation #4: Was pt. sent in by a medical professional or institution (, PA, GENERAL [employer]GER [employer], urgent care, hospital, or skilled nursing...) When possible be specific @ -no Did you speak to anyone other than the patient for history (EMS, parent, family, police, friend...)? What history was obtained from this source @ -no Did you review nursing and triage notes (agree or disagree)? Why? @ -agree Are old charts reviewed (outside hosp., previous admission, EMS record, old EKG, old radiological studies, urgent care reports/EKG's, skilled nursing records)? Report findings @ -yes Differential Diagnosis (chest pain, altered mental status, abdominal pain women, abdominal pain men, vaginal bleeding, weakness, fever, dyspnea, syncope, headache, dizziness, GI bleed, back pain, seizure, CVA, palpatations, mental health, musculoskeletal)? @ -prior EKG interpreted by me (3pts min.). @ -yes X-rays interpreted by me (1pt min.). @ -yes negative for acute disease CT interpreted by me (1pt min.). @ -no U/S interpreted by me (1pt. min.). @ -no What testing was considered but not performed or refused? (CT, X-rays, U/S, labs)? Why? @ -none What meds were considered but not given or refused? Why? @ -none Did you discuss the management of the patient with other professionals (professionals i.e. DrViridiana, PA, [employer], lab, RT, psych nurse, social and political studies professor, table maker, teacher, chief security officer, manager of case management)? Give summary @ -no Was smoking cessation discussed for >3mins.? @ -no Was critical care preformed (if so, how long)? @ -no Were there social determinants of health that impacted care today? How? (Ho melessness, low income, unemployed, alcoholism, drug addiction, transportation, low edu. Level, literacy, decrease access to med. care, skilled nursing, rehab)? @ -none Was there de-escalation of care discussed even if they declined (Discuss DNR or withdrawal of care, Hospice)? DNR status @ -no What co-morbidities impacted this encounter? (DM, HTN, Smoking, COPD, CAD, Cancer, CVA, ARF, Chemo, Hep., AIDS, mental health diagnosis, sleep apnea, morbid obesity)? @ -none Was patient admitted / discharged? Hospital course, mention meds given and route, prescriptions, significant lab abnormalities, going to OR and other pertinent info. @ - Undiagnosed new problem with uncertain prognosis? @ -no Drug Therapy requiring intensive monitoring for toxicity (Heparin, Nitro, Insulin, Cardizem)? @ -no Were any procedures done? @ -no Diagnosis/symptom? @ - Acute, or Chronic, or Acute on Chronic? @ -Acute Uncomplicated (without systemic symptoms) or Complicated (systemic symptoms)? @ -Complicated Side effects of treatment? @ -no Exacerbation, Progression, or Severe Exacerbation? @ -exacerbation Poses a threat to life or bodily function? How? (Chest pain, [place], [place], pneumonia, PE, COPD, DKA, ARF, appy, cholecystitis, CVA, Diverticulitis, Homicidal, Suicidal, threat to staff... and all critical care pts) @ -yes Reevaluation #5: Differential Dyspnea: Coronary syndrome, arrhythmia, tamponade, asthma, COPD, pulmonary embolism, pneumonia, pneumothorax, pulmonary effusion, anaphylaxis, diabetic ketoacidosis, flailed chest, pulmonary contusion, diaphragmatic rupture, anemia, neuromuscular, this is not meant to be an all-inclusive list. - Consultations Consultation #1: Spoke with [facility] who agrees to admit the patient Medical Decision Making - Medical Decision Making 79 female to the ER for evaluation of hypoxic respiratory failure COPD exacerbation with acute bronchitis, patient presents today for evaluation of severe COPD pulmonary edema and pleural effusions [facility] for hypoxic respiratory failure suspected along pneumonia with severely elevated white blood cell count - Lab Data Result diagrams: 11/22/24 20:09 11/22/24 20:09 Lab Results 11/22/24 11/22/24 11/22/24 Range/Units 20:09 20:09 20:09 WBC 18.7 H (3.8-10.6) k/uL RBC 4.51 (3.80-5.40) m/uL Hgb 13.4 (11.4-16.0) gm/dL Hct 42.4 (34.0-46.0) % MCV 94.2 (80.0-100.0) fL MCH 29.7 (25.0-35.0) pg MCHC 31.5 (31.0-37.0) g/dL RDW 13.6 (11.5-15.5) % Plt Count 405 (150-450) k/uL MPV 7.7 Neutrophils % 87 % Lymphocytes % 5 % Monocytes % 5 % Eosinophils % 2 % Basophils % 1 % Neutrophils # 16.3 H (1.3-7.7) k/uL Lymphocytes # 0.9 L (1.0-4.8) k/uL Monocytes # 0.9 (0-1.0) k/uL Eosinophils # 0.3 (0-0.7) k/uL Basophils # 0.1 (0-0.2) k/uL PT 11.0 (10.0-12.5) sec INR 1.0 (<1.2) APTT 23.9 (22.0-30.0) sec Sodium 137 (137-145) mmol/L Potassium 3.5 (3.5-5.1) mmol/L Chloride 100 (98-107) mmol/L Carbon Dioxide 25 (22-30) mmol/L Anion Gap 12 mmol/L BUN 23 H (7-17) mg/dL Creatinine 1.66 H (0.52-1.04) mg/dL Est GFR (CKD-EPI)AfAm 34 (>60 ml/min/1.73 sqM) Est GFR (CKD-EPI)NonAf 29 (>60 ml/min/1.73 sqM) Glucose 177 H (74-99) mg/dL Calcium 9.7 (8.4-10.2) mg/dL Magnesium 2.2 (1.6-2.3) mg/dL Total Bilirubin 0.7 (0.2-1.3) mg/dL AST 33 (14-36) U/L ALT 27 (4-34) U/L Alkaline Phosphatase 82 (38-126) U/L Troponin I (0.000-0.034) ng/mL NT-Pro-B Natriuret Pep 4240 pg/mL Total Protein 6.3 (6.3-8.2) g/dL Albumin 3.8 (3.5-5.0) g/dL 11/22/24 Range/Units 20:09 WBC (3.8-10.6) k/uL RBC (3.80-5.40) m/uL Hgb (11.4-16.0) gm/dL Hct (34.0-46.0) % MCV (80.0-100.0) fL MCH (25.0-35.0) pg MCHC (31.0-37.0) g/dL RDW (11.5-15.5) % Plt Count (150-450) k/uL MPV Neutrophils % % Lymphocytes % % Monocytes % % Eosinophils % % Basophils % % Neutrophils # (1.3-7.7) k/uL Lymphocytes # (1.0-4.8) k/uL Monocytes # (0-1.0) k/uL Eosinophils # (0-0.7) k/uL Basophils # (0-0.2) k/uL PT (10.0-12.5) sec INR (<1.2) APTT (22.0-30.0) sec Sodium (137-145) mmol/L Potassium (3.5-5.1) mmol/L Chloride (98-107) mmol/L Carbon Dioxide (22-30) mmol/L Anion Gap mmol/L BUN (7-17) mg/dL Creatinine (0.52-1.04) mg/dL Est GFR (CKD-EPI)AfAm (>60 ml/min/1.73 sqM) Est GFR (CKD-EPI)NonAf (>60 ml/min/1.73 sqM) Glucose (74-99) mg/dL Calcium (8.4-10.2) mg/dL Magnesium (1.6-2.3) mg/dL Total Bilirubin (0.2-1.3) mg/dL AST (14-36) U/L ALT (4-34) U/L Alkaline Phosphatase (38-126) U/L Troponin I <0.012 (0.000-0.034) ng/mL NT-Pro-B Natriuret Pep pg/mL Total Protein (6.3-8.2) g/dL Albumin (3.5-5.0) g/dL - EKG Data -: EKG Interpreted by Me (EKG is sinus tachycardia 101 DC 137 QRS 126 QTc 434) - Radiology Data Radiology results: report reviewed (Chest x-ray does show bilateral pleural effusions), image reviewed Critical Care Time Critical Care Time: Yes Total Critical Care Time: 31 Disposition Clinical Impression: Acute exacerbation of chronic obstructive pulmonary disease, Acute respiratory failure, Pulmonary edema, Pleural effusion Disposition: ADMITTED IP TO THIS HOSP Condition: Fair Is patient prescribed a controlled substance at d/c from ED?: No Referrals: Agustín Farnsworth MD [Primary Care Provider] - 1-2 days Time of Disposition: 22:00
[2024-11-22 20:16] LABS: Basophils # (A) 0.1 k/uL (0-0.2); Basophils % (A) 1 %; Eosinophils # (A) 0.3 k/uL (0-0.7); Eosinophils % (A) 2 %; HCT 42.4 % (34.0-46.0); HGB 13.4 gm/dL (11.4-16.0); Lymphocytes # (A) 0.9 k/uL (1.0-4.8); Lymphocytes % (A) 5 %; MCH 29.7 pg (25.0-35.0); MCHC 31.5 g/dL (31.0-37.0); MCV 94.2 fL (80.0-100.0); Mean Platelet Volume 7.7; Monocytes # (A) 0.9 k/uL (0-1.0); Monocytes % (A) 5 %; Neutrophils # (A) 16.3 k/uL (1.3-7.7); Neutrophils % (A) 87 %; Platelet Count 405 k/uL (150-450); RBC 4.51 m/uL (3.80-5.40); RDW 13.6 % (11.5-15.5); WBC 18.7 k/uL (3.8-10.6)
[2024-11-22 20:25] LABS: ALT 27 U/L (4-34); AST 33 U/L (14-36); African American GFR (CKD) 34 (>60 ml/min/1.73 sqM); Albumin 3.8 g/dL (3.5-5.0); Alkaline Phosphatase 82 U/L (38-126); Anion Gap 12 mmol/L; Blood Urea Nitrogen 23 mg/dL (7-17); Calcium 9.7 mg/dL (8.4-10.2); Carbon Dioxide 25 mmol/L (22-30); Chloride 100 mmol/L (98-107); Glucose 177 mg/dL (74-99); Magnesium 2.2 mg/dL (1.6-2.3); Non-African American GFR(CKD) 29 (>60 ml/min/1.73 sqM); Potassium 3.5 mmol/L (3.5-5.1); Sodium 137 mmol/L (137-145); Total Bilirubin 0.7 mg/dL (0.2-1.3); Total Protein 6.3 g/dL (6.3-8.2)
[2024-11-22 20:28] LABS: Partial Thromboplastin Time 23.9 sec (22.0-30.0)
[2024-11-22] MEDS: SODIUM CHLORIDE 0.9% 1,000 ML IV SCH (20:29)
[2024-11-22 20:34] LABS: NT-Pro-B-Type Natriuretic Pept 4240 pg/mL
[2024-11-22] MEDS: IPRATROPIUM-ALBUTEROL 3 ML NEB INHALATION STA ×3 (20:36→23:37)
--- NOTE | 2024-11-22 20:48 | XR ---
EXAMINATION TYPE: XR chest 1V portable DATE OF EXAM: 11/22/2024 8:38 PM COMPARISON: None. CLINICAL INDICATION: Female, 79 years old with history of sob, TECHNIQUE: XR chest 1V portable view(s) obtained. FINDINGS: The heart size is normal. The pulmonary vasculature is normal. There is a small left pleural effusion. Minimal right costophrenic angle fluid is present. Stents is near the epigastric region IMPRESSION: 1. Small left and minimal right pleural effusions. [facility], , 11/22/2024 8:46 PM
[2024-11-22] MEDS ORDERED: MORPHINE SULFATE 2 MG/ML SYRINGE IVP PRN (21:56)
[2024-11-22] MEDS: BENZONATATE 100 MG CAP PO STA (22:35)
[2024-11-22] MEDS: MORPHINE SULFATE 2 MG/ML SYRINGE IVP STA (22:48)
[2024-11-22] MEDS ORDERED: PNEUMONIA PROTOCOL UTILIZED 1 EACH MISC PO PRN (22:50)
[2024-11-22] MEDS ORDERED: ALBUTEROL NEBULIZED 2.5 MG/3 ML INHALATION PRN (22:50)
[2024-11-22] MEDS: AZITHROMYCIN 500 MG in SODIUM CHLORIDE 0.9% 250 ML IVPB SCH (23:18)
[2024-11-23] MEDS: TEMAZEPAM 15 MG CAP PO SCH (00:40)
[2024-11-23] MEDS: guaiFENesin SYRUP 100MG/5ML 200 MG/10 ML CUP PO PRN (01:02)
[2024-11-23 07:52] VITALS: TEMP 98.3
--- NOTE | 2024-11-23 07:52 | XR ---
EXAMINATION TYPE: XR chest 2V DATE OF EXAM: 11/23/2024 6:36 AM COMPARISON: None. CLINICAL INDICATION: Female, 79 years old with history of pneumonia, TECHNIQUE: XR chest 2V view(s) obtained. FINDINGS: The heart size is normal. The pulmonary vasculature is normal. There is a small stable left pleural effusion. IMPRESSION: 1. Small stable left pleural effusion [facility], , 11/23/2024 7:49 AM
[2024-11-23] MEDS: CLOPIDOGREL 75 MG TAB PO SCH (08:13)
[2024-11-23] MEDS: FUROSEMIDE 20 MG TAB PO SCH (08:13)
[2024-11-23] MEDS: amLODIPine 10 MG TAB PO SCH (08:13)
[2024-11-23] MEDS: hydrALAZINE HCL 25 MG TAB PO SCH (08:14)
[2024-11-23] MEDS: ASPIRIN 81 MG PO SCH (08:14)
[2024-11-23] MEDS: ISOSORBIDE MONONITRATE ER 30 MG TAB.ER.24H PO SCH (08:14)
[2024-11-23 10:36] VITALS: RESP 18
--- NOTE | 2024-11-23 12:02 | P.CNPUL ---
History of Present Illness Consult date: 11/23/24 Reason for consult: dyspnea History of present illness: This is a 76-year-old female patient, known history of COPD, followed up in the pulmonary clinic, presenting with symptoms of increased dyspnea, cough, some chest tightness and wheezing. No fever. No chills. No altered mentation. No chest pain. No pleurisy or hemoptysis. The white cell count of 18.7 with a hemoglobin 13.4 and platelet count of 405. Normal coagulation profile. She has chronic stage III kidney disease and the creatinine remained stable at 1.6. BUN 23. Electrolytes are normal. LFTs are normal. Troponins are negative. proBNP level is 4240. Chest x-ray was done in the emergency room shows a small left- sided pleural effusion. No airspace disease or consolidation. The patient is currently on room air oxygen and the patient is ambulating without any major difficulties. She is able to maintain a pulse ox above 92%. She was started on empiric antibiotic coverage with IV Rocephin and Zithromax. Rest of the medications are essentially unchanged. EKG showed sinus rhythm with some limited intraventricular conduction delay. Troponins were negative x 1. Review of Systems CONSTITUTIONAL: Denies any recent significant weight loss or weight gain. EYES: Denies change in vision. EARS, NOSE, MOUTH, THROAT: Denies headaches, denies sore throat. CARDIOVASCULAR: Denies chest pain, palpitations or syncopal episodes. RESPIRATORY: See HPI GASTROINTESTINAL: Denies change in appetite, abdominal pain, nausea and vomiting, or diarrhea GENITOURINARY: Denies hematuria, denies infections. MUSKULOSKELETAL: Denies pain, denies swelling. INTEGUMENTARY: Denies rash, denies eczema. NEUROLOGICAL: Denies recent memory loss, no recent seizure activity. PSYCHIATRIC: Denies anxiety, denies depression. HEMATOLOGIC/LYMPHATIC: Denies anemia, denies enlarged lymph node Past Medical History Past Medical History: Cancer, Heart Failure, Hyperlipidemia, Hypertension, P neumonia, Renal Disease Additional Past Medical History / Comment(s): acute kidney injury/cervical pain, hyperlipidemia but cannot tolerate statins, skin cancer-nose, rheumatoid arthritis, diverticulitis with sepsis, abdominal aneursym, degenerative disc disease/chronic pain at cervical spine, CHF, kidney failure Last Myocardial Infarction Date:: unknown History of Any Multi-Drug Resistant Organisms: None Reported Past Surgical History: Adenoidectomy, Appendectomy, Cholecystectomy, Hysterectomy, Orthopedic Surgery, Tonsillectomy Additional Past Surgical History / Comment(s): L knee arthroscopy d/t effusion, R wrist ganglion cyst surgeries x 3, skin cancer removed from nose, bilateral cataract removals/lens implants. stents, EVAR with bilateral renal stent chimneys, attempted aneurysm repair 06/08 Past Anesthesia/Blood Transfusion Reactions: No Reported Reaction Additional Past Anesthesia/Blood Transfusion Reaction / Comment(s): CHILDREN=PONV Past Psychological History: No Psychological Hx Reported Additional Psychological History / Comment(s): Pt has an adult daughter residing with her. Pt uses no assistive device. She does not drive, her daughter or family take her to appointments. Smoking Status: Current every day smoker Past Alcohol Use History: None Reported Additional Past Alcohol Use History / Comment(s): Pt started smoking at age 20 smokes 1ppd Past Drug Use History: None Reported - Past Family History Mother Family Medical History: Dementia Father History Unknown: Yes Family Medical History: No Reported History Daughter(s) Family Medical History: Cancer Additional Family Medical History / Comment(s): Daughter survived breast cancer. Medications and Allergies Home Medications Medication Instructions Recorded Confirmed Type Aspirin 81 mg PO DAILY #30 chew 09/20/20 11/23/24 Rx Isosorbide Mononitrate ER [Imdur] 30 mg PO DAILY #30 tab.er.24h 09/20/20 11/23/24 Rx Metoprolol Tartrate [Lopressor] 25 mg PO TID #90 tab 09/20/20 11/23/24 Rx Clopidogrel [Plavix] 75 mg PO DAILY 03/25/21 11/23/24 History Temazepam [Restoril] 15 mg PO HS 03/25/21 11/23/24 History Furosemide [Lasix] 20 mg PO DAILY 04/30/24 11/23/24 History amLODIPine [Norvasc] 10 mg PO DAILY 04/30/24 11/23/24 History hydrALAZINE HCL 25 mg PO TID 04/30/24 11/23/24 History Azithromycin [Zithromax] 250 mg PO DAILY 11/23/24 11/23/24 History Allergies Allergy/AdvReac Type Severity Reaction Status Date / Time codeine Allergy Rash/Hives Verified 11/23/24 08:57 morphine Allergy Rash/Hives Verified 11/23/24 08:57 Penicillins Allergy Rash/Hives Verified 11/23/24 08:57 Egmpihf-GTK-LjA Reductase Allergy Itching Verified 11/23/24 08:57 Inhibitor [Eisskns-Mlx-Evu Reductase Inhibitor] any cholesterol medications Allergy Itching Uncoded 11/23/24 08:57 Physical Exam Vitals: Vital Signs Temp Pulse Pulse Resp BP BP Pulse Ox 11/23/24 07:00 98.3 F 96 19 136/63 95 11/23/24 02:40 98.7 F 91 14 128/59 95 11/22/24 23:46 99.0 F 105 H 15 148/56 94 L 11/22/24 23:22 101 H 20 142/66 95 11/22/24 22:41 102 H 18 129/55 93 L 11/22/24 20:48 105 H 11/22/24 20:37 100 11/22/24 20:20 20 11/22/24 19:53 99.3 F 100 26 H 130/67 88 L Intake and Output 11/22/24 11/23/24 11/23/24 22:59 06:59 14:59 Other: # Voids 2 Weight 37.648 kg 37.648 kg GENERAL EXAM: Alert, frail, pleasant 77-year-old female, sitting up in bed, on room air oxygen, calm and comfortable HEAD: Normocephalic. EYES: Normal reaction of pupils, equal size. NOSE: Clear with pink turbinates. THROAT: No erythema or exudates. NECK: No masses, no JVD. CHEST: No chest wall deformity. LUNGS: E few scattered expiratory wheeze, otherwise adequate air entry bilaterally. CVS: S1 and S2 normal with no audible murmur, regular rhythm. ABDOMEN: No hepatosplenomegaly, normal bowel sounds, no guarding or rigidity. SPINE: Kyphosis SKIN: No rashes CENTRAL NERVOUS SYSTEM: No focal deficits, tone is normal in all 4 extremities. EXTREMITIES: There is no peripheral edema. No clubbing, no cyanosis. Peripheral pulses are intact. Results - Laboratory Findings CBC and BMP: 11/22/24 20:09 11/22/24 20:09 PT/INR, D-dimer PT 11.0 sec (10.0-12.5) 11/22/24 20:09 INR 1.0 (<1.2) 11/22/24 20:09 Abnormal lab findings: Abnormal Labs 11/22/24 11/22/24 20:09 20:09 WBC 18.7 H Neutrophils # 16.3 H Lymphocytes # 0.9 L BUN 23 H Creatinine 1.66 H Glucose 177 H - Diagnostic Findings Chest x-ray: image reviewed Assessment and Plan Plan: Acute on chronic shortness of breath. The patient is known to have chronic COPD. Nevertheless, the presentation is more consistent with CHF as the patient has developed a small left-sided pleural effusion. She is known to have chronic valvular heart disease with moderate/severe mitral regurgitation and preserved LV function based on a previous echocardiogram. proBNP level is elevated. Pneumonia is doubtful. No significant hypoxemia the patient is currently on room air oxygen. Leukocytosis COPD, currently inactive and stable Acute hypoxemic respiratory failure secondary to above, currently on 3 L nasal cannula Coronary artery disease History of diastolic congestive heart failure with moderate to severe mitral regurgitation, stable Essential hypertension Hyperlipidemia Chronic kidney disease stage IV History peripheral vascular disease Chronic nicotine dependence. Smokes approximately 1 pack per day, and she is trying to cut back Plan Repeat echocardiogram to evaluate the LV function and mitral valve function Give additional dose of Lasix 40 mg IV push Monitor renal function Antibiotic coverage is empiric and monitor the white cell count Patient is currently on room air oxygen COPD stable Renal function stable Will continue to follow Time with Patient: Greater than 30
[2024-11-23 15:19] VITALS: BP 151/67; PULSE 104
--- NOTE | 2024-11-23 21:51 | HP ---
HISTORY AND PHYSICAL This is a combination of history and physical and discharge summary. CHIEF COMPLAINT: Shortness of breath. HISTORY OF PRESENT ILLNESS: This is a 79-year-old woman with a past medical history of multiple medical problems including COPD, was admitted with shortness of breath and cough and sputum. The patient was found to have a combination of COPD and CHF exacerbation, mostly CHF per Dr. Bai. I would also recommend a short course of antibiotic also. The patient improved significantly. The patient is extremely keen on going home at this time. Dr. Bai cleared her for discharge. There is no history of any fever, rigors, or chills. PAST MEDICAL HISTORY: CHF, hypertension, hyperlipidemia. Dose and rest of medications noted. HOME MEDICATIONS: Aspirin. Dose and rest of medications noted. ALLERGIES: Codeine. Rest of allergies noted. FAMILY HISTORY: Breast cancer in the daughter. SOCIAL HISTORY: Current smoking. REVIEW OF SYSTEMS: Fourteen-point review is negative except as mentioned earlier. PHYSICAL EXAMINATION: VITAL SIGNS: Pulse is 96, blood pressure 130/63, respirations 19. HEENT: Conjunctivae normal. NECK: No JVD. CARDIOVASCULAR: S1, S2. RESPIRATIONS: Breath sounds diminished at the bases. Bilateral scattered rhonchi and crackles. ABDOMEN: Soft, nontender. LEGS: No edema. NERVOUS SYSTEM: Nonfocal. LABORATORY DATA: Creatinine 1.6. ASSESSMENT: 1. Shortness of breath multifactorial with possible congestive heart failure and chronic obstructive pulmonary disease acute exacerbation. 2. Small left and minimal right pleural effusion without any evidence of pneumonia, possibly acute purulent tracheobronchitis. 3. History of hypertension. 4. Hyperlipidemia. 5. History of acute kidney injury. 6. Appendectomy. RECOMMENDATIONS AND DISCUSSION: This is a 79-year-old woman, who presented with multiple medical issues, we will monitor the patient closely. I would recommend continue with current medications. The patient gotten a dose of antibiotic and as well as extra doses of diuretics. Dr. Bai cleared the patient for discharge. The patient is extremely keen on going home. I would recommend the patient to be started on bronchodilators. Continue with Lasix and follow with Cardio and Pulmonary in the outpatient setting. Once again, the prognosis extremely guarded. Smoking cessation recommended. The patient is not willing to stay. MMODL / IJN: [id number] /
== END 2024-11-23 15:40 | disposition home or self-care (01) | DRG 190 ==
LOC: EC 19:49 → 6NMEDSUR 22:51
PROVIDERS: ADMIT Hospitalist; ATTEND Hospitalist
DX: J44.0 Chronic obstructive pulmonary disease with (acute) lower respiratory infection (principal); I50.33 Acute on chronic diastolic (congestive) heart failure; J96.01 Acute respiratory failure with hypoxia; I13.0 Hypertensive heart and chronic kidney disease with heart failure and stage 1 through stage 4 chronic kidney disease, or unspecified chronic kidney disease; J44.1 Chronic obstructive pulmonary disease with (acute) exacerbation; N18.30 Chronic kidney disease, stage 3 unspecified; I73.9 Peripheral vascular disease, unspecified; I34.0 Nonrheumatic mitral (valve) insufficiency; I45.9 Conduction disorder, unspecified; J20.9 Acute bronchitis, unspecified; E78.5 Hyperlipidemia, unspecified; M54.2 Cervicalgia; F17.210 Nicotine dependence, cigarettes, uncomplicated; Z79.82 Long term (current) use of aspirin; Z79.02 Long term (current) use of antithrombotics/antiplatelets; Z79.899 Other long term (current) drug therapy; Z85.828 Personal history of other malignant neoplasm of skin; Z96.0 Presence of urogenital implants; Z88.5 Allergy status to narcotic agent; Z88.0 Allergy status to penicillin; Z88.8 Allergy status to other drugs, medicaments and biological substances
CPT/HCPCS: 36415; 71045; 71046; 80053; 83605; 83735; 83880; 84484; 85025; 85610; 85730; 87040; 87449; 93005; 94640; 96365; 96375; 99291